=== PATIENT | female | born 1955 | race Two or more races ===

== ENCOUNTER 2016-07-26 15:17 | Inpatient (IN) | payer MEDICARE, OTHER ==
[~2016-07-26] VITALS: Ht 160 cm; Wt 70.3 kg
[~2016-07-26 15:17] MED LIST: ACET160S3 GT; ACID1TAB12 GT; ALLO100T GT; AMIO200T2 GT; ASCO500S2 GT; BLOO-697 IN; BUDE0.5A6 IH; CHOL4PAC9 GT; ESCI10TA GT; INSU100V27 SQ; INSU100V7 SQ; IPRA3AMP IH; METO5SOL2 GT; MIDO10TA GT; MULT-659 GT; NEOM1PAC2 TP; NUTR100037 GT; OXYC-128 GT; PANT40SU2 GT; PIPE2.2512 IV; POLY17PO4 GT; PYRI50TA93 GT; SUCR1ORA6 GT
[2016-07-26 16:13] VITALS: BP 121/74
[2016-07-26 16:31] LABS: BASOPHILS # (AUTO) 0.3 /CMM (0.0-0.2); BASOPHILS % (AUTO) 1.1 % (0.0-2.0); DIFF TOTAL % 100 %; EOSINOPHILS % (AUTO) 0.1 % (0.0-6.0); HEMATOCRIT 37 % (33-45); HEMOGLOBIN 11.5 g/dL (11.5-14.8); LYMPHOCYTES # (AUTO) 1.3 /CMM (0.8-4.8); LYMPHOCYTES % (AUTO) 4.6 % (20.0-44.0); MEAN CORPUSCULAR HEMOGLOBIN 26 PG (26.0-33.0); MEAN CORPUSCULAR HGB CONC 31 g/dl (31.0-36.0); MEAN CORPUSCULAR VOLUME 84 fL (82-100); MONOCYTES # (AUTO) 1.7 /CMM (0.1-1.30); MONOCYTES % (AUTO) 6.1 % (2.0-12.0); NEUTROPHILS # (AUTO) 24.5 /CMM (1.8-8.9); NEUTROPHILS % (AUTO) 88.1 % (43.0-81.0); PLATELET COUNT (AUTO) 182 /CMM (150-450); RED BLOOD CELL COUNT(AUTO) 4.44 MIL/uL (4.0-5.2); WHITE BLOOD COUNT (AUTO) 27.8 K/uL (4.3-11.0)
[2016-07-26] MEDS ORDERED: INSU100I19 SQ (16:44)
[2016-07-26] MEDS ORDERED: INSU100V11 SQ (16:44)
[2016-07-26] MEDS ORDERED: AMIN30LI4 GT (16:44)
[2016-07-26] MEDS ORDERED: HYDR-3326 GT (16:44)
[2016-07-26] MEDS ORDERED: FAMO20TA8 GT (16:44)
[2016-07-26] MEDS ORDERED: FOLI0.8T2 GT (16:44)
[2016-07-26] MEDS ORDERED: WARF1TAB47 PO (16:44)
[2016-07-26] MEDS ORDERED: SENN8.6T6 GT (16:44)
[2016-07-26 16:45] LABS: INR 1.91 (0.87-1.13); PROTHROMBIN TIME 20.1 SECS (9.5-12.7)
[2016-07-26] MEDS ORDERED: IV NS 0.9% 1,000 ML ONE (16:47)
[2016-07-26] MEDS ORDERED: IV SET PRIMARY 1 EA INFUS.SET MC ONE (16:47)
[2016-07-26 16:48] LABS: ALBUMIN 2.5 g/dL (3.4-5.0); BILIRUBIN,DIRECT 0.3 mg/dL (0.0-0.2); BILIRUBIN,TOTAL 0.7 mg/dL (0.2-1.0); CALCIUM, SERUM 10.5 mg/dL (8.5-10.1); INDIRECT BILIRUBIN 0.4 mg/dL (0.0-1.1); POTASSIUM 4.2 mmol/L (3.5-5.1); TOTAL PROTEIN, SERUM 8.9 g/dL (6.4-8.2)
[2016-07-26 16:50] LABS: TROPONIN I 0.399 ng/mL (0.00-0.056)
[2016-07-26 16:54] LABS: LACTIC ACID 1.2 mmol/L (0.4-2.0)
[2016-07-26] MEDS ORDERED: VANCOMYCIN 1 GM in IV D5W 250 ML IV ONE (17:30)
[2016-07-26] MEDS ORDERED: PIPERACILLIN /TAZOBACTAM 3.375 G in IV D5W 50 ML IV ONE (17:30)
[2016-07-26 17:41] LABS: ANISOCYTOSIS 1+; BAND % (MANUAL) 3 % (0.0-5.0); LYMPHOCYTES % (MANUAL) 5 % (16-48); PLATELET ESTIMATE ADEQUATE
[2016-07-26] MEDS ORDERED: IV SET PRIMARY PUMP SET 1 EA INFUS.SET MC ONE (18:02)
[2016-07-26 19:27] VITALS: BP 115/53
[2016-07-26 20:00] VITALS: BP 126/59
[2016-07-26] MEDS ORDERED: FEE PK DOSING 1 MIN EA MC ONE (20:48)
[2016-07-26] MEDS ORDERED: PIPERACILLIN /TAZOBACTAM 3.375 G in IV D5W 50 ML IV SCH (21:00)
[2016-07-26] MEDS ORDERED: METOCLOPRAMIDE HCL 10 MG/10 ML UDC GT PRN (21:30)
[2016-07-26] MEDS ORDERED: HOME MED MISCELLANEOUS XX SCH (21:30)
[2016-07-26] MEDS: FAMOTIDINE (20 MG) 20 MG TABLET GT SCH (22:53)
[2016-07-26] MEDS: ESCITALOPRAM OXALATE (10 MG) 10 MG TABLET GT SCH (22:53)
[2016-07-26] MEDS: BLOOD SUGAR DIAGNOSTIC 1 EACH STRIP IN SCH ×2 (23:29→23:52)
[2016-07-26] MEDS ORDERED: INSULIN DETEMIR 100 UNIT/ML CARTRIDGE SQ ONE (23:33)
[2016-07-26] MEDS ORDERED: INSULIN ASPART NOVOLOG 100 UNIT/ML CARTRIDGE SQ ONE (23:34)
[2016-07-26] MEDS ORDERED: RENAL NOVASOURCE 1,000 ML BOTTLE ONE (23:37)
[2016-07-26] MEDS: INSULIN DETEMIR 100 UNIT/ML CARTRIDGE SQ SCH (23:57)
[2016-07-26] MEDS: INSULIN ASPART NOVOLOG 100 UNIT/ML CARTRIDGE SQ PRN (23:59)
[2016-07-27] VITALS (8 sets, daily range): BP systolic 102–131; BP diastolic 52–75
[2016-07-27] MEDS ORDERED: DEXTROSE 50%-WATER 50 ML DISP.SYRIN IV PRN
[2016-07-27] MEDS ORDERED: RENAL NOVASOURCE 1,000 ML BOTTLE GT PRN
[2016-07-27] MEDS ORDERED: IV SET PRIMARY PUMP SET 1 EA INFUS.SET MC ONE ×3 (05:33→20:33)
[2016-07-27] MEDS: PIPERACILLIN /TAZOBACTAM 2.25 G in IV D5W 50 ML IV SCH ×2 (06:07→13:09)
[2016-07-27] MEDS: BLOOD SUGAR DIAGNOSTIC 1 EACH STRIP IN SCH ×4 (06:07→17:56)
[2016-07-27] MEDS: INSULIN ASPART NOVOLOG 100 UNIT/ML CARTRIDGE SQ PRN ×4 (06:10→22:53)
[2016-07-27 06:57] LABS: DIFF TOTAL % 100 %; EOSINOPHILS # (AUTO) 0.1 /CMM (0.0-0.7); EOSINOPHILS % (AUTO) 0.7 % (0.0-6.0); HEMATOCRIT 32 % (33-45); LYMPHOCYTES # (AUTO) 0.8 /CMM (0.8-4.8); LYMPHOCYTES % (AUTO) 3.9 % (20.0-44.0); MEAN CORPUSCULAR HEMOGLOBIN 26 PG (26.0-33.0); MEAN CORPUSCULAR HGB CONC 31 g/dl (31.0-36.0); MEAN CORPUSCULAR VOLUME 84 fL (82-100); MONOCYTES # (AUTO) 0.9 /CMM (0.1-1.30); MONOCYTES % (AUTO) 4.7 % (2.0-12.0); NEUTROPHILS # (AUTO) 17.9 /CMM (1.8-8.9); NEUTROPHILS % (AUTO) 90.7 % (43.0-81.0); PLATELET COUNT (AUTO) 186 /CMM (150-450); RED BLOOD CELL COUNT(AUTO) 3.84 MIL/uL (4.0-5.2); WHITE BLOOD COUNT (AUTO) 19.7 K/uL (4.3-11.0)
[2016-07-27 07:11] LABS: INR 1.81 (0.87-1.13); PROTHROMBIN TIME 19.7 SECS (9.5-12.7)
[2016-07-27 07:30] LABS: PHOSPHORUS 2.4 mg/dL (2.5-4.9)
[2016-07-27] MEDS ORDERED: VANCOMYCIN 500 MG in IV D5W 100 ML IV PRN (09:00)
[2016-07-27] MEDS: PROSOURCE / PROSTAT (PYXIS) 30 ML UDC GT SCH ×3 (13:00→17:59)
[2016-07-27] MEDS: ACIDOPHILUS/BULGARICUS 1 EACH TAB.CHEW GT SCH (13:04)
[2016-07-27] MEDS: POLYETHYLENE GLYCOL 3350 17 GM POWD.PACK GT SCH (13:05)
[2016-07-27] MEDS: ALLOPURINOL 100 MG TABLET GT SCH (13:05)
[2016-07-27] MEDS: PYRIDOXINE HCL 50 MG TABLET GT SCH (13:07)
[2016-07-27] MEDS: VIT B CMPLX 3/FA/VIT C/BIOTIN 1 TAB TABLET PO SCH (13:07)
[2016-07-27] MEDS: SENNOSIDES 8.6 MG TABLET GT SCH ×2 (13:07→17:00)
[2016-07-27] MEDS: AMIODARONE HCL 200 MG TABLET GT SCH (13:09)
[2016-07-27] MEDS: CHOLESTYRAMINE/ASPARTAME 4 G/PKT PACKET PO SCH ×2 (13:10→20:00)
[2016-07-27] MEDS ORDERED: ALBUTEROL FS 2.5 MG/0.5 ML VIAL.NEB NEB PRN (13:30)
[2016-07-27] MEDS ORDERED: IPRATROPIUM NEB FS 0.5 MG/2.5 ML AMPUL.NEB NEB PRN (13:30)
[2016-07-27] MEDS ORDERED: WARFARIN SODIUM 1 MG TABLET PO SCH (17:00)
[2016-07-27] MEDS: IPRATROPIUM NEB FS 0.5 MG/2.5 ML AMPUL.NEB NEB SCH (19:48)
[2016-07-27] MEDS: ALBUTEROL FS 2.5 MG/0.5 ML VIAL.NEB NEB SCH (19:48)
[2016-07-27] MEDS: METRONIDAZOLE 500 MG TABLET PO SCH (20:00)
[2016-07-27] MEDS: MEROPENEM 500 MG in IV NS 0.9% 50 ML IV SCH (20:42)
[2016-07-27] MEDS: FAMOTIDINE (20 MG) 20 MG TABLET GT SCH (21:00)
[2016-07-27] MEDS: ESCITALOPRAM OXALATE (10 MG) 10 MG TABLET GT SCH (21:00)
[2016-07-27] MEDS: INSULIN DETEMIR 100 UNIT/ML CARTRIDGE SQ SCH (22:52)
[2016-07-28] VITALS (8 sets, daily range): BP systolic 100–133; BP diastolic 48–56
[2016-07-28] MEDS: BLOOD SUGAR DIAGNOSTIC 1 EACH STRIP IN SCH ×4 (00:40→17:34)
[2016-07-28] MEDS: RENAL NOVASOURCE 1,000 ML BOTTLE GT PRN (03:43)
[2016-07-28] MEDS: METRONIDAZOLE 500 MG TABLET PO SCH ×2 (05:50→12:30)
[2016-07-28] MEDS: INSULIN ASPART NOVOLOG 100 UNIT/ML CARTRIDGE SQ PRN ×3 (05:59→17:44)
[2016-07-28 07:16] LABS: DIFF TOTAL % 100 %; EOSINOPHILS # (AUTO) 0.5 /CMM (0.0-0.7); EOSINOPHILS % (AUTO) 3.3 % (0.0-6.0); HEMATOCRIT 32 % (33-45); LYMPHOCYTES # (AUTO) 0.7 /CMM (0.8-4.8); LYMPHOCYTES % (AUTO) 5.3 % (20.0-44.0); MEAN CORPUSCULAR HEMOGLOBIN 26 PG (26.0-33.0); MEAN CORPUSCULAR HGB CONC 31 g/dl (31.0-36.0); MEAN CORPUSCULAR VOLUME 84 fL (82-100); MONOCYTES # (AUTO) 0.8 /CMM (0.1-1.30); MONOCYTES % (AUTO) 5.9 % (2.0-12.0); NEUTROPHILS # (AUTO) 11.7 /CMM (1.8-8.9); NEUTROPHILS % (AUTO) 85.5 % (43.0-81.0); PLATELET COUNT (AUTO) 189 /CMM (150-450); RED BLOOD CELL COUNT(AUTO) 3.84 MIL/uL (4.0-5.2); WHITE BLOOD COUNT (AUTO) 13.7 K/uL (4.3-11.0)
[2016-07-28] MEDS: IPRATROPIUM NEB FS 0.5 MG/2.5 ML AMPUL.NEB NEB SCH ×2 (07:30→19:17)
[2016-07-28] MEDS: ALBUTEROL FS 2.5 MG/0.5 ML VIAL.NEB NEB SCH ×2 (07:36→19:17)
[2016-07-28 07:52] LABS: CALCIUM, SERUM 9.3 mg/dL (8.5-10.1); CREATININE 3.1 mg/dL (0.6-1.3); PHOSPHORUS 1.3 mg/dL (2.5-4.9); POTASSIUM 3.2 mmol/L (3.5-5.1)
[2016-07-28] MEDS: POLYETHYLENE GLYCOL 3350 17 GM POWD.PACK GT SCH (09:31)
[2016-07-28] MEDS: ACIDOPHILUS/BULGARICUS 1 EACH TAB.CHEW GT SCH (09:31)
[2016-07-28] MEDS: CHOLESTYRAMINE/ASPARTAME 4 G/PKT PACKET PO SCH (09:31)
[2016-07-28] MEDS: PROSOURCE / PROSTAT (PYXIS) 30 ML UDC GT SCH ×3 (09:31→17:42)
[2016-07-28] MEDS: PYRIDOXINE HCL 50 MG TABLET GT SCH (09:31)
[2016-07-28] MEDS: ALLOPURINOL 100 MG TABLET GT SCH (09:31)
[2016-07-28] MEDS: AMIODARONE HCL 200 MG TABLET GT SCH (09:32)
[2016-07-28] MEDS: SENNOSIDES 8.6 MG TABLET GT SCH ×2 (09:32→17:42)
[2016-07-28] MEDS: MEROPENEM 500 MG in IV NS 0.9% 50 ML IV SCH ×2 (09:32→21:33)
[2016-07-28] MEDS: VIT B CMPLX 3/FA/VIT C/BIOTIN 1 TAB TABLET PO SCH (09:41)
[2016-07-28] MEDS ORDERED: IV NS 0.9% 250 ML IV ONE (09:43)
[2016-07-28] MEDS ORDERED: PLATELET IV SET 1 EA INFUS.SET MC ONE (09:43)
[2016-07-28] MEDS: NEOMY SULF/BACITRAC ZN/POLY 15 GM TUBE TP SCH (10:30)
[2016-07-28] MEDS ORDERED: Z GUARD REMEDY 2 OZ OINT TP PRN (11:00)
[2016-07-28] MEDS: Potassium Phosphate meq 11 MEQ in IV D5W 100 ML IV SCH ×2 (11:02→13:37)
[2016-07-28] MEDS: HYDROGEL DRESSING 90 GM TUBE TP SCH (12:29)
[2016-07-28] MEDS: Z GUARD REMEDY 2 OZ OINT TP SCH ×2 (12:29→17:00)
[2016-07-28] MEDS: HYDROCODONE/APAP 5/325MG 1 EACH TABLET GT PRN (17:42)
[2016-07-28] MEDS ORDERED: CHOLESTYRAMINE/ASPARTAME 4 G/PKT PACKET ONE (21:17)
[2016-07-28] MEDS ORDERED: METRONIDAZOLE 500 MG TABLET ONE (21:17)
[2016-07-28] MEDS: FAMOTIDINE (20 MG) 20 MG TABLET GT SCH (21:33)
[2016-07-28] MEDS: ESCITALOPRAM OXALATE (10 MG) 10 MG TABLET GT SCH (21:33)
[2016-07-28] MEDS: METRONIDAZOLE 500 MG TABLET GT SCH (21:33)
[2016-07-28] MEDS ORDERED: SECONDARY IV SET 1 EA INFUS.SET MC ONE (21:52)
[2016-07-28] MEDS: INSULIN DETEMIR 100 UNIT/ML CARTRIDGE SQ SCH (22:22)
[2016-07-28] MEDS: CHOLESTYRAMINE/ASPARTAME 4 G/PKT PACKET GT SCH (23:03)
[2016-07-29] VITALS (7 sets, daily range): BP systolic 96–112; BP diastolic 49–60
[2016-07-29] MEDS: BLOOD SUGAR DIAGNOSTIC 1 EACH STRIP IN SCH ×4 (00:48→17:43)
[2016-07-29] MEDS: INSULIN ASPART NOVOLOG 100 UNIT/ML CARTRIDGE SQ PRN ×4 (00:49→22:31)
[2016-07-29] MEDS: RENAL NOVASOURCE 1,000 ML BOTTLE GT PRN (04:13)
[2016-07-29] MEDS ORDERED: METRONIDAZOLE 500 MG TABLET ONE (05:30)
[2016-07-29] MEDS: METRONIDAZOLE 500 MG TABLET GT SCH ×3 (05:33→22:12)
[2016-07-29 07:12] LABS: CALCIUM, SERUM 9.6 mg/dL (8.5-10.1); POTASSIUM 3.7 mmol/L (3.5-5.1)
[2016-07-29] MEDS: IPRATROPIUM NEB FS 0.5 MG/2.5 ML AMPUL.NEB NEB SCH ×2 (07:54→19:49)
[2016-07-29] MEDS: ALBUTEROL FS 2.5 MG/0.5 ML VIAL.NEB NEB SCH ×2 (07:54→19:49)
[2016-07-29] MEDS: NEOMY SULF/BACITRAC ZN/POLY 15 GM TUBE TP SCH (09:00)
[2016-07-29] MEDS: HYDROGEL DRESSING 90 GM TUBE TP SCH (09:00)
[2016-07-29] MEDS: Z GUARD REMEDY 2 OZ OINT TP SCH ×2 (09:00→17:43)
[2016-07-29] MEDS: PROSOURCE / PROSTAT (PYXIS) 30 ML UDC GT SCH ×3 (13:15→17:41)
[2016-07-29] MEDS: VIT B CMPLX 3/FA/VIT C/BIOTIN 1 TAB TABLET PO SCH (13:15)
[2016-07-29] MEDS: CHOLESTYRAMINE/ASPARTAME 4 G/PKT PACKET GT SCH ×2 (13:15→22:13)
[2016-07-29] MEDS: POLYETHYLENE GLYCOL 3350 17 GM POWD.PACK GT SCH (13:15)
[2016-07-29] MEDS: PYRIDOXINE HCL 50 MG TABLET GT SCH (13:16)
[2016-07-29] MEDS: ALLOPURINOL 100 MG TABLET GT SCH (13:16)
[2016-07-29] MEDS: SENNOSIDES 8.6 MG TABLET GT SCH ×2 (13:17→17:41)
[2016-07-29] MEDS: AMIODARONE HCL 200 MG TABLET GT SCH (13:18)
[2016-07-29] MEDS: ACIDOPHILUS/BULGARICUS 1 EACH TAB.CHEW GT SCH (13:19)
[2016-07-29] MEDS: MEROPENEM 500 MG in IV NS 0.9% 50 ML IV SCH (13:20)
[2016-07-29] MEDS ORDERED: FEE PK DOSING 1 MIN EA MC ONE (15:51)
[2016-07-29] MEDS ORDERED: GENTAMICIN 100 MG in IV D5W 100 ML IV ONE (17:00)
[2016-07-29] MEDS: ESCITALOPRAM OXALATE (10 MG) 10 MG TABLET GT SCH (22:12)
[2016-07-29] MEDS: FAMOTIDINE (20 MG) 20 MG TABLET GT SCH (22:13)
[2016-07-29] MEDS: INSULIN DETEMIR 100 UNIT/ML CARTRIDGE SQ SCH (22:21)
[2016-07-30] VITALS (8 sets, daily range): BP systolic 96–118; BP diastolic 49–69
[2016-07-30] MEDS: BLOOD SUGAR DIAGNOSTIC 1 EACH STRIP IN SCH ×4 (01:39→17:11)
[2016-07-30] MEDS: METRONIDAZOLE 500 MG TABLET GT SCH ×3 (06:12→22:30)
[2016-07-30] MEDS: INSULIN ASPART NOVOLOG 100 UNIT/ML CARTRIDGE SQ PRN ×3 (06:15→22:33)
[2016-07-30] MEDS: RENAL NOVASOURCE 1,000 ML BOTTLE GT PRN (06:22)
[2016-07-30] MEDS: ALBUTEROL FS 2.5 MG/0.5 ML VIAL.NEB NEB SCH ×2 (07:15→19:46)
[2016-07-30] MEDS: IPRATROPIUM NEB FS 0.5 MG/2.5 ML AMPUL.NEB NEB SCH ×2 (07:16→19:47)
[2016-07-30 07:20] LABS: BASOPHILS % (AUTO) 0.2 % (0.0-2.0); DIFF TOTAL % 100 %; EOSINOPHILS # (AUTO) 0.8 /CMM (0.0-0.7); EOSINOPHILS % (AUTO) 5.6 % (0.0-6.0); HEMATOCRIT 32 % (33-45); LYMPHOCYTES # (AUTO) 0.7 /CMM (0.8-4.8); LYMPHOCYTES % (AUTO) 5.2 % (20.0-44.0); MEAN CORPUSCULAR HEMOGLOBIN 27 PG (26.0-33.0); MEAN CORPUSCULAR HGB CONC 32 g/dl (31.0-36.0); MEAN CORPUSCULAR VOLUME 84 fL (82-100); MONOCYTES # (AUTO) 0.8 /CMM (0.1-1.30); MONOCYTES % (AUTO) 5.6 % (2.0-12.0); NEUTROPHILS % (AUTO) 83.4 % (43.0-81.0); PLATELET COUNT (AUTO) 179 /CMM (150-450); RED BLOOD CELL COUNT(AUTO) 3.77 MIL/uL (4.0-5.2); WHITE BLOOD COUNT (AUTO) 14.4 K/uL (4.3-11.0)
[2016-07-30 07:41] LABS: CALCIUM, SERUM 9.3 mg/dL (8.5-10.1); CREATININE 3.4 mg/dL (0.6-1.3); PHOSPHORUS 2.5 mg/dL (2.5-4.9); POTASSIUM 3.8 mmol/L (3.5-5.1)
[2016-07-30 07:50] LABS: INR 1.43 (0.87-1.13); PROTHROMBIN TIME 15.5 SECS (9.5-12.7)
[2016-07-30] MEDS: Z GUARD REMEDY 2 OZ OINT TP SCH ×2 (09:00→17:10)
[2016-07-30] MEDS: ACIDOPHILUS/BULGARICUS 1 EACH TAB.CHEW GT SCH (09:00)
[2016-07-30] MEDS: HYDROGEL DRESSING 90 GM TUBE TP SCH (09:00)
[2016-07-30] MEDS: NEOMY SULF/BACITRAC ZN/POLY 15 GM TUBE TP SCH (09:00)
[2016-07-30] MEDS: CHOLESTYRAMINE/ASPARTAME 4 G/PKT PACKET GT SCH ×2 (09:00→22:30)
[2016-07-30] MEDS: PYRIDOXINE HCL 50 MG TABLET GT SCH (09:00)
[2016-07-30] MEDS: PROSOURCE / PROSTAT (PYXIS) 30 ML UDC GT SCH ×3 (09:00→17:00)
[2016-07-30] MEDS: VIT B CMPLX 3/FA/VIT C/BIOTIN 1 TAB TABLET PO SCH (09:00)
[2016-07-30] MEDS: POLYETHYLENE GLYCOL 3350 17 GM POWD.PACK GT SCH (09:00)
[2016-07-30] MEDS: AMIODARONE HCL 200 MG TABLET GT SCH (09:00)
[2016-07-30] MEDS: ALLOPURINOL 100 MG TABLET GT SCH (09:00)
[2016-07-30] MEDS: SENNOSIDES 8.6 MG TABLET GT SCH ×2 (09:00→17:00)
[2016-07-30] MEDS ORDERED: IV D5/ 0.9% NACL 1,000 ML IV PRN (11:30)
[2016-07-30] MEDS ORDERED: DIATR MEGLU/DIATRIZOATE SODIUM 30 ML BOTTLE (GASTROGRAPHIN) ONE (12:42)
[2016-07-30] MEDS: INSULIN DETEMIR 100 UNIT/ML CARTRIDGE SQ SCH (22:00)
[2016-07-30] MEDS: ESCITALOPRAM OXALATE (10 MG) 10 MG TABLET GT SCH (22:30)
[2016-07-30] MEDS: FAMOTIDINE (20 MG) 20 MG TABLET GT SCH (22:30)
[2016-07-31] VITALS (52 sets, daily range): BP systolic 49–119; BP diastolic 25–69
[2016-07-31] MEDS: BLOOD SUGAR DIAGNOSTIC 1 EACH STRIP IN SCH ×3 (01:59→17:44)
[2016-07-31] MEDS: INSULIN ASPART NOVOLOG 100 UNIT/ML CARTRIDGE SQ PRN ×3 (02:01→17:46)
[2016-07-31] MEDS: METRONIDAZOLE 500 MG TABLET GT SCH ×2 (05:00→13:00)
[2016-07-31 06:22] LABS: BASOPHILS % (AUTO) 0.1 % (0.0-2.0); EOSINOPHILS # (AUTO) 0.6 /CMM (0.0-0.7); EOSINOPHILS % (AUTO) 3.8 % (0.0-6.0); HEMATOCRIT 28 % (33-45); HEMOGLOBIN 8.8 g/dL (11.5-14.8); LYMPHOCYTES # (AUTO) 1.1 /CMM (0.8-4.8); LYMPHOCYTES % (AUTO) 6.9 % (20.0-44.0); MEAN CORPUSCULAR HEMOGLOBIN 26 PG (26.0-33.0); MEAN CORPUSCULAR HGB CONC 32 g/dl (31.0-36.0); MEAN CORPUSCULAR VOLUME 83 fL (82-100); MONOCYTES # (AUTO) 1.1 /CMM (0.1-1.30); MONOCYTES % (AUTO) 6.8 % (2.0-12.0); NEUTROPHILS # (AUTO) 12.9 /CMM (1.8-8.9); NEUTROPHILS % (AUTO) 82.4 % (43.0-81.0); PLATELET COUNT (AUTO) 199 /CMM (150-450); RED BLOOD CELL COUNT(AUTO) 3.36 MIL/uL (4.0-5.2); WHITE BLOOD COUNT (AUTO) 15.6 K/uL (4.3-11.0)
[2016-07-31 06:45] LABS: CALCIUM, SERUM 9.3 mg/dL (8.5-10.1); CREATININE 4.2 mg/dL (0.6-1.3); PHOSPHORUS 4.2 mg/dL (2.5-4.9)
[2016-07-31 06:50] LABS: POTASSIUM 6.2 mmol/L (3.5-5.1)
[2016-07-31 07:07] LABS: INR 1.41 (0.87-1.13); PROTHROMBIN TIME 15.3 SECS (9.5-12.7)
[2016-07-31] MEDS: ALBUTEROL FS 2.5 MG/0.5 ML VIAL.NEB NEB SCH ×2 (07:13→20:24)
[2016-07-31] MEDS: IPRATROPIUM NEB FS 0.5 MG/2.5 ML AMPUL.NEB NEB SCH ×2 (07:14→20:24)
[2016-07-31 07:50] LABS: DIFF TOTAL % 100 %
[2016-07-31] MEDS ORDERED: PEG 3350/NA SULF,BICARB,CL/KCL 4,000 ML BOTTLE PO ONE ×3 (08:30→18:00)
[2016-07-31] MEDS: PYRIDOXINE HCL 50 MG TABLET GT SCH (09:00)
[2016-07-31] MEDS: ALLOPURINOL 100 MG TABLET GT SCH (09:00)
[2016-07-31] MEDS: AMIODARONE HCL 200 MG TABLET GT SCH (09:00)
[2016-07-31] MEDS: Z GUARD REMEDY 2 OZ OINT TP SCH ×2 (09:00→19:56)
[2016-07-31] MEDS: SENNOSIDES 8.6 MG TABLET GT SCH (09:00)
[2016-07-31] MEDS: VIT B CMPLX 3/FA/VIT C/BIOTIN 1 TAB TABLET PO SCH (09:00)
[2016-07-31] MEDS: CHOLESTYRAMINE/ASPARTAME 4 G/PKT PACKET GT SCH ×2 (09:00→20:28)
[2016-07-31] MEDS: NEOMY SULF/BACITRAC ZN/POLY 15 GM TUBE TP SCH (09:00)
[2016-07-31] MEDS: HYDROGEL DRESSING 90 GM TUBE TP SCH (09:00)
[2016-07-31] MEDS: POLYETHYLENE GLYCOL 3350 17 GM POWD.PACK GT SCH (09:00)
[2016-07-31] MEDS: PROSOURCE / PROSTAT (PYXIS) 30 ML UDC GT SCH ×2 (09:00→17:00)
[2016-07-31] MEDS: ACIDOPHILUS/BULGARICUS 1 EACH TAB.CHEW GT SCH (09:00)
[2016-07-31] MEDS ORDERED: ROCURONIUM BROMIDE 50 MG/5 ML ONE (14:26)
[2016-07-31] MEDS ORDERED: DESMOPRESSIN 20 MCG in IV NS 0.9% 50 ML IV STA (15:30)
[2016-07-31 16:58] LABS: HEMOGLOBIN 7.7 g/dL (11.5-14.8)
[2016-07-31] MEDS ORDERED: IV SET PRIMARY PUMP SET 1 EA INFUS.SET MC ONE ×4 (17:07→21:54)
[2016-07-31] MEDS ORDERED: IV NS 0.9% 250 ML IV ONE ×2 (18:48→20:28)
[2016-07-31] MEDS ORDERED: BLOOD IV SET 1 EA INFUS.SET MC ONE (18:48)
[2016-07-31] MEDS ORDERED: SECONDARY IV SET 1 EA INFUS.SET MC ONE ×2 (20:28→20:49)
[2016-07-31] MEDS: METRONIDAZOLE 500MG/ NS 100ML 500 MG in PREMIX 1 EA IV SCH (20:28)
[2016-07-31] MEDS ORDERED: NOREPINEPHRINE 16 MG in IV D5W 500 ML IV PRN (20:30)
[2016-07-31] MEDS: ALBUMIN 25% 25 GM in PREMIX 1 EA IV SCH ×2 (20:47→22:24)
[2016-07-31] MEDS ORDERED: LINEZOLID 600 MG TABLET PO SCH (21:00)
[2016-07-31] MEDS: INSULIN DETEMIR 100 UNIT/ML CARTRIDGE SQ SCH (22:00)
[2016-07-31] MEDS: ESCITALOPRAM OXALATE (10 MG) 10 MG TABLET GT SCH (22:02)
[2016-07-31] MEDS: FAMOTIDINE (20 MG) 20 MG TABLET GT SCH (22:02)
[2016-07-31 22:22] LABS: BASOPHILS % (AUTO) 0.1 % (0.0-2.0); DIFF TOTAL % 100 %; EOSINOPHILS # (AUTO) 0.1 /CMM (0.0-0.7); EOSINOPHILS % (AUTO) 0.7 % (0.0-6.0); HEMATOCRIT 29 % (33-45); HEMOGLOBIN 9.3 g/dL (11.5-14.8); LYMPHOCYTES # (AUTO) 1.2 /CMM (0.8-4.8); LYMPHOCYTES % (AUTO) 5.8 % (20.0-44.0); MEAN CORPUSCULAR HEMOGLOBIN 27 PG (26.0-33.0); MEAN CORPUSCULAR HGB CONC 32 g/dl (31.0-36.0); MEAN CORPUSCULAR VOLUME 84 fL (82-100); MONOCYTES # (AUTO) 1.6 /CMM (0.1-1.30); MONOCYTES % (AUTO) 7.6 % (2.0-12.0); NEUTROPHILS % (AUTO) 85.8 % (43.0-81.0); PLATELET COUNT (AUTO) 211 /CMM (150-450); RED BLOOD CELL COUNT(AUTO) 3.43 MIL/uL (4.0-5.2)
[2016-08-01] VITALS (83 sets, daily range): BP systolic 77–132; BP diastolic 41–105
[2016-08-01] MEDS: BLOOD SUGAR DIAGNOSTIC 1 EACH STRIP IN SCH ×5 (00:38→23:22)
[2016-08-01] MEDS: METRONIDAZOLE 500MG/ NS 100ML 500 MG in PREMIX 1 EA IV SCH ×3 (04:48→21:15)
[2016-08-01 04:50] LABS: CALCIUM, SERUM 7.8 mg/dL (8.5-10.1); CREATININE 3.1 mg/dL (0.6-1.3); POTASSIUM 3.6 mmol/L (3.5-5.1)
[2016-08-01 05:04] LABS: BASOPHILS % (AUTO) 0.2 % (0.0-2.0); DIFF TOTAL % 100 %; EOSINOPHILS # (AUTO) 0.1 /CMM (0.0-0.7); EOSINOPHILS % (AUTO) 1.1 % (0.0-6.0); HEMATOCRIT 22 % (33-45); HEMOGLOBIN 7.1 g/dL (11.5-14.8); LYMPHOCYTES % (AUTO) 7.7 % (20.0-44.0); MEAN CORPUSCULAR HEMOGLOBIN 27 PG (26.0-33.0); MEAN CORPUSCULAR HGB CONC 32 g/dl (31.0-36.0); MEAN CORPUSCULAR VOLUME 85 fL (82-100); MONOCYTES # (AUTO) 0.8 /CMM (0.1-1.30); MONOCYTES % (AUTO) 6.3 % (2.0-12.0); NEUTROPHILS # (AUTO) 10.6 /CMM (1.8-8.9); NEUTROPHILS % (AUTO) 84.7 % (43.0-81.0); PLATELET COUNT (AUTO) 150 /CMM (150-450); RED BLOOD CELL COUNT(AUTO) 2.64 MIL/uL (4.0-5.2); WHITE BLOOD COUNT (AUTO) 12.6 K/uL (4.3-11.0)
[2016-08-01 05:14] LABS: INR 1.79 (0.87-1.13); PROTHROMBIN TIME 19.4 SECS (9.5-12.7)
[2016-08-01] MEDS ORDERED: IV NS 0.9% 250 ML IV ONE ×2 (05:55→11:49)
[2016-08-01] MEDS ORDERED: BLOOD IV SET 1 EA INFUS.SET MC ONE (05:55)
[2016-08-01] MEDS ORDERED: PEG 3350/NA SULF,BICARB,CL/KCL 4,000 ML BOTTLE PO ONE (07:30)
[2016-08-01] MEDS: IPRATROPIUM NEB FS 0.5 MG/2.5 ML AMPUL.NEB NEB SCH ×2 (08:27→19:36)
[2016-08-01] MEDS: ALBUTEROL FS 2.5 MG/0.5 ML VIAL.NEB NEB SCH ×2 (08:27→19:37)
[2016-08-01] MEDS: POLYETHYLENE GLYCOL 3350 17 GM POWD.PACK GT SCH ×2 (09:00→17:49)
[2016-08-01] MEDS: PYRIDOXINE HCL 50 MG TABLET GT SCH (09:00)
[2016-08-01] MEDS: ACIDOPHILUS/BULGARICUS 1 EACH TAB.CHEW GT SCH (09:00)
[2016-08-01] MEDS: VIT B CMPLX 3/FA/VIT C/BIOTIN 1 TAB TABLET PO SCH (09:00)
[2016-08-01] MEDS: PROSOURCE / PROSTAT (PYXIS) 30 ML UDC GT SCH ×3 (09:00→17:49)
[2016-08-01] MEDS: CHOLESTYRAMINE/ASPARTAME 4 G/PKT PACKET GT SCH ×2 (09:00→21:15)
[2016-08-01] MEDS: ALLOPURINOL 100 MG TABLET GT SCH (09:23)
[2016-08-01] MEDS: NEOMY SULF/BACITRAC ZN/POLY 15 GM TUBE TP SCH (09:24)
[2016-08-01] MEDS: HYDROGEL DRESSING 90 GM TUBE TP SCH (09:24)
[2016-08-01] MEDS: AMIODARONE HCL 200 MG TABLET GT SCH (09:24)
[2016-08-01] MEDS: Z GUARD REMEDY 2 OZ OINT TP SCH ×2 (09:24→17:50)
[2016-08-01] MEDS ORDERED: IV SET PRIMARY PUMP SET 1 EA INFUS.SET MC ONE (11:48)
[2016-08-01] MEDS ORDERED: SECONDARY IV SET 1 EA INFUS.SET MC ONE (11:48)
[2016-08-01] MEDS: GENTAMICIN 80 MG in IV D5W 50 ML IV PRN (13:20)
[2016-08-01] MEDS ORDERED: RENAL NOVASOURCE 1,000 ML BOTTLE GT PRN ×2 (13:30→13:50)
[2016-08-01] MEDS: RENAL NOVASOURCE 1,000 ML BOTTLE GT PRN (15:00)
[2016-08-01 17:06] LABS: HEMOGLOBIN 7.5 g/dL (11.5-14.8)
[2016-08-01] MEDS: INSULIN DETEMIR 100 UNIT/ML CARTRIDGE SQ SCH (21:14)
[2016-08-01] MEDS: FAMOTIDINE (20 MG) 20 MG TABLET GT SCH (21:15)
[2016-08-01] MEDS: ESCITALOPRAM OXALATE (10 MG) 10 MG TABLET GT SCH (21:15)
[2016-08-01] MEDS: INSULIN ASPART NOVOLOG 100 UNIT/ML CARTRIDGE SQ PRN (23:23)
[2016-08-02] VITALS (70 sets, daily range): BP systolic 86–132; BP diastolic 38–63
[2016-08-02 04:43] LABS: BASOPHILS % (AUTO) 0.2 % (0.0-2.0); DIFF TOTAL % 100 %; EOSINOPHILS # (AUTO) 0.3 /CMM (0.0-0.7); EOSINOPHILS % (AUTO) 3.8 % (0.0-6.0); HEMATOCRIT 25 % (33-45); HEMOGLOBIN 8.2 g/dL (11.5-14.8); LYMPHOCYTES # (AUTO) 1.1 /CMM (0.8-4.8); LYMPHOCYTES % (AUTO) 11.5 % (20.0-44.0); MEAN CORPUSCULAR HEMOGLOBIN 28 PG (26.0-33.0); MEAN CORPUSCULAR HGB CONC 33 g/dl (31.0-36.0); MEAN CORPUSCULAR VOLUME 85 fL (82-100); MONOCYTES # (AUTO) 0.7 /CMM (0.1-1.30); MONOCYTES % (AUTO) 7.1 % (2.0-12.0); NEUTROPHILS # (AUTO) 7.1 /CMM (1.8-8.9); NEUTROPHILS % (AUTO) 77.4 % (43.0-81.0); PLATELET COUNT (AUTO) 167 /CMM (150-450); RED BLOOD CELL COUNT(AUTO) 2.94 MIL/uL (4.0-5.2); WHITE BLOOD COUNT (AUTO) 9.2 K/uL (4.3-11.0)
[2016-08-02] MEDS: METRONIDAZOLE 500MG/ NS 100ML 500 MG in PREMIX 1 EA IV SCH ×3 (05:04→21:02)
[2016-08-02] MEDS: BLOOD SUGAR DIAGNOSTIC 1 EACH STRIP IN SCH ×5 (05:07→23:05)
[2016-08-02] MEDS: INSULIN ASPART NOVOLOG 100 UNIT/ML CARTRIDGE SQ PRN ×3 (05:09→23:09)
[2016-08-02 05:31] LABS: ALBUMIN 2.6 g/dL (3.4-5.0); BILIRUBIN,TOTAL 0.5 mg/dL (0.2-1.0); CALCIUM, SERUM 8.1 mg/dL (8.5-10.1); CREATININE 3.9 mg/dL (0.6-1.3); PHOSPHORUS 4.7 mg/dL (2.5-4.9); POTASSIUM 3.3 mmol/L (3.5-5.1); TOTAL PROTEIN, SERUM 6.2 g/dL (6.4-8.2)
[2016-08-02] MEDS: IPRATROPIUM NEB FS 0.5 MG/2.5 ML AMPUL.NEB NEB SCH ×2 (07:37→19:49)
[2016-08-02] MEDS: ALBUTEROL FS 2.5 MG/0.5 ML VIAL.NEB NEB SCH ×2 (07:37→19:48)
[2016-08-02] MEDS: POLYETHYLENE GLYCOL 3350 17 GM POWD.PACK GT SCH ×2 (09:00→17:00)
[2016-08-02] MEDS: ACIDOPHILUS/BULGARICUS 1 EACH TAB.CHEW GT SCH (09:21)
[2016-08-02] MEDS: PROSOURCE / PROSTAT (PYXIS) 30 ML UDC GT SCH ×3 (09:21→17:27)
[2016-08-02] MEDS: AMIODARONE HCL 200 MG TABLET GT SCH (09:21)
[2016-08-02] MEDS: PYRIDOXINE HCL 50 MG TABLET GT SCH (09:21)
[2016-08-02] MEDS: VIT B CMPLX 3/FA/VIT C/BIOTIN 1 TAB TABLET PO SCH (09:21)
[2016-08-02] MEDS: ALLOPURINOL 100 MG TABLET GT SCH (09:22)
[2016-08-02] MEDS: HYDROGEL DRESSING 90 GM TUBE TP SCH (09:22)
[2016-08-02] MEDS: Z GUARD REMEDY 2 OZ OINT TP SCH ×2 (09:22→17:28)
[2016-08-02] MEDS: CHOLESTYRAMINE/ASPARTAME 4 G/PKT PACKET GT SCH ×2 (09:22→20:20)
[2016-08-02] MEDS: NEOMY SULF/BACITRAC ZN/POLY 15 GM TUBE TP SCH (09:24)
[2016-08-02] MEDS: GENTAMICIN 80 MG in IV D5W 50 ML IV PRN (13:46)
[2016-08-02] MEDS: RENAL NOVASOURCE 1,000 ML BOTTLE GT PRN (13:59)
[2016-08-02 17:51] LABS: BASOPHILS % (AUTO) 0.3 % (0.0-2.0); EOSINOPHILS # (AUTO) 0.2 /CMM (0.0-0.7); EOSINOPHILS % (AUTO) 3.4 % (0.0-6.0); HEMATOCRIT 23 % (33-45); HEMOGLOBIN 7.5 g/dL (11.5-14.8); LYMPHOCYTES # (AUTO) 0.9 /CMM (0.8-4.8); MEAN CORPUSCULAR HEMOGLOBIN 28 PG (26.0-33.0); MEAN CORPUSCULAR HGB CONC 32 g/dl (31.0-36.0); MEAN CORPUSCULAR VOLUME 85 fL (82-100); MONOCYTES # (AUTO) 0.5 /CMM (0.1-1.30); MONOCYTES % (AUTO) 7.3 % (2.0-12.0); NEUTROPHILS # (AUTO) 5.6 /CMM (1.8-8.9); PLATELET COUNT (AUTO) 149 /CMM (150-450); RED BLOOD CELL COUNT(AUTO) 2.73 MIL/uL (4.0-5.2); WHITE BLOOD COUNT (AUTO) 7.3 K/uL (4.3-11.0)
[2016-08-02 19:25] LABS: DIFF TOTAL % 100 %
[2016-08-02] MEDS: ESCITALOPRAM OXALATE (10 MG) 10 MG TABLET GT SCH (21:02)
[2016-08-02] MEDS: FAMOTIDINE (20 MG) 20 MG TABLET GT SCH (21:03)
[2016-08-02] MEDS: HYDROCODONE/APAP 5/325MG 1 EACH TABLET GT PRN (21:03)
[2016-08-02] MEDS: INSULIN DETEMIR 100 UNIT/ML CARTRIDGE SQ SCH (23:08)
[2016-08-03] VITALS (39 sets, daily range): BP systolic 100–147; BP diastolic 43–76
[2016-08-03 04:54] LABS: BASOPHILS % (AUTO) 0.2 % (0.0-2.0); DIFF TOTAL % 100 %; EOSINOPHILS # (AUTO) 0.3 /CMM (0.0-0.7); EOSINOPHILS % (AUTO) 3.6 % (0.0-6.0); HEMATOCRIT 24 % (33-45); HEMOGLOBIN 7.9 g/dL (11.5-14.8); MEAN CORPUSCULAR HEMOGLOBIN 28 PG (26.0-33.0); MEAN CORPUSCULAR HGB CONC 33 g/dl (31.0-36.0); MEAN CORPUSCULAR VOLUME 85 fL (82-100); MONOCYTES # (AUTO) 0.7 /CMM (0.1-1.30); MONOCYTES % (AUTO) 8.8 % (2.0-12.0); NEUTROPHILS % (AUTO) 75.4 % (43.0-81.0); PLATELET COUNT (AUTO) 163 /CMM (150-450); RED BLOOD CELL COUNT(AUTO) 2.83 MIL/uL (4.0-5.2)
[2016-08-03 05:01] LABS: CALCIUM, SERUM 8.2 mg/dL (8.5-10.1); CREATININE 3.3 mg/dL (0.6-1.3); POTASSIUM 3.1 mmol/L (3.5-5.1)
[2016-08-03] MEDS: METRONIDAZOLE 500MG/ NS 100ML 500 MG in PREMIX 1 EA IV SCH ×2 (05:13→12:36)
[2016-08-03] MEDS: BLOOD SUGAR DIAGNOSTIC 1 EACH STRIP IN SCH ×4 (05:13→23:44)
[2016-08-03] MEDS: INSULIN ASPART NOVOLOG 100 UNIT/ML CARTRIDGE SQ PRN ×4 (05:17→23:44)
[2016-08-03] MEDS: ALBUTEROL FS 2.5 MG/0.5 ML VIAL.NEB NEB SCH ×2 (08:02→19:43)
[2016-08-03] MEDS: IPRATROPIUM NEB FS 0.5 MG/2.5 ML AMPUL.NEB NEB SCH ×2 (08:02→19:43)
[2016-08-03] MEDS: AMIODARONE HCL 200 MG TABLET GT SCH (08:12)
[2016-08-03] MEDS: ACIDOPHILUS/BULGARICUS 1 EACH TAB.CHEW GT SCH (08:12)
[2016-08-03] MEDS: ALLOPURINOL 100 MG TABLET GT SCH (08:12)
[2016-08-03] MEDS: CHOLESTYRAMINE/ASPARTAME 4 G/PKT PACKET GT SCH ×2 (08:12→21:23)
[2016-08-03] MEDS: POLYETHYLENE GLYCOL 3350 17 GM POWD.PACK GT SCH ×2 (08:12→17:00)
[2016-08-03] MEDS: PYRIDOXINE HCL 50 MG TABLET GT SCH (08:12)
[2016-08-03] MEDS: VIT B CMPLX 3/FA/VIT C/BIOTIN 1 TAB TABLET PO SCH (08:12)
[2016-08-03] MEDS: PROSOURCE / PROSTAT (PYXIS) 30 ML UDC GT SCH ×3 (08:12→17:09)
[2016-08-03] MEDS: NEOMY SULF/BACITRAC ZN/POLY 15 GM TUBE TP SCH (08:13)
[2016-08-03] MEDS: HYDROGEL DRESSING 90 GM TUBE TP SCH (08:13)
[2016-08-03] MEDS: Z GUARD REMEDY 2 OZ OINT TP SCH ×2 (08:13→17:09)
[2016-08-03] MEDS ORDERED: POTASSIUM CHLORIDE 20 MEQ TAB.PRT.SR PO ONE (09:30)
[2016-08-03] MEDS ORDERED: POTASSIUM CHLORIDE 20 MEQ POWDER PACKET GT ONE (09:30)
[2016-08-03 09:34] LABS: IRON, SERUM 61 ug/dl (50-175); PERCENT SATURATION 51 % (14-33); TOTAL IRON BINDING CAPACITY 120 ug/dl (250-450)
[2016-08-03 13:55] LABS: ABG BASE EXCESS 0.8 mmol/L; ABG HCO3 26.9 mmol/L; ABG PCO2 50.7 mmHg (35.0-45.0); ABG PH 7.342 (7.350-7.450); ABG PO2 97.3 mmHg (75.0-100.0); ABG TOTAL HEMOGLOBIN 8.8 G/dL (12.0-16.0); ALLEN TEST Pass; O2Hb 95.3 % (94.0-97.0)
[2016-08-03] MEDS: RENAL NOVASOURCE 1,000 ML BOTTLE GT PRN (18:49)
[2016-08-03] MEDS: HYDROCODONE/APAP 5/325MG 1 EACH TABLET GT PRN (21:23)
[2016-08-03] MEDS: ESCITALOPRAM OXALATE (10 MG) 10 MG TABLET GT SCH (21:23)
[2016-08-03] MEDS: FAMOTIDINE (20 MG) 20 MG TABLET GT SCH (21:23)
[2016-08-03] MEDS: INSULIN DETEMIR 100 UNIT/ML CARTRIDGE SQ SCH (21:23)
[2016-08-03] MEDS: METRONIDAZOLE 500 MG TABLET PO SCH (21:23)
[2016-08-04] VITALS: BP 116/50
[2016-08-04 04:00] VITALS: BP 112/48
[2016-08-04] MEDS: METRONIDAZOLE 500 MG TABLET PO SCH ×3 (05:20→20:30)
[2016-08-04] MEDS: INSULIN ASPART NOVOLOG 100 UNIT/ML CARTRIDGE SQ PRN ×4 (05:24→23:53)
[2016-08-04] MEDS: BLOOD SUGAR DIAGNOSTIC 1 EACH STRIP IN SCH ×4 (05:25→23:54)
[2016-08-04 06:47] LABS: BASOPHILS % (AUTO) 0.2 % (0.0-2.0); DIFF TOTAL % 100 %; EOSINOPHILS # (AUTO) 0.3 /CMM (0.0-0.7); EOSINOPHILS % (AUTO) 2.5 % (0.0-6.0); HEMATOCRIT 25 % (33-45); HEMOGLOBIN 8.2 g/dL (11.5-14.8); LYMPHOCYTES # (AUTO) 1.1 /CMM (0.8-4.8); LYMPHOCYTES % (AUTO) 10.6 % (20.0-44.0); MEAN CORPUSCULAR HEMOGLOBIN 28 PG (26.0-33.0); MEAN CORPUSCULAR HGB CONC 32 g/dl (31.0-36.0); MEAN CORPUSCULAR VOLUME 87 fL (82-100); MONOCYTES # (AUTO) 0.6 /CMM (0.1-1.30); MONOCYTES % (AUTO) 5.5 % (2.0-12.0); NEUTROPHILS # (AUTO) 8.3 /CMM (1.8-8.9); NEUTROPHILS % (AUTO) 81.2 % (43.0-81.0); PLATELET COUNT (AUTO) 175 /CMM (150-450); RED BLOOD CELL COUNT(AUTO) 2.92 MIL/uL (4.0-5.2); WHITE BLOOD COUNT (AUTO) 10.3 K/uL (4.3-11.0)
[2016-08-04 07:03] LABS: CALCIUM, SERUM 8.3 mg/dL (8.5-10.1); CREATININE 4.2 mg/dL (0.6-1.3); PHOSPHORUS 4.7 mg/dL (2.5-4.9); POTASSIUM 3.7 mmol/L (3.5-5.1)
[2016-08-04] MEDS: IPRATROPIUM NEB FS 0.5 MG/2.5 ML AMPUL.NEB NEB SCH ×2 (07:37→19:58)
[2016-08-04] MEDS: ALBUTEROL FS 2.5 MG/0.5 ML VIAL.NEB NEB SCH ×2 (07:37→19:58)
[2016-08-04 08:00] VITALS: BP 100/52
[2016-08-04] MEDS: CHOLESTYRAMINE/ASPARTAME 4 G/PKT PACKET GT SCH ×2 (08:37→20:31)
[2016-08-04] MEDS: PYRIDOXINE HCL 50 MG TABLET GT SCH (08:37)
[2016-08-04] MEDS: PROSOURCE / PROSTAT (PYXIS) 30 ML UDC GT SCH ×3 (08:37→17:13)
[2016-08-04] MEDS: VIT B CMPLX 3/FA/VIT C/BIOTIN 1 TAB TABLET PO SCH (08:37)
[2016-08-04] MEDS: ALLOPURINOL 100 MG TABLET GT SCH (08:37)
[2016-08-04] MEDS: ACIDOPHILUS/BULGARICUS 1 EACH TAB.CHEW GT SCH (08:37)
[2016-08-04] MEDS: NEOMY SULF/BACITRAC ZN/POLY 15 GM TUBE TP SCH (08:38)
[2016-08-04] MEDS: POLYETHYLENE GLYCOL 3350 17 GM POWD.PACK GT SCH ×2 (08:38→16:51)
[2016-08-04] MEDS: Z GUARD REMEDY 2 OZ OINT TP SCH ×2 (08:39→17:13)
[2016-08-04] MEDS: HYDROGEL DRESSING 90 GM TUBE TP SCH (08:39)
[2016-08-04] MEDS: AMIODARONE HCL 200 MG TABLET GT SCH (08:40)
[2016-08-04] MEDS ORDERED: SECONDARY IV SET 1 EA INFUS.SET MC ONE (10:38)
[2016-08-04] MEDS: GENTAMICIN 80 MG in IV D5W 50 ML IV PRN (10:55)
[2016-08-04 12:00] VITALS: BP 108/47
[2016-08-04 16:00] VITALS: BP 103/51
[2016-08-04 20:00] VITALS: BP 117/54
[2016-08-04] MEDS: HYDROCODONE/APAP 5/325MG 1 EACH TABLET GT PRN (20:30)
[2016-08-04] MEDS: RENAL NOVASOURCE 1,000 ML BOTTLE GT PRN (20:30)
[2016-08-04] MEDS: ESCITALOPRAM OXALATE (10 MG) 10 MG TABLET GT SCH (21:03)
[2016-08-04] MEDS: FAMOTIDINE (20 MG) 20 MG TABLET GT SCH (21:03)
[2016-08-04] MEDS: INSULIN DETEMIR 100 UNIT/ML CARTRIDGE SQ SCH (21:04)
[2016-08-05] VITALS: BP 109/54
[2016-08-05 04:00] VITALS: BP 102/49
[2016-08-05] MEDS: METRONIDAZOLE 500 MG TABLET PO SCH ×3 (05:14→21:56)
[2016-08-05] MEDS: BLOOD SUGAR DIAGNOSTIC 1 EACH STRIP IN SCH ×3 (05:15→17:52)
[2016-08-05] MEDS: ALBUTEROL FS 2.5 MG/0.5 ML VIAL.NEB NEB SCH ×2 (07:26→19:32)
[2016-08-05] MEDS: IPRATROPIUM NEB FS 0.5 MG/2.5 ML AMPUL.NEB NEB SCH ×2 (07:27→19:32)
[2016-08-05 08:00] VITALS: BP 109/61
[2016-08-05] MEDS: CHOLESTYRAMINE/ASPARTAME 4 G/PKT PACKET GT SCH ×2 (08:19→21:56)
[2016-08-05] MEDS: ALLOPURINOL 100 MG TABLET GT SCH (08:19)
[2016-08-05] MEDS: POLYETHYLENE GLYCOL 3350 17 GM POWD.PACK GT SCH ×2 (08:19→17:00)
[2016-08-05] MEDS: VIT B CMPLX 3/FA/VIT C/BIOTIN 1 TAB TABLET PO SCH (08:19)
[2016-08-05] MEDS: ACIDOPHILUS/BULGARICUS 1 EACH TAB.CHEW GT SCH (08:19)
[2016-08-05] MEDS: PYRIDOXINE HCL 50 MG TABLET GT SCH (08:19)
[2016-08-05] MEDS: PROSOURCE / PROSTAT (PYXIS) 30 ML UDC GT SCH ×3 (08:19→17:51)
[2016-08-05] MEDS: AMIODARONE HCL 200 MG TABLET GT SCH (08:19)
[2016-08-05] MEDS: HYDROGEL DRESSING 90 GM TUBE TP SCH (08:20)
[2016-08-05] MEDS: NEOMY SULF/BACITRAC ZN/POLY 15 GM TUBE TP SCH (08:20)
[2016-08-05] MEDS: Z GUARD REMEDY 2 OZ OINT TP SCH ×2 (08:21→17:52)
[2016-08-05] MEDS: INSULIN ASPART NOVOLOG 100 UNIT/ML CARTRIDGE SQ PRN ×2 (11:40→17:54)
[2016-08-05 12:00] VITALS: BP 101/47
[2016-08-05 16:00] VITALS: BP 117/60
[2016-08-05 20:00] VITALS: BP 126/56
[2016-08-05] MEDS: FAMOTIDINE (20 MG) 20 MG TABLET GT SCH (21:56)
[2016-08-05] MEDS: RENAL NOVASOURCE 1,000 ML BOTTLE GT PRN (21:56)
[2016-08-05] MEDS: ESCITALOPRAM OXALATE (10 MG) 10 MG TABLET GT SCH (21:56)
[2016-08-05] MEDS: INSULIN DETEMIR 100 UNIT/ML CARTRIDGE SQ SCH (21:58)
[2016-08-06] VITALS: BP 116/59
[2016-08-06] MEDS ORDERED: IV NS 0.9% 250 ML IV ONE (00:05)
[2016-08-06] MEDS ORDERED: IV SET PRIMARY PUMP SET 1 EA INFUS.SET MC ONE (00:05)
[2016-08-06] MEDS: BLOOD SUGAR DIAGNOSTIC 1 EACH STRIP IN SCH ×4 (00:37→17:28)
[2016-08-06] MEDS: INSULIN ASPART NOVOLOG 100 UNIT/ML CARTRIDGE SQ PRN ×4 (00:37→17:31)
[2016-08-06 04:00] VITALS: BP 116/52
[2016-08-06] MEDS: METRONIDAZOLE 500 MG TABLET PO SCH ×3 (05:39→22:27)
[2016-08-06 07:27] LABS: DIFF TOTAL % 100 %; EOSINOPHILS # (AUTO) 0.6 /CMM (0.0-0.7); EOSINOPHILS % (AUTO) 5.3 % (0.0-6.0); HEMATOCRIT 28 % (33-45); HEMOGLOBIN 8.8 g/dL (11.5-14.8); LYMPHOCYTES # (AUTO) 0.8 /CMM (0.8-4.8); LYMPHOCYTES % (AUTO) 7.3 % (20.0-44.0); MEAN CORPUSCULAR HEMOGLOBIN 28 PG (26.0-33.0); MEAN CORPUSCULAR HGB CONC 32 g/dl (31.0-36.0); MEAN CORPUSCULAR VOLUME 87 fL (82-100); MONOCYTES # (AUTO) 0.5 /CMM (0.1-1.30); NEUTROPHILS # (AUTO) 9.7 /CMM (1.8-8.9); NEUTROPHILS % (AUTO) 83.4 % (43.0-81.0); PLATELET COUNT (AUTO) 174 /CMM (150-450); RED BLOOD CELL COUNT(AUTO) 3.15 MIL/uL (4.0-5.2); WHITE BLOOD COUNT (AUTO) 11.7 K/uL (4.3-11.0)
[2016-08-06 07:48] LABS: CALCIUM, SERUM 8.7 mg/dL (8.5-10.1); CREATININE 4.1 mg/dL (0.6-1.3); PHOSPHORUS 3.3 mg/dL (2.5-4.9); POTASSIUM 3.6 mmol/L (3.5-5.1)
[2016-08-06] MEDS: IPRATROPIUM NEB FS 0.5 MG/2.5 ML AMPUL.NEB NEB SCH ×2 (07:51→19:19)
[2016-08-06] MEDS: ALBUTEROL FS 2.5 MG/0.5 ML VIAL.NEB NEB SCH ×2 (07:52→19:19)
[2016-08-06 08:00] VITALS: BP 99/46
[2016-08-06] MEDS: AMIODARONE HCL 200 MG TABLET GT SCH (09:00)
[2016-08-06] MEDS: POLYETHYLENE GLYCOL 3350 17 GM POWD.PACK GT SCH ×2 (09:00→17:00)
[2016-08-06] MEDS: ACIDOPHILUS/BULGARICUS 1 EACH TAB.CHEW GT SCH (09:21)
[2016-08-06] MEDS: VIT B CMPLX 3/FA/VIT C/BIOTIN 1 TAB TABLET PO SCH (09:21)
[2016-08-06] MEDS: PROSOURCE / PROSTAT (PYXIS) 30 ML UDC GT SCH ×3 (09:21→17:28)
[2016-08-06] MEDS: PYRIDOXINE HCL 50 MG TABLET GT SCH (09:21)
[2016-08-06] MEDS: CHOLESTYRAMINE/ASPARTAME 4 G/PKT PACKET GT SCH ×2 (09:21→22:27)
[2016-08-06] MEDS: ALLOPURINOL 100 MG TABLET GT SCH (09:21)
[2016-08-06] MEDS: HYDROGEL DRESSING 90 GM TUBE TP SCH (09:23)
[2016-08-06] MEDS: Z GUARD REMEDY 2 OZ OINT TP SCH ×2 (09:23→17:32)
[2016-08-06 10:36] LABS: ABG BASE EXCESS 8.1 mmol/L; ABG HCO3 34.1 mmol/L; ABG PH 7.402 (7.350-7.450); ABG PO2 83.8 mmHg (75.0-100.0); AaDO2 64.3 mmHg; O2Hb 93.7 % (94.0-97.0)
[2016-08-06 12:00] VITALS: BP 116/52
[2016-08-06] MEDS: NEOMY SULF/BACITRAC ZN/POLY 15 GM TUBE TP SCH (12:24)
[2016-08-06 16:00] VITALS: BP_SYST 114; BP_SYST 138; BP_DIAS 56; BP_DIAS 60
[2016-08-06 20:00] VITALS: BP 118/59
[2016-08-06 21:03] LABS: ABG BASE EXCESS 6.4 mmol/L; ABG HCO3 31.1 mmol/L; ABG PCO2 45.4 mmHg (35.0-45.0); ABG PH 7.453 (7.350-7.450); ABG PO2 128.7 mmHg (75.0-100.0); ABG TOTAL HEMOGLOBIN 8.9 G/dL (12.0-16.0); ALLEN TEST Pass; AaDO2 31.9 mmHg; O2Hb 95.8 % (94.0-97.0)
[2016-08-06] MEDS: FAMOTIDINE (20 MG) 20 MG TABLET GT SCH (22:27)
[2016-08-06] MEDS: ESCITALOPRAM OXALATE (10 MG) 10 MG TABLET GT SCH (22:27)
[2016-08-06] MEDS: INSULIN DETEMIR 100 UNIT/ML CARTRIDGE SQ SCH (22:33)
[2016-08-07] VITALS (7 sets, daily range): BP systolic 88–148; BP diastolic 44–75
[2016-08-07] MEDS: INSULIN ASPART NOVOLOG 100 UNIT/ML CARTRIDGE SQ PRN ×5 (00:33→23:24)
[2016-08-07] MEDS: BLOOD SUGAR DIAGNOSTIC 1 EACH STRIP IN SCH ×5 (01:59→23:22)
[2016-08-07] MEDS: METRONIDAZOLE 500 MG TABLET PO SCH ×3 (05:39→22:30)
[2016-08-07 07:11] LABS: BASOPHILS % (AUTO) 0.2 % (0.0-2.0); DIFF TOTAL % 100 %; EOSINOPHILS # (AUTO) 0.5 /CMM (0.0-0.7); EOSINOPHILS % (AUTO) 5.1 % (0.0-6.0); HEMATOCRIT 27 % (33-45); HEMOGLOBIN 8.6 g/dL (11.5-14.8); LYMPHOCYTES # (AUTO) 1.2 /CMM (0.8-4.8); LYMPHOCYTES % (AUTO) 11.9 % (20.0-44.0); MEAN CORPUSCULAR HEMOGLOBIN 28 PG (26.0-33.0); MEAN CORPUSCULAR HGB CONC 32 g/dl (31.0-36.0); MEAN CORPUSCULAR VOLUME 88 fL (82-100); MONOCYTES # (AUTO) 0.6 /CMM (0.1-1.30); MONOCYTES % (AUTO) 6.4 % (2.0-12.0); NEUTROPHILS # (AUTO) 7.7 /CMM (1.8-8.9); NEUTROPHILS % (AUTO) 76.4 % (43.0-81.0); PLATELET COUNT (AUTO) 187 /CMM (150-450); RED BLOOD CELL COUNT(AUTO) 3.04 MIL/uL (4.0-5.2); WHITE BLOOD COUNT (AUTO) 10.1 K/uL (4.3-11.0)
[2016-08-07] MEDS: ALBUTEROL FS 2.5 MG/0.5 ML VIAL.NEB NEB SCH ×2 (07:53→19:55)
[2016-08-07] MEDS: IPRATROPIUM NEB FS 0.5 MG/2.5 ML AMPUL.NEB NEB SCH ×2 (07:53→19:55)
[2016-08-07] MEDS: POLYETHYLENE GLYCOL 3350 17 GM POWD.PACK GT SCH ×2 (09:00→17:00)
[2016-08-07] MEDS: CHOLESTYRAMINE/ASPARTAME 4 G/PKT PACKET GT SCH ×2 (09:41→22:30)
[2016-08-07] MEDS: PYRIDOXINE HCL 50 MG TABLET GT SCH (09:42)
[2016-08-07] MEDS: AMIODARONE HCL 200 MG TABLET GT SCH (09:42)
[2016-08-07] MEDS: ALLOPURINOL 100 MG TABLET GT SCH (09:42)
[2016-08-07] MEDS: VIT B CMPLX 3/FA/VIT C/BIOTIN 1 TAB TABLET PO SCH (09:43)
[2016-08-07] MEDS: PROSOURCE / PROSTAT (PYXIS) 30 ML UDC GT SCH ×3 (09:43→17:59)
[2016-08-07] MEDS: ACIDOPHILUS/BULGARICUS 1 EACH TAB.CHEW GT SCH (09:43)
[2016-08-07] MEDS: HYDROGEL DRESSING 90 GM TUBE TP SCH (09:44)
[2016-08-07] MEDS: Z GUARD REMEDY 2 OZ OINT TP SCH ×2 (09:45→17:59)
[2016-08-07] MEDS: NEOMY SULF/BACITRAC ZN/POLY 15 GM TUBE TP SCH (09:45)
[2016-08-07] MEDS: ACETAMINOPHEN 650 MG/20.3 ML UDC GT PRN (10:19)
[2016-08-07] MEDS ORDERED: IV NS 0.9% 1,000 ML BAG IV ONE (16:00)
[2016-08-07] MEDS ORDERED: PERMETHRIN 5% CRM 60 GM TUBE TP ONE ×2 (21:30→22:20)
[2016-08-07] MEDS: ESCITALOPRAM OXALATE (10 MG) 10 MG TABLET GT SCH (22:29)
[2016-08-07] MEDS: FAMOTIDINE (20 MG) 20 MG TABLET GT SCH (22:30)
[2016-08-07] MEDS: INSULIN DETEMIR 100 UNIT/ML CARTRIDGE SQ SCH (22:32)
[2016-08-07] MEDS: HYDROCODONE/APAP 5/325MG 1 EACH TABLET GT PRN (23:22)
[2016-08-08] VITALS (7 sets, daily range): BP systolic 99–110; BP diastolic 43–55
[2016-08-08] MEDS: METRONIDAZOLE 500 MG TABLET PO SCH ×3 (05:42→21:46)
[2016-08-08] MEDS: BLOOD SUGAR DIAGNOSTIC 1 EACH STRIP IN SCH ×3 (05:44→17:39)
[2016-08-08] MEDS: INSULIN ASPART NOVOLOG 100 UNIT/ML CARTRIDGE SQ PRN ×3 (05:49→18:48)
[2016-08-08] MEDS: RENAL NOVASOURCE 1,000 ML BOTTLE GT PRN (05:51)
[2016-08-08] MEDS: IPRATROPIUM NEB FS 0.5 MG/2.5 ML AMPUL.NEB NEB SCH ×2 (07:56→20:27)
[2016-08-08] MEDS: ALBUTEROL FS 2.5 MG/0.5 ML VIAL.NEB NEB SCH ×2 (07:56→20:27)
[2016-08-08] MEDS: PYRIDOXINE HCL 50 MG TABLET GT SCH (08:38)
[2016-08-08] MEDS: VIT B CMPLX 3/FA/VIT C/BIOTIN 1 TAB TABLET PO SCH (08:38)
[2016-08-08] MEDS: PROSOURCE / PROSTAT (PYXIS) 30 ML UDC GT SCH ×3 (08:38→17:38)
[2016-08-08] MEDS: ACIDOPHILUS/BULGARICUS 1 EACH TAB.CHEW GT SCH (08:38)
[2016-08-08] MEDS: POLYETHYLENE GLYCOL 3350 17 GM POWD.PACK GT SCH ×2 (08:38→17:38)
[2016-08-08] MEDS: AMIODARONE HCL 200 MG TABLET GT SCH (08:39)
[2016-08-08] MEDS: CHOLESTYRAMINE/ASPARTAME 4 G/PKT PACKET GT SCH ×2 (08:43→21:46)
[2016-08-08] MEDS: ALLOPURINOL 100 MG TABLET GT SCH (08:44)
[2016-08-08] MEDS: Z GUARD REMEDY 2 OZ OINT TP SCH ×2 (08:48→17:38)
[2016-08-08] MEDS: NEOMY SULF/BACITRAC ZN/POLY 15 GM TUBE TP SCH (08:48)
[2016-08-08 09:44] LABS: ABG BASE EXCESS 2.2 mmol/L; ABG HCO3 28.4 mmol/L; ABG PCO2 52.6 mmHg (35.0-45.0); ABG PO2 79.6 mmHg (75.0-100.0); ABG TOTAL HEMOGLOBIN 8.9 G/dL (12.0-16.0); ALLEN TEST Pass; AaDO2 108.8 mmHg; O2Hb 93.4 % (94.0-97.0)
[2016-08-08] MEDS: HYDROCODONE/APAP 5/325MG 1 EACH TABLET GT PRN (13:08)
[2016-08-08] MEDS: ESCITALOPRAM OXALATE (10 MG) 10 MG TABLET GT SCH (21:46)
[2016-08-08] MEDS: FAMOTIDINE (20 MG) 20 MG TABLET GT SCH (21:46)
[2016-08-08] MEDS: INSULIN DETEMIR 100 UNIT/ML CARTRIDGE SQ SCH (21:50)
[2016-08-09] VITALS (9 sets, daily range): BP systolic 102–149; BP diastolic 36–53
[2016-08-09] MEDS: BLOOD SUGAR DIAGNOSTIC 1 EACH STRIP IN SCH ×4 (00:07→18:49)
[2016-08-09] MEDS: HYDROCODONE/APAP 5/325MG 1 EACH TABLET GT PRN ×2 (04:56→12:35)
[2016-08-09] MEDS: METRONIDAZOLE 500 MG TABLET PO SCH ×3 (04:56→21:45)
[2016-08-09] MEDS: INSULIN ASPART NOVOLOG 100 UNIT/ML CARTRIDGE SQ PRN ×3 (06:18→17:08)
[2016-08-09 07:09] LABS: BASOPHILS # (AUTO) 0.1 /CMM (0.0-0.2); BASOPHILS % (AUTO) 0.5 % (0.0-2.0); EOSINOPHILS # (AUTO) 0.4 /CMM (0.0-0.7); EOSINOPHILS % (AUTO) 3.5 % (0.0-6.0); HEMATOCRIT 26 % (33-45); HEMOGLOBIN 8.4 g/dL (11.5-14.8); LYMPHOCYTES % (AUTO) 8.6 % (20.0-44.0); MEAN CORPUSCULAR HEMOGLOBIN 29 PG (26.0-33.0); MEAN CORPUSCULAR HGB CONC 33 g/dl (31.0-36.0); MEAN CORPUSCULAR VOLUME 89 fL (82-100); MONOCYTES # (AUTO) 0.7 /CMM (0.1-1.30); MONOCYTES % (AUTO) 5.9 % (2.0-12.0); NEUTROPHILS # (AUTO) 9.1 /CMM (1.8-8.9); NEUTROPHILS % (AUTO) 81.5 % (43.0-81.0); PLATELET COUNT (AUTO) 201 /CMM (150-450); RED BLOOD CELL COUNT(AUTO) 2.93 MIL/uL (4.0-5.2); WHITE BLOOD COUNT (AUTO) 11.2 K/uL (4.3-11.0)
[2016-08-09] MEDS: ALBUTEROL FS 2.5 MG/0.5 ML VIAL.NEB NEB SCH ×2 (07:16→20:06)
[2016-08-09] MEDS: IPRATROPIUM NEB FS 0.5 MG/2.5 ML AMPUL.NEB NEB SCH ×2 (07:16→20:07)
[2016-08-09 07:29] LABS: CALCIUM, SERUM 8.8 mg/dL (8.5-10.1); CREATININE 3.2 mg/dL (0.6-1.3); PHOSPHORUS 3.6 mg/dL (2.5-4.9); POTASSIUM 3.9 mmol/L (3.5-5.1)
[2016-08-09 07:58] LABS: DIFF TOTAL % 100 %
[2016-08-09 08:16] LABS: *RAPID PLASMA REAGIN QUAL Non Reactive (Non Reactive)
[2016-08-09] MEDS: NEOMY SULF/BACITRAC ZN/POLY 15 GM TUBE TP SCH (09:00)
[2016-08-09] MEDS: Z GUARD REMEDY 2 OZ OINT TP SCH ×2 (09:00→16:59)
[2016-08-09] MEDS: CHOLESTYRAMINE/ASPARTAME 4 G/PKT PACKET GT SCH ×2 (09:03→21:45)
[2016-08-09] MEDS: ACIDOPHILUS/BULGARICUS 1 EACH TAB.CHEW GT SCH (09:04)
[2016-08-09] MEDS: AMIODARONE HCL 200 MG TABLET GT SCH (09:04)
[2016-08-09] MEDS: PYRIDOXINE HCL 50 MG TABLET GT SCH (09:08)
[2016-08-09] MEDS: PROSOURCE / PROSTAT (PYXIS) 30 ML UDC GT SCH ×3 (09:08→16:59)
[2016-08-09] MEDS: VIT B CMPLX 3/FA/VIT C/BIOTIN 1 TAB TABLET PO SCH (09:08)
[2016-08-09] MEDS: POLYETHYLENE GLYCOL 3350 17 GM POWD.PACK GT SCH ×2 (09:08→16:59)
[2016-08-09] MEDS: ALLOPURINOL 100 MG TABLET GT SCH (09:09)
[2016-08-09] MEDS: RENAL NOVASOURCE 1,000 ML BOTTLE GT PRN (17:00)
[2016-08-09 19:07] LABS: INR 1.14 (0.87-1.13); PROTHROMBIN TIME 12.3 SECS (9.5-12.7)
[2016-08-09] MEDS: WARFARIN SODIUM 2 MG TABLET PO SCH (19:25)
[2016-08-09] MEDS: ACETAMINOPHEN 650 MG/20.3 ML UDC GT PRN (20:30)
[2016-08-09] MEDS: ESCITALOPRAM OXALATE (10 MG) 10 MG TABLET GT SCH (21:45)
[2016-08-09] MEDS: FAMOTIDINE (20 MG) 20 MG TABLET GT SCH (21:46)
[2016-08-09] MEDS: INSULIN DETEMIR 100 UNIT/ML CARTRIDGE SQ SCH (21:48)
[2016-08-10] VITALS (10 sets, daily range): BP systolic 110–127; BP diastolic 45–54
[2016-08-10] MEDS: BLOOD SUGAR DIAGNOSTIC 1 EACH STRIP IN SCH ×4 (00:33→18:43)
[2016-08-10] MEDS: INSULIN ASPART NOVOLOG 100 UNIT/ML CARTRIDGE SQ PRN ×4 (00:40→18:55)
[2016-08-10] MEDS: METRONIDAZOLE 500 MG TABLET PO SCH ×3 (04:54→21:54)
[2016-08-10] MEDS: ALBUTEROL FS 2.5 MG/0.5 ML VIAL.NEB NEB SCH ×2 (08:02→19:42)
[2016-08-10] MEDS: IPRATROPIUM NEB FS 0.5 MG/2.5 ML AMPUL.NEB NEB SCH ×2 (08:02→19:42)
[2016-08-10] MEDS: POLYETHYLENE GLYCOL 3350 17 GM POWD.PACK GT SCH ×2 (09:27→17:00)
[2016-08-10] MEDS: PROSOURCE / PROSTAT (PYXIS) 30 ML UDC GT SCH ×3 (09:28→18:42)
[2016-08-10] MEDS: CHOLESTYRAMINE/ASPARTAME 4 G/PKT PACKET GT SCH ×2 (09:28→21:54)
[2016-08-10] MEDS: ACIDOPHILUS/BULGARICUS 1 EACH TAB.CHEW GT SCH (09:28)
[2016-08-10] MEDS: AMIODARONE HCL 200 MG TABLET GT SCH (09:29)
[2016-08-10] MEDS: ALLOPURINOL 100 MG TABLET GT SCH (09:29)
[2016-08-10] MEDS: Z GUARD REMEDY 2 OZ OINT TP SCH ×2 (09:30→18:43)
[2016-08-10] MEDS: NEOMY SULF/BACITRAC ZN/POLY 15 GM TUBE TP SCH (09:33)
[2016-08-10] MEDS: PYRIDOXINE HCL 50 MG TABLET GT SCH (09:46)
[2016-08-10] MEDS: VIT B CMPLX 3/FA/VIT C/BIOTIN 1 TAB TABLET PO SCH (09:46)
[2016-08-10] MEDS: WARFARIN SODIUM 2 MG TABLET PO SCH (18:47)
[2016-08-10] MEDS: HYDROCODONE/APAP 5/325MG 1 EACH TABLET GT PRN (19:02)
[2016-08-10] MEDS: FAMOTIDINE (20 MG) 20 MG TABLET GT SCH (21:54)
[2016-08-10] MEDS: ESCITALOPRAM OXALATE (10 MG) 10 MG TABLET GT SCH (21:54)
[2016-08-10] MEDS: INSULIN DETEMIR 100 UNIT/ML CARTRIDGE SQ SCH (22:03)
[2016-08-11] VITALS (9 sets, daily range): BP systolic 96–133; BP diastolic 46–63
[2016-08-11] MEDS: BLOOD SUGAR DIAGNOSTIC 1 EACH STRIP IN SCH ×5 (00:24→23:34)
[2016-08-11] MEDS: INSULIN ASPART NOVOLOG 100 UNIT/ML CARTRIDGE SQ PRN ×5 (00:28→23:34)
[2016-08-11] MEDS: METRONIDAZOLE 500 MG TABLET PO SCH ×3 (05:50→21:30)
[2016-08-11] MEDS: ALBUTEROL FS 2.5 MG/0.5 ML VIAL.NEB NEB SCH ×2 (07:52→19:42)
[2016-08-11] MEDS: IPRATROPIUM NEB FS 0.5 MG/2.5 ML AMPUL.NEB NEB SCH ×2 (07:52→19:42)
[2016-08-11 08:23] LABS: INR 1.19 (0.87-1.13); PROTHROMBIN TIME 12.9 SECS (9.5-12.7)
[2016-08-11] MEDS: POLYETHYLENE GLYCOL 3350 17 GM POWD.PACK GT SCH ×2 (09:00→17:00)
[2016-08-11] MEDS: CHOLESTYRAMINE/ASPARTAME 4 G/PKT PACKET GT SCH ×2 (09:50→21:30)
[2016-08-11] MEDS: ACIDOPHILUS/BULGARICUS 1 EACH TAB.CHEW GT SCH (09:50)
[2016-08-11] MEDS: PROSOURCE / PROSTAT (PYXIS) 30 ML UDC GT SCH ×3 (09:50→18:13)
[2016-08-11] MEDS: PYRIDOXINE HCL 50 MG TABLET GT SCH (09:50)
[2016-08-11] MEDS: VIT B CMPLX 3/FA/VIT C/BIOTIN 1 TAB TABLET PO SCH (09:50)
[2016-08-11] MEDS: AMIODARONE HCL 200 MG TABLET GT SCH (09:56)
[2016-08-11] MEDS: ALLOPURINOL 100 MG TABLET GT SCH (09:59)
[2016-08-11] MEDS: NEOMY SULF/BACITRAC ZN/POLY 15 GM TUBE TP SCH (10:00)
[2016-08-11] MEDS: Z GUARD REMEDY 2 OZ OINT TP SCH ×2 (10:00→18:15)
[2016-08-11] MEDS: WARFARIN SODIUM 2 MG TABLET PO SCH (18:25)
[2016-08-11] MEDS: FAMOTIDINE (20 MG) 20 MG TABLET GT SCH (21:30)
[2016-08-11] MEDS: ESCITALOPRAM OXALATE (10 MG) 10 MG TABLET GT SCH (21:30)
[2016-08-11] MEDS: INSULIN DETEMIR 100 UNIT/ML CARTRIDGE SQ SCH (21:33)
[2016-08-12] VITALS: BP 131/62
[2016-08-12 04:00] VITALS: BP 132/75
[2016-08-12] MEDS: RENAL NOVASOURCE 1,000 ML BOTTLE GT PRN (05:21)
[2016-08-12] MEDS: METRONIDAZOLE 500 MG TABLET PO SCH ×3 (05:22→21:39)
[2016-08-12] MEDS: INSULIN ASPART NOVOLOG 100 UNIT/ML CARTRIDGE SQ PRN ×3 (05:23→17:03)
[2016-08-12] MEDS: BLOOD SUGAR DIAGNOSTIC 1 EACH STRIP IN SCH ×3 (05:23→16:56)
[2016-08-12] MEDS: ALBUTEROL FS 2.5 MG/0.5 ML VIAL.NEB NEB SCH ×2 (07:57→19:47)
[2016-08-12] MEDS: IPRATROPIUM NEB FS 0.5 MG/2.5 ML AMPUL.NEB NEB SCH ×2 (07:57→19:47)
[2016-08-12 08:00] VITALS: BP 120/64
[2016-08-12] MEDS: CHOLESTYRAMINE/ASPARTAME 4 G/PKT PACKET GT SCH ×2 (08:36→21:39)
[2016-08-12] MEDS: PYRIDOXINE HCL 50 MG TABLET GT SCH (08:36)
[2016-08-12] MEDS: ALLOPURINOL 100 MG TABLET GT SCH (08:36)
[2016-08-12] MEDS: ACIDOPHILUS/BULGARICUS 1 EACH TAB.CHEW GT SCH (08:36)
[2016-08-12] MEDS: POLYETHYLENE GLYCOL 3350 17 GM POWD.PACK GT SCH ×2 (08:36→16:30)
[2016-08-12] MEDS: PROSOURCE / PROSTAT (PYXIS) 30 ML UDC GT SCH ×3 (08:36→16:29)
[2016-08-12] MEDS: VIT B CMPLX 3/FA/VIT C/BIOTIN 1 TAB TABLET PO SCH (08:36)
[2016-08-12] MEDS: Z GUARD REMEDY 2 OZ OINT TP SCH ×2 (08:40→16:33)
[2016-08-12] MEDS: NEOMY SULF/BACITRAC ZN/POLY 15 GM TUBE TP SCH (08:40)
[2016-08-12] MEDS: AMIODARONE HCL 200 MG TABLET GT SCH (09:14)
[2016-08-12 12:00] VITALS: BP 114/55
[2016-08-12 16:00] VITALS: BP 110/52
[2016-08-12] MEDS: WARFARIN SODIUM 2 MG TABLET PO SCH (16:31)
[2016-08-12] MEDS: ACETAMINOPHEN 650 MG/20.3 ML UDC GT PRN (18:17)
[2016-08-12 20:00] VITALS: BP 130/69
[2016-08-12] MEDS: ESCITALOPRAM OXALATE (10 MG) 10 MG TABLET GT SCH (21:38)
[2016-08-12] MEDS: FAMOTIDINE (20 MG) 20 MG TABLET GT SCH (21:39)
[2016-08-12] MEDS: INSULIN DETEMIR 100 UNIT/ML CARTRIDGE SQ SCH (21:53)
[2016-08-13] VITALS: BP_SYST 102; BP_SYST 128; BP_DIAS 73; BP_DIAS 76
[2016-08-13] MEDS: BLOOD SUGAR DIAGNOSTIC 1 EACH STRIP IN SCH ×4 (00:36→17:26)
[2016-08-13] MEDS: INSULIN ASPART NOVOLOG 100 UNIT/ML CARTRIDGE SQ PRN ×4 (00:42→17:28)
[2016-08-13] MEDS: RENAL NOVASOURCE 1,000 ML BOTTLE GT PRN (00:49)
[2016-08-13 04:00] VITALS: BP 134/89
[2016-08-13] MEDS: METRONIDAZOLE 500 MG TABLET PO SCH ×2 (05:49→12:30)
[2016-08-13 07:03] LABS: BASOPHILS # (AUTO) 0.1 /CMM (0.0-0.2); BASOPHILS % (AUTO) 0.6 % (0.0-2.0); DIFF TOTAL % 100 %; EOSINOPHILS # (AUTO) 0.3 /CMM (0.0-0.7); EOSINOPHILS % (AUTO) 3.3 % (0.0-6.0); HEMATOCRIT 25 % (33-45); HEMOGLOBIN 7.9 g/dL (11.5-14.8); LYMPHOCYTES % (AUTO) 10.5 % (20.0-44.0); MEAN CORPUSCULAR HEMOGLOBIN 29 PG (26.0-33.0); MEAN CORPUSCULAR HGB CONC 32 g/dl (31.0-36.0); MEAN CORPUSCULAR VOLUME 90 fL (82-100); MONOCYTES # (AUTO) 0.7 /CMM (0.1-1.30); MONOCYTES % (AUTO) 7.5 % (2.0-12.0); NEUTROPHILS # (AUTO) 7.5 /CMM (1.8-8.9); NEUTROPHILS % (AUTO) 78.1 % (43.0-81.0); PLATELET COUNT (AUTO) 230 /CMM (150-450); RED BLOOD CELL COUNT(AUTO) 2.74 MIL/uL (4.0-5.2); WHITE BLOOD COUNT (AUTO) 9.6 K/uL (4.3-11.0)
[2016-08-13 07:12] LABS: INR 1.15 (0.87-1.13); PROTHROMBIN TIME 12.4 SECS (9.5-12.7)
[2016-08-13 07:36] LABS: CALCIUM, SERUM 8.9 mg/dL (8.5-10.1); CREATININE 3.8 mg/dL (0.6-1.3); PHOSPHORUS 4.5 mg/dL (2.5-4.9); POTASSIUM 3.7 mmol/L (3.5-5.1)
[2016-08-13 08:00] VITALS: BP 108/51
[2016-08-13] MEDS: IPRATROPIUM NEB FS 0.5 MG/2.5 ML AMPUL.NEB NEB SCH (08:00)
[2016-08-13] MEDS: ALBUTEROL FS 2.5 MG/0.5 ML VIAL.NEB NEB SCH (08:00)
[2016-08-13] MEDS: VIT B CMPLX 3/FA/VIT C/BIOTIN 1 TAB TABLET PO SCH (09:45)
[2016-08-13] MEDS: AMIODARONE HCL 200 MG TABLET GT SCH (09:45)
[2016-08-13] MEDS: PROSOURCE / PROSTAT (PYXIS) 30 ML UDC GT SCH ×3 (09:46→17:29)
[2016-08-13] MEDS: ALLOPURINOL 100 MG TABLET GT SCH (09:46)
[2016-08-13] MEDS: ACIDOPHILUS/BULGARICUS 1 EACH TAB.CHEW GT SCH (09:46)
[2016-08-13] MEDS: CHOLESTYRAMINE/ASPARTAME 4 G/PKT PACKET GT SCH (09:46)
[2016-08-13] MEDS: POLYETHYLENE GLYCOL 3350 17 GM POWD.PACK GT SCH ×2 (09:46→17:29)
[2016-08-13] MEDS: PYRIDOXINE HCL 50 MG TABLET GT SCH (09:46)
[2016-08-13] MEDS: Z GUARD REMEDY 2 OZ OINT TP SCH ×2 (09:48→17:30)
[2016-08-13] MEDS: NEOMY SULF/BACITRAC ZN/POLY 15 GM TUBE TP SCH (09:48)
[2016-08-13 12:00] VITALS: BP 129/61
[2016-08-13 16:00] VITALS: BP 136/81
[2016-08-13] MEDS: WARFARIN SODIUM 2 MG TABLET PO SCH (17:29)
[2016-08-13] MEDS: ACETAMINOPHEN 650 MG/20.3 ML UDC GT PRN (17:29)
== END 2016-08-13 18:52 | disposition short-term general hospital (02) | DRG 870 ==
LOC: ER 15:19 → TELE 18:35 → ICU 07-31 15:57 → TELE-TD 08-03 18:40 → TELE1 08-05 12:02
PROVIDERS: ADMIT Internal Medicine; ATTEND Internal Medicine Nephrology
PROC: 5A1955Z Respiratory Ventilation, Greater than 96 Consecutive Hours (ICD-10-PCS; principal; 2016-07-26)
PROC: 5A1D60Z (ICD-10-PCS; 2016-07-27)
PROC: 0DH63UZ Insertion of Feeding Device into Stomach, Percutaneous Approach (ICD-10-PCS; 2016-07-31)
PROC: 0DJD8ZZ Inspection of Lower Intestinal Tract, Via Natural or Artificial Opening Endoscopic (ICD-10-PCS; 2016-07-31)
PROC: 02HV33Z Insertion of Infusion Device into Superior Vena Cava, Percutaneous Approach (ICD-10-PCS; 2016-07-31)
PROC: B548ZZA Ultrasonography of Superior Vena Cava, Guidance (ICD-10-PCS; 2016-07-31)
PROC: 0DJD8ZZ Inspection of Lower Intestinal Tract, Via Natural or Artificial Opening Endoscopic (ICD-10-PCS; 2016-08-01)
PROC: 30233N1 Transfusion of Nonautologous Red Blood Cells into Peripheral Vein, Percutaneous Approach (ICD-10-PCS; 2016-08-01)
DX: A41.9 Sepsis, unspecified organism (principal); N18.6 End stage renal disease; J18.9 Pneumonia, unspecified organism; G93.40 Encephalopathy, unspecified; R65.21 Severe sepsis with septic shock; I12.0 Hypertensive chronic kidney disease with stage 5 chronic kidney disease or end stage renal disease; J96.11 Chronic respiratory failure with hypoxia; Z99.11 Dependence on respirator [ventilator] status; A04.7 Enterocolitis due to Clostridium difficile; K92.2 Gastrointestinal hemorrhage, unspecified; J98.11 Atelectasis; Z43.1 Encounter for attention to gastrostomy; Z99.2 Dependence on renal dialysis; I48.91 Unspecified atrial fibrillation; R13.10 Dysphagia, unspecified; K21.9 Gastro-esophageal reflux disease without esophagitis; E11.22 Type 2 diabetes mellitus with diabetic chronic kidney disease; Z86.73 Personal history of transient ischemic attack (TIA), and cerebral infarction without residual deficits; E11.40 Type 2 diabetes mellitus with diabetic neuropathy, unspecified; E66.9 Obesity, unspecified; Y83.9 Surgical procedure, unspecified as the cause of abnormal reaction of the patient, or of later complication, without mention of misadventure at the time of the procedure; Y92.129 Unspecified place in nursing home as the place of occurrence of the external cause; E11.65 Type 2 diabetes mellitus with hyperglycemia; Z95.0 Presence of cardiac pacemaker; Z93.0 Tracheostomy status; D64.9 Anemia, unspecified; K59.09 Other constipation; Z79.01 Long term (current) use of anticoagulants
CPT/HCPCS: 31720; 36415; 36600; 43246; 71010-TC; 74000-TC; 80048-TC; 80053-TC; 80076-TC; 80170-TC; 80202-TC; 82728-TC; 82803-TC; 82962-TC; 83540-TC; 83605-TC; 83735-TC; 83880; 84100-TC; 84484-TC; 85025-TC; 85027-TC; 85610-TC; 85730-TC; 86592; 86850-TC; 86901; 86921-TC; 87040-TC; 87070-TC; 87081-TC; 87186-TC; 87400; 90935-TC; 94003-TC; 94640-TC; 94760-TC; 94799-TC; A4216; A4606; A6248; A6253; A6402; A6403; C1751; J1580; J1815; J2185; J2543; J2597; J2704; J3370; J3490; J7030; J7050; J7060; P9016-BL; P9047; Q9963; Z7610

== ENCOUNTER 2016-09-05 18:40 | Inpatient (IN) | payer MEDICARE, OTHER ==
[~2016-09-05] VITALS: Ht 172.7 cm; Wt 94.3 kg
[~2016-09-05 18:40] MED LIST changes: -ACET160S3 GT; +ACET650S26 GT; +AMIN30LI4 GT; -ASCO500S2 GT; +FAMO20TA8 GT; +FOLI0.8T2 GT; +HYDR-3326 GT; +INSU100I19 SQ; +INSU100V11 SQ; -INSU100V27 SQ; -INSU100V7 SQ; -MIDO10TA GT; -MULT-659 GT; -NEOM1PAC2 TP; -OXYC-128 GT; -PANT40SU2 GT; -PIPE2.2512 IV; +SENN8.6T6 GT; -SUCR1ORA6 GT; +WARF1TAB47 PO
--- NOTE | 2016-09-05 19:18 | NUR ---
to bed 4 bib private ambulance from [facility] c/o L sided chest pain post dialysis. pt aaox3, chronic trache, vent dependent. rhonchi heard bilaterally on auscultation. rt at bedside to place pt on vent. vent settings: ac-12, tv-500, fio2-30%, peep-5. place pt on cardiac monitoring, continuous pox.pending er md mcneill.
--- NOTE | 2016-09-05 19:20 | NUR ---
started sl 18g to L hand, blood drawn and sent to lab.
--- NOTE | 2016-09-05 19:23 | NUR ---
er md at bedside to eval pt with ordes received. will carry out orders.
[2016-09-05 19:25] VITALS: BP 127/58
--- NOTE | 2016-09-05 19:25 | NUR ---
PT RECIEVED FROM EMT ON TRACH PORTEX SZ 7. PT PLACED ON VENT WITH NOTED SETTINGS BY TRANSPORT RT. PT IS AWAKE AND ALERT. ALARMS ARE SET AND AUDIBLE WITH BVM BEDSIDE. LOGGING SUPERVISOR CUFF PRESSURE NOTED. VENT IS PLUGGED IN RED OUTLET. SX THICK WHITE/YELLOW SECRETIONS. NO RESP DISTRESS NOTED. WILL CONTINUE TO MONITOR. Addendum: 09/05/16 at 2008 by INOCENCIO NERI RT Amended: Links added.
[2016-09-05 19:41] LABS: BASOPHILS % (AUTO) 0.4 % (0.0-2.0); EOSINOPHILS # (AUTO) 0.2 /CMM (0.0-0.7); EOSINOPHILS % (AUTO) 2.4 % (0.0-6.0); HEMATOCRIT 24 % (33-45); HEMOGLOBIN 7.9 g/dL (11.5-14.8); LYMPHOCYTES # (AUTO) 0.8 /CMM (0.8-4.8); LYMPHOCYTES % (AUTO) 11.2 % (20.0-44.0); MEAN CORPUSCULAR HEMOGLOBIN 30 PG (26.0-33.0); MEAN CORPUSCULAR HGB CONC 32 g/dl (31.0-36.0); MEAN CORPUSCULAR VOLUME 92 fL (82-100); MONOCYTES # (AUTO) 0.5 /CMM (0.1-1.30); MONOCYTES % (AUTO) 6.5 % (2.0-12.0); NEUTROPHILS # (AUTO) 5.4 /CMM (1.8-8.9); NEUTROPHILS % (AUTO) 79.5 % (43.0-81.0); PLATELET COUNT (AUTO) 184 /CMM (150-450); RDW COEFFICIENT OF VARIATION 19.5 (11.5-15.0); RED BLOOD CELL COUNT(AUTO) 2.66 MIL/uL (4.0-5.2); WHITE BLOOD COUNT (AUTO) 6.9 K/uL (4.3-11.0)
[2016-09-05 19:53] LABS: CALCIUM, SERUM 8.5 mg/dL (8.5-10.1); CREATININE 3.5 mg/dL (0.6-1.3); POTASSIUM 3.7 mmol/L (3.5-5.1)
[2016-09-05 20:00] LABS: ALBUMIN 2.4 g/dL (3.4-5.0); BILIRUBIN,DIRECT 0.4 mg/dL (0.0-0.2); BILIRUBIN,TOTAL 0.8 mg/dL (0.2-1.0); TOTAL PROTEIN, SERUM 7.2 g/dL (6.4-8.2); TROPONIN I 0.316 ng/mL (0.00-0.056)
[2016-09-05] MEDS ORDERED: ASPIRIN 325 MG TABLET PO ONE (20:00)
--- NOTE | 2016-09-05 20:15 | NUR ---
CALLED NURSING SUP. FOR ABISAI BED
[2016-09-05] MEDS ORDERED: IV SET PRIMARY 1 EA INFUS.SET MC ONE (20:35)
[2016-09-05] MEDS ORDERED: IV NS 0.9% 500 ML IV ONE ×2 (20:35→22:19)
[2016-09-05] MEDS ORDERED: ASPIRIN 81 MG TAB.CHEW ONE (20:35)
[2016-09-05] MEDS ORDERED: ASPIRIN 325 MG TABLET ONE (20:38)
[2016-09-05 20:50] LABS: INR 1.85 (0.87-1.13); PROTHROMBIN TIME 20.1 SECS (9.5-12.7)
[2016-09-05 20:54] LABS: PARTIAL THROMBOPLASTIN TIME > 170 SEC (23-34)
--- NOTE | 2016-09-05 20:54 | NUR ---
GROUP CALLED, SUPERVISOR LEAD BURNING
[2016-09-05 21:00] VITALS: BP 127/58
[2016-09-05] MEDS ORDERED: GLUC1KIT IJ (21:00)
[2016-09-05] MEDS ORDERED: IV NS 0.9% 500 ML BAG IV ONE ×2 (21:00→22:30)
[2016-09-05] MEDS ORDERED: METR500P3 IV (21:00)
[2016-09-05] MEDS ORDERED: ALBU20VI2 IV (21:00)
[2016-09-05] MEDS ORDERED: LACT1CAP69 GT (21:00)
[2016-09-05] MEDS ORDERED: AMIK250V14 IV (21:00)
--- NOTE | 2016-09-05 21:10 | NUR ---
CALLED [facility] FOR TRANSPORT BACK TO SNF, ETA 2 hours
[2016-09-05] MEDS ORDERED: DILTIAZEM HCL 25 MG IV ONE (23:14)
[2016-09-05 23:20] VITALS: BP 117/59
[2016-09-05] MEDS ORDERED: DILTIAZEM HCL 50 MG IV IV ONE (23:30)
--- NOTE | 2016-09-05 23:39 | NUR ---
[facility] TRANSPORT AT BEDSIDE REPORT GIVEN TO AGATA RUDD.
--- NOTE | 2016-09-05 23:41 | NUR ---
SPOKE TO [facility] STAFF JOSE JUAN TO GIVE REPORT, STAFF STATES "WE ARE UNABLE TO ACCEPT HER BACK DUE TO WE ARE NOT EQUIPT TO TAKE CARE OF HER HERE, SHE IS SUPPOSE TO GO BACK TO [facility]." I ALSO SPOKE TO NICOL JOYCE SPEED BELT SANDER AND CONFIRM THAT THEY ARE NOT ABLE TO TAKE THE PT.
--- NOTE | 2016-09-05 23:56 | NUR ---
SPOKE TO GONZALES SANTOYO ELECTRICIAN JOURNEYMAN WIREMAN CRISTAL REGARDING PT AND STATES THE CANNOT ACCEPT PT DUE TO NO BED AVAILABILITY AND A BED HOLD WAS NOT PLACED DUE TO PT HAS BEEN GONE FOR AT LEAST A COUPLE WEEKS.
[2016-09-06] VITALS (7 sets, daily range): BP systolic 104–122; BP diastolic 50–65
--- NOTE | 2016-09-06 00:03 | NUR ---
NORI NURSING HOUSE MOVING SUPERVISOR MADE AWARE OF THE SITUATION.
--- NOTE | 2016-09-06 00:16 | NUR ---
PER NORI RN MECHANICAL SYSTEM TECHNICIAN SHE SPOKE TO NICOL AND TO SEND PT BACK TO [facility] .
--- NOTE | 2016-09-06 00:34 | NUR ---
PER NORI, KEEP PT UNTIL MORNING FOR PLACEMENT.
--- NOTE | 2016-09-06 00:36 | NUR ---
REPOTSITIONED PT IN BED.
--- NOTE | 2016-09-06 01:00 | NUR ---
PT RESTING QUIETLY, NO ACUE DISTRESS NOTED, RESP EVEN AND UNLABORED. NO PAIN OR DISCOMFORT NOTED AT THIS TIME. CALL LIGHT WITHIN REACH.
--- NOTE | 2016-09-06 04:23 | NUR ---
PT RESTING QUIETLY, NO ACUE DISTRESS NOTED, RESP EVEN AND UNLABORED. NO PAIN OR DISCOMFORT NOTED AT THIS TIME. CALL LIGHT WITHIN REACH.
--- NOTE | 2016-09-06 05:16 | NUR ---
REPOSITIONED PT IN BED, RT AT BEDSIDE FOR SUCTIONING.
--- NOTE | 2016-09-06 06:24 | NUR ---
PT REMAINS ASLEEP, PT EASILY AROUSABLE, NO ACUTE DISTRESS NOTED, RESP EVEN AND UNLABORED. CALL LIGHT WIHTIN REACH.
--- NOTE | 2016-09-06 07:27 | NUR ---
REPORT GIVEN TO AM SHIFT AGATA CHAPPELL.
--- NOTE | 2016-09-06 08:29 | NUR ---
111.1 [facility]
--- NOTE | 2016-09-06 08:42 | NUR ---
REPORT GIVEN TO NCIK PARMAR FOR CONT OF CARE
--- NOTE | 2016-09-06 09:00 | NUR ---
SEEN BY DR DELACRUZ
--- NOTE | 2016-09-06 09:30 | NUR ---
RN NOTES RECEIVED PATIENT FROM ER ON [facility] VENT WITH BREATHING NORMAL, EVEN AND UNLABORED. NO SOB NOTED. NO ACUTE DISTRESS NOTED. VENT SETTING REVIEWED AND VERIFIED. TOLERATED WELL. TELE MONITOR REVEALS V PACING , UNCONTROLLED A-FIB XY=697. IV IV L HAND 18G IS PATENT AND INTACT. GT ON CLAMPED. POSITIVE PLACEMENT. HOB ELEVATED. SKIN ASSESSMENT DONE. KEPT CLEAN, DRY AND COMFORTABLE. ALL NEEDS ATTENDED. SAFETY MEASURE OBSERVED. CALL LIGHT WITH IN REACH. WILL CONT TO MONITOR.
--- NOTE | 2016-09-06 10:20 | NUR ---
RN NOTES PATIENT NOTED WITH BS=63. CALLED DR JANNETH ANGELES WITH ORDER TO RESUME GT FEED AND ACCU CHECK Q6HR. ORDER NOTED AND CARRIED OUT. WILL CONT TO MONITOR.
[2016-09-06] MEDS ORDERED: DEXTROSE 50%-WATER 50 ML DISP.SYRIN IV PRN (10:30)
[2016-09-06] MEDS: RENAL NOVASOURCE 1,000 ML BOTTLE GT SCH (10:58)
[2016-09-06] MEDS ORDERED: IV SET PRIMARY PUMP SET 1 EA INFUS.SET MC ONE ×2 (11:52→19:56)
[2016-09-06] MEDS ORDERED: HYDROCODONE/APAP 5/325MG 1 EACH TABLET PO PRN (12:00)
[2016-09-06] MEDS ORDERED: RENAL NOVASOURCE 1,000 ML BOTTLE GT PRN (12:00)
[2016-09-06] MEDS ORDERED: BLOOD SUGAR DIAGNOSTIC 1 EACH STRIP IN SCH (12:00)
[2016-09-06] MEDS ORDERED: ZOLPIDEM TARTRATE 5 MG TABLET PO PRN (12:00)
[2016-09-06] MEDS ORDERED: MAGNESIUM HYDROXIDE 30 ML UDC PO PRN (12:00)
[2016-09-06] MEDS ORDERED: ACETAMINOPHEN 325 MG TABLET PO PRN (12:00)
[2016-09-06] MEDS ORDERED: MAG HYDROX/AL HYDROX/SIMETH 30 ML UDC PO PRN (12:00)
[2016-09-06] MEDS ORDERED: DILTIAZEM HCL IV 125 MG in IV D5W 100 ML IV PRN ×4 (12:00)
[2016-09-06] MEDS ORDERED: MAG HYDROX/AL HYDROX/SIMETH 30 ML UDC GT PRN (12:00)
[2016-09-06] MEDS: ONDANSETRON HCL/PF 4 MG/2 ML VIAL IVP PRN (12:35)
[2016-09-06] MEDS: BLOOD SUGAR DIAGNOSTIC 1 EACH STRIP IN SCH ×3 (12:57→23:53)
[2016-09-06] MEDS: AMIODARONE HCL 200 MG TABLET PO SCH ×2 (13:17→17:34)
[2016-09-06] MEDS ORDERED: DOSING PER PHARMACY-AMIKACI IV XX PRN (17:00)
[2016-09-06] MEDS ORDERED: FEE PK DOSING 1 MIN EA MC ONE ×2 (17:05)
[2016-09-06] MEDS: ACETAMINOPHEN 650 MG/20.3 ML UDC GT PRN (17:18)
[2016-09-06] MEDS: SENNOSIDES 8.6 MG TABLET GT SCH (17:18)
[2016-09-06] MEDS: WARFARIN SODIUM 1 MG TABLET PO SCH (17:21)
--- NOTE | 2016-09-06 17:28 | NUR ---
RN NOTES CALLED DR HARRIS AND NOTIFIED THAT PATIENT BP IS 94/48, PJ=[id number] AND IS RECEIVING DIALYSIS NOW. RECEIVED ORDER TO STOP CARDIZEM DRIP AND TO CONTINUE ROUTINE MED AMIODARONE PER ORDER. CHARGE NURSE MADE AWARE. ORDER NOTED AND CARRIED OUT. WILL CONT TO MONITOR.
[2016-09-06] MEDS: INSULIN REGULAR, HUMAN 100 UNIT/ML 3 ML VIAL SQ PRN ×2 (17:42→23:55)
[2016-09-06] MEDS ORDERED: VANCOMYCIN 1 GM in IV D5W 250 ML IV ONE ×2 (18:00→21:00)
--- NOTE | 2016-09-06 19:08 | NUR ---
RN NOTES PATIENT ENDORSED TO NEXT SHIFT IN STABLE CONDITION FOR CONTINUITY OF CARE. NO SIGNIFICANT CHANGES NOTED. KEPT CLEAN, DRY AND COMFORTABLE. ALL NEEDS ATTENDED. CALL LIGHT WITH IN REACH. SAFETY MEASURE OBSERVED. WILL CONT TO MONITOR.
--- NOTE | 2016-09-06 19:15 | NUR ---
TD RN: RECEIVED PT WT EYES CLOSED, ABLE TO OPEN EYES WHEN TOUCHED AND CALLED BY NAME. ABLE TO FOLLOW SIMPLE COMMANDS. PER DAY SHIFT ENDORSEMENT, JUST HAD DIALYSIS WT NO FLUID REMOVAL. ON MECH VENT VIA TRACH AND TOLERATING VENT SETTINGS. NO ACUTE DISTRESS, NO EVIDENCE OR C/O DISCOMFORT. OCCASIONAL V-PACING ON MONITOR, A. FIB WT HR IN LOW 100s WT BBB. TOLERATING GTF WT NO RESIDUAL. SAFETY PRECAUTION NOTED. WILL CONTINUE TO MONITOR.
--- NOTE | 2016-09-06 19:30 | NUR ---
FRONT END LOADER OPERATOR: UNABLE TO PUT IV ACCESS BY 2 ICU RNs PER DAY SHIFT AND MD OKAYED FOR MID LINE INSERTION. ЕЛЕНА CHARGE NURSE AND SALES ROUTE DRIVER HELPER MADE AWARE.
[2016-09-06] MEDS ORDERED: SECONDARY IV SET 1 EA INFUS.SET MC ONE (19:56)
[2016-09-06] MEDS ORDERED: AMIKACIN 350 MG in IV D5W 100 ML IV ONE (20:00)
[2016-09-06] MEDS ORDERED: IV NS 0.9% 250 ML IV ONE (20:43)
[2016-09-06] MEDS: IV NS 0.9% 250 ML IV PRN (20:48)
[2016-09-06] MEDS: ESCITALOPRAM OXALATE (10 MG) 10 MG TABLET GT SCH (21:02)
[2016-09-06] MEDS: INSULIN DETEMIR 100 UNIT/ML CARTRIDGE SQ SCH (21:56)
[2016-09-07] VITALS (7 sets, daily range): BP systolic 103–129; BP diastolic 39–81
[2016-09-07] MEDS: BLOOD SUGAR DIAGNOSTIC 1 EACH STRIP IN SCH ×3 (05:26→17:54)
[2016-09-07] MEDS: INSULIN REGULAR, HUMAN 100 UNIT/ML 3 ML VIAL SQ PRN ×3 (05:28→17:49)
--- NOTE | 2016-09-07 06:50 | NUR ---
TD RN: NO SIGNIFICANT KARINA DURING THE SHIFT. NO ACUTE DISTRESS, NO EVIDENCE OF DISCOMFORT. REMAINED A. FIB AND V-PACED AT TIMES WT HR IN THE 90s-LOW 100 WT BBB. TOLERATING GTF WT NO RESIDUAL. KEPT CLEAN AND DRY. HOB ON SEMI-ARMSTRONG'S AT ALL TIMES.
[2016-09-07 07:27] LABS: BASOPHILS % (AUTO) 0.4 % (0.0-2.0); EOSINOPHILS # (AUTO) 0.3 /CMM (0.0-0.7); EOSINOPHILS % (AUTO) 4.6 % (0.0-6.0); HEMATOCRIT 26 % (33-45); HEMOGLOBIN 8.3 g/dL (11.5-14.8); LYMPHOCYTES # (AUTO) 1.1 /CMM (0.8-4.8); LYMPHOCYTES % (AUTO) 14.4 % (20.0-44.0); MEAN CORPUSCULAR HEMOGLOBIN 31 PG (26.0-33.0); MEAN CORPUSCULAR HGB CONC 33 g/dl (31.0-36.0); MEAN CORPUSCULAR VOLUME 94 fL (82-100); MONOCYTES # (AUTO) 0.7 /CMM (0.1-1.30); MONOCYTES % (AUTO) 9.4 % (2.0-12.0); NEUTROPHILS # (AUTO) 5.5 /CMM (1.8-8.9); NEUTROPHILS % (AUTO) 71.2 % (43.0-81.0); PLATELET COUNT (AUTO) 183 /CMM (150-450); RDW COEFFICIENT OF VARIATION 20.3 (11.5-15.0); RED BLOOD CELL COUNT(AUTO) 2.72 MIL/uL (4.0-5.2); WHITE BLOOD COUNT (AUTO) 7.7 K/uL (4.3-11.0)
[2016-09-07 07:32] LABS: CALCIUM, SERUM 8.2 mg/dL (8.5-10.1); CREATININE 3.7 mg/dL (0.6-1.3); MAGNESIUM 2.5 mg/dL (1.8-2.4); PHOSPHORUS 7.1 mg/dL (2.5-4.9); POTASSIUM 3.6 mmol/L (3.5-5.1)
[2016-09-07 07:40] LABS: THYROID STIMULATING HORMONE 1.309 uIU/mL (0.358-3.74)
--- NOTE | 2016-09-07 08:00 | NUR ---
ABISAI RN NOTE PATINT IN BED, ALL NEEDS ATTENDED, WITH TRACH TO VENT SETTING ORDERED , AMU BAG AT HOB , ON TELE MONITOR AFIB 97 , BED IN LOWEST AND LOCKED POSITION , CALL LIGHT WITHIN REACH , SEEN BY WOUND NURSE , ON G TUBE FEEDING ORDERED KEEP HOB ELEVATED AT ALL TIME LT UPPER ARM MID LINE IN PLACE NO S\S INFECTION NOTE , PLAN OF CARE DISCUSSED WITH PATIENT ,WILL CONT TO MONITOR CLOSELY, NOT IN ACUTE DISTRESS
[2016-09-07] MEDS: ASPIRIN 81 MG TAB.CHEW PO SCH (09:29)
[2016-09-07] MEDS: POLYETHYLENE GLYCOL 3350 17 GM POWD.PACK GT SCH (09:29)
[2016-09-07] MEDS: PYRIDOXINE HCL 50 MG TABLET GT SCH (09:29)
[2016-09-07] MEDS: PANTOPRAZOLE 40 MG TABLET.DR PO SCH (09:29)
[2016-09-07] MEDS: SENNOSIDES 8.6 MG TABLET GT SCH ×2 (09:29→17:53)
[2016-09-07] MEDS: RENAL NOVASOURCE 1,000 ML BOTTLE GT SCH (09:29)
[2016-09-07] MEDS: AMIODARONE HCL 200 MG TABLET PO SCH ×3 (09:30→17:46)
[2016-09-07 12:08] LABS: INR 2.12 (0.87-1.13); PROTHROMBIN TIME 23.1 SECS (9.5-12.7)
--- NOTE | 2016-09-07 12:51 | NUR ---
ABISAI RN NOTE SPOKE WITH DR STEVEN GANDARA TO GIVE COUMADIN 1.5 MG, NO DVT PUMPS
[2016-09-07] MEDS ORDERED: FLU VACC QS 2016-17(36MOS+)/PF 0.5 ML DISP.SYRIN IM ONE ×2 (14:00)
--- NOTE | 2016-09-07 14:09 | NUR ---
WOUND CARE CONSULT: PT PRESENTS WITH INTACT DTI TO SACRAL AREA, PRESENT ON ADMISSION. PT HAS MULTIPLE AREAS OF DISCOLORATION, BRUISING AND SCARRING WITH SOME TINY SCABS ON BODY. FIRST STEP MATTRESS ORDERED. ARACELIS SCORE IS 11. ALL SKIN PROTECTION RECOMMENDATIONS DISCUSSED WITH NURSING STAFF. MD IN AGREEMENT WITH PLAN OF CARE. Addendum: 09/07/16 at 1411 by IVÁN ORTIZ WNDNU Amended: Links added.
--- NOTE | 2016-09-07 14:43 | NUR ---
ABISAI RN NOTE KCI MATRES APPLIED ORDERED
[2016-09-07] MEDS: WARFARIN SODIUM 1 MG TABLET PO SCH (17:47)
[2016-09-07] MEDS ORDERED: VANCOMYCIN 500 MG in IV D5W 100 ML IV PRN (18:00)
--- NOTE | 2016-09-07 18:26 | NUR ---
ABISAI RN NOTE ALL NEEDS ATTENDED, NOT IN ACUTE DISTRESS, CONT ON VENT SETTING ORDERED WILL CONT TO MONITOR CLOSELY, NOT IN ACUTE DISTRESS
--- NOTE | 2016-09-07 19:13 | NUR ---
Patient currently resides at the [facility] admin Erin [phone]. Pt is totally dependent with adl's, trach/vent dependent. She gets her outpt hemodialysis at [facility] every MWF @ 1600.Per Erin admin @ the [facility] home- she cannot take patient back due to dialysis transportation not covered by insurance if patient is in congregate home. Sub-acute facilities referral faxed to [facility] [phone], [facility] [phone], [facility] in [place] [phone], [facility] [phone]. Per Anju @ [facility] - no bed available. Dejan @ [facility] pending financial clearance. Addendum: 09/07/16 at 1914 by SWATI ZELAYA RN Amended: Links added.
--- NOTE | 2016-09-07 20:00 | NUR ---
received pt from day shift, alert, follows simple commands, V pacing, on the vent, lungs congested, some non pitting edema noted on L arm, GT to feeding tolerates well, anuric HD pt, v/s stable, no pain, pt turned and repositioned.
[2016-09-07] MEDS ORDERED: VANCOMYCIN 1 GM in IV D5W 250 ML IV ONE (21:00)
[2016-09-07] MEDS: ESCITALOPRAM OXALATE (10 MG) 10 MG TABLET GT SCH (22:57)
[2016-09-07] MEDS: INSULIN DETEMIR 100 UNIT/ML CARTRIDGE SQ SCH (23:01)
[2016-09-08] VITALS: BP 121/50
[2016-09-08] MEDS: BLOOD SUGAR DIAGNOSTIC 1 EACH STRIP IN SCH ×4 (00:13→17:42)
[2016-09-08] MEDS ORDERED: IV NS 0.9% 250 ML IV ONE (03:44)
[2016-09-08 04:00] VITALS: BP 97/35
--- NOTE | 2016-09-08 04:09 | NUR ---
pt is resting in the bed, no acute distress overnight, v/s stable, no pain, pt cleaned, changed and repositioned q2hrs.
[2016-09-08] MEDS ORDERED: VANCOMYCIN 500 MG in IV D5W 100 ML IV PRN (06:00)
[2016-09-08 07:10] LABS: INR 1.73 (0.87-1.13); PROTHROMBIN TIME 18.8 SECS (9.5-12.7)
[2016-09-08 07:16] LABS: CALCIUM, SERUM 8.2 mg/dL (8.5-10.1); CREATININE 4.1 mg/dL (0.6-1.3); POTASSIUM 3.7 mmol/L (3.5-5.1)
[2016-09-08 08:00] VITALS: BP 107/59
--- NOTE | 2016-09-08 08:00 | NUR ---
TD/RN AM SHIFT INITIAL NOTES RECEIVED PT AWAKE BED, PT ALERT, FOLLOWS COMMANDS, ABLE TO RESPONSE TO SIMPLE QUESTIONS. NO GRIMACE NOTED, NO ACUTE CHANGE OF CONDITION NOTED. PT ON VENTILATOR SET AT PRESCRIBED SETTINGS, SATURATING @ 99%, LUNG SOUNDS DIMINISHED, SUCTIONED FOR AIRWAY CLEARANCE. ON TELE WITH V-PACING, HR 95, IV SITE FLUSHED PATENT WITH NO S/S OF INFECTION, SL. ON GOING GTF @ 50CC/HR, POSITIVE OF BOWEL SOUNDS, NO GASTRIC RESIDUAL NOTED. SCHEDULED AM MEDS TO BE GIVEN. PT IS COMFORTABLE AT THIS TIME. CL WITHIN REACHED AND SAFETY MAINTAINED. ON GOING MONITORING.
[2016-09-08] MEDS: POLYETHYLENE GLYCOL 3350 17 GM POWD.PACK GT SCH (08:49)
[2016-09-08] MEDS: AMIODARONE HCL 200 MG TABLET PO SCH ×3 (08:51→16:18)
[2016-09-08] MEDS: PYRIDOXINE HCL 50 MG TABLET GT SCH (08:51)
[2016-09-08] MEDS: PANTOPRAZOLE 40 MG TABLET.DR PO SCH (08:52)
[2016-09-08] MEDS: ASPIRIN 81 MG TAB.CHEW PO SCH (08:52)
[2016-09-08] MEDS: SENNOSIDES 8.6 MG TABLET GT SCH ×2 (08:52→16:18)
[2016-09-08] MEDS: RENAL NOVASOURCE 1,000 ML BOTTLE GT SCH (08:54)
[2016-09-08 12:00] VITALS: BP 103/55
[2016-09-08] MEDS: INSULIN REGULAR, HUMAN 100 UNIT/ML 3 ML VIAL SQ PRN ×2 (12:24→17:44)
--- NOTE | 2016-09-08 15:30 | NUR ---
TELE1/RN HD TX - COMPLETED HD TX COMPLETED, REMOVED 2 LITERS. PT TOLERATED PROCEDURE. MONITORING CONTINUED.
[2016-09-08 16:00] VITALS: BP 114/51
--- NOTE | 2016-09-08 16:00 | NUR ---
TELE1/RN CONSENT - OBTAINED CONSENT FOR PLACEMENT OF DIALYSIS CATHETER OBTAINED FROM PT'S SON. PLACEMENT SCHEDULED FOR THIS SUNDAY.
[2016-09-08] MEDS: WARFARIN SODIUM 1 MG TABLET PO SCH (16:17)
[2016-09-08] MEDS: AMIKACIN 350 MG in IV D5W 100 ML IV PRN (17:00)
--- NOTE | 2016-09-08 18:00 | NUR ---
TELE1/RN AFTERNOON ROUNDS PM CARE PROVIDED. NO ACUTE CHANGE OF CONDITION NOTED. MONITORING CONTINUED.
--- NOTE | 2016-09-08 19:23 | NUR ---
TELE1/RN AM SHIFT END NOTES NO ACUTE CHANGE OF CONDITION NOTED DURING THE SHIFT. NEEDS MET. WITHIN ON GOING GTF @ 50CC/HR, PATENT, IV SITE ON TKO, PATENT WITH NO S/S OF INFECTION. PT ENDORSED TO PM NURSE TO CONTINUE CARE. CL WITHIN REACHED AND SAFETY MAINTAINED.
--- NOTE | 2016-09-08 19:30 | NUR ---
WAITER/WAITRESS COCKTAIL LOUNGE INITIAL NOTE RECEIVED REPORT PATO PARMAR. PT IN BED. AWAKE, MOUTHS WORDS. VENT TRACH, TOLERATING CURRENT VENT SETTINGS SIMV MODE. LUNG SOUNDS RHONCHI, SUCTIONED. BOWEL SOUNDS PRESENT. DIAPER INTACT. PULSES PRESENT IN ALL EXTREMITIES. IV PATENT AND INTACT. BED IN LOW LOCKED POSITION. WILL CONTINUE TO MONITOR.
[2016-09-08 20:00] VITALS: BP 114/50
[2016-09-08] MEDS: ESCITALOPRAM OXALATE (10 MG) 10 MG TABLET GT SCH (22:36)
[2016-09-08] MEDS: INSULIN DETEMIR 100 UNIT/ML CARTRIDGE SQ SCH (22:40)
[2016-09-09] VITALS: BP 122/71
[2016-09-09] MEDS: BLOOD SUGAR DIAGNOSTIC 1 EACH STRIP IN SCH ×5 (00:05→23:54)
[2016-09-09] MEDS: INSULIN REGULAR, HUMAN 100 UNIT/ML 3 ML VIAL SQ PRN ×3 (00:08→17:53)
[2016-09-09 04:00] VITALS: BP 110/59
[2016-09-09] MEDS: RENAL NOVASOURCE 1,000 ML BOTTLE GT SCH (06:10)
[2016-09-09] MEDS: HYDROCODONE/APAP 5/325MG 1 EACH TABLET GT PRN (06:14)
--- NOTE | 2016-09-09 07:00 | NUR ---
RN INITIAL NOTES RECEIVED PT IN BED, PT IS CONFUSED, ABLE TO MAKE NEEDS KNOWN, PT IS ABLE TO FOLLOW COMMANDS, PT IS ON [facility] VENT PORTEX # 7 SIMV AC 4 TV 500 FIO2 % 40 PEEP 5, SATING WELL, NO S/S OF RESP. DISTRESS OR SOB NOTED AT THIS TIME, PT IS ON TELE MONITOR SHOWING SR @ 90BPM, NO C/O OF DISCOMFORT OR DISTRESS AT THIS TIME, PT HAS G TUBE RUNNING FEEDING ORDERED, PT HAS SKIN ISSUES NOTED, PT HAS OLIVIA MIDLINE, SL, L HAND #18G, C/D/I/PATENT, FLUSHING WELL, NO S/S OF INFECTION/ INFILTRATION NOTED AT THIS TIME, R FEMORAL HD CATH, DRESSING CLEAN AND DRY, INTACT, ALL SAFETY MEASURES IN PLACE AT ALL TIMES, CALL LIGHT WITHIN EASY REACH, WILL MONITOR PT CLOSELY
[2016-09-09] MEDS: PANTOPRAZOLE 40 MG TABLET.DR PO SCH (07:12)
[2016-09-09 07:32] LABS: INR 1.47 (0.87-1.13); PROTHROMBIN TIME 15.9 SECS (9.5-12.7)
[2016-09-09 08:00] VITALS: BP 122/67
[2016-09-09 08:01] LABS: CALCIUM, SERUM 8.4 mg/dL (8.5-10.1); CREATININE 3.5 mg/dL (0.6-1.3); POTASSIUM 3.8 mmol/L (3.5-5.1)
[2016-09-09] MEDS: PYRIDOXINE HCL 50 MG TABLET GT SCH (09:01)
[2016-09-09] MEDS: SENNOSIDES 8.6 MG TABLET GT SCH ×2 (09:01→17:39)
[2016-09-09] MEDS: ASPIRIN 81 MG TAB.CHEW PO SCH (09:01)
[2016-09-09] MEDS: POLYETHYLENE GLYCOL 3350 17 GM POWD.PACK GT SCH (09:01)
[2016-09-09] MEDS: AMIODARONE HCL 200 MG TABLET PO SCH ×3 (09:02→17:41)
[2016-09-09] MEDS: Z GUARD REMEDY 2 OZ OINT TP PRN (09:04)
[2016-09-09 11:52] LABS: ABG OXYGEN SATURATION 97.1 % (92.0-98.5); ABG PCO2 50.1 mmHg (35.0-45.0); ABG PH 7.307 (7.350-7.450); ABG PO2 106.1 mmHg (75.0-100.0); ABG TOTAL HEMOGLOBIN 9.3 G/dL (12.0-16.0); AaDO2 121.5 mmHg; MetHb 0.4 % (0.0-1.5); O2Hb 95.7 % (94.0-97.0); SITE, ABG Right Brachial; VENT MODE, BG CPAP 5/ PS 12 @ 40%
[2016-09-09 12:00] VITALS: BP 111/69
--- NOTE | 2016-09-09 12:11 | NUR ---
placed back to previous vent settings per md order. simv 4/ ps 12/ vt 500/ fio2 30%/ peep +5 due to ph 7.30, pco2 50, po2 106, hco3 24, be -2.0. Addendum: 09/09/16 at 1215 by CASIE IBARRA RT Amended: Links added.
[2016-09-09 16:00] VITALS: BP 110/71
[2016-09-09] MEDS: WARFARIN SODIUM 1 MG TABLET PO SCH (17:40)
--- NOTE | 2016-09-09 18:40 | NUR ---
RN CLOSING NOTES PT REMAINED STABLE DURING SHIFT, ALL MEDICATIONS GIVEN, ALL MD ORDERS CARRIED OUT, PT KEPT CLEAN AND DRY, ALL TREATMENTS CARRIED, IV INTACT/PATENT, ALL SAFETY MEASURES IN PLACE AT ALL TIMES, REPORT WILL BE GIVEN TO PM RN FOR KARINA
--- NOTE | 2016-09-09 19:30 | NUR ---
TRIM MASTER OPERATOR INITIAL NOTE RECEIVED PT FROM BAMBI PARMAR. PT IN BED. OPENS EYES, MOUTHS WORDS. VENT TRACH, TOLERATING CURRENT VENT SETTINGS. LUNG SOUNDS RHONCHI SUCTIONED FOR COMFORT. BOWEL SOUNDS PRESENT WITH DIAPER INTACT. GT PATENT AND AND INTACT WITH NOVASOURCE AT 50CC RUNNING, NO RESIDUAL. IV PATENT AND INTACT. PULSES PRESENT IN ALL EXTREMITIES. BED IN LOW LOCKED POSITION WITH CALL LIGHT IN REACH. WILL CONTINUE TO MONITOR.
[2016-09-09 20:00] VITALS: BP 96/53
[2016-09-09] MEDS: ESCITALOPRAM OXALATE (10 MG) 10 MG TABLET GT SCH (21:37)
[2016-09-09] MEDS: INSULIN DETEMIR 100 UNIT/ML CARTRIDGE SQ SCH (21:37)
[2016-09-10] VITALS (7 sets, daily range): BP systolic 93–123; BP diastolic 43–71
[2016-09-10] MEDS: RENAL NOVASOURCE 1,000 ML BOTTLE GT SCH (06:00)
[2016-09-10] MEDS: BLOOD SUGAR DIAGNOSTIC 1 EACH STRIP IN SCH ×3 (06:00→18:06)
[2016-09-10] MEDS ORDERED: IV SET PRIMARY PUMP SET 1 EA INFUS.SET MC ONE (06:34)
[2016-09-10] MEDS: IV NS 0.9% 250 ML IV PRN (06:40)
[2016-09-10] MEDS: PANTOPRAZOLE 40 MG TABLET.DR PO SCH ×2 (06:40→10:23)
[2016-09-10 06:43] LABS: BASOPHILS % (AUTO) 0.2 % (0.0-2.0); EOSINOPHILS # (AUTO) 0.1 /CMM (0.0-0.7); EOSINOPHILS % (AUTO) 1.5 % (0.0-6.0); HEMATOCRIT 27 % (33-45); HEMOGLOBIN 8.5 g/dL (11.5-14.8); LYMPHOCYTES # (AUTO) 1.1 /CMM (0.8-4.8); LYMPHOCYTES % (AUTO) 14.2 % (20.0-44.0); MEAN CORPUSCULAR HEMOGLOBIN 30 PG (26.0-33.0); MEAN CORPUSCULAR HGB CONC 32 g/dl (31.0-36.0); MEAN CORPUSCULAR VOLUME 94 fL (82-100); MONOCYTES # (AUTO) 0.7 /CMM (0.1-1.30); MONOCYTES % (AUTO) 9.5 % (2.0-12.0); NEUTROPHILS # (AUTO) 5.7 /CMM (1.8-8.9); NEUTROPHILS % (AUTO) 74.6 % (43.0-81.0); PLATELET COUNT (AUTO) 147 /CMM (150-450); RDW COEFFICIENT OF VARIATION 20.6 (11.5-15.0); RED BLOOD CELL COUNT(AUTO) 2.81 MIL/uL (4.0-5.2); WHITE BLOOD COUNT (AUTO) 7.7 K/uL (4.3-11.0)
[2016-09-10] MEDS: INSULIN REGULAR, HUMAN 100 UNIT/ML 3 ML VIAL SQ PRN ×3 (06:46→18:17)
[2016-09-10 06:55] LABS: INR 1.47 (0.87-1.13); PROTHROMBIN TIME 15.9 SECS (9.5-12.7)
[2016-09-10 07:11] LABS: CALCIUM, SERUM 8.6 mg/dL (8.5-10.1); CREATININE 3.9 mg/dL (0.6-1.3); POTASSIUM 4.1 mmol/L (3.5-5.1)
--- NOTE | 2016-09-10 07:30 | NUR ---
RN INIITAL NOTES RECEIVED PT FROM CHEMICAL ETCHING PROCESSOR NURSE ON BED, NO SOB, NO DISTRESS, ON MECH VENT WITH SETTINGS ORDERED, AOX1-2, ABLE TO NOD AND MOUTH WORDS, DENIES PAIN, NO FEVER, ON TELE MONITOR, V PACING OCCASIONALLY RATE 93, OLIVIA MIDLINE, LHAND H/L, R FOREARM IV H/L, PATENT, DRESSING C/D/R/I, G TUBE FEEDING NOVASOURCE AT 50 ML, NO RESIDUAL. ON KCI MATTRESS, CALL LIGHT WITHIN REACH, BED IN LOW AND LOCKED POSITION, WILL CONTINUE TO MONITOR.
[2016-09-10] MEDS: PYRIDOXINE HCL 50 MG TABLET GT SCH (10:23)
[2016-09-10] MEDS: SENNOSIDES 8.6 MG TABLET GT SCH ×2 (10:23→18:06)
[2016-09-10] MEDS: ASPIRIN 81 MG TAB.CHEW PO SCH (10:23)
[2016-09-10] MEDS: POLYETHYLENE GLYCOL 3350 17 GM POWD.PACK GT SCH (10:23)
[2016-09-10] MEDS: AMIODARONE HCL 200 MG TABLET PO SCH ×3 (10:25→18:07)
[2016-09-10] MEDS: ACETAMINOPHEN 650 MG/20.3 ML UDC GT PRN (10:28)
[2016-09-10] MEDS ORDERED: SECONDARY IV SET 1 EA INFUS.SET MC ONE (11:59)
[2016-09-10] MEDS: AMIKACIN 350 MG in IV D5W 100 ML IV PRN (13:26)
[2016-09-10] MEDS: WARFARIN SODIUM 1 MG TABLET PO SCH (18:12)
--- NOTE | 2016-09-10 18:27 | NUR ---
RN NOTES ASKED DR HARRIS IF I SHOULD HOLD TODAY'S COUMADIN, BECAUSE PT GOES FOR PERMACATH PLACEMENT TOMORROW. HE SAID NOT TO HOLD. I CARRIED OUT ORDERS. I WILL MONITOR PT.
--- NOTE | 2016-09-10 19:00 | NUR ---
RN CLOSING NOTES PT REMAINED STABLE THROUGHOU SHIFT, NO SOB, NO DISTRESS, HD DONE TODAY, NOTHING OUT, MEDS GIVEN ORDERED, NEEDS MET, KEPT CLEAN AND DRY, WILL ENDORSE TO WASH HOUSE SUPERVISOR NURSE.
[2016-09-10] MEDS: ESCITALOPRAM OXALATE (10 MG) 10 MG TABLET GT SCH (22:11)
[2016-09-10] MEDS: INSULIN DETEMIR 100 UNIT/ML CARTRIDGE SQ SCH (22:16)
[2016-09-11] VITALS (8 sets, daily range): BP systolic 95–121; BP diastolic 58–71
--- NOTE | 2016-09-11 | NUR ---
RN INSULIN COVERAGE HELD BECAUSE PT IS NPO WITHOUT IVF. GTF HELD FOR PROCEDURE IN AM
[2016-09-11] MEDS: BLOOD SUGAR DIAGNOSTIC 1 EACH STRIP IN SCH ×4 (00:33→17:45)
--- NOTE | 2016-09-11 06:00 | NUR ---
RN INSULIN COVERAGE HELD BECAUSE PT IS NPO WITHOUT IVF.
--- NOTE | 2016-09-11 07:00 | NUR ---
RN NOTES RECEIVED ON BED PT ON A/Ox2 , ABLE TO NOD AND MOUTH WORDS, MECH VENT TOLERATING CURRENT VET SETTINGS WELL, TRACH CARE DONE , ON TELE MONITOR, V PACING OCCASIONALLY RATE 90'S , L UA MIDLINE, L HAND H/L, R FOREARM IV H/L, PATENT, DRESSING C/D/R/I, G TUBE CLAMPED AT THIS TIME , PT IS NPO FOR PERMCATH PLACEMENT TODAY , NO RESIDUAL NOTED , SR UP x3 , CALL LIGHT WITHIN EASY REACH, BED IN LOW AND LOCKED POSITION, WILL CONTINUE TO MONITOR PT CLOSELY AND NOTIFY MD FOR ANY SIGNIFICANT CHANGES.
[2016-09-11 07:15] LABS: BASOPHILS % (AUTO) 0.6 % (0.0-2.0); EOSINOPHILS % (AUTO) 0.4 % (0.0-6.0); HEMATOCRIT 27 % (33-45); HEMOGLOBIN 8.7 g/dL (11.5-14.8); LYMPHOCYTES # (AUTO) 0.9 /CMM (0.8-4.8); LYMPHOCYTES % (AUTO) 11.2 % (20.0-44.0); MEAN CORPUSCULAR HEMOGLOBIN 31 PG (26.0-33.0); MEAN CORPUSCULAR HGB CONC 33 g/dl (31.0-36.0); MEAN CORPUSCULAR VOLUME 94 fL (82-100); MONOCYTES # (AUTO) 0.7 /CMM (0.1-1.30); MONOCYTES % (AUTO) 9.1 % (2.0-12.0); NEUTROPHILS # (AUTO) 6.1 /CMM (1.8-8.9); NEUTROPHILS % (AUTO) 78.7 % (43.0-81.0); PLATELET COUNT (AUTO) 140 /CMM (150-450); RDW COEFFICIENT OF VARIATION 20.8 (11.5-15.0); RED BLOOD CELL COUNT(AUTO) 2.87 MIL/uL (4.0-5.2); WHITE BLOOD COUNT (AUTO) 7.7 K/uL (4.3-11.0)
[2016-09-11 07:20] LABS: CALCIUM, SERUM 8.7 mg/dL (8.5-10.1); CREATININE 3.7 mg/dL (0.6-1.3); MAGNESIUM 2.3 mg/dL (1.8-2.4); POTASSIUM 4.1 mmol/L (3.5-5.1)
[2016-09-11 07:30] LABS: INR 1.8 (0.87-1.13); PROTHROMBIN TIME 19.6 SECS (9.5-12.7)
[2016-09-11] MEDS: SENNOSIDES 8.6 MG TABLET GT SCH ×2 (08:17→17:43)
[2016-09-11] MEDS: PYRIDOXINE HCL 50 MG TABLET GT SCH (08:17)
[2016-09-11] MEDS: AMIODARONE HCL 200 MG TABLET PO SCH ×3 (08:17→17:45)
[2016-09-11] MEDS: POLYETHYLENE GLYCOL 3350 17 GM POWD.PACK GT SCH (08:17)
[2016-09-11] MEDS: ASPIRIN 81 MG TAB.CHEW PO SCH (08:17)
[2016-09-11] MEDS ORDERED: HEPARIN SODIUM, PORCINE 1,000 UNIT/ML VIAL ONE (14:19)
[2016-09-11] MEDS ORDERED: LIDOCAINE 1% INJ 50 ML MDV IJ ONE (14:20)
--- NOTE | 2016-09-11 15:30 | NUR ---
RN NOTES PT RECEIVED FROM RECOVERY , L UPPER CHEST PERMCATH IN PLACED WITH SMALL AMOUNT OF BLOODY DRAINING , DRESSING REINFORCE , VSS STABLE, CONTINUE TO MONITOR PT CLOSELY.
[2016-09-11] MEDS ORDERED: RENAL NOVASOURCE 1,000 ML BOTTLE GT PRN (16:00)
--- NOTE | 2016-09-11 17:00 | NUR ---
RN NOTE SMALL AMOUNT OF BLOODY DRAINGE NOTE ON R UPPER CHEST PERMCATH SITE . NEW DRESSING APPLIED TO THE SITE ,
[2016-09-11] MEDS: WARFARIN SODIUM 1 MG TABLET PO SCH (17:44)
[2016-09-11] MEDS: RENAL NOVASOURCE 1,000 ML BOTTLE GT SCH (17:51)
--- NOTE | 2016-09-11 19:00 | NUR ---
RN NOTES VSS STABLE , TF AT 50CC/HR RUNNING VIA PEG , NO RESIDUAL NOTED , PT MEDICATED PER MD ORDER , NO SIGNIFICANT CHANGES NOTED ON THIS SHIFT .
--- NOTE | 2016-09-11 20:00 | NUR ---
TELLER VAULT NOTES RECEIVED PT IN BED, A/O X1. ON VENT VIA TRACH AT ORDERED SETTINGS, SIMV 4, TV 500, FIO2 30%, PEEP 5. TELE READS AFIB WITH V- PACING AT 82 BPM. ON TUBE FEEDING VIA GT, NOVASOURCE AT 50 ML/HR, 10 ML RESIDUAL. OLIVIA 20G MIDLINE. LEFT HAND 18G AND NEWLY PLACED RCW PERMACATH WHICH IS NOTED WITH BLEEDING AND HAS PRESSURE DRESSING ON IT. PREVIOUS HD CATH AT RIGHT FEMORAL STILL IN PLACE. HOB ELEVATED, SIDE RAILS X3. CALL LIGHT WITHIN REACH. TURNED AND REPOSITIONED.
[2016-09-11] MEDS: ESCITALOPRAM OXALATE (10 MG) 10 MG TABLET GT SCH (21:58)
[2016-09-11] MEDS: INSULIN DETEMIR 100 UNIT/ML CARTRIDGE SQ SCH (22:04)
[2016-09-12] VITALS: BP 91/63
[2016-09-12] MEDS: BLOOD SUGAR DIAGNOSTIC 1 EACH STRIP IN SCH ×4 (00:29→17:55)
[2016-09-12] MEDS: INSULIN REGULAR, HUMAN 100 UNIT/ML 3 ML VIAL SQ PRN ×3 (00:33→12:27)
[2016-09-12 04:00] VITALS: BP 117/42
--- NOTE | 2016-09-12 07:37 | NUR ---
INITIAL SHANK SANDER NOTE RCVD PT AWAKE AND ALERT SHOWING NO S/O DISTRESS OR C/O PAIN. AFIB ON TELE HR 91 WITH OCCASIONAL V-PACING. TOLERATING ORDERED VENT SETTINGS AND TUBE FEEDING RATE. OLIVIA MIDLINE C/D/I/PATENT. NO S/O INFILTRATION OR PHLEBITIS OBSERVED UPON FLUSHING. WILL CONTINUE TO MONITOR FOR SAFETY AND COMFORT. CALL LIGHT WITHIN REACH, BED IN LOW AND LOCKED POSITION.
[2016-09-12 08:00] VITALS: BP 111/66
[2016-09-12 08:07] LABS: INR 2.55 (0.87-1.13); PROTHROMBIN TIME 27.8 SECS (9.5-12.7)
[2016-09-12 08:10] LABS: CALCIUM, SERUM 8.7 mg/dL (8.5-10.1); CREATININE 4.1 mg/dL (0.6-1.3); POTASSIUM 4.4 mmol/L (3.5-5.1)
--- NOTE | 2016-09-12 08:40 | NUR ---
FINISH MOLDER NOTE RCVD CALL FROM LAB W/CRITICAL LAB FOR BUN 82. PT SCHEDULED TO HAVE DIALYSIS TODAY.
[2016-09-12] MEDS: ASPIRIN 81 MG TAB.CHEW PO SCH (09:00)
[2016-09-12] MEDS: SENNOSIDES 8.6 MG TABLET GT SCH ×2 (09:42→17:54)
[2016-09-12] MEDS: PYRIDOXINE HCL 50 MG TABLET GT SCH (09:42)
[2016-09-12] MEDS: PANTOPRAZOLE 40 MG/PACK PACK GT SCH (09:42)
[2016-09-12] MEDS: POLYETHYLENE GLYCOL 3350 17 GM POWD.PACK GT SCH (09:42)
[2016-09-12] MEDS: AMIODARONE HCL 200 MG TABLET PO SCH ×3 (09:43→17:55)
--- NOTE | 2016-09-12 10:47 | NUR ---
PROTECTIVE SIGNAL REPAIRER HELPERPILE DRIVER NOTE ASA HELD THIS AM PER PROGRAM MEDICAL DIRECTOR RN PT BLEEDING FROM RCW HD ACCESS. WILL CONTINUE TO MONITOR PT.
[2016-09-12 12:00] VITALS: BP 113/54
[2016-09-12 16:00] VITALS: BP 109/55
--- NOTE | 2016-09-12 16:40 | NUR ---
SPOKE W/ MARINA HD NURSE AND NOTIFIED TO D/C FEMORAL HD ACCESS IN AM.
[2016-09-12] MEDS ORDERED: SECONDARY IV SET 1 EA INFUS.SET MC ONE (17:46)
[2016-09-12] MEDS: WARFARIN SODIUM 1 MG TABLET PO SCH (17:54)
[2016-09-12] MEDS: RENAL NOVASOURCE 1,000 ML BOTTLE GT SCH (18:07)
--- NOTE | 2016-09-12 19:30 | NUR ---
SAGGER PREPARER INITIAL NOTE PT RECEIVED IN BED. ON TELE A-FIB CONTROLLED 86. MECH VENT 40%, PORTEX 7, PEEP 5, VENT TIDAL VOLUME 500, VENT POSITIVE PRESSURE 12. SATING WELL. GTUBE FEEDING WELL TOLERATED, NO RESIDUAL, FLUSHING WELL. GTUBE SITE C/D/I/. HD RCW INTACT. IV L ARM FLUSHING WELL, C/D/I, PATENT. R FEMORAL CATH IN PLACE. ALL SAFETY MEASURES IN PLACE. WILL ENDORSE TO NURSE FOR KARINA.
--- NOTE | 2016-09-12 19:44 | NUR ---
ENDING SALON COORDINATOR NOTE PT RESTING IN BED SHOWING NO S/O DISTRESS OR C/O PAIN. CALL LIGHT WITHIN REACH. BED IN LOW AND LOCKED POSITION. PT'S CARE ENDORSED TO HAND LENS POLISHER RN FO CONTINUITY OF CARE.
[2016-09-12 20:00] VITALS: BP 100/55
[2016-09-12] MEDS: ESCITALOPRAM OXALATE (10 MG) 10 MG TABLET GT SCH (21:44)
[2016-09-12] MEDS: INSULIN DETEMIR 100 UNIT/ML CARTRIDGE SQ SCH (21:48)
[2016-09-13] VITALS: BP 117/67
[2016-09-13] MEDS: BLOOD SUGAR DIAGNOSTIC 1 EACH STRIP IN SCH ×5 (00:02→23:02)
[2016-09-13] MEDS: INSULIN REGULAR, HUMAN 100 UNIT/ML 3 ML VIAL SQ PRN ×4 (00:18→22:57)
[2016-09-13 04:00] VITALS: BP 111/59
--- NOTE | 2016-09-13 07:15 | NUR ---
UPPERS EDGE BURNISHER INITIAL NOTES RECEIVED REPORT AND PT FROM PM NURSE. PT RESTING IN BED, NO ACUTE DISTRESS OR ACUTE CHANGES NOTED, ON [facility] VENT SETTINGS ORDERED BY SAT ABOVE 97%, A&O X1 OBTUNDED, MOUTHS WORDS AT TIMES, ON TELE MON A-FIB VPACING HR 80, GTUBE FEEDING NOVASOURCE @ 50 CC/HR NO RESIDUAL NOTED, RT FEMORAL ACCESS INTACT, RT CW PERMACTH INTACT, LUPPER ARM 20 G IV SITE INTACT AND PATENT, ALL NEEDS MET, ALL SAFETY MEASURES INITIATED, SIDE RAILS X2, BED LOW AND LOCKED, CALL LIGHT WITHIN REACH, WILL CONTINUE TO MONITOR.
[2016-09-13 07:49] LABS: CALCIUM, SERUM 8.5 mg/dL (8.5-10.1); CREATININE 3.4 mg/dL (0.6-1.3); INR 2.5 (0.87-1.13); POTASSIUM 4.2 mmol/L (3.5-5.1); PROTHROMBIN TIME 27.3 SECS (9.5-12.7)
[2016-09-13 08:00] VITALS: BP 113/58
[2016-09-13] MEDS: SENNOSIDES 8.6 MG TABLET GT SCH ×2 (08:30→17:14)
[2016-09-13] MEDS: AMIODARONE HCL 200 MG TABLET PO SCH ×3 (08:30→16:48)
[2016-09-13] MEDS: PANTOPRAZOLE 40 MG/PACK PACK GT SCH (08:30)
[2016-09-13] MEDS: PYRIDOXINE HCL 50 MG TABLET GT SCH (08:30)
[2016-09-13] MEDS: POLYETHYLENE GLYCOL 3350 17 GM POWD.PACK GT SCH (08:30)
[2016-09-13] MEDS: ASPIRIN 81 MG TAB.CHEW PO SCH (08:30)
[2016-09-13 12:00] VITALS: BP 101/63
--- NOTE | 2016-09-13 13:07 | NUR ---
MANAGER ENTERPRISE NOTES RN HONG REMOVE HD CATH, PT STABLE.
[2016-09-13 16:00] VITALS: BP 99/53
[2016-09-13] MEDS: WARFARIN SODIUM 1 MG TABLET PO SCH (17:17)
--- NOTE | 2016-09-13 18:45 | NUR ---
REPAIR SPECIALIST NOTES PT STABLE WITH NO ACUTE CHANGES NOTED, ALL DUE MEDS GIVEN, ALL NEEDS MET, HD CATH FEMORAL REMOVED AND SECURED WITH TAPE BY HD NURSE HONG, RT CW PERMACTH INTACT, GTUBE FEEDING RUNNING. WILL ENDORSE TO PM NURSE.
[2016-09-13 20:00] VITALS: BP 103/56
--- NOTE | 2016-09-13 20:11 | NUR ---
received pt from day shift, alert, follows commands, confused at times, V pacing, on the vent, lungs congested, R and L arm pitting edema, abdomen mildly distended, anuric HD pt , GT to feeding tolerates well, L chest HD cath intact, v/s stable, no pain, pt turned at repositioned.
[2016-09-13] MEDS: ESCITALOPRAM OXALATE (10 MG) 10 MG TABLET GT SCH (22:53)
[2016-09-13] MEDS: INSULIN DETEMIR 100 UNIT/ML CARTRIDGE SQ SCH (22:56)
[2016-09-14] VITALS: BP_SYST 101; BP_SYST 103; BP_DIAS 53
[2016-09-14 04:00] VITALS: BP 112/60
--- NOTE | 2016-09-14 04:26 | NUR ---
pt is resting in the bed, alert, follows simple commands, no acute distress overnight, v/s stable, no pain, tolerates feeding, pt cleaned, changed and repositioned q2hrs.
[2016-09-14] MEDS: BLOOD SUGAR DIAGNOSTIC 1 EACH STRIP IN SCH ×3 (05:23→18:12)
--- NOTE | 2016-09-14 07:30 | NUR ---
RN INITIAL REPORT RECEIVED REPORT FROM PM NURSE. PT COMFORTABLE AND RESTING. RESPONDS AND FOLLOW COMMANDS. ABLE TO COMMUNICATE WITH PATIENT IN INDONESIAN. PT NOT IN ACUTE DISTRESS, STABLE, SUCTIONED PATIENT. AFIB 103 W/ OCCASIONAL V PACING. CHECKED PLACEMENT, TOLERATING FEEDING RESIDUAL 10ML. TOLERATING WELL VENT SETTINGS. BED RAILS UP,BED LOW AND LOCKED, CALL LIGHT WITHIN REACH. LEFT UPPER MIDLINE AND LEFT HAND FLUSHED AND PATENT.
[2016-09-14 08:00] VITALS: BP 108/58
[2016-09-14] MEDS: POLYETHYLENE GLYCOL 3350 17 GM POWD.PACK GT SCH (08:33)
[2016-09-14] MEDS: PANTOPRAZOLE 40 MG/PACK PACK GT SCH (08:33)
[2016-09-14] MEDS: ASPIRIN 81 MG TAB.CHEW PO SCH (08:33)
[2016-09-14] MEDS: SENNOSIDES 8.6 MG TABLET GT SCH ×2 (08:33→16:44)
[2016-09-14] MEDS: PYRIDOXINE HCL 50 MG TABLET GT SCH (08:33)
[2016-09-14 08:35] LABS: INR 2.46 (0.87-1.13); PROTHROMBIN TIME 26.8 SECS (9.5-12.7)
[2016-09-14] MEDS: AMIODARONE HCL 200 MG TABLET PO SCH ×3 (08:35→16:45)
[2016-09-14 08:38] LABS: CALCIUM, SERUM 8.7 mg/dL (8.5-10.1); CREATININE 3.8 mg/dL (0.6-1.3); POTASSIUM 4.5 mmol/L (3.5-5.1)
[2016-09-14 12:00] VITALS: BP 116/62
[2016-09-14] MEDS: INSULIN REGULAR, HUMAN 100 UNIT/ML 3 ML VIAL SQ PRN (12:17)
[2016-09-14 16:00] VITALS: BP 114/45
[2016-09-14] MEDS: WARFARIN SODIUM 1 MG TABLET PO SCH (16:56)
--- NOTE | 2016-09-14 18:46 | NUR ---
RN ENDING NOTE PT ORIENTATED X2. PT STABLE RECEIVING DIALYSIS. MONITOR A-FIB 85 W/ OCCASIONAL V-PACING. PT STABLE NO ACUTE DISTRESS. IV PATENT. TOLERATED FEEDING. PATIENT CARE WILL BE ENDORSED TO HUMAN RESOURCE ADVISOR FOR CONTINUITY OF CARE.
[2016-09-14 20:00] VITALS: BP 104/55
--- NOTE | 2016-09-14 20:00 | NUR ---
RECEIVED PATIENT AWAKE ALERT ORIENTED X 1 FOLLOWS SIMPLE COMMANDS. HD JUST FINISHED 1.5 LITER OUT.NO DISTRESS NOTED.AFIB 87 WITH OCCASIONAL V-PACED BEATS.WITH TRACH TO VENT ON SIMV 4,TV 500, FIO2 40%,PEEP 5.SPO2 92%-93%.VS STABLE.GT FEEDING IN PROGRESS NO RESIDUAL NOTED.HOB ELEVATED. ABDOMEN SOFT BS ACTIVE.TURNED AND REPOSITIONED TO COMFORT OFFLOADING PRESSURE POINTS.OLIVIA MIDLINE INTACT.RIGHT UPPER CHEST HD CATH WITH DRESSING C/D/I.MAINTAINED ON KCI MATTRESS.CONTINUE TO MONITOR.
[2016-09-14] MEDS: INSULIN DETEMIR 100 UNIT/ML CARTRIDGE SQ SCH (21:31)
[2016-09-14] MEDS: ESCITALOPRAM OXALATE (10 MG) 10 MG TABLET GT SCH (21:33)
[2016-09-15] VITALS (9 sets, daily range): BP systolic 100–120; BP diastolic 48–68
[2016-09-15] MEDS: INSULIN REGULAR, HUMAN 100 UNIT/ML 3 ML VIAL SQ PRN ×3 (00:08→12:30)
[2016-09-15] MEDS: BLOOD SUGAR DIAGNOSTIC 1 EACH STRIP IN SCH ×4 (00:08→17:03)
[2016-09-15] MEDS: HYDROCODONE/APAP 5/325MG 1 EACH TABLET GT PRN (05:26)
--- NOTE | 2016-09-15 07:22 | NUR ---
PATIENT RESTING VS STABLE.TOLERATING FEEDING AND VENT SETTINGS. WAS MEDICATED FOR CHEST PAIN WITH RELIEF.DOZING ION AND OFF. REMAINS AFIB CONTROLLED.ALL NEEDS ANTICIPATED AND MET.
[2016-09-15 07:38] LABS: BASOPHILS % (AUTO) 0.3 % (0.0-2.0); HEMATOCRIT 26 % (33-45); HEMOGLOBIN 8.4 g/dL (11.5-14.8); LYMPHOCYTES # (AUTO) 0.5 /CMM (0.8-4.8); LYMPHOCYTES % (AUTO) 5.3 % (20.0-44.0); MEAN CORPUSCULAR HEMOGLOBIN 31 PG (26.0-33.0); MEAN CORPUSCULAR HGB CONC 32 g/dl (31.0-36.0); MEAN CORPUSCULAR VOLUME 99 fL (82-100); MONOCYTES # (AUTO) 1.1 /CMM (0.1-1.30); MONOCYTES % (AUTO) 10.6 % (2.0-12.0); NEUTROPHILS # (AUTO) 8.4 /CMM (1.8-8.9); NEUTROPHILS % (AUTO) 83.8 % (43.0-81.0); PLATELET COUNT (AUTO) 145 /CMM (150-450); RDW COEFFICIENT OF VARIATION 22.8 (11.5-15.0); RED BLOOD CELL COUNT(AUTO) 2.69 MIL/uL (4.0-5.2); WHITE BLOOD COUNT (AUTO) 10.1 K/uL (4.3-11.0)
[2016-09-15 07:52] LABS: INR 1.26 (0.87-1.13); PROTHROMBIN TIME 13.6 SECS (9.5-12.7)
[2016-09-15 07:58] LABS: CALCIUM, SERUM 8.9 mg/dL (8.5-10.1); CREATININE 3.2 mg/dL (0.6-1.3); MAGNESIUM 2.6 mg/dL (1.8-2.4); PHOSPHORUS 5.4 mg/dL (2.5-4.9); POTASSIUM 4.3 mmol/L (3.5-5.1)
--- NOTE | 2016-09-15 08:00 | NUR ---
RN INITIAL NOTE PT AAOX2. KYRGYZ SPEAKING ABLE TO FOLLOW COMMANDS AND NODE YES AND NO. NO PAIN AND NO ACUTE DISTRESS.R PERMA CATH AND L HAND HL FLUSHED AND PATENT. PT TOLERATING FEEDING NO RESIDUAL WITHDRAWN. V/S STABLE FOR PATIENT BASELINE. RECEIVED PT FORM PM NURSE FOR CONTINUITY OF CARE.
[2016-09-15] MEDS: ASPIRIN 81 MG TAB.CHEW PO SCH (08:25)
[2016-09-15] MEDS: SENNOSIDES 8.6 MG TABLET GT SCH ×2 (08:25→16:33)
[2016-09-15] MEDS: PANTOPRAZOLE 40 MG/PACK PACK GT SCH (08:25)
[2016-09-15] MEDS: POLYETHYLENE GLYCOL 3350 17 GM POWD.PACK GT SCH (08:25)
[2016-09-15] MEDS: PYRIDOXINE HCL 50 MG TABLET GT SCH (08:25)
[2016-09-15] MEDS: AMIODARONE HCL 200 MG TABLET PO SCH ×3 (08:26→16:38)
--- NOTE | 2016-09-15 09:40 | NUR ---
INOCULATOR NOTE FOUND PT DIAPHORETIC, AND UNABLE TO RESPOND TO HER NAME. VITAL SIGNS STABLE, BLOOD GLUCOSE 177. ECG DONE. SOON, AIR QUALITY TECHNICIAN INFORMED OF PT'S CONDITION. DR. GLASGOW INFORMED. PT RETURNED TO BASE LINE RHYTHM. MENTATION, AND DIAPHORESIS CEASED. WILL CONTINUE TO MONITOR PT.
--- NOTE | 2016-09-15 11:00 | NUR ---
RN NOTE PT COMPLAINING OF CHEST PAIN UPON FURTHER INVESTIGATION PT STATED PAIN WAS RELIEVED.
--- NOTE | 2016-09-15 12:30 | NUR ---
FABRICATION AND ASSEMBLY SUPERVISOR NOTE PER DR. GLASGOW, DR. DELACRUZ INFORMED OF PT'S CONDITION THIS AM. NO NEW ORDERS RCVD. HE'LL COME TO ASSESS PT.
[2016-09-15] MEDS ORDERED: HEPARIN INFUSION/D5W 500 ML IV PRN (14:30)
[2016-09-15] MEDS ORDERED: IV SET PRIMARY PUMP SET 1 EA INFUS.SET MC ONE (16:17)
[2016-09-15] MEDS ORDERED: HEPARIN SODIUM, PORCINE 5000 UNITS/1 ML VIAL IV ONE (16:30)
[2016-09-15] MEDS: WARFARIN SODIUM 1 MG TABLET PO SCH (16:35)
[2016-09-15] MEDS: HEPARIN INFUSION/D5W 500 ML IV PRN (16:55)
[2016-09-15] MEDS: DIGOXIN INJ 0.5 MG/2 ML AMPUL IV SCH (18:28)
--- NOTE | 2016-09-15 19:30 | NUR ---
LAST REPAIRER RECEIVED PATIENT IN BED, RESPONSIVE TO VERBAL STIMULI, DENIES CHEST PAIN, NO S/S OF ACUTE DISTRESS, WITH TRACH TO [facility] VENT, JOHNATHAN WELL, SATURATION GREATER THAN 95%. WITH HEPARIN DRIP TO MIDLINE AT 1550UNITS/HR, NO S/S OF ACUTE BLEEDING NOTED. SAFETY AND BLEEDING PRECAUTIONS OBSERVED. GTF JOHNATHAN WELL, NO RESIDUALS. HOB ELEVATED. WILL CLOSELY MONITOR.
[2016-09-15] MEDS: ESCITALOPRAM OXALATE (10 MG) 10 MG TABLET GT SCH (21:43)
[2016-09-15] MEDS: INSULIN DETEMIR 100 UNIT/ML CARTRIDGE SQ SCH (21:43)
[2016-09-16] VITALS: BP 100/51
[2016-09-16] MEDS: BLOOD SUGAR DIAGNOSTIC 1 EACH STRIP IN SCH ×5 (00:09→23:03)
[2016-09-16] MEDS: DIGOXIN INJ 0.5 MG/2 ML AMPUL IV SCH ×2 (00:12→06:11)
[2016-09-16] MEDS: INSULIN REGULAR, HUMAN 100 UNIT/ML 3 ML VIAL SQ PRN ×4 (00:12→23:02)
--- NOTE | 2016-09-16 00:29 | NUR ---
RECEIVED CALL FROM LAB FOR PTT LEVEL OF 119. HOLD HEPARIN DRIP FOR AN HOUR AND WILL RESTART ACCORDING TO PROTOCOL. HEPARIN TO BE HELD FROM [phone]. CHARGE CHUY AWARE. Addendum: 09/16/16 at 0034 by ARLEY JOY RN HELD AT 0028 TO 0128.
--- NOTE | 2016-09-16 01:28 | NUR ---
RESTARTED HEPARIN DRIP AT 1295UNITS/HR. PATIENT IS RESPONSIVE, DENIES ANY DISCOMFORT. NO BLEEDING NOTED. WILL MONITOR.
[2016-09-16 04:00] VITALS: BP 133/66
[2016-09-16 06:44] LABS: CALCIUM, SERUM 8.7 mg/dL (8.5-10.1); CREATININE 3.3 mg/dL (0.6-1.3); POTASSIUM 4.2 mmol/L (3.5-5.1)
[2016-09-16 06:46] LABS: INR 1.59 (0.87-1.13); PROTHROMBIN TIME 17.3 SECS (9.5-12.7)
--- NOTE | 2016-09-16 06:54 | NUR ---
PTT IS 63 AT 0500. NO CHANGE PER PROTOCOL. HEPARIN ONGOING AT 1295UNITS/HR. HD ONGOING. NO ACUTE BLEEDING NOTED.
--- NOTE | 2016-09-16 07:30 | NUR ---
RN NOTES RECEIVED PT RESTING IN BED, ONGOING HD. HD NURSE AT BEDSIDE. PT HAS TRACHE, ON MECH VENT SETTINGS PRESCRIBED, SUCTIONED AIRWAY FOR CLEARANCE. A FIB ON TELE MONITOR HR AT 87BPM. NO ACUTE DISTRESS NOTED, ONGOING HEPARIN DRIP @1295UNITS/HR. ONGOING GTF NOVASOURCE, NO GASTRIC RESIDUAL NOTED. WILL CONT TO MONITOR
[2016-09-16 08:00] VITALS: BP 107/55
[2016-09-16] MEDS: POLYETHYLENE GLYCOL 3350 17 GM POWD.PACK GT SCH (10:08)
[2016-09-16] MEDS: SENNOSIDES 8.6 MG TABLET GT SCH ×2 (10:09→16:40)
[2016-09-16] MEDS: PYRIDOXINE HCL 50 MG TABLET GT SCH (10:09)
[2016-09-16] MEDS: PANTOPRAZOLE 40 MG/PACK PACK GT SCH (10:09)
[2016-09-16] MEDS: AMIODARONE HCL 200 MG TABLET PO SCH ×3 (10:10→16:40)
[2016-09-16] MEDS: ASPIRIN 81 MG TAB.CHEW PO SCH (10:10)
[2016-09-16 12:00] VITALS: BP 116/57
[2016-09-16] MEDS: HEPARIN INFUSION/D5W 500 ML IV PRN (12:48)
--- NOTE | 2016-09-16 14:00 | NUR ---
RN NOTES SPOKE WITH DR GLASGOW, PT UPDATES REPORTED, PER MD CONTINUE HEPARIN DRIP. PT NEEDS DEVICE INTERROGATION. (POSSIBLE V.FIB) AND CLEARANCE FROM CARDIO PRIOR TO DC.
[2016-09-16 16:00] VITALS: BP_SYST 115; BP_SYST 119; BP_DIAS 46; BP_DIAS 63
[2016-09-16] MEDS: WARFARIN SODIUM 1 MG TABLET PO SCH (16:41)
--- NOTE | 2016-09-16 19:35 | NUR ---
RN OPENING NOTES: RECEIVED PT ON BED AWAKE ALOX1-2 NON VERBAL, ABLE TO FOLLOW COMMANDS AND NOD HEAD. TRACH TO THE [facility] VENT WITH SETTINGS FF: SIMV 4 TV 500 FIO2 40% AND PEEP 5 ON PORTEX 7, TOLERATED WELL, NOT IN APPARENT DISTRESS. 100% VPACING HR AT 60 BPM. IV ACCESS ON OLIVIA MIDLINE PATENT AND INTACT, HEPARIN DRIP RUNNING AT 1295 U/HR SINCE AM. PTT AT 63 AND NO CHANGES WERE APPLIED PER PROTOCOL THIS AM. ALSO WITH LEFT HAND G18 SL AT THIS TIME. RIJ PERMACATH INTACT. GT INTACT NOVASOURCE ONGOING AT ORDERED RATE, NO RESIDUALS NOTED. SAFETY MEASURES ENSURED AT ALL TIMES. MONITORED FOR NON VERBAL PAIN CUES. HOB ELEVATED. DIAPER ON, MONITORED FOR UO. CONTINUOUSLY MONITORED BERNADETTE FOR ACTIVE BLEEDING.
[2016-09-16 20:00] VITALS: BP 112/62
[2016-09-16] MEDS: RENAL NOVASOURCE 1,000 ML BOTTLE GT SCH (22:36)
[2016-09-16] MEDS: ESCITALOPRAM OXALATE (10 MG) 10 MG TABLET GT SCH (22:36)
[2016-09-16] MEDS: INSULIN DETEMIR 100 UNIT/ML CARTRIDGE SQ SCH (23:02)
[2016-09-17] VITALS: BP 111/50
--- NOTE | 2016-09-17 03:33 | NUR ---
RN NOTES: RENDERED AM CARE AND BED BATH WITH NOTED BM. SKIN CARE RENDERED. PT REMAINED IN BED NOT IN APPARENT DISTRESS. NO ACTIVE BLEEDING NOTED. MONITORED CONTINUOUSLY.
[2016-09-17 04:00] VITALS: BP 109/53
[2016-09-17] MEDS: BLOOD SUGAR DIAGNOSTIC 1 EACH STRIP IN SCH ×3 (05:58→17:06)
[2016-09-17] MEDS: INSULIN REGULAR, HUMAN 100 UNIT/ML 3 ML VIAL SQ PRN (06:01)
--- NOTE | 2016-09-17 06:58 | NUR ---
RN NOTES: PT REMAINED IN BED NO ACUTE CHANGES; TRACH TO [facility] VENT, TOLERATED SETTINGS WELL. NO DECLINE IN MENTAL STATUS NOTED. KEPT IV INTACT, HEPARIN DRIP ONGOING, REMAINED ON SAME RATE, FOLLOWED UP WITH LAB RE BLOOD DRAW TO OBTAIN COAGS RESULTS. GT INTACT, FEEDING AT SAME RATE. SAFETY MEASURES ENSURED. GOOD SKIN CARE RENDERED. CONTINUOUSLY MONITORED PT. TO ENDORSE TO AM SHIFT RN
[2016-09-17] MEDS: HEPARIN INFUSION/D5W 500 ML IV PRN (07:13)
--- NOTE | 2016-09-17 07:30 | NUR ---
RN INITIAL NOTES RECEIVED PT AWAKE, A/O X2 , TRACH TO MECHANICAL VENTILATION, SATING WELL, NO S/S OF RESP. DISTRESS OR SOB NOTED AT THIS TIME. IV SITE C/D/I, ALL SAFETY MEASURES IN PLACE, CALL LIGHT WITHIN EASY REACH. WILL MONITOR PT CLOSELY
[2016-09-17 08:00] VITALS: BP 119/45
[2016-09-17 08:15] LABS: BASOPHILS % (AUTO) 0.3 % (0.0-2.0); EOSINOPHILS # (AUTO) 0.1 /CMM (0.0-0.7); EOSINOPHILS % (AUTO) 0.7 % (0.0-6.0); HEMATOCRIT 25 % (33-45); HEMOGLOBIN 7.8 g/dL (11.5-14.8); LYMPHOCYTES # (AUTO) 0.6 /CMM (0.8-4.8); LYMPHOCYTES % (AUTO) 8.5 % (20.0-44.0); MEAN CORPUSCULAR HEMOGLOBIN 31 PG (26.0-33.0); MEAN CORPUSCULAR HGB CONC 31 g/dl (31.0-36.0); MEAN CORPUSCULAR VOLUME 99 fL (82-100); MONOCYTES # (AUTO) 0.6 /CMM (0.1-1.30); NEUTROPHILS # (AUTO) 6.2 /CMM (1.8-8.9); NEUTROPHILS % (AUTO) 82.5 % (43.0-81.0); PLATELET COUNT (AUTO) 138 /CMM (150-450); RDW COEFFICIENT OF VARIATION 24.8 (11.5-15.0); RED BLOOD CELL COUNT(AUTO) 2.51 MIL/uL (4.0-5.2); WHITE BLOOD COUNT (AUTO) 7.5 K/uL (4.3-11.0)
[2016-09-17] MEDS: POLYETHYLENE GLYCOL 3350 17 GM POWD.PACK GT SCH (08:36)
[2016-09-17] MEDS: PANTOPRAZOLE 40 MG/PACK PACK GT SCH (08:36)
[2016-09-17] MEDS: AMIODARONE HCL 200 MG TABLET PO SCH ×3 (08:38→16:48)
[2016-09-17] MEDS: PYRIDOXINE HCL 50 MG TABLET GT SCH (08:39)
[2016-09-17] MEDS: SENNOSIDES 8.6 MG TABLET GT SCH ×2 (08:39→16:49)
[2016-09-17] MEDS: ASPIRIN 81 MG TAB.CHEW PO SCH (08:39)
[2016-09-17 08:43] LABS: INR 2.52 (0.87-1.13); PROTHROMBIN TIME 27.5 SECS (9.5-12.7)
--- NOTE | 2016-09-17 08:55 | NUR ---
RN NOTES RECEIVED A CALL FROM LAB, PTT IS 88. HEPARIN DOSE ADJUSTED TO DOSERATE OF 1145U/KG/HR. NO BLEEDING NOTED AT THIS TIME.
[2016-09-17 09:03] LABS: CALCIUM, SERUM 7.9 mg/dL (8.5-10.1); CREATININE 1.5 mg/dL (0.6-1.3); MAGNESIUM 2.1 mg/dL (1.8-2.4); PHOSPHORUS 2.7 mg/dL (2.5-4.9); POTASSIUM 3.3 mmol/L (3.5-5.1)
--- NOTE | 2016-09-17 10:15 | NUR ---
RN NOTES SPOKE WITH DR GLASGOW, PT UPDATES REPORTED, PTT 88, HEPARIN DOSERATE CHANGED TO 1145U/KH/MIN, REPORTED TO MD H/H THIS AM IS 7.8/25. PER DR GLASGOW TO HOLD HEPARIN THEN CHECK PT/INR IN AM.
[2016-09-17 12:00] VITALS: BP 108/46
[2016-09-17] MEDS ORDERED: POTASSIUM CHLORIDE 20 MEQ POWDER PACKET PO SCH (12:00)
[2016-09-17 16:00] VITALS: BP 109/40
[2016-09-17] MEDS: WARFARIN SODIUM 1 MG TABLET PO SCH (16:49)
--- NOTE | 2016-09-17 19:30 | NUR ---
TELE INITIAL RN NOTES RECEIVED PT IN BED. A/O X1-2, ABLE TO FOLLOW COMMAND AND NOD. ON MECHANICAL VENT PORTEX #7 FI02 40%, PEEP 5, SIMV 4, TV 500. SATING WELL, NO S/S OF RESPIRATORY DISTRESS NOTED. ON TELE MONITOR A-FIB CONTROLLED 60. IV L HAND #18 SL, FLUSHING WELL, PATENT, C/D/I. RCW PERMACATH C/D/I. GTUBE FLUSHING WELL, NO RESIDUAL, FEEING WELL TOLERATED, SITE C/D/I. ALL SAFETY MEASURES IN PLACE. CALL LIGHT WITHIN EASY REACH AT ALL TIMES. WILL CONTINUE TO MONITOR.
--- NOTE | 2016-09-17 19:49 | NUR ---
PT RCVD ON MECHANICAL VENT WITH NOTED SETTINGS . BILATERAL BREATH SOUNDS, SUCTIONED MODERATE AMOUNT OF YELLOWISH WHITE SECRETIONS. AMBU BAG AT BED SIDE, ALARMS AUDIBLE AND WORKING. WILL CONTINUE TO MONITOR PT.
[2016-09-17 20:00] VITALS: BP 126/39
[2016-09-17] MEDS: ESCITALOPRAM OXALATE (10 MG) 10 MG TABLET GT SCH (21:27)
[2016-09-17] MEDS: INSULIN DETEMIR 100 UNIT/ML CARTRIDGE SQ SCH (21:32)
[2016-09-18] VITALS: BP 124/48
[2016-09-18] MEDS: BLOOD SUGAR DIAGNOSTIC 1 EACH STRIP IN SCH ×5 (00:27→23:01)
[2016-09-18] MEDS: RENAL NOVASOURCE 1,000 ML BOTTLE GT SCH (02:09)
[2016-09-18 04:00] VITALS: BP 117/40
--- NOTE | 2016-09-18 06:30 | NUR ---
CLIPPER COUNTERS CLOSING NOTES PT REMAINED IN STABLE CONDITION DURING SHIFT. ON MECHANICAL VENT WITH NO S/S OF RESPIRATORY DISTRESS NOTED AND SATING WELL. NO C/O PAIN. IV INTACT. ALL SAFETY MEASURES IN PLACE AT ALL TIMES. WILL ENDORSE TO NEXT SHIFT FOR KARINA.
[2016-09-18 07:49] LABS: BASOPHILS % (AUTO) 0.1 % (0.0-2.0); EOSINOPHILS # (AUTO) 0.1 /CMM (0.0-0.7); EOSINOPHILS % (AUTO) 1.3 % (0.0-6.0); HEMATOCRIT 26 % (33-45); HEMOGLOBIN 8.3 g/dL (11.5-14.8); LYMPHOCYTES # (AUTO) 0.8 /CMM (0.8-4.8); LYMPHOCYTES % (AUTO) 9.8 % (20.0-44.0); MEAN CORPUSCULAR HEMOGLOBIN 32 PG (26.0-33.0); MEAN CORPUSCULAR HGB CONC 32 g/dl (31.0-36.0); MEAN CORPUSCULAR VOLUME 100 fL (82-100); MONOCYTES # (AUTO) 0.8 /CMM (0.1-1.30); MONOCYTES % (AUTO) 10.6 % (2.0-12.0); NEUTROPHILS % (AUTO) 78.2 % (43.0-81.0); PLATELET COUNT (AUTO) 127 /CMM (150-450); RDW COEFFICIENT OF VARIATION 24.7 (11.5-15.0); WHITE BLOOD COUNT (AUTO) 7.7 K/uL (4.3-11.0)
[2016-09-18 08:00] VITALS: BP 121/54
[2016-09-18 08:02] LABS: INR 2.61 (0.87-1.13); PROTHROMBIN TIME 28.5 SECS (9.5-12.7)
[2016-09-18 08:07] LABS: CALCIUM, SERUM 8.5 mg/dL (8.5-10.1); CREATININE 2.7 mg/dL (0.6-1.3); MAGNESIUM 2.5 mg/dL (1.8-2.4); PHOSPHORUS 5.3 mg/dL (2.5-4.9); POTASSIUM 4.5 mmol/L (3.5-5.1)
[2016-09-18] MEDS: SENNOSIDES 8.6 MG TABLET GT SCH ×2 (08:37→17:09)
[2016-09-18] MEDS: PYRIDOXINE HCL 50 MG TABLET GT SCH (08:37)
[2016-09-18] MEDS: PANTOPRAZOLE 40 MG/PACK PACK GT SCH (08:37)
[2016-09-18] MEDS: ASPIRIN 81 MG TAB.CHEW PO SCH (08:37)
[2016-09-18] MEDS: POLYETHYLENE GLYCOL 3350 17 GM POWD.PACK GT SCH (08:37)
[2016-09-18] MEDS: AMIODARONE HCL 200 MG TABLET PO SCH ×3 (08:37→17:10)
--- NOTE | 2016-09-18 10:05 | NUR ---
HEAT PLANT SPECIALIST NOTE Pt resting in bed. Pt nonverbal, nodded yes to having a little bit of chest pain. On vent, VSS. AF w/ V pacing on monitor. Tube feed running at 40ml/hr, no residuals. L hand PIV SL. R vi crook CDI. Will cont to monitor.
[2016-09-18 12:00] VITALS: BP 114/50
[2016-09-18 16:00] VITALS: BP 112/56
[2016-09-18] MEDS: WARFARIN SODIUM 1 MG TABLET PO SCH (17:12)
--- NOTE | 2016-09-18 17:36 | NUR ---
MANAGER HARBOR NOTE No changes. Inc, loose BM x1. No residuals. Suctioned PRN. Will endorse to next RN.
--- NOTE | 2016-09-18 19:59 | NUR ---
SENIOR CATEGORY MANAGER NOTE PT IN BED WITH EYES OPEN. NON VERBAL, ABLE TO USE FACIAL EXPRESSION TO COMMUNICATE. ON VENT/TRACH PORTEX #7, SIMV 4, TV 500 FIO2 40% PEEP 5, TOLERATING WELL. NO DISTRESS OR DISCOMFORT NOTED. DENIES PAIN. GT INTACT AND PATENT INFUSING NOVASOURCE @ 40 ML/HR, 0 ML RESIDUAL NOTED. KEPT HOB ELEVATED 30 DEGREES. PT TOLERATING WELL GT FEEDING. H/L IN LT HAND #18 G INTACT AND PATENT. RCW WITH PERMA CATH INTACT. NO S/S OF HYPO OR HYPERGLYCEMIA NOTED. ON TELE A FIB WITH V PACING HR 60. REPOSITION HER SKIN MANAGEMENT. KEPT HER DRY AND CLEAN. ALL NEEDS ATTENDED. SIDE RAILS UP X 3 AND CALL LIGHT WITHIN REACH. VSS. CONTINUE TO MONITOR HER.
[2016-09-18 20:00] VITALS: BP 122/48
[2016-09-18] MEDS: ESCITALOPRAM OXALATE (10 MG) 10 MG TABLET GT SCH (23:02)
[2016-09-18] MEDS: INSULIN DETEMIR 100 UNIT/ML CARTRIDGE SQ SCH (23:03)
--- NOTE | 2016-09-18 23:16 | NUR ---
AGRICULTURAL RESEARCH TECHNICIAN NOTE PT REQUESTED FOR SLEEPING MED, AMBIEN 5 MG VIA GT GIVEN. ALSO DUE MED GIVEN. BLOODSUGAR 114, LEVEMIR FLEXTOUCH 20 UNITS SQ GIVEN. PT IN NO DISTRESS OR DISCOMFORT NOTED. ALL NEEDS ATTENDED.
[2016-09-19] VITALS (8 sets, daily range): BP systolic 116–150; BP diastolic 46–59
--- NOTE | 2016-09-19 00:07 | NUR ---
TECHNICAL BUYER NOTE PT FALL ASLEEP, NO DISTRESS OR DISCOMFORT NOTED. REPOSITION HER Q2H. ALL NEEDS ATTENDED.
--- NOTE | 2016-09-19 04:00 | NUR ---
CUFF FOLDER NOTE GT FEEDING BAG CHANGED AND STARTED TO INFUSE AT 40 ML/HR. 0 ML RESIDUAL NOTED.
[2016-09-19] MEDS: RENAL NOVASOURCE 1,000 ML BOTTLE GT SCH (04:11)
[2016-09-19] MEDS: BLOOD SUGAR DIAGNOSTIC 1 EACH STRIP IN SCH ×4 (06:00→22:56)
--- NOTE | 2016-09-19 06:01 | NUR ---
IMAGING ASSISTANT NOTE BLOODSUGAR 120, NO INSULIN COVERAGE GIVEN. PT IN NO DISTRESS.
--- NOTE | 2016-09-19 06:24 | NUR ---
DAY CARE TEACHER NOTE PT IN BED AWAKE. NO DISTRESS OR DISCOMFORT NOTED. DENIES PAIN. GT FEEDING NOVASOURCE INFUSING WELL AT 40 ML/HR, NO RESIDUAL NOTED. REPOSITION HER Q2H. KEPT HER DRY AND CLEAN. ALL NEEDS ATTENDED. WILL ENDORSE TO DAY SHIFT NURSE FOR CONTINUE TO CARE.
--- NOTE | 2016-09-19 08:00 | NUR ---
telehealth nurse note patient in bed awake alert , ble to follow simple command on tele monitor v pacing with afib hr 60 , bed in lowest and locked position , on g rube feeding as ordered, with trach to vent setting as ordered , on hd at this time , with g tube feeding as ordered , keep hob elevated at all time , no residual noted ,, lt hand intact not in acute distress ,plan of care discussed with patient ,will cont to monitor closely
--- NOTE | 2016-09-19 08:37 | NUR ---
television journalist note hd competed. removed 1.5 l bp 144/60
[2016-09-19] MEDS: SENNOSIDES 8.6 MG TABLET GT SCH ×2 (09:15→16:13)
[2016-09-19] MEDS: POLYETHYLENE GLYCOL 3350 17 GM POWD.PACK GT SCH (09:15)
[2016-09-19] MEDS: PYRIDOXINE HCL 50 MG TABLET GT SCH (09:15)
[2016-09-19] MEDS: ASPIRIN 81 MG TAB.CHEW PO SCH (09:15)
[2016-09-19] MEDS: AMIODARONE HCL 200 MG TABLET PO SCH ×3 (09:16→16:14)
[2016-09-19] MEDS: PANTOPRAZOLE 40 MG/PACK PACK GT SCH (09:17)
--- NOTE | 2016-09-19 12:00 | NUR ---
PORTER SAMPLE CASE NOTE SPOKE WITH GALINA PARMAR ELEVATOR CONSTRUCTOR NOTIFIED THAT INR 2.61 ON COUMADIN 2. MG OK TO CONT TO GIVE TODAY , ALSO AWARE THAT HR 60 ON AMIODARONE 400 MG ,STATED ITS OK TO GIVE ALSO NOTIFIED ABOUT PACEMAKER NEED TO BE CHECK ,STATED THAT WILL CHECK IT OUT
--- NOTE | 2016-09-19 13:48 | NUR ---
LIGHT ARMORED VEHICLE OFFICER NOTE SPOKE WITH GALINA, STATED THAT PATIENT IS HARD STICK TO INSERT HL , STATED NO NEW MID LINE AT THIS TIME, DO NOT INSERT NEW ONE ,WILL F]U
[2016-09-19] MEDS: WARFARIN SODIUM 1 MG TABLET PO SCH (16:23)
--- NOTE | 2016-09-19 20:00 | NUR ---
CANDLE MOLDER HAND NOTE PT IN BED AWAKE. ALERT, NON VERBAL. NO SOB, NO DISTRESS OR DISCOMFORT NOTED. DENIES PAIN. ON VENT/TRACH PORTEX 7, SIMV 4 TV 500 FIO2 40% PEEP 5. PT TOLERATING VENT SETTINGS WELL. H/L LT HAND INTACT. GT FEEDING NOVASOURCE INFUSING AT 40 ML/HR, 0 ML RESIDUAL NOTED. REPOSITION HER FOR SKIN MANAGEMENT. SIDE RAILS UP X 3 AND CALL LIGHT WITHIN REACH. VSS. CONTINUE TO MONITOR HER. Addendum: 09/19/16 at 2005 by ERIKA LIU RN ON TELE A FIB V PACING HR 60.
[2016-09-19] MEDS: ESCITALOPRAM OXALATE (10 MG) 10 MG TABLET GT SCH (22:51)
[2016-09-19] MEDS: INSULIN DETEMIR 100 UNIT/ML CARTRIDGE SQ SCH (22:56)
[2016-09-19] MEDS: INSULIN REGULAR, HUMAN 100 UNIT/ML 3 ML VIAL SQ PRN (22:56)
--- NOTE | 2016-09-19 23:01 | NUR ---
CORPORATE DEVELOPMENT ANALYST NOTE BLOODSUGAR 143, 2 UNITS HUMULIN R INSULIN SQ GIVEN. ALSO GIVEN. LEVEMIR FLEXTOUCH 20 UNITS SQ . PT IN NO DISTRESS OR DISCOMFORT NOTED. REPOSITION HER Q2H. KEPT HER DRY AND CLEAN. ALL NEEDS ATTENDED.
[2016-09-20] VITALS: BP 124/55
[2016-09-20 04:00] VITALS: BP 135/53
[2016-09-20] MEDS: RENAL NOVASOURCE 1,000 ML BOTTLE GT SCH (04:01)
--- NOTE | 2016-09-20 04:09 | NUR ---
MIMEOGRAPHER NOTE NOVASOURCE BOTTLE HANGED AND INFUSE AT 40 ML/HR, 0 ML RESIDUAL NOTED. PT AWAKE AND IN NO DISTRESS OR DISCOMFORT NOTED.
[2016-09-20] MEDS: BLOOD SUGAR DIAGNOSTIC 1 EACH STRIP IN SCH ×4 (05:25→23:11)
[2016-09-20] MEDS: INSULIN REGULAR, HUMAN 100 UNIT/ML 3 ML VIAL SQ PRN (05:32)
--- NOTE | 2016-09-20 05:37 | NUR ---
CYCLE SPECIALIST NOTE BLOODSUGAR 151, 2 UNITS OF HUMULIN R INSULIN SQ GIVEN. PT IN NO DISTRESS.
--- NOTE | 2016-09-20 06:17 | NUR ---
MS RN NOTE PT IN BED AWAKE. NO DISTRESS OR DISCOMFORT NOTED. DENIES PAIN. TOLERATING VENT WELL. GT FEEDING INFUSING WELL, NO RESIDUAL NOTED. REPOSITION HER Q2H FOR SKIN MANAGEMENT. SIDE RAILS UP X 3 AND CALL LIGHT WITHIN REACH. WILL ENDORSE TO DAY SHIFT NURSE FOR CONTINUE TO CARE.
--- NOTE | 2016-09-20 06:44 | NUR ---
HORSE RACE TIMER NOTE ON TELE A FIB V PACING HR 60.
--- NOTE | 2016-09-20 07:30 | NUR ---
RN INIITAL NOTES PT IN BED AWAKE. NO DISTRESS OR DISCOMFORT NOTED. DENIES PAIN. TOLERATING VENT WELL. GT FEEDING INFUSING WELL, NO RESIDUAL NOTED. REPOSITION HER Q2H FOR SKIN MANAGEMENT. SIDE RAILS UP X 3 AND CALL LIGHT WITHIN REACH. IV LEFT HAND IN PLACE PATENT, WILL CONTINUE TO MONITOR.
[2016-09-20 08:00] VITALS: BP 118/46
[2016-09-20] MEDS: AMIODARONE HCL 200 MG TABLET PO SCH ×3 (09:00→17:41)
[2016-09-20] MEDS: PYRIDOXINE HCL 50 MG TABLET GT SCH (10:04)
[2016-09-20] MEDS: PANTOPRAZOLE 40 MG/PACK PACK GT SCH (10:04)
[2016-09-20] MEDS: SENNOSIDES 8.6 MG TABLET GT SCH ×2 (10:04→17:00)
[2016-09-20] MEDS: ASPIRIN 81 MG TAB.CHEW PO SCH (10:04)
[2016-09-20] MEDS: POLYETHYLENE GLYCOL 3350 17 GM POWD.PACK GT SCH (10:06)
[2016-09-20 12:00] VITALS: BP 122/51
[2016-09-20 13:03] LABS: INR 2.55 (0.87-1.13); PROTHROMBIN TIME 27.8 SECS (9.5-12.7)
[2016-09-20 16:00] VITALS: BP 120/48
[2016-09-20] MEDS: WARFARIN SODIUM 1 MG TABLET PO SCH (17:42)
--- NOTE | 2016-09-20 18:31 | NUR ---
RN CLOSING PT REMAINED STABLE THROUGHOUT THE SHIFT, ALL MEDS GIVEN ORDERED, NEEDS ANTICIPATED AND MET, KEPT CLEAN AND DRY, SAFETY OBSERVED WILL ENDORSE TO DIVER PUMPER NURSE.
[2016-09-20 20:00] VITALS: BP 119/47
[2016-09-20] MEDS: INSULIN DETEMIR 100 UNIT/ML CARTRIDGE SQ SCH (22:00)
[2016-09-20] MEDS: ESCITALOPRAM OXALATE (10 MG) 10 MG TABLET GT SCH (23:03)
--- NOTE | 2016-09-20 23:11 | NUR ---
RN NOTES: PATIENT HAS BLOOD SUGAR OF 108 MG/DL. LEVEMIR DOSE IS HELD ACCORDING TO NA. FLORIAN. WILL CONTINUE TO MONITOR. Addendum: 09/20/16 at 2318 by GIULIA IBANEZ RN RN NOTES: PATIENT HAS BLOOD SUGAR OF 108 MG/DL. LEVEMIR DOSE IS HELD ACCORDING TO NP. FLORIAN. CHARGE NURSE IS AWARE. WILL CONTINUE TO MONITOR.
[2016-09-21] VITALS: BP_SYST 133; BP_SYST 141; BP_DIAS 51; BP_DIAS 59
[2016-09-21 04:00] VITALS: BP_SYST 135; BP_SYST 143; BP_DIAS 42; BP_DIAS 58
[2016-09-21] MEDS: BLOOD SUGAR DIAGNOSTIC 1 EACH STRIP IN SCH ×3 (05:54→17:15)
[2016-09-21] MEDS: INSULIN REGULAR, HUMAN 100 UNIT/ML 3 ML VIAL SQ PRN ×3 (05:54→17:20)
--- NOTE | 2016-09-21 07:51 | NUR ---
INITIAL SUPERCHARGE REPAIR SUPERVISOR NOTE RCVD PT AWAKE AND ALERT UNDERSTANDS SAMI, ABLE TO FOLLOW COMMANDS. AFIB, V-PACING ON TELE HR 60. TOLERATING ORDERED VENT SETTINGS AND TUBE FEEDING RATE. NO RESIDUAL OBSERVED. LEFT HAND #18 C/D/I/PATENT. NO S/O INFILTRATION OR PHLEBITIS OBSERVED UPON FLUSHING. WILL CONTINUE TO MONITOR PT FOR SAFETY AND COMFORT. CALL LIGHT WITHIN REACH. BED IN LOW AND LOCKED POSITION.
[2016-09-21 08:00] VITALS: BP 128/47
[2016-09-21] MEDS: ASPIRIN 81 MG TAB.CHEW PO SCH (08:40)
[2016-09-21] MEDS: PANTOPRAZOLE 40 MG/PACK PACK GT SCH (08:40)
[2016-09-21] MEDS: HYDROCODONE/APAP 5/325MG 1 EACH TABLET GT PRN (08:40)
[2016-09-21] MEDS: PYRIDOXINE HCL 50 MG TABLET GT SCH (08:40)
[2016-09-21] MEDS: AMIODARONE HCL 200 MG TABLET PO SCH ×3 (08:41→16:56)
[2016-09-21] MEDS: RENAL NOVASOURCE 1,000 ML BOTTLE GT SCH (08:44)
[2016-09-21 12:00] VITALS: BP 109/47
[2016-09-21 15:59] LABS: INR 2.51 (0.87-1.13); PROTHROMBIN TIME 27.4 SECS (9.5-12.7)
[2016-09-21 16:00] VITALS: BP 116/41
[2016-09-21] MEDS: WARFARIN SODIUM 1 MG TABLET PO SCH (17:19)
--- NOTE | 2016-09-21 18:23 | NUR ---
ENDING FOIL WRAPPER NOTE PT AWAKE AND ALERT SHOWING NO S/O DISTRESS OR C/O PAIN. TOLERATING ORDERED VENT SETTINGS AND TUBE FEED RATE WELL. NO RESIDUAL OBSERVED DURING SHIFT. LEFT HAND # 18 IV SITE C/D/I/PATENT. NO S/O INFILTRATION OR PHLEBITIS OBSERVED UPON FLUSHING. BED IN LOW AND LOCKED POSITION. CALL LIGHT WITHIN REACH. PT'S CARE WILL BE ENDORSED TO HANDBAG PARTS CUTTER RN FOR CONTINUITY OF CARE.
--- NOTE | 2016-09-21 19:20 | NUR ---
RN INITIAL NOTE RECEIVED PT IN NO ACUTE DISTRESS IN BED. PT IS NON VERBAL BUT OPENS EYES. PT IS ON MECHANICAL VENT VIA TRACH. TRACH SITE IS CLEAN DRY AND INTACT. PT TOLERATING VENT SETTING WELL. PT DID NOT C/O ANY SOB, DIFFICULTY BREATHING OR PAIN. PT HAS G TUBE THAT IS CLEAN DRY INTACT AND PATENT WITH NOVASOURCE @ 60ML/HR AND TOLERATING WELL WITH 0 RESIDUAL. PT HAS LFA 18G THAT IS CLEAN DRY INTACT AND PATENT WITH SALINE FLUSH. BED IN LOW LOCK POSITION WITH RIALS UP X 2. CALL LIGHT WITHIN REACH AND ALL SAFETY MEASURES ENURED AND CARRIED OUT. WILL CONTINUE TO MONITOR PT.
[2016-09-21 20:00] VITALS: BP 135/42
[2016-09-21] MEDS: ESCITALOPRAM OXALATE (10 MG) 10 MG TABLET GT SCH (21:46)
[2016-09-21] MEDS: INSULIN DETEMIR 100 UNIT/ML CARTRIDGE SQ SCH (21:49)
[2016-09-22] VITALS: BP 135/39
[2016-09-22 04:00] VITALS: BP 123/42
[2016-09-22] MEDS ORDERED: DEXTROSE 50%-WATER 50 ML DISP.SYRIN ONE (06:28)
[2016-09-22] MEDS: BLOOD SUGAR DIAGNOSTIC 1 EACH STRIP IN SCH ×5 (06:43→23:34)
--- NOTE | 2016-09-22 07:24 | NUR ---
RN CLOSING NOTE PT REMAINS IN NO ACUTE DISTRESS IN BED. PT DID NOT HAVE ANY SIGNIFICANT CHANGE IN CONDITION DURING SHIFT. PT TOLERATING VENT SETTING WELL. WILL ENDORSE TO AM RN FOR CONTINUITY OF CARE.
--- NOTE | 2016-09-22 07:39 | NUR ---
INITIAL METAL COATER OPERATOR NOTE RCVD PT SLEEPING IN BED SHOWING NO S/O DISTRESS OR PAIN AT THIS TIME. TOLERATING ORDERED VENT SETTINGS AND TUBE FEEDING RATE. NO RESIDUAL OBSERVED UPON CHECKING FOR PLACEMENT. AFIB ON TELE WITH OCCASIONAL V-PACING HR 60. RIGHT HAND #18 C/D/I/PATENT. NO S/O INFILTRATION OR PHLEBITIS OBSERVED UPON FLUSHING. WILL CONTINUE TO MONITOR PT FOR SAFETY AND COMFORT. CALL LIGHT WITHIN REACH. BED IN LOW AND LOCKED POSITION.
[2016-09-22 08:00] VITALS: BP 114/41
[2016-09-22] MEDS: ASPIRIN 81 MG TAB.CHEW PO SCH (08:43)
[2016-09-22] MEDS: PYRIDOXINE HCL 50 MG TABLET GT SCH (08:43)
[2016-09-22] MEDS: PANTOPRAZOLE 40 MG/PACK PACK GT SCH (08:43)
[2016-09-22] MEDS: AMIODARONE HCL 200 MG TABLET PO SCH ×3 (08:45→17:14)
[2016-09-22 12:00] VITALS: BP 111/40
[2016-09-22 16:00] VITALS: BP 120/50
[2016-09-22 18:05] LABS: INR 1.38 (0.87-1.13); PROTHROMBIN TIME 14.9 SECS (9.5-12.7)
[2016-09-22] MEDS: WARFARIN SODIUM 1 MG TABLET PO SCH (18:46)
--- NOTE | 2016-09-22 19:03 | NUR ---
ENDING EXECUTIVE MANAGER NOTE PT RESTING IN BED EASILY AROUSED TO NAME SHOWING NO S/O DISTRESS OR PAIN. TOLERATING ORDERED VENT SETTINGS AND TUBE FEEDING RATE. LEFT HAND # 18 C/D/I/PATENT. NO S/O INFILTRATION OR PHLEBITIS OBSERVED UPON FLUSHING. CALL LIGHT WITHIN REACH. BED IN LOW AND LOCKED POSITION. PT'S CARE WILL BE ENDORSED TO WELDING LEAD BURNER RN FOR CONTINUITY OF CARE.
[2016-09-22 20:00] VITALS: BP 119/46
[2016-09-22] MEDS: ESCITALOPRAM OXALATE (10 MG) 10 MG TABLET GT SCH (23:27)
[2016-09-22] MEDS: INSULIN DETEMIR 100 UNIT/ML CARTRIDGE SQ SCH (23:34)
[2016-09-23] VITALS: BP 115/38
[2016-09-23 04:00] VITALS: BP 135/72
[2016-09-23] MEDS: BLOOD SUGAR DIAGNOSTIC 1 EACH STRIP IN SCH ×4 (05:57→23:59)
--- NOTE | 2016-09-23 07:15 | NUR ---
RN INITIAL NOTES RECEIVED PT IN BED, A/O X 2, ENGLISH SPEAKING, ABLE TO NODS, PT IS ON [facility] VENT PORTEX #9, SIMV 4 TV 500 FIO2 40% PEEP 5, SATING WELL, NO S/S OF RESP. DISTRESS OR SOB NOTED AT THIS TIME, PT IS ON TELE MONITOR SHOWING V PACING @ 60 BPM, NO C/O OF DISCOMFORT OR PAIN AT THIS TIME, PT HAS L HAND #18G, SL, C/D/I/PATENT, FLUSHING WELL, NO S/S OF INFECTION OR INFILTRATION NOTED AT THIS TIME, RCW PERMA CATH, DRESSING CLEAN AND INTACT, PT HAS GTUBE INTACT/ PATENT, FLUSHING WELL, NO RESIDUALS NOTED AT THIS TIME, PT IS TOLERATING WELL, RUNNING NOVASOURCE @ 40ML/HR, ALL SAFETY MEASURES IN PLACE AT ALL TIMES, CALL LIGHT WITHIN EASY REACH, ALL NEEDS MET AT THIS TIME, WILL CONT. TO MONITOR PT CLOSELY
[2016-09-23 08:00] VITALS: BP 97/41
[2016-09-23] MEDS: PYRIDOXINE HCL 50 MG TABLET GT SCH (09:09)
[2016-09-23] MEDS: ASPIRIN 81 MG TAB.CHEW PO SCH (09:09)
[2016-09-23] MEDS: PANTOPRAZOLE 40 MG/PACK PACK GT SCH (09:09)
[2016-09-23] MEDS: Z GUARD REMEDY 2 OZ OINT TP PRN (09:09)
[2016-09-23] MEDS: AMIODARONE HCL 200 MG TABLET PO SCH ×3 (09:09→17:40)
[2016-09-23] MEDS ORDERED: WARFARIN SODIUM 5 MG TABLET PO ONE (10:30)
[2016-09-23 11:10] LABS: INR 2.89 (0.87-1.13); PROTHROMBIN TIME 31.6 SECS (9.5-12.7)
[2016-09-23 12:00] VITALS: BP_SYST 111; BP_DIAS 44; BP_DIAS 50
[2016-09-23 16:00] VITALS: BP 114/64
[2016-09-23] MEDS: WARFARIN SODIUM 1 MG TABLET PO SCH (17:00)
--- NOTE | 2016-09-23 17:24 | NUR ---
RN NOTES PER GALINA CHARLES ORDER, HELD COUMADIN 2MG DOSE AND PER INSULATION SPRAYER ORDER HOLD 09/24/16 PM DOSE, WILL ENDORSE PM RN
[2016-09-23] MEDS: RENAL NOVASOURCE 1,000 ML BOTTLE GT SCH (18:11)
--- NOTE | 2016-09-23 18:51 | NUR ---
RN CLOSING NOTES PT REMAINED IN STABLE CONDITION, ALL MD ORDERS CARRIED OUT, ALL MEDICATIONS GIVEN, G TUBE FEEDING RUNNING, PT KEPT CLEAN AND DRY, ALL TREATMENTS CARRIED OUT, REPORT GIVEN TO PM RN FOR KARINA
[2016-09-23 20:00] VITALS: BP 109/38
[2016-09-23] MEDS: HYDROCODONE/APAP 5/325MG 1 EACH TABLET GT PRN (21:07)
[2016-09-23] MEDS: ESCITALOPRAM OXALATE (10 MG) 10 MG TABLET GT SCH (21:07)
[2016-09-23] MEDS: INSULIN DETEMIR 100 UNIT/ML CARTRIDGE SQ SCH (21:10)
[2016-09-24] MEDS: HYDROCODONE/APAP 5/325MG 1 EACH TABLET GT PRN (03:21)
[2016-09-24 04:00] VITALS: BP 138/60
[2016-09-24] MEDS: BLOOD SUGAR DIAGNOSTIC 1 EACH STRIP IN SCH ×3 (05:19→17:08)
--- NOTE | 2016-09-24 07:33 | NUR ---
SHAKE MAKER NOTE PATIENT IN BED , ALL NEEDS ATTENDED ,WITH TRACH TO VENT SETTING ORDERED , AMBU BAG AT HOB , AT ALL TIME , WITH G TUBE FEEDING ORDERED KEEP HOB ELEVATED AT ALL TIME, ON TELE MONITOR AFIB WITH VPACING HR 60, RT HAND HL INTACT, BOTH ARMS WITH EDEMA, KEEP ELEVATED ON PILLOW TOLERATED , ON KCI MATRES , BED IN LOWEST AND LOCKED POSITION , CALL LIGHT WITHIN REACH , PLAN OF CARE DISCUSSED WITH PATIENT ,WILL CONT TO MONITOR CLOSELY
[2016-09-24 08:00] VITALS: BP 110/42
[2016-09-24] MEDS: PANTOPRAZOLE 40 MG/PACK PACK GT SCH (08:05)
[2016-09-24] MEDS: ASPIRIN 81 MG TAB.CHEW PO SCH (08:05)
[2016-09-24] MEDS: PYRIDOXINE HCL 50 MG TABLET GT SCH (08:05)
[2016-09-24] MEDS: AMIODARONE HCL 200 MG TABLET PO SCH ×3 (08:06→16:17)
[2016-09-24 08:14] LABS: INR 3.44 (0.87-1.13); PROTHROMBIN TIME 37.6 SECS (9.5-12.7)
--- NOTE | 2016-09-24 11:30 | NUR ---
PHYSICIAN SUPPORT COORDINATOR NOTE SPOKE WITH GALINA RN FEED HOUSE SUPERVISOR NOTIFIED THAT INR 3.44 WILL HOLD COUMADIN TODAY
[2016-09-24 12:00] VITALS: BP 104/41
--- NOTE | 2016-09-24 13:14 | NUR ---
LIBERAL ARTS AND HUMANITIES CHAIR NOTE PER DR CORBIN HD TOMORROW ,KEEP CLEAN DRY REPOSITION Q2 HOUR
[2016-09-24 16:00] VITALS: BP 118/48
[2016-09-24] MEDS: WARFARIN SODIUM 1 MG TABLET PO SCH (16:17)
[2016-09-24] MEDS: INSULIN REGULAR, HUMAN 100 UNIT/ML 3 ML VIAL SQ PRN (17:12)
--- NOTE | 2016-09-24 19:30 | NUR ---
LICENSED NUCLEAR OPERATOR INITIAL NOTES PT RECEIVED IN BED. A/O X2 SLOVAK SPEAKING. MECH VENT PORTEX 7 SIMV 4 TV500 FIO2 40% PEEP5 AND SATING WELL. NO S.S OF RESPIRATORY DISTRESS NOTED AT THIS TIME. TELE V-PACING 60'S. IV L HAND #18 FLUSHING WELL, INTACT AND DRY. RCW HD CATH CLEAN AND INTACT. GTUBE FEEDING WELL TOLERATED, NO RESIDUAL. ALL SAFETY MEASURES IN PLACE. WILL CONTINUE TO MONITOR.
[2016-09-24 20:00] VITALS: BP 106/32
[2016-09-24] MEDS: ESCITALOPRAM OXALATE (10 MG) 10 MG TABLET GT SCH (21:02)
[2016-09-24] MEDS: INSULIN DETEMIR 100 UNIT/ML CARTRIDGE SQ SCH (21:07)
[2016-09-25] VITALS: BP 134/50
[2016-09-25] MEDS: BLOOD SUGAR DIAGNOSTIC 1 EACH STRIP IN SCH ×5 (00:30→23:48)
[2016-09-25] MEDS: INSULIN REGULAR, HUMAN 100 UNIT/ML 3 ML VIAL SQ PRN ×3 (00:33→23:47)
[2016-09-25 04:00] VITALS: BP 118/53
[2016-09-25] MEDS: RENAL NOVASOURCE 1,000 ML BOTTLE GT SCH ×2 (04:02→17:05)
--- NOTE | 2016-09-25 06:28 | NUR ---
ORACLE FUSION DEVELOPER CLOSING NOTE REMAINED STABLE CONDITION DURING SHIFT. MECH VENT SATING WELL, NO S/S OF RESPIRATORY DISTRESS NOTED. GTUBE FLUSHING WELL, FEEDING WELL TOLERATED. IV INTACT. HD CATH INTACT. ALL SAFETY MEASURES IN PLACE. WILL ENDORSE TO NEXT SHIFT FOR KARINA.
--- NOTE | 2016-09-25 07:15 | NUR ---
RN INITIAL NOTES RECEIVED PT IN BED, A/O X 2, MACEDONIAN SPEAKING, ABLE TO NODS, PT IS ON [facility] VENT PORTEX #7, SIMV 4 TV 500 FIO2 40% PEEP 5, SATING WELL, NO S/S OF RESP. DISTRESS OR SOB NOTED AT THIS TIME, PT IS ON TELE MONITOR SHOWING V PACING @ 60 BPM, NO C/O OF DISCOMFORT OR PAIN AT THIS TIME, PT HAS L HAND #18G, SL, C/D/I/PATENT, FLUSHING WELL, NO S/S OF INFECTION OR INFILTRATION NOTED AT THIS TIME, RCW PERMA CATH, DRESSING CLEAN AND INTACT, PT HAS GTUBE INTACT/ PATENT, FLUSHING WELL, NO RESIDUALS NOTED AT THIS TIME, PT IS TOLERATING WELL, RUNNING NOVASOURCE @ 40ML/HR, PT IS NOTED WITH MULTIPLE SKIN ISSUES, ALL SAFETY MEASURES IN PLACE AT ALL TIMES, CALL LIGHT WITHIN EASY REACH, ALL NEEDS MET AT THIS TIME, WILL CONT. TO MONITOR PT CLOSELY
[2016-09-25 08:00] VITALS: BP 117/40
[2016-09-25] MEDS: PANTOPRAZOLE 40 MG/PACK PACK GT SCH (08:02)
[2016-09-25] MEDS: Z GUARD REMEDY 2 OZ OINT TP PRN (08:02)
[2016-09-25] MEDS: AMIODARONE HCL 200 MG TABLET PO SCH ×4 (08:02→17:05)
[2016-09-25] MEDS: ASPIRIN 81 MG TAB.CHEW PO SCH (08:02)
[2016-09-25] MEDS: PYRIDOXINE HCL 50 MG TABLET GT SCH (08:02)
[2016-09-25 08:19] LABS: INR 3.52 (0.87-1.13); PROTHROMBIN TIME 38.5 SECS (9.5-12.7)
[2016-09-25 08:25] LABS: CALCIUM, SERUM 8.3 mg/dL (8.5-10.1); CREATININE 3.2 mg/dL (0.6-1.3); MAGNESIUM 2.9 mg/dL (1.8-2.4); PHOSPHORUS 5.4 mg/dL (2.5-4.9); POTASSIUM 4.4 mmol/L (3.5-5.1)
[2016-09-25 08:33] LABS: BASOPHILS % (AUTO) 0.4 % (0.0-2.0); EOSINOPHILS # (AUTO) 0.1 /CMM (0.0-0.7); EOSINOPHILS % (AUTO) 1.1 % (0.0-6.0); HEMATOCRIT 23 % (33-45); HEMOGLOBIN 7.2 g/dL (11.5-14.8); LYMPHOCYTES # (AUTO) 0.7 /CMM (0.8-4.8); LYMPHOCYTES % (AUTO) 9.5 % (20.0-44.0); MEAN CORPUSCULAR HEMOGLOBIN 30 PG (26.0-33.0); MEAN CORPUSCULAR HGB CONC 31 g/dl (31.0-36.0); MEAN CORPUSCULAR VOLUME 98 fL (82-100); MONOCYTES # (AUTO) 0.7 /CMM (0.1-1.30); MONOCYTES % (AUTO) 8.9 % (2.0-12.0); NEUTROPHILS # (AUTO) 6.1 /CMM (1.8-8.9); NEUTROPHILS % (AUTO) 80.1 % (43.0-81.0); PLATELET COUNT (AUTO) 163 /CMM (150-450); RED BLOOD CELL COUNT(AUTO) 2.37 MIL/uL (4.0-5.2); WHITE BLOOD COUNT (AUTO) 7.6 K/uL (4.3-11.0)
--- NOTE | 2016-09-25 09:35 | NUR ---
RN NOTES PT IS RECEIVING HD AT THIS TIME
[2016-09-25] MEDS: HYDROCODONE/APAP 5/325MG 1 EACH TABLET GT PRN ×2 (11:11→21:02)
[2016-09-25 12:00] VITALS: BP 109/44
[2016-09-25] MEDS ORDERED: EPOETIN ALFA (10,000 UNIT) 10,000 UNIT/ML VIAL SQ ONE (12:30)
[2016-09-25] MEDS: WARFARIN SODIUM 1 MG TABLET PO SCH (14:42)
[2016-09-25 16:00] VITALS: BP 104/32
--- NOTE | 2016-09-25 18:40 | NUR ---
RN CLOSING NOTES PT REMAINED STABLE DURING SHIFT, ALL MEDICATION AND MD ORDERS CARRIED OUT, PT KEPT CLEAN AND DRY, ALL TREATMENTS DONE, G TUBE RUNNING FEEDING ORDERED, ALL SAFETY MEASURES IN PLACE AT ALL TIMES, CALL LIGHT WITHIN EASY REACH, WILL GIVE REPORT TO PM RN FOR KARINA
[2016-09-25 20:00] VITALS: BP 116/42
[2016-09-25] MEDS: ESCITALOPRAM OXALATE (10 MG) 10 MG TABLET GT SCH (21:00)
[2016-09-25] MEDS: INSULIN DETEMIR 100 UNIT/ML CARTRIDGE SQ SCH (22:00)
[2016-09-26] VITALS: BP 125/47
[2016-09-26 04:00] VITALS: BP 141/34
[2016-09-26] MEDS: INSULIN REGULAR, HUMAN 100 UNIT/ML 3 ML VIAL SQ PRN ×2 (05:27→21:50)
[2016-09-26] MEDS: BLOOD SUGAR DIAGNOSTIC 1 EACH STRIP IN SCH ×4 (05:29→21:46)
--- NOTE | 2016-09-26 06:45 | NUR ---
GROVE WORKER - NO CHANGES FROM PREVIOUS ASSESSMENTS. PT.IS TRACH/VENT, PEGGED. COMP. & PARTIAL BEDBATHS ADM. TOTAL CARE,PEG,TRACH,ORAL,TALYA & SKIN/WOUND CARE ADMINISTERED. LEVEMIR WAS HELD LAST NIGHT DUE TO ACCUCHECK AT #134. THIS MORNINGS BS = #145/PT.COVERED W/REG.INSULIN. PT.IS ANURIC. HEART MONITOR SHOWS V-PACING/60 BPM. AFEBRILE. SBP'S ARE WNL. CONT. POC.
--- NOTE | 2016-09-26 07:38 | NUR ---
Received female trach pt on a vent. Pt trach is secure. Suctioned thick secretions. Alarms are set and audible. BMV set at head of bed. Addendum: 09/26/16 at 0741 by DENI GILLIS RT Amended: Links added.
[2016-09-26 08:00] VITALS: BP 114/33
--- NOTE | 2016-09-26 08:00 | NUR ---
HEAD OF QUALITY RECEIVED PT IN BED AWAKE ALERT ON VENT TRACH SITE CLEAN DRESSING PRESENT, PT IS SAT 100%, LEFT ARM SWOLLEN WILL NOTIFY MD, PT ON MONITOR, VS STABLE, IV ACCESS NOT PATENT REMOVED WILL START NEW IV, HD CAT PRESENT DRESSING INTACT, TURN AND REPOSITION PT IN BED FALL PRECUTIONS TAKEN OFFLOAD EXTREMITIES ELEVATED LEFT ARM ON 2 PILLOWS.
[2016-09-26] MEDS: PYRIDOXINE HCL 50 MG TABLET GT SCH (08:03)
[2016-09-26] MEDS: ASPIRIN 81 MG TAB.CHEW PO SCH (08:03)
[2016-09-26] MEDS: AMIODARONE HCL 200 MG TABLET PO SCH ×3 (08:03→17:10)
[2016-09-26] MEDS: PANTOPRAZOLE 40 MG/PACK PACK GT SCH (08:03)
[2016-09-26 08:21] LABS: CALCIUM, SERUM 8.5 mg/dL (8.5-10.1); CREATININE 2.8 mg/dL (0.6-1.3); POTASSIUM 4.4 mmol/L (3.5-5.1)
[2016-09-26 08:27] LABS: INR 2.95 (0.87-1.13); PROTHROMBIN TIME 32.2 SECS (9.5-12.7)
[2016-09-26 09:15] LABS: BASOPHILS % (AUTO) 0.4 % (0.0-2.0); EOSINOPHILS # (AUTO) 0.1 /CMM (0.0-0.7); EOSINOPHILS % (AUTO) 1.4 % (0.0-6.0); HEMATOCRIT 23 % (33-45); HEMOGLOBIN 7.3 g/dL (11.5-14.8); LYMPHOCYTES # (AUTO) 0.7 /CMM (0.8-4.8); MEAN CORPUSCULAR HEMOGLOBIN 31 PG (26.0-33.0); MEAN CORPUSCULAR HGB CONC 32 g/dl (31.0-36.0); MEAN CORPUSCULAR VOLUME 99 fL (82-100); MONOCYTES # (AUTO) 0.7 /CMM (0.1-1.30); NEUTROPHILS # (AUTO) 5.8 /CMM (1.8-8.9); NEUTROPHILS % (AUTO) 78.2 % (43.0-81.0); PLATELET COUNT (AUTO) 162 /CMM (150-450); RED BLOOD CELL COUNT(AUTO) 2.35 MIL/uL (4.0-5.2); WHITE BLOOD COUNT (AUTO) 7.4 K/uL (4.3-11.0)
[2016-09-26 12:00] VITALS: BP 118/45
[2016-09-26 16:00] VITALS: BP 123/36
[2016-09-26] MEDS ORDERED: WARFARIN SODIUM 2 MG TABLET PO SCH (17:00)
[2016-09-26] MEDS: WARFARIN SODIUM 1 MG TABLET PO SCH (17:13)
[2016-09-26] MEDS: RENAL NOVASOURCE 1,000 ML BOTTLE GT SCH (17:17)
--- NOTE | 2016-09-26 19:15 | NUR ---
SHIFT COORDINATOR NOTES RECEIVED ON VENT A/O X1-2,ON TRACH TO VENT SIMV-4,TV-500,FIO2-40%,PEEP-12,PORTEX#7.WITH GT FEEDING OF NOVASOURCE 40ML;/HR RATE,ABDOMEN DISTENDED,NON TENDER.WITH JAZMIN HD CATH FOR HD TREATMENT,RIGHT THUMB SALINE LOCK IN PLACE FOR MEDS,NS AT TKO RATE IN PROGRESS.LEFT ARM SWOLLEN,NON TENDER TO THE TOUCH,ELEVATED ON PILLOWS,AIR MATRESS IN USED FOR SKIN MANAGEMENT,REPOSITION PER PROTOCOL,CALL LIGHT IN.WILL MONITOR CLOSELY FOR ANY DISTRESS.
[2016-09-26 20:00] VITALS: BP 134/45
--- NOTE | 2016-09-26 21:00 | NUR ---
PT RECEIVED TRACH ON VENT. NO RESP DISTRESS NOTED. PT TOLERATING VENT SETTINGS. SX'D FOR MOD AMT OF THICK YELLOW SECRETIONS. VENT ALARMS SET AND AUDIBLE. AMBU BAG AT [facility]. VENT PLUGGED INTO RED OUTLET. Addendum: 09/27/16 at 0550 by KIERAN GRAY RT Amended: Links added.
--- NOTE | 2016-09-26 21:30 | NUR ---
ASSET PROTECTION SPECIALIST NOTES ACCU-CHECK BLOOD SUGAR CHECK 145,COVERED WITH HUMULIN R 2 UNITS SQ.LEVEMIR 20 UNITS HELD,PER REPORT PATIENT BLOOD SUGAR EASILY GOES DOWN.
[2016-09-26] MEDS: ESCITALOPRAM OXALATE (10 MG) 10 MG TABLET GT SCH (21:40)
[2016-09-26] MEDS: INSULIN DETEMIR 100 UNIT/ML CARTRIDGE SQ SCH (21:51)
--- NOTE | 2016-09-26 23:02 | NUR ---
STUDIO OPERATION ENGINEER NOTES REMAINS STABLE,REPORT GIVEN TO NANO BERGER FOR KARINA
--- NOTE | 2016-09-26 23:10 | NUR ---
TELE SPECIALIST EMPLOYEE LABOR RELATIONS INITIAL NOTES RECEIVED REPORT FROM NURSE JANEL. AND CHECKED PT, SHE'S LYING IN BED RESTING , WITH TRACH PORTEX 7 VENT SETTING FF. SIMV4 , TV 500, FIO2 40%.PRESSURE SUPPORT 12. NOT IN ANY ACUTE DISTRESS NOTED. ON G-TUBE FEEDING AT 4OML/HR. NO ASPIRATION NOTED. SKIN WARM AND DRY TO TOUCH. SHE ALSO ON TELE V-PACING HEART RATE 60 PER MONITOR. KEPT HER COMFORTABLE AT ALL TIMES. WILL CONTINUE TO MONITOR.
[2016-09-27] VITALS (8 sets, daily range): BP systolic 109–134; BP diastolic 40–50
[2016-09-27] MEDS: BLOOD SUGAR DIAGNOSTIC 1 EACH STRIP IN SCH ×4 (05:51→23:39)
[2016-09-27] MEDS: INSULIN REGULAR, HUMAN 100 UNIT/ML 3 ML VIAL SQ PRN ×3 (05:52→17:36)
--- NOTE | 2016-09-27 06:57 | NUR ---
TELE FAN BLADE TRUER CLOSING NOTES PT AWAKE AND ALERT STILL ON VENTILATOR SET UP BY RT ORDERED. STABLE ANGELA THE NIGHT, NOT IN ANY ACUTE DISTRESS NOTED. ALL DUE MEDS GIVEN AND ALL NEEDS MET. G-TUBE TOLERATED WELL NO ASPIRATION NOTED. KEPT HER WARM AND COMFORTABLE AT ALL TIMES. TELE V-PACING HEART RATE 60 PER MONITOR. ENDORSE TO AM NURSE STVEEN/RN FOR CONTINUITY OF CARE.
[2016-09-27] MEDS: ASPIRIN 81 MG TAB.CHEW PO SCH (08:09)
[2016-09-27] MEDS: PANTOPRAZOLE 40 MG/PACK PACK GT SCH (08:09)
[2016-09-27] MEDS: PYRIDOXINE HCL 50 MG TABLET GT SCH (08:10)
[2016-09-27] MEDS: AMIODARONE HCL 200 MG TABLET PO SCH ×3 (08:10→16:20)
[2016-09-27] MEDS: ONDANSETRON HCL/PF 4 MG/2 ML VIAL IVP PRN (13:24)
[2016-09-27] MEDS: WARFARIN SODIUM 1 MG TABLET PO SCH (16:24)
--- NOTE | 2016-09-27 19:30 | NUR ---
FINANCIAL OFFICER INITIAL NOTE RECEIVED REPORT FROM STEVEN PARMAR. PT IN BED, VENT TRACH, TOLERATING CURRENT VENT SETTINGS. LUNG SOUNDS MINIMAL RHONCHI. BOWEL SOUNDS PRESENT. GT INTACT AND FEEDING RUNNING. ANURIC, DIALYSIS. IV PATENT AND INTACT. BED IN LOW LOCKED POSITION. WILL CONTINUE TO MONITOR.
[2016-09-27] MEDS: ESCITALOPRAM OXALATE (10 MG) 10 MG TABLET GT SCH (21:58)
[2016-09-27] MEDS: INSULIN DETEMIR 100 UNIT/ML CARTRIDGE SQ SCH (22:01)
[2016-09-27] MEDS: RENAL NOVASOURCE 1,000 ML BOTTLE GT SCH (23:30)
[2016-09-28] VITALS (8 sets, daily range): BP systolic 107–131; BP diastolic 45–54
[2016-09-28] MEDS: BLOOD SUGAR DIAGNOSTIC 1 EACH STRIP IN SCH ×3 (05:59→17:35)
[2016-09-28 07:19] LABS: INR 2.64 (0.87-1.13); PROTHROMBIN TIME 28.8 SECS (9.5-12.7)
--- NOTE | 2016-09-28 07:22 | NUR ---
Received female trach pt on [facility] vent. Pt trach is secure. Suctioned moderate amount of thick secretions. Vent is plugged into a red outlet and alarms are set and audible.. Ambu bag at head of bed. Addendum: 09/28/16 at 0725 by DENI GILLIS RT Amended: Links added.
--- NOTE | 2016-09-28 07:25 | NUR ---
RN INITIAL NOTES: Received patient on bed during rounds, asleep but easily arousable, alert x1-2, congolese speaking able to make needs known at times, needs anticipated and attended. With right wrist IV Plug flushed with NS and patent. With Right Austin Catheter in placed dressing clean and dry. With Vent and trach setting are the following SIMV mode AC 4 TV 500 FIO2 40% saturating well at 99-100%. NPO maintained. With Gtube in placed, patend with no residual noted, with feeding of Novasource at 40cc/hr tolerating well. HOB elevated, aspiration precaution observed. On telemonitoring V-Pacing at 60bpm. NO SOB, No LOC, respirations are even and unlabored, no acute distress noted. Kept clean and dry. Provided safety and comfort measures. Bed low and locked position, fall precaution observed. Will turn and reposition, offload heels as per protocol. Suction secretions PRN. To continue to monitor accordingly.
[2016-09-28] MEDS: PYRIDOXINE HCL 50 MG TABLET GT SCH (08:21)
[2016-09-28] MEDS: ASPIRIN 81 MG TAB.CHEW PO SCH (08:21)
[2016-09-28] MEDS: PANTOPRAZOLE 40 MG/PACK PACK GT SCH (08:21)
[2016-09-28] MEDS: AMIODARONE HCL 200 MG TABLET PO SCH ×3 (08:27→17:33)
[2016-09-28] MEDS: INSULIN REGULAR, HUMAN 100 UNIT/ML 3 ML VIAL SQ PRN ×2 (12:20→17:36)
[2016-09-28] MEDS ORDERED: EPOETIN ALFA (10,000 UNIT) 10,000 UNIT/ML VIAL IV ONE (15:00)
[2016-09-28] MEDS: WARFARIN SODIUM 1 MG TABLET PO SCH (17:34)
--- NOTE | 2016-09-28 18:55 | NUR ---
RN NOTES: Patient remain stable within shift, no signs and symptoms of distress noted. HOB elevated, Gtube feeding Novasource 40cc/hr, aspiration precaution observed. Kept clean and dry, turned and repositioned, offload heels as per protocol. Will endorsed to next shift for continuity of care.
--- NOTE | 2016-09-28 19:30 | NUR ---
ARTIFICIAL TEETH INSPECTOR INITIAL NOTE RECEIVED REPORT FROM BRIAN PARMAR. PT IN BED, CHRONIC VENT TRACH. TOLERATING CURRENT VENT SETTINGS. A/A/O X2 UNDERSTANDS SWED[place]. LUNG SOUNDS MINIMAL RHONCHI. BOWEL SOUNDS PRESENT WITH GT PATENT AND INTACT WITH FEEDING RUNNING. ANURIC. RIGHT CHEST WALL HD ACCESS PATENT. IV PATENT AND INTACT. REPOSITIONED FOR COMFORT. BED IN LOW LOCKED POSITION. WILL CONTINUE TO MONITOR.
[2016-09-28] MEDS: ESCITALOPRAM OXALATE (10 MG) 10 MG TABLET GT SCH (21:16)
[2016-09-28] MEDS: INSULIN DETEMIR 100 UNIT/ML CARTRIDGE SQ SCH (21:17)
[2016-09-29] VITALS (7 sets, daily range): BP systolic 105–118; BP diastolic 49–56
[2016-09-29] MEDS: BLOOD SUGAR DIAGNOSTIC 1 EACH STRIP IN SCH ×5 (00:57→23:24)
[2016-09-29] MEDS: RENAL NOVASOURCE 1,000 ML BOTTLE GT SCH (01:36)
--- NOTE | 2016-09-29 07:46 | NUR ---
RN INITIAL NOTE PT RECEIVED IN BED, RESTING COMFORTABLY, A/O X2. TELE MONITOR SHOWS V PACING IN THE 60'S. RESPIRATIONS ARE EVEN AND UNLABORED, TRACH DRESSING C/D/I. HOB OF ELEVATED. G-TUBE PATENT, INTACT PLACEMENT CONFIRMED. TOLERATING FEEDING WELL. SKIN WARM AND DRY TO TOUCH. GENERALIZED EDEMA. IV SITE C/D/I .RECEIVING HD AT THE MOMENT. RT THERE ALSO CHECKING TRACH SETTINGS. PT DENIES PAIN AT THIS TIME. NO SIGNS OF DISCOMFORT. SAFETY MEASURES IN PLACE. CALL LIGHT WITHIN EASY REACH. WILL CONTINUE TO MONITOR.
[2016-09-29] MEDS: PANTOPRAZOLE 40 MG/PACK PACK GT SCH (08:26)
[2016-09-29] MEDS: AMIODARONE HCL 200 MG TABLET PO SCH ×3 (08:26→17:00)
[2016-09-29] MEDS: PYRIDOXINE HCL 50 MG TABLET GT SCH (08:26)
[2016-09-29] MEDS: ASPIRIN 81 MG TAB.CHEW PO SCH (08:26)
--- NOTE | 2016-09-29 09:30 | NUR ---
RN NOTE B/P MEDS HELD PT ON DIALYSIS BP 111/49
--- NOTE | 2016-09-29 09:40 | NUR ---
HD THIS AM ONE LITER REMOVED
[2016-09-29 12:16] LABS: HEPATITIS A AB, IgM Negative (Negative); HEPATITIS B CORE AB, IgM Negative (Negative); HEPATITIS C VIRUS AB 0.1 s/co ratio (0.0-0.9)
[2016-09-29 12:25] LABS: BASOPHILS % (AUTO) 0.1 % (0.0-2.0); EOSINOPHILS # (AUTO) 0.2 /CMM (0.0-0.7); HEMATOCRIT 23 % (33-45); HEMOGLOBIN 7.1 g/dL (11.5-14.8); LYMPHOCYTES # (AUTO) 0.6 /CMM (0.8-4.8); LYMPHOCYTES % (AUTO) 6.8 % (20.0-44.0); MEAN CORPUSCULAR HEMOGLOBIN 31 PG (26.0-33.0); MEAN CORPUSCULAR HGB CONC 31 g/dl (31.0-36.0); MEAN CORPUSCULAR VOLUME 98 fL (82-100); MONOCYTES # (AUTO) 0.6 /CMM (0.1-1.30); MONOCYTES % (AUTO) 7.3 % (2.0-12.0); NEUTROPHILS % (AUTO) 83.8 % (43.0-81.0); PLATELET COUNT (AUTO) 156 /CMM (150-450); RDW COEFFICIENT OF VARIATION 19.5 (11.5-15.0); RED BLOOD CELL COUNT(AUTO) 2.29 MIL/uL (4.0-5.2); WHITE BLOOD COUNT (AUTO) 8.3 K/uL (4.3-11.0)
[2016-09-29 13:25] LABS: INR 2.84 (0.87-1.13)
[2016-09-29] MEDS ORDERED: EPOETIN ALFA (10,000 UNIT) 10,000 UNIT/ML VIAL SQ ONE (15:00)
--- NOTE | 2016-09-29 16:00 | NUR ---
RN NOTE KUB DONE AT BEDSIDE
[2016-09-29] MEDS: WARFARIN SODIUM 1 MG TABLET PO SCH (17:40)
--- NOTE | 2016-09-29 18:44 | NUR ---
RN CLOSING NOTE PT RESTING IN BED COMFORTABLY, ALL MD'S ORDERS CARRIED OUT, PT KEPT CLEAN AND DRY, IV SITE C/D/I. ALL SAFETY MEASURES IN PLACE AT ALL TIMES. REPORT WILL BE GIVEN TO PM RN FOR KARINA.
--- NOTE | 2016-09-29 19:30 | NUR ---
FILLING STATION ATTENDANT INITIAL NOTE RECEIVED REPORT FROM CRICKET PARMAR. PT IN BED. CHRONIC VENT TRACH. TOLERATING CURRENT VENT SETTINGS. A/A/O X2. LUNG SOUNDS RHONCHI. BOWEL SOUNDS PRESENT WITH SOME ABDOMINAL DISTENTION. KUB DONE THIS MORNING. GT PATENT AND INTACT WITH FEEDING, 5 CC RESIDUAL. ANURIC. PULSES PRESENT IN ALL EXTREMITIES. REPOSITIONED FOR COMFORT. BED IN LOW LOCKED POSITION. CALL LIGHT WITHIN REACH. WILL CONTINUE TO MONITOR.
[2016-09-29] MEDS: ESCITALOPRAM OXALATE (10 MG) 10 MG TABLET GT SCH (23:25)
[2016-09-29] MEDS: INSULIN DETEMIR 100 UNIT/ML CARTRIDGE SQ SCH (23:28)
[2016-09-29] MEDS: INSULIN REGULAR, HUMAN 100 UNIT/ML 3 ML VIAL SQ PRN (23:28)
[2016-09-30] VITALS: BP 99/42
[2016-09-30 04:00] VITALS: BP 122/45
[2016-09-30] MEDS: RENAL NOVASOURCE 1,000 ML BOTTLE GT SCH (05:05)
[2016-09-30] MEDS: BLOOD SUGAR DIAGNOSTIC 1 EACH STRIP IN SCH ×3 (05:23→17:01)
--- NOTE | 2016-09-30 06:30 | NUR ---
GUIDE DELEGATE CLOSING NOTES PT REMAINED STABLE DURING SHIFT. ON TELE MONITORING. MECH VENT PT AND SATING WELL AND WELL TOLERATED. GTUBE FLUSHING WELL AND FEEDING WELL TOLERATED WITH NO RESIDUAL NOTED. IV SITE INTACT AND FLUSHING WELL. ALL SAFETY MEASURES IN PLACE. WILL ENDORSE TO NEXT SHIFT FOR KARINA.
--- NOTE | 2016-09-30 07:41 | NUR ---
INITIAL STORE LOSS PREVENTION MANAGER NOTE RCVD PT AWAKE AND ALERT SHOWING NO S/O DISTRESS OR C/O PAIN. V-PACING UNDERLYING AFIB ON TELE HR 60. TOLERATING ORDERED VENT SETTINGS AND TUBE FEEDING RATE. RIGHT WRIST #22 C/D/I/PATENT. NO S/O INFILTRATION OR PHLEBITIS OBSERVED UPON FLUSHING. CALL LIGHT WITHIN REACH. BED IN LOW AND LOCKED POSITION. WILL CONTINUE TO MONITOR FOR SAFETY AND COMFORT.
[2016-09-30 08:00] VITALS: BP 113/48
[2016-09-30] MEDS: PYRIDOXINE HCL 50 MG TABLET GT SCH (08:16)
[2016-09-30] MEDS: ASPIRIN 81 MG TAB.CHEW PO SCH (08:16)
[2016-09-30] MEDS: AMIODARONE HCL 200 MG TABLET PO SCH ×3 (08:16→16:34)
[2016-09-30] MEDS: PANTOPRAZOLE 40 MG/PACK PACK GT SCH (08:16)
[2016-09-30 08:28] LABS: INR 3.11 (0.87-1.13)
[2016-09-30] MEDS: INSULIN REGULAR, HUMAN 100 UNIT/ML 3 ML VIAL SQ PRN (11:58)
[2016-09-30 12:00] VITALS: BP 110/47
[2016-09-30 16:00] VITALS: BP 122/56
[2016-09-30] MEDS: WARFARIN SODIUM 1 MG TABLET PO SCH (16:33)
--- NOTE | 2016-09-30 18:17 | NUR ---
ENDING QUALITY WORKER NOTE PT AWAKE SHOWING NO S/O DISTRESS OR PAIN AT THIS TIME. CONTINUES TO TOLERATE VENT AND TUBE FEEDING RATE. IV SITE C/D/I/PATENT. NO S/O INFILTRATION OR PHLEBITIS OBSERVED IVF INFUSING. CALL LIGHT WITHIN REACH. BED IN LOW AND LOCKED POSITION. PT'S CARE WILL BE ENDORSED TO HI LO DRIVER RN FOR CONTINUITY OF CARE.
[2016-09-30 20:00] VITALS: BP 120/53
--- NOTE | 2016-09-30 20:37 | NUR ---
PT TRACH ON VENT SIMV MODE. TRACH SIZE IS PTX 7. NO RESP DISTRESS NOTED. PT TOLERATING VENT SETTINGS. O2 SAT 100%. SX'D FOR SML AMT OF THICK WHITE SECRETIONS. VENT ALARMS SET AND AUDIBLE. AMBU BAG AT BEDSIDE. VENT PLUGGED INTO RED OUTLET. WILL CONTINUE TO MONITOR. Addendum: 09/30/16 at 2038 by KIERAN GRAY RT Amended: Links added.
--- NOTE | 2016-09-30 20:45 | NUR ---
TELE-1/CHEMISTRY PROFESSOR PER RADIOLOGY, THEY ARE UNABLE TO TAKE PT TO CT AT THIS TIME. ER IS BUSY AND TECHS ARE UNAVAILABLE. WILL FOLLOW UP.
[2016-09-30] MEDS: HYDROCODONE/APAP 5/325MG 1 EACH TABLET GT PRN (21:03)
[2016-09-30] MEDS: ESCITALOPRAM OXALATE (10 MG) 10 MG TABLET GT SCH (21:03)
[2016-09-30] MEDS: INSULIN DETEMIR 100 UNIT/ML CARTRIDGE SQ SCH (21:08)
[2016-10-01] VITALS: BP 127/59
[2016-10-01] MEDS: BLOOD SUGAR DIAGNOSTIC 1 EACH STRIP IN SCH ×4 (00:27→17:26)
[2016-10-01] MEDS: INSULIN REGULAR, HUMAN 100 UNIT/ML 3 ML VIAL SQ PRN ×3 (00:30→12:16)
[2016-10-01 04:00] VITALS: BP 111/49
[2016-10-01] MEDS: RENAL NOVASOURCE 1,000 ML BOTTLE GT SCH (05:15)
[2016-10-01] MEDS: HYDROCODONE/APAP 5/325MG 1 EACH TABLET GT PRN (05:16)
--- NOTE | 2016-10-01 07:49 | NUR ---
RT PATIENT REC'D TRACHED ON [facility] VENT WITH ORDERED SETTINGS SET BY . VENT ALARMS CHECKED + AUDIBLE. TRACH SECURE AND IN PROPER POSITION. INNER CANNULA CHECKED AND PATENT. PATIENT SX'D WITH MOD AMT PALE SEMITHICK SECRETIONS. B/S DIM. PATIENT IN NO DISTRESS OR SOB. AMBU BAG AT HOB. CONT CURRENT PLAN OF RESP CARE. Addendum: 10/01/16 at 1149 by HUGH SANDERS RT Amended: Links added.
[2016-10-01 07:52] LABS: INR 3.13 (0.87-1.13); PROTHROMBIN TIME 34.2 SECS (9.5-12.7)
[2016-10-01] MEDS: ACETAMINOPHEN 650 MG/20.3 ML UDC GT PRN (08:57)
[2016-10-01] MEDS: PYRIDOXINE HCL 50 MG TABLET GT SCH (08:58)
[2016-10-01] MEDS: AMIODARONE HCL 200 MG TABLET PO SCH ×3 (08:58→17:00)
[2016-10-01] MEDS: PANTOPRAZOLE 40 MG/PACK PACK GT SCH (08:58)
[2016-10-01] MEDS: ASPIRIN 81 MG TAB.CHEW PO SCH (08:58)
--- NOTE | 2016-10-01 08:59 | NUR ---
RECEIVED AWAKE, NO ACUTE DISTRESS,C/O GRIMACING 3/10 PRN TYLENOL GIVEN VIA GTUBE.
[2016-10-01 09:09] VITALS: BP 112/63
--- NOTE | 2016-10-01 10:05 | NUR ---
INITIAL TRUMPET TEACHER NOTE RCVD PT AWAKE AND ALERT, ABLE TO FOLLOW COMMANDS IN [facility]. V-PACING ON TELE WITH UNDERLYING AFIB HR 60. TOLERATING ORDERED VENT AND TUBE FEEDING RATE. NO RESIDUAL OBSERVED. RIGHT WRIST #22 C/D/I/PATENT. IVF INFUSING NO S/O INFILTRATION OR PHLEBITIS OBSERVED. RECEIVING DIALYSIS AT THIS TIME. WILL CONTINUE TO MONITOR PT FOR SAFETY AND COMFORT. CALL LIGHT WITHIN REACH, BED IN LOW AND LOCKED POSITION.
[2016-10-01 12:00] VITALS: BP 111/49
[2016-10-01 16:00] VITALS: BP 103/49
[2016-10-01] MEDS: DOCUSATE SODIUM LIQ 100 MG/10 ML UDC GT SCH (17:27)
[2016-10-01] MEDS: WARFARIN SODIUM 1 MG TABLET PO SCH (17:33)
--- NOTE | 2016-10-01 19:15 | NUR ---
ENDING LICENSED PSYCHOLOGIST DIRECTOR NOTE PT AWAKE AND ALERT SHOWING NO S/O DISTRESS OR C/O PAIN. V-PACING WITH UNDERLYING AFIB HR 60. TOLERATING ORDERED VENT SETTING AND TUBE FEEDING RATE. IV SITE C/D/I/PATENT. NO S/O INFILTRATION OR PHLEBITIS OBSERVED UPON FLUSHING. PT'S CARE ENDORSED TO GAMEMASTER RN FOR CONTINUITY OF CARE
--- NOTE | 2016-10-01 19:15 | NUR ---
RN INITIAL NOTES RECEIVED PATIENT IN BED, AWAKE AND ALERT. PATIENT NOT IN ANY FORM OF DISTRESS AT THIS TIME. TOLERATING CURRENT [facility] VENT SETTINGS WITH NO DISTRESS, AIRWAY SUCTIONED, TRACH C/D/I, MIDLINE. ON TELE, AFIB WITH V-PACING AT 60s. GT FLUSHED AND KEPT PATENT, GT FEEDING TOLERATING WELL, NO GASTRIC RESIDUAL NOTED. R WRIST G22, FLUSHED AND PATENT, NO SIGNS OF INFILTRATION. R CHESTWALL PERMACATH WITH DRESSING INTACT, NO DRAINAGE. PATIENT'S NEEDS ANTICIPATED AND MET. SAFETY AND COMFORT ENSURED. BED IN LOW AND LOCKED POSITION. HOB ELEVATED. CALL LIGHT IN REACH. WILL MONITOR.
[2016-10-01 20:00] VITALS: BP 112/42
[2016-10-01] MEDS: ESCITALOPRAM OXALATE (10 MG) 10 MG TABLET GT SCH (21:29)
[2016-10-01] MEDS: INSULIN DETEMIR 100 UNIT/ML CARTRIDGE SQ SCH (21:32)
[2016-10-02] VITALS: BP 117/50
[2016-10-02] MEDS: BLOOD SUGAR DIAGNOSTIC 1 EACH STRIP IN SCH ×5 (00:58→22:01)
[2016-10-02 04:00] VITALS: BP 114/47
[2016-10-02] MEDS: RENAL NOVASOURCE 1,000 ML BOTTLE GT SCH (05:16)
--- NOTE | 2016-10-02 06:46 | NUR ---
RN CLOSING NOTES PATIENT WITH NO ACUTE DISTRESS OBSERVED OVERNIGHT. STABLE AND REMAINS ON AFIB WITH V-PACING AT 63. TOLERATED [facility] VENT SETTINGS, AIRWAY SUCTIONED NEEDED. GTF INFUSING WELL, NO GASTRIC RESIDUAL, NO ASPIRATION NOTED. PATIENT KEPT CLEAN AND DRY. GOOD PERICARE AT ALL TIMES. TURNED AND REPOSITIONED. ALL DUE MEDS GIVEN ORDERED. NEEDS ANTICIPATED AND MET. SAFETY AND COMFORT ENSURED. BED IN LOW AND LOCKED POSITION. CALL LIGHT IN REACH. WILL ENDORSE ACCORDINGLY FOR CONTINUITY OF CARE.
--- NOTE | 2016-10-02 07:00 | NUR ---
RN NOTES RECEIVED PT ON BED , ALERT /NONVERBAL , TRACH DEPENDENT ,TOLERATING CURRENT VENT SETTING WELL, TRACH CARE DONE , NO DISTRESS NOTED, ON TELE , A.FIB WITH V-PACING AT 6O . TOLERATED MECH VENT SETTINGS, TOLERATING GTF WELL, NO GASTRIC RESIDUAL, R CHEST WALL PERMCATH AND R WRIST IV SITE CLEAN AMA INTACT , SAFETY AND COMFORT ENSURED. SR UPx3, BED IN LOW AND LOCKED POSITION. CALL LIGHT IN REACH. WILL CONTINUE TO MONITOR PT CLOSELY AND NOTIFY MD FOR ANY SIGNIFICANT CHANGES
[2016-10-02 08:00] VITALS: BP_SYST 113; BP_SYST 115; BP_DIAS 31; BP_DIAS 51
[2016-10-02] MEDS: DOCUSATE SODIUM LIQ 100 MG/10 ML UDC GT SCH ×2 (08:03→16:31)
[2016-10-02] MEDS: AMIODARONE HCL 200 MG TABLET PO SCH ×3 (08:03→16:32)
[2016-10-02] MEDS: PYRIDOXINE HCL 50 MG TABLET GT SCH (08:03)
[2016-10-02] MEDS: ASPIRIN 81 MG TAB.CHEW PO SCH (08:03)
[2016-10-02] MEDS: PANTOPRAZOLE 40 MG/PACK PACK GT SCH (08:03)
[2016-10-02 08:09] LABS: PROTHROMBIN TIME 44.8 SECS (9.5-12.7)
[2016-10-02 08:19] LABS: INR 4.09 (0.87-1.13)
--- NOTE | 2016-10-02 09:18 | NUR ---
RN NOTES DR GLASGOW NOTIFIED REGARDING PT =44.8 AND INR= 4.09. NO NEW ORDER GIVEN
[2016-10-02 12:00] VITALS: BP 105/46
[2016-10-02 16:00] VITALS: BP_SYST 111; BP_SYST 112; BP_DIAS 35; BP_DIAS 45
[2016-10-02] MEDS: WARFARIN SODIUM 1 MG TABLET PO SCH (16:37)
--- NOTE | 2016-10-02 18:11 | NUR ---
RN NOTES PT REMAINS STABLE, TRACH CARE DONE .TOLERATING TF WELL , NO RESIDUAL NOTED, R UPPER CHEST WALL PERMCATH AND R WRIST IV SITE CLEAN AND DRY AND INTACT . PT MEDICATED PER MD ORDER , NO SIGNIFICANT CHANGES NOTED ON THIS SHIFT .
[2016-10-02 20:00] VITALS: BP 118/32
--- NOTE | 2016-10-02 20:45 | NUR ---
pt received on vent via trach portex 7, settings as charted ambu bag at bedside alarms set and audible suctioned a small amount of thick yellow secretions breath sounds equal bilateral coarse pt receiving no breathing tx at this time Addendum: 10/02/16 at 2046 by SWETA FALL RT Amended: Links added.
[2016-10-02] MEDS: ESCITALOPRAM OXALATE (10 MG) 10 MG TABLET GT SCH (21:36)
[2016-10-02] MEDS: INSULIN REGULAR, HUMAN 100 UNIT/ML 3 ML VIAL SQ PRN (21:58)
[2016-10-02] MEDS: INSULIN DETEMIR 100 UNIT/ML CARTRIDGE SQ SCH (22:00)
--- NOTE | 2016-10-02 23:00 | NUR ---
Resting quietly,tolerating vent well-no problems
[2016-10-03] VITALS: BP 119/40
--- NOTE | 2016-10-03 03:00 | NUR ---
No problems,no unusual signs or symptoms observed or reported
[2016-10-03 04:00] VITALS: BP 121/51
--- NOTE | 2016-10-03 06:00 | NUR ---
No problems,no unusual signs or symptoms observed or reported
[2016-10-03] MEDS: BLOOD SUGAR DIAGNOSTIC 1 EACH STRIP IN SCH ×4 (06:15→23:49)
[2016-10-03] MEDS: INSULIN REGULAR, HUMAN 100 UNIT/ML 3 ML VIAL SQ PRN ×4 (06:21→23:51)
--- NOTE | 2016-10-03 07:10 | NUR ---
RN INITIAL NOTES: Received patient on bed during rounds, asleep but easily arousable, alert x1-2, [place] speaking able to make needs known at times, needs anticipated and attended. With right arm IV Plug flushed with NS and patent. With Right Austin Catheter in placed dressing clean and dry. With Vent and trach settings are the following SIMV mode AC 4 TV 500 FIO2 40% saturating well at 99-100%. NPO maintained. With Gtube in placed, patent with no residual noted, with feeding of Novasource at 40cc/hr tolerating well. HOB elevated, aspiration precaution observed. On telemonitoring Atrial Fibrillation, V-Pacing at 61bpm. NO SOB, No LOC, respirations are even and unlabored, no acute distress noted. Kept clean and dry. Provided safety and comfort measures. Bed low and locked position, fall precaution observed. Will turn and reposition, offload heels as per protocol. Suction secretions PRN. For HD today. To continue to monitor accordingly.
[2016-10-03 07:15] LABS: PROTHROMBIN TIME 46.9 SECS (9.5-12.7)
[2016-10-03 07:22] LABS: INR 4.28 (0.87-1.13)
[2016-10-03 08:00] VITALS: BP 151/39
[2016-10-03] MEDS: AMIODARONE HCL 200 MG TABLET PO SCH ×3 (09:00→17:17)
[2016-10-03] MEDS: DOCUSATE SODIUM LIQ 100 MG/10 ML UDC GT SCH ×2 (09:14→17:17)
[2016-10-03] MEDS: PYRIDOXINE HCL 50 MG TABLET GT SCH (09:14)
[2016-10-03] MEDS: ASPIRIN 81 MG TAB.CHEW PO SCH (09:14)
[2016-10-03] MEDS: PANTOPRAZOLE 40 MG/PACK PACK GT SCH (09:14)
--- NOTE | 2016-10-03 09:16 | NUR ---
RN NOTES: aMIODARONE NOT GIVEN, ON GOING HD.
[2016-10-03 12:00] VITALS: BP 126/38
--- NOTE | 2016-10-03 12:49 | NUR ---
RN NOTES: Dr. Dai informed of INR level today and noted to review.
[2016-10-03 15:00] LABS: ALBUMIN 2.4 g/dL (3.4-5.0); BILIRUBIN,DIRECT 0.3 mg/dL (0.0-0.2); BILIRUBIN,TOTAL 0.5 mg/dL (0.2-1.0); TOTAL PROTEIN, SERUM 7.5 g/dL (6.4-8.2)
[2016-10-03 16:00] VITALS: BP 139/45
--- NOTE | 2016-10-03 18:42 | NUR ---
RN NOTES: Patient remain stable within shift, no signs and symptoms of distress noted. Gtube feeding tolerated well at Novasource 40cc/hr, no residual noted. No active bleeding noted. Suctioned secretions PRN. Provided safety and comfort measures.To endorsed to next shift for continuity of care.
[2016-10-03 20:00] VITALS: BP 126/42
--- NOTE | 2016-10-03 20:00 | NUR ---
RECEIVED PATIENT RESTING.VS STABLE.V-PACED 100% PER MONITOR.RESPIRATION EVEN AND UNLABORED. PATIENT IS CHRONIC VENT/TRACH ON SIMV MODE.SETTINGS WELL TOLERATED.SPO2 100%.SUCTION SMALL AMOUNT WHITE SECRETIONS.TOLERATING GT FEEDING.NO RESIDUAL NOTED.HOB ELEVATED.DENIES PAIN. SAFETY CHECKED WITH CALL LIGHT AT BEDSIDE.TURNED AND REPOSITIONED TO COMFORT.UE AND LE OFFLOADED.
--- NOTE | 2016-10-03 21:29 | NUR ---
PT TRACH ON VENT SIMV MODE. TRACH SIZE IS PTX 7. NO RESP DISTRESS NOTED. PT TOLERATING VENT SETTINGS. O2 SAT 100%. SX'D FOR SML AMT OF THICK WHITE SECRETIONS. VENT ALARMS SET AND AUDIBLE. AMBU BAG AT BEDSIDE. VENT PLUGGED INTO RED OUTLET. WILL CONTINUE TO MONITOR. Addendum: 10/03/16 at 2129 by KIERAN GRAY RT Amended: Links added.
[2016-10-03] MEDS: INSULIN DETEMIR 100 UNIT/ML CARTRIDGE SQ SCH (22:01)
[2016-10-03] MEDS: ESCITALOPRAM OXALATE (10 MG) 10 MG TABLET GT SCH (22:01)
[2016-10-04] VITALS (16 sets, daily range): BP systolic 111–133; BP diastolic 37–59
[2016-10-04] MEDS: ONDANSETRON HCL/PF 4 MG/2 ML VIAL IVP PRN (00:12)
--- NOTE | 2016-10-04 00:15 | NUR ---
PATIENT VOMITED ONCE TO CLEAR LIQUID EMESIS MODERATE AMOUNT.ZOFRAN ADMINISTERED PRN.GT FEEDING RESIDUAL 0 ML.CONTINUE TO MONITOR.KEPT CLEAN AND DRY.
--- NOTE | 2016-10-04 02:00 | NUR ---
PATIENT INCONTINENT OF BLACK LOOSE STOOLS MODERATE AMOUNT.PERINEAL AND BED BATH RENDERED.COMPLETE LINENS CHANGED AND REPOSITIONED TO COMFORT PER PROTOCOL.
[2016-10-04] MEDS: RENAL NOVASOURCE 1,000 ML BOTTLE GT SCH (02:37)
[2016-10-04] MEDS: BLOOD SUGAR DIAGNOSTIC 1 EACH STRIP IN SCH ×3 (06:18→17:47)
--- NOTE | 2016-10-04 06:30 | NUR ---
PATIENT RESTING IN NO DISTRESS.ALL NEEDS ANTICIPATED AND MET.NO FURTHER VOMITING NOTED.DENIES PAIN.GT FEEDING WELL TOLERATED.REPOSITIONED TO COMFORT.
--- NOTE | 2016-10-04 07:15 | NUR ---
RN NOTE: RECEIVED PATIENT WHILE RESTING IN BED. PATIENT TRACH/VENT DEPENDANT. NO SOB, NO COMPLICATIONS AT THIS TIME. PATIENTS GT INTACT, INFUSING NOVASOURCE AT 40ML/HR. NO PAIN/DISCOMFORT. PATIENTS NEEDS ATTENDED TO, SAFETY MEASURES IN PLACE, WILL CONTINUE TO MONITOR.
[2016-10-04 07:37] LABS: BASOPHILS % (AUTO) 0.4 % (0.0-2.0); EOSINOPHILS # (AUTO) 0.1 /CMM (0.0-0.7); EOSINOPHILS % (AUTO) 1.3 % (0.0-6.0); HEMATOCRIT 22 % (33-45); LYMPHOCYTES # (AUTO) 0.6 /CMM (0.8-4.8); LYMPHOCYTES % (AUTO) 8.6 % (20.0-44.0); MEAN CORPUSCULAR HEMOGLOBIN 30 PG (26.0-33.0); MEAN CORPUSCULAR HGB CONC 31 g/dl (31.0-36.0); MEAN CORPUSCULAR VOLUME 98 fL (82-100); MONOCYTES # (AUTO) 0.6 /CMM (0.1-1.30); MONOCYTES % (AUTO) 9.1 % (2.0-12.0); NEUTROPHILS # (AUTO) 5.6 /CMM (1.8-8.9); NEUTROPHILS % (AUTO) 80.6 % (43.0-81.0); PLATELET COUNT (AUTO) 147 /CMM (150-450); RDW COEFFICIENT OF VARIATION 19.3 (11.5-15.0); RED BLOOD CELL COUNT(AUTO) 2.21 MIL/uL (4.0-5.2); WHITE BLOOD COUNT (AUTO) 6.9 K/uL (4.3-11.0)
[2016-10-04 07:40] LABS: HEMOGLOBIN 6.6 g/dL (11.5-14.8)
[2016-10-04 07:44] LABS: CALCIUM, SERUM 8.7 mg/dL (8.5-10.1); CREATININE 3.5 mg/dL (0.6-1.3); MAGNESIUM 3.1 mg/dL (1.8-2.4)
[2016-10-04 07:46] LABS: INR 2.7 (0.87-1.13); PROTHROMBIN TIME 29.4 SECS (9.5-12.7)
--- NOTE | 2016-10-04 08:00 | NUR ---
RN NOTE: PATIENT'S H/H 6.01/11. MD NOTIFIED. NO NEW ORDERS YET, WILL CONTINUE TO MONITOR.
[2016-10-04] MEDS: DOCUSATE SODIUM LIQ 100 MG/10 ML UDC GT SCH ×2 (08:03→16:25)
[2016-10-04] MEDS: ASPIRIN 81 MG TAB.CHEW PO SCH (08:03)
[2016-10-04] MEDS: PYRIDOXINE HCL 50 MG TABLET GT SCH (08:03)
[2016-10-04] MEDS: PANTOPRAZOLE 40 MG/PACK PACK GT SCH (08:03)
[2016-10-04] MEDS: AMIODARONE HCL 200 MG TABLET PO SCH ×3 (08:04→16:25)
--- NOTE | 2016-10-04 08:15 | NUR ---
RN NOTE: AMIODARONE NOT ADMINISTERED D/T PULSE OF 59. NO COMPLICATIONS NOTED, BP WNL, WILL CONTINUE TO MONITOR.
[2016-10-04 08:48] LABS: EOSINOPHILS % (MANUAL) 2 % (0-4); LYMPHOCYTES % (MANUAL) 9 % (16-48); MONOCYTES % (MANUAL) 5 % (0-11.0); NEUTROPHILS % (MANUAL) 84 (42-76); PLATELET ESTIMATE DECREASED
[2016-10-04 08:49] LABS: ANISOCYTOSIS 1+; HYPOCHROMASIA 1+
--- NOTE | 2016-10-04 09:00 | NUR ---
RN NOTE: PER DR. SONG, TRANSFUSE 2 UN PRBC'S. ORDER PLACED, WILL IMPLEMENT.
[2016-10-04] MEDS ORDERED: BLOOD IV SET 1 EA INFUS.SET MC ONE (13:32)
[2016-10-04] MEDS ORDERED: IV NS 0.9% 250 ML IV ONE (13:32)
--- NOTE | 2016-10-04 14:10 | NUR ---
RN NOTE: NOTIFIED BY LAB THAT PATIENTS BLOOD IS READY. BLOOD VERIFIED AT LAB. PATIENT'S BLOOD VERIFIED ONCE MORE WITH SECOND NURSE AT BEDSIDE. VITALS TAKEN, STABLE. BLOOD TRANSFUSION STARTED, WILL CONTINUE TO MONITOR.
--- NOTE | 2016-10-04 17:00 | NUR ---
RN NOTE: 1ST UNIT OF PRBC COMPLETED, NS RUNNING. WILL CONTINUE TRANSFUSION WITH SECOND UNIT OF PRBC.
--- NOTE | 2016-10-04 17:15 | NUR ---
RN NOTE: SECOND UNIT OF PRBC STARTED FOR PATIENT. BLOOD VERIFIED AT BLOOD BANK AND ONCE AGAIN AT BEDSIDE WITH SECOND RN. NO COMPLICATIONS NOTED, VITALS WNL. WILL CONTINUE TO MONITOR.
--- NOTE | 2016-10-04 18:52 | NUR ---
RN NOTE: PATIENT RESTING IN BED, VENT DEPENDENT, A/OX 2. NO SOB, NO DISTRESS. PATIENT CURRENTLY RECEIVING SECOND UNIT OF PRBC'S. TOLERATING GT FEEDING WELL. PATIENTS NEEDS ATTENDED TO, SAFETY MEASURES IN PLACE, WILL ENDORSE TO ELECTRONICS REPAIR TECHNICIAN FOR KARINA.
--- NOTE | 2016-10-04 19:50 | NUR ---
MECHANIC DRIVER: 2ND UNIT PRBC TRANSFUSED WT NO ADVERSE SIDE EFFECTS. PT REMAINED ALERT AND AWAKE. ABLE TO FOLLOW SIMPLE COMMANDS. ON ACUTE DISTRESS AND TOLERATING VENT SETTINGS. NO EVIDENCE OF DISCOMFORT. V-PACING ON TELE MONITOR. TOLERATING GT FEEDING WT NO RESIDUAL. WILL CONTINUE TO MONITOR.
[2016-10-04] MEDS: ESCITALOPRAM OXALATE (10 MG) 10 MG TABLET GT SCH (21:57)
[2016-10-04] MEDS: INSULIN DETEMIR 100 UNIT/ML CARTRIDGE SQ SCH (22:07)
[2016-10-05] VITALS: BP 124/56
[2016-10-05] MEDS: BLOOD SUGAR DIAGNOSTIC 1 EACH STRIP IN SCH ×5 (00:13→23:18)
[2016-10-05] MEDS: INSULIN REGULAR, HUMAN 100 UNIT/ML 3 ML VIAL SQ PRN ×3 (00:15→23:24)
[2016-10-05] MEDS: RENAL NOVASOURCE 1,000 ML BOTTLE GT SCH (02:55)
[2016-10-05 04:00] VITALS: BP 112/30
--- NOTE | 2016-10-05 06:20 | NUR ---
WORKERS COMPENSATION MANAGER: NO KARINA DURING THE SHIFT. VS WITHIN HER BASELINE. NO HYPOGLYCEMIA EPISODE. STILL 100% V-PACING ON TELE MONITOR. WILL ENDORSE TO DAY SHIFT FOR CONTINUITY OF CARE.
[2016-10-05 06:59] LABS: BASOPHILS % (AUTO) 0.1 % (0.0-2.0); EOSINOPHILS # (AUTO) 0.2 /CMM (0.0-0.7); EOSINOPHILS % (AUTO) 2.2 % (0.0-6.0); HEMATOCRIT 27 % (33-45); HEMOGLOBIN 8.7 g/dL (11.5-14.8); LYMPHOCYTES # (AUTO) 0.5 /CMM (0.8-4.8); LYMPHOCYTES % (AUTO) 5.4 % (20.0-44.0); MEAN CORPUSCULAR HEMOGLOBIN 31 PG (26.0-33.0); MEAN CORPUSCULAR HGB CONC 33 g/dl (31.0-36.0); MEAN CORPUSCULAR VOLUME 94 fL (82-100); MONOCYTES # (AUTO) 0.6 /CMM (0.1-1.30); MONOCYTES % (AUTO) 6.5 % (2.0-12.0); NEUTROPHILS # (AUTO) 7.3 /CMM (1.8-8.9); NEUTROPHILS % (AUTO) 85.8 % (43.0-81.0); PLATELET COUNT (AUTO) 148 /CMM (150-450); RDW COEFFICIENT OF VARIATION 21.4 (11.5-15.0); RED BLOOD CELL COUNT(AUTO) 2.81 MIL/uL (4.0-5.2); WHITE BLOOD COUNT (AUTO) 8.5 K/uL (4.3-11.0)
--- NOTE | 2016-10-05 07:00 | NUR ---
CAUSTIC LIQUOR MAKER: STARTED HEMODIALYSIS. ENDORSED TO DAY SHIFT FOR CONTINUITY OF CARE.
--- NOTE | 2016-10-05 07:30 | NUR ---
PT RECEIVED RESTING COMFORTABLY IN BED WITH EYES CLOSED. NO S/S OR C/O PAIN OR DISTRESS NOTED. SIDE RAILS UP X2, CALL LIGHT LEFT WITHIN REACH. WILL CONTINUE PLAN OF CARE.
[2016-10-05 07:54] LABS: CALCIUM, SERUM 8.6 mg/dL (8.5-10.1); CREATININE 3.9 mg/dL (0.6-1.3); POTASSIUM 5.4 mmol/L (3.5-5.1)
[2016-10-05 08:00] VITALS: BP 133/60
[2016-10-05] MEDS: PANTOPRAZOLE 40 MG/PACK PACK GT SCH (09:12)
[2016-10-05] MEDS: DOCUSATE SODIUM LIQ 100 MG/10 ML UDC GT SCH ×2 (09:12→17:13)
[2016-10-05] MEDS: AMIODARONE HCL 200 MG TABLET PO SCH ×3 (09:12→17:13)
[2016-10-05] MEDS: ASPIRIN 81 MG TAB.CHEW PO SCH (09:12)
[2016-10-05] MEDS: PYRIDOXINE HCL 50 MG TABLET GT SCH (09:12)
[2016-10-05 12:00] VITALS: BP 118/61
[2016-10-05 16:00] VITALS: BP 113/41
--- NOTE | 2016-10-05 18:21 | NUR ---
CHANGE OF SHIFT REPORT PT RESTING COMFORTABLY IN BED WITH EYES CLOSED. NO S/S OR C/O PAIN OR DISTRESS NOTED. SIDE RAILS UP X2, CALL LIGHT LEFT WITHIN REACH. PT KEPT CLEAN, DRY, AND COMFORTABLE. NO SIGNIFICANT CHANGES SINCE PREVIOUS SHIFT. WILL GIVE REPORT TO GERARDO PARMAR.
--- NOTE | 2016-10-05 19:56 | NUR ---
HIDE SALTER INITIAL NOTES PT RECEIVED IN BED. A/O X2 WELSH SPEAKING. MECH VENT PORTEX 7 SIMV 4 TV500 FIO2 40% PEEP5 AND SATING WELL. NO S.S OF RESPIRATORY DISTRESS NOTED AT THIS TIME. TELE V-PACING 60'S. IV R HAND #22 FLUSHING WELL, INTACT AND DRY. RCW HD CATH CLEAN AND INTACT. GTUBE FEEDING WELL TOLERATED, NO RESIDUAL. ALL SAFETY MEASURES IN PLACE. WILL CONTINUE TO MONITOR.
[2016-10-05 20:00] VITALS: BP 120/41
[2016-10-05] MEDS: ESCITALOPRAM OXALATE (10 MG) 10 MG TABLET GT SCH (21:16)
[2016-10-05] MEDS: INSULIN DETEMIR 100 UNIT/ML CARTRIDGE SQ SCH (21:23)
[2016-10-06] VITALS: BP 115/43
[2016-10-06 04:00] VITALS: BP 124/51
[2016-10-06] MEDS: RENAL NOVASOURCE 1,000 ML BOTTLE GT SCH (05:04)
[2016-10-06] MEDS: BLOOD SUGAR DIAGNOSTIC 1 EACH STRIP IN SCH ×2 (05:37→11:30)
[2016-10-06] MEDS: INSULIN REGULAR, HUMAN 100 UNIT/ML 3 ML VIAL SQ PRN ×2 (05:44→11:29)
--- NOTE | 2016-10-06 06:30 | NUR ---
DRUG ABUSE RESISTANCE EDUCATION OFFICER CLOSING NOTE PT REMAINED IN STABLE CONDITION. ON MECH VENT, WELL TOLERATED AND SATING WELL. IV SITE AND HD CATH INTACT AND CLEAN. GTUBE FEEDING WELL TOLERATED WITH NO RESIDUAL NOTED AND FLUSHING WELL, PATENT. ALL SAFETY MEASURES IN PLACE. WILL ENDORSE TO NEXT SHIFT FOR KARINA.
--- NOTE | 2016-10-06 07:00 | NUR ---
RN NOTES RECEIVED PT ON BED , A/Ox2, FOLLOWS SIMPLE COMMANDS , VENT DEPENDENT , TRACH CARE DONE , PORTEX 7 SIMV 4 TV500 FIO2 40% PEEP5 AND SATING WELL. TOLERATING THE CURRENT SETTING WELL, NO SOB NOTED , TELE V-PACING 60'S. R HAND IV SITE, G #22 CDI, RCW HD CATH CLEAN AND INTACT. TOLERATING TF WELL , NO RESIDUAL. ALL SAFETY MEASURES IN PLACE.SR UP x3, CALL LIGHT WITHIN EASY REACH , BED LOCKED AND IN LOWEST POSITION , WILL CONTINUE TO MONITOR PT CLOSELY AND NOTIFY MD FOR ANY SIGNIFICANT CHANGES .
--- NOTE | 2016-10-06 07:40 | NUR ---
RT PATIENT REC'D TRACHED ON [facility] VENT WITH SETTINGS SET PER MD TOLERATED WELL. VENT ALARMS CHECKED + AUDIBLE. TRACH SECURE + IN PROPER POSITION. PATIENT APPEARS COMFORTABLE AND IN NO DISTRESS. SX'D WITH SMALL AMT PALE SEMI-THICK SECRETIONS. B/S DIM COARSE. AMBU BAG AT [facility]. Addendum: 10/06/16 at 0843 by HUGH SANDERS RT Amended: Links added.
[2016-10-06 08:00] VITALS: BP 116/68
[2016-10-06] MEDS: PANTOPRAZOLE 40 MG/PACK PACK GT SCH (08:17)
[2016-10-06] MEDS: ASPIRIN 81 MG TAB.CHEW PO SCH (08:17)
[2016-10-06] MEDS: PYRIDOXINE HCL 50 MG TABLET GT SCH (08:17)
[2016-10-06] MEDS: DOCUSATE SODIUM LIQ 100 MG/10 ML UDC GT SCH (08:17)
[2016-10-06] MEDS: AMIODARONE HCL 200 MG TABLET PO SCH ×2 (08:17→12:54)
[2016-10-06 12:00] VITALS: BP 112/54
--- NOTE | 2016-10-06 13:00 | NUR ---
RN NOTES MRSA NASAL SWAB DONE PER PROTOCOL
--- NOTE | 2016-10-06 14:00 | NUR ---
RN NOTES REPORT GIVEN TO STACEY IN [place] [facility],
[2016-10-06 16:00] VITALS: BP 125/45
--- NOTE | 2016-10-06 16:46 | NUR ---
RN NOTES REPORT GIVEN TO EMT PERSONAL , PT IS STABLE, NO DISTRESS NOTED, DISCHARGE PHOTO TAKEN , PT LEFT THE FLOOR VIA STRETCHER TO MAIN ENTRANCE ACCOMPANIED BY EMT PERONEAL BY AMBULANCE TO SNF IN STABLE CONDITION
== END 2016-10-06 18:03 | DRG 207 ==
LOC: ER 18:42 → TELE1 09-06 08:57 → TELE-TD 09-06 11:39 → TELE1 09-08 09:07
PROC: 5A1955Z Respiratory Ventilation, Greater than 96 Consecutive Hours (ICD-10-PCS; principal; 2016-09-06)
PROC: 30233N1 Transfusion of Nonautologous Red Blood Cells into Peripheral Vein, Percutaneous Approach (ICD-10-PCS; 2016-09-06)
PROC: 5A1D60Z (ICD-10-PCS; 2016-09-08)
PROC: 02HV33Z Insertion of Infusion Device into Superior Vena Cava, Percutaneous Approach (ICD-10-PCS; 2016-09-11)
PROC: B518ZZA Fluoroscopy of Superior Vena Cava, Guidance (ICD-10-PCS; 2016-09-11)
DX: R09.1 Pleurisy (principal); N18.6 End stage renal disease; R53.2 Functional quadriplegia; J96.11 Chronic respiratory failure with hypoxia; Z99.11 Dependence on respirator [ventilator] status; I42.9 Cardiomyopathy, unspecified; A04.7 Enterocolitis due to Clostridium difficile; D68.59 Other primary thrombophilia; J98.11 Atelectasis; R18.8 Other ascites; I50.40 Unspecified combined systolic (congestive) and diastolic (congestive) heart failure; I13.2 Hypertensive heart and chronic kidney disease with heart failure and with stage 5 chronic kidney disease, or end stage renal disease; I48.91 Unspecified atrial fibrillation; Z93.0 Tracheostomy status; Z95.0 Presence of cardiac pacemaker; Z95.2 Presence of prosthetic heart valve; Z99.2 Dependence on renal dialysis; Z86.73 Personal history of transient ischemic attack (TIA), and cerebral infarction without residual deficits; E11.22 Type 2 diabetes mellitus with diabetic chronic kidney disease; D63.1 Anemia in chronic kidney disease; E66.01 Morbid (severe) obesity due to excess calories; E87.70 Fluid overload, unspecified; I25.10 Atherosclerotic heart disease of native coronary artery without angina pectoris; I34.0 Nonrheumatic mitral (valve) insufficiency; Z68.32 Body mass index [BMI] 32.0-32.9, adult; Z79.01 Long term (current) use of anticoagulants; Z79.4 Long term (current) use of insulin; Z86.19 Personal history of other infectious and parasitic diseases; Z90.49 Acquired absence of other specified parts of digestive tract
CPT/HCPCS: 31720; 36415; 36569; 36600; 71010-TC; 74000-TC; 80048-TC; 80061-TC; 80074; 80076-TC; 80150; 80202-TC; 82962-TC; 83735-TC; 84100-TC; 84443-TC; 84484-TC; 85025-TC; 85610-TC; 85730-TC; 86706; 86850-TC; 86921-TC; 87040-TC; 87081-TC; 90935-TC; 93307-TC; 94002-TC; 94003-TC; 94760-TC; 94799-TC; 99082-TC; A4217; A4606; A4623; A6402; A6403; A7526; C1750; J0278; J0885; J1160; J1644; J1815; J2405; J3370; J3490; J7040; J7050; J7060; P9016-BL; Q2036; Z7610

== ENCOUNTER 2016-11-06 15:43 | Inpatient (IN) | payer MEDICARE, OTHER ==
[~2016-11-06] VITALS: Ht 157.5 cm; Wt 93.0 kg
[~2016-11-06 15:43] MED LIST changes: +ALBU20VI2 IV; +AMIK250V14 IV; +GLUC1KIT IJ; +LACT1CAP69 GT; -SENN8.6T6 GT
[2016-11-06] MEDS ORDERED: IV NS 0.9% 1,000 ML BAG IV ONE (16:00)
[2016-11-06 16:06] VITALS: BP 132/70
--- NOTE | 2016-11-06 16:10 | NUR ---
RT PT BROUGHT INTO ER BY AMBULANCE, PT RECEIVED TRACHED WITH A PORTEX 7 ON THE VENT WITH NOTED SETTINGS BY TRANSPORT RT. PT IS AWAKE AND ALERT. VENT ALARMS ARE SET AND AUDIBLE WITH BVM BY BEDSIDE. WRAPPING MACHINE TENDER CUFF PRESSURE NOTED. VENT IS PLUGGED INTO RED OUTLET. NO RESPIRATORY DISTRESS NOTED AT THIS TIME, WILL CONTINUE TO MONITOR. Addendum: 11/06/16 at 1611 by DOROTHY VARGAS RT Amended: Links added.
--- NOTE | 2016-11-06 16:23 | NUR ---
AC 16 550 40% +5 PORTEX 7
[2016-11-06 16:26] LABS: INR 2.02 (0.87-1.13); PROTHROMBIN TIME 21.8 SECS (9.5-12.7)
[2016-11-06 16:28] LABS: BASOPHILS % (AUTO) 0.3 % (0.0-2.0); EOSINOPHILS # (AUTO) 0.3 /CMM (0.0-0.7); EOSINOPHILS % (AUTO) 3.1 % (0.0-6.0); HEMATOCRIT 22 % (33-45); LYMPHOCYTES # (AUTO) 1.2 /CMM (0.8-4.8); LYMPHOCYTES % (AUTO) 13.4 % (20.0-44.0); MEAN CORPUSCULAR HEMOGLOBIN 29 PG (26.0-33.0); MEAN CORPUSCULAR HGB CONC 31 g/dl (31.0-36.0); MEAN CORPUSCULAR VOLUME 94 fL (82-100); MONOCYTES # (AUTO) 0.6 /CMM (0.1-1.30); MONOCYTES % (AUTO) 7.1 % (2.0-12.0); NEUTROPHILS # (AUTO) 6.6 /CMM (1.8-8.9); NEUTROPHILS % (AUTO) 76.1 % (43.0-81.0); PLATELET COUNT (AUTO) 212 /CMM (150-450); RDW COEFFICIENT OF VARIATION 19.1 (11.5-15.0); RED BLOOD CELL COUNT(AUTO) 2.32 MIL/uL (4.0-5.2); WHITE BLOOD COUNT (AUTO) 8.7 K/uL (4.3-11.0)
[2016-11-06 16:30] LABS: TROPONIN I 0.07 ng/mL (0.00-0.056)
[2016-11-06 16:33] LABS: ALBUMIN 2.1 g/dL (3.4-5.0); BILIRUBIN,DIRECT 0.3 mg/dL (0.0-0.2); BILIRUBIN,TOTAL 0.3 mg/dL (0.2-1.0); CALCIUM, SERUM 9.5 mg/dL (8.5-10.1); CREATININE 2.6 mg/dL (0.6-1.3); POTASSIUM 5.6 mmol/L (3.5-5.1); TOTAL PROTEIN, SERUM 7.2 g/dL (6.4-8.2)
[2016-11-06] MEDS ORDERED: ZINC220C8 GT (16:35)
[2016-11-06] MEDS ORDERED: INSU100V3 SQ (16:35)
[2016-11-06] MEDS ORDERED: ASPI81TA2 GT (16:35)
[2016-11-06] MEDS ORDERED: OMEP40CA37 GT (16:35)
[2016-11-06] MEDS ORDERED: ONDA4TAB5 GT (16:35)
[2016-11-06 16:38] LABS: HEMOGLOBIN 6.8 g/dL (11.5-14.8)
[2016-11-06 17:08] LABS: BAND % (MANUAL) 1 % (0.0-5.0); EOSINOPHILS % (MANUAL) 2 % (0-4); LYMPHOCYTES % (MANUAL) 16 % (16-48); MONOCYTES % (MANUAL) 4 % (0-11.0); NEUTROPHILS % (MANUAL) 77 (42-76)
[2016-11-06 17:10] LABS: ANISOCYTOSIS 1+
[2016-11-06 17:12] LABS: PLATELET ESTIMATE ADEQUATE
[2016-11-06 18:25] VITALS: BP 125/48
--- NOTE | 2016-11-06 18:30 | NUR ---
ABISAI/RN: PT RECEIVED VIA MUNIRA REY PORTEX 7 AC 16 TV 550 FIO2 40% PEEP 5. GT CLAMPED. DRY BLOOD NOTED AROUND SITE. BREATHING EVEN AND UNLABORED. BRIGHT RED STOOL NOTED ON DIAPER. HEMODYNAMICALLY STABLE. WILL ENDORSE ADMISSION, BLOOD TX AND CARE TO PM RN FOR KARINA.
--- NOTE | 2016-11-06 18:32 | NUR ---
JE FLOWERS PENITENTIARY FOR BLOOD IN STOOL X 2 TIMES, ON MD CLAUDETTE AT BEDSIDE, NO OTHER MEDICAL COMPLAINTS, WILL CONTINUE TO MONITOR CLOSELY.
[2016-11-06] MEDS ORDERED: BLOOD IV SET 1 EA INFUS.SET MC ONE (18:37)
[2016-11-06] MEDS ORDERED: IV NS 0.9% 250 ML IV ONE (18:37)
--- NOTE | 2016-11-06 19:45 | NUR ---
RN INITIAL NOTE PT RECEIVED IN NO ACUTE DISTRES IN BED, TRACH PORTEX 7 AC 16 TV 550 FIO2 40% PEEP 5. GT CLAMPED. DRY BLOOD NOTED AROUND SITE. BREATHING EVEN AND UNLABORED. DARK RED STOOL NOTED WHEN CHANGING DIAPER. HGB 6.8 AND 2 UNITS PRBC ORDERED. PT HAS RHAND 20G THAT IS CLEAN DRY INTACT AND PATENT WITH SALINE FLUSH. BED IN LOW LOCK POSITION WITH RAILS UP X 2. CALL LIGHT WITHIN REACH AND ALL SAFETY MEASURES ENSURED AND CARRIED OUT.
[2016-11-06 20:00] VITALS: BP 123/46
[2016-11-06] MEDS: PROSOURCE / PROSTAT (PYXIS) 30 ML UDC GT SCH (20:00)
[2016-11-06] MEDS ORDERED: DEXTROSE 50%-WATER 50 ML DISP.SYRIN IV PRN (20:00)
[2016-11-06] MEDS ORDERED: ONDANSETRON 4 MG TAB.RAPDIS GT PRN (20:00)
[2016-11-06] MEDS: ASPIRIN 81 MG TAB.CHEW GT SCH (20:00)
[2016-11-06] MEDS ORDERED: ACETAMINOPHEN 650 MG/20.3 ML UDC GT PRN (20:00)
[2016-11-06] MEDS: AMIODARONE HCL 200 MG TABLET GT SCH (20:00)
[2016-11-06] MEDS: WARFARIN SODIUM 1 MG TABLET PO SCH (20:00)
[2016-11-06] MEDS: PANTOPRAZOLE 40 MG/PACK PACK NG SCH (21:51)
[2016-11-06] MEDS: ESCITALOPRAM OXALATE (10 MG) 10 MG TABLET GT SCH (21:51)
[2016-11-06] MEDS: ZINC SULFATE 220 MG CAPSULE GT SCH (21:51)
[2016-11-06] MEDS: PYRIDOXINE HCL 50 MG TABLET GT SCH (21:51)
[2016-11-06] MEDS: CHOLESTYRAMINE/ASPARTAME 4 G/PKT PACKET GT SCH (21:52)
[2016-11-06] MEDS: INSULIN DETEMIR 100 UNIT/ML CARTRIDGE SQ SCH (22:00)
[2016-11-06 23:13] VITALS: BP 117/60
[2016-11-06 23:28] VITALS: BP 120/54
[2016-11-06 23:46] VITALS: BP 118/52
[2016-11-07] VITALS (17 sets, daily range): BP systolic 100–129; BP diastolic 45–78
[2016-11-07] MEDS ORDERED: IV NS 0.9% 250 ML IV ONE (02:24)
[2016-11-07] MEDS ORDERED: BLOOD IV SET 1 EA INFUS.SET MC ONE (02:24)
[2016-11-07] MEDS: BLOOD SUGAR DIAGNOSTIC 1 EACH STRIP IN SCH ×4 (06:41→17:16)
--- NOTE | 2016-11-07 06:55 | NUR ---
RN CLOSING NOTE PT REMAINS IN NO ACUTE DISTRESS IN BED. PT DID NOT HAVE ANY SIGNIFICANT CHANGE IN CONDITION DURING SHIFT. 2 UNITS PRBC ENFUSED WITH NO S/S OF REACTION. ALL NEEDS MET ALL ORDERS CARRIED OUT. WILL ENDORSE CARE TO AM RN FOR CONTINUITY OF CARE.
--- NOTE | 2016-11-07 07:25 | NUR ---
RN INITIAL NOTES PT IN BED, A/O X2, AFGHAN SPEAKING ONLY, HOB ELEVATED 35 DEGREES, ON MECH VENT, PORTEX #7, AC 16, TV 550, FIO2 40%, PEEP 5, TOLERATING WELL, NO SIGNS OF DISTRESS NOTED. PT HAS LCW PACEMAKER, V-PACING, HR HIGH 50'S TO LOW 60'S, DENIES CHEST PAIN. PT IS BB, SKIN CDI, NO OPEN WOUNDS. GT CDI, NO RESIDUAL NOTED. IV ON RIGHT HAND 20G, SALINE FLUSHED, CDI, NO SIGNS OF INFECTION/INFILTRATION; RCW HD CATH, CDI. CALL LIGHT WITHIN EASY REACH, SAFETY MEASURES MAINTAINED, WILL CONTINUE TO MONITOR AND FOLLOW MD ORDERS.
[2016-11-07 08:03] LABS: BASOPHILS % (AUTO) 0.5 % (0.0-2.0); EOSINOPHILS # (AUTO) 0.3 /CMM (0.0-0.7); HEMATOCRIT 24 % (33-45); HEMOGLOBIN 7.8 g/dL (11.5-14.8); LYMPHOCYTES # (AUTO) 0.9 /CMM (0.8-4.8); LYMPHOCYTES % (AUTO) 12.6 % (20.0-44.0); MEAN CORPUSCULAR HEMOGLOBIN 30 PG (26.0-33.0); MEAN CORPUSCULAR HGB CONC 33 g/dl (31.0-36.0); MEAN CORPUSCULAR VOLUME 92 fL (82-100); MONOCYTES # (AUTO) 0.6 /CMM (0.1-1.30); MONOCYTES % (AUTO) 8.2 % (2.0-12.0); NEUTROPHILS # (AUTO) 5.2 /CMM (1.8-8.9); NEUTROPHILS % (AUTO) 74.7 % (43.0-81.0); PLATELET COUNT (AUTO) 170 /CMM (150-450); RDW COEFFICIENT OF VARIATION 17.4 (11.5-15.0); RED BLOOD CELL COUNT(AUTO) 2.58 MIL/uL (4.0-5.2); WHITE BLOOD COUNT (AUTO) 6.9 K/uL (4.3-11.0)
--- NOTE | 2016-11-07 08:20 | NUR ---
RN NOTES PER DR. SCHUMACHER, HE HAD SPOKEN TO DR. BACK REGARDING PTS BLOODY STOOLS (X2 LAST NIGHT), ACCORDING TO DR. BACK, PTS PREVIOUS COLONOSCOPY SHOWED ULCERS. PER DR. SCHUMACHER, PT CAN START ON GTF AND MEDS CAN BE GIVEN; WILL HOLD OFF ON ASA AND COUMADIN.
[2016-11-07 08:26] LABS: CALCIUM, SERUM 8.9 mg/dL (8.5-10.1); CREATININE 2.8 mg/dL (0.6-1.3); MAGNESIUM 3.1 mg/dL (1.8-2.4); PHOSPHORUS 4.2 mg/dL (2.5-4.9)
[2016-11-07] MEDS: RENAL NOVASOURCE 1,000 ML BOTTLE GT PRN (08:26)
[2016-11-07] MEDS: VIT B CMPLX 3/FA/VIT C/BIOTIN 1 TAB TABLET GT SCH (08:26)
[2016-11-07] MEDS: PANTOPRAZOLE 40 MG VIAL IV SCH (08:26)
[2016-11-07] MEDS: PYRIDOXINE HCL 50 MG TABLET GT SCH (08:26)
[2016-11-07] MEDS: PROSOURCE / PROSTAT (PYXIS) 30 ML UDC GT SCH ×3 (08:26→17:16)
[2016-11-07] MEDS: ZINC SULFATE 220 MG CAPSULE GT SCH (08:26)
[2016-11-07] MEDS: PANTOPRAZOLE 40 MG/PACK PACK NG SCH (08:27)
[2016-11-07] MEDS: ASPIRIN 81 MG TAB.CHEW GT SCH (08:27)
[2016-11-07] MEDS: AMIODARONE HCL 200 MG TABLET GT SCH (08:27)
[2016-11-07] MEDS: CHOLESTYRAMINE/ASPARTAME 4 G/PKT PACKET GT SCH ×2 (10:05→21:37)
--- NOTE | 2016-11-07 10:10 | NUR ---
RN NOTES CALLED PTS SON, AMRITA ALLEN, FOR CONSENT REGARDING POSSIBLE COLONOSCOPY TOMORROW; HE GAVE CONSENT FOR THE PROCEDURE BUT STATED HE WANTS TO TALK TO THE ANESTHESIOLOGIST BEFORE GIVING CONSENT REGARDING ANESTHESIA. NOTED IT IN PTS CHART. SON'S PHONE NUMBER ON FACESHEET.
--- NOTE | 2016-11-07 13:00 | NUR ---
RN NOTES PT IS NOW ON HD.
[2016-11-07] MEDS: INSULIN REGULAR, HUMAN 100 UNIT/ML 3 ML VIAL SQ PRN ×2 (14:33→17:27)
[2016-11-07] MEDS: WARFARIN SODIUM 1 MG TABLET PO SCH (17:00)
--- NOTE | 2016-11-07 19:06 | NUR ---
RN CLOSING NOTES PT IN BED, COMFORTABLE, IV CDI, NO SIGNS OF INFECTION/INFILTRATION, HD CATH INTACT, ALL MD ORDERS CARRIED OUT, TOLERATING MECH VENT WELL, DENIES CHEST PAIN. CALL LIGHT WITHIN EASY REACH, SAFETY MEASURES MAINTAINED, REPORT GIVEN TO NIGHT NURSE FOR KARINA.
--- NOTE | 2016-11-07 19:15 | NUR ---
RN INITIAL NOTES RECEIVED PATIENT IN BED, RESTING COMFORTABLY, EASILY AROUSABLE WITH VERBAL AND TACTILE STIMULI. PATIENT WITH NO ACUTE DISTRESS. DENIES ANY PAIN AND DISCOMFORT. ON MECH VENT VIA TRACH, C/D/I, MIDLINE, TOLERATED WELL. AIRWAY SUCTIONED NEEDED AND KEPT PATENT. 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 PATIENT NOTED WITH ANASARCA, EXTREMITIES ELEVATED WITH PILLOWS. GTF INFUSING WELL, NO GASTRIC RESIDUAL NOTED. R HAND G20, INTACT AND PATENT, NO SIGNS OF INFILTRATION. R CHESTWALL HD CATH WITH DRESSING INTACT, NO DRAINAGE. WILL MONITOR PATIENT CLOSELY FOR ANY BLEEDING. PATIENT DUE FOR COLONOSCOPY IN AM, WILL ADMINISTER GOLYTELY ORDERED.
[2016-11-07 20:17] LABS: URIC ACID 4.5 mg/dL (2.6-7.2)
[2016-11-07] MEDS: ESCITALOPRAM OXALATE (10 MG) 10 MG TABLET GT SCH (21:37)
[2016-11-07] MEDS ORDERED: PEG 3350/NA SULF,BICARB,CL/KCL 4,000 ML BOTTLE PO ONE (22:00)
[2016-11-07] MEDS: INSULIN DETEMIR 100 UNIT/ML CARTRIDGE SQ SCH (22:00)
--- NOTE | 2016-11-07 22:15 | NUR ---
RN NOTES HS MEDS GIVEN ORDERED AND STARTED ADMINISTRATION OF GOLYTELY ORDERED. PATIENT STARTED TO C/O NAUSEOUSNESS AND STARTED VOMITING. VOMITUS IS OF LIGHT BROWN COLOR - GT FEEDING CONSISTENCY AND CHARACTERISTICS, NO HEMATEMESIS NOTED. STOPPED ADMINISTRATION OF GOLYTELY, GT FEEDING STOPPED. PATIENT'S AIRWAY SUCTIONED, GTUBE WITH NO GASTRIC RESIDUAL NOTED. PATIENT WITH NOTED ABDOMINAL DISTENTION, TENDER TO TOUCH. CALLED AND SPOKE WITH DR. BACK, NOTIFIED OF THE PATIENT'S EPISODE OF VOMITUS AND ABDOMINAL DISTENSION. ALSO UPDATED MD OF THE PATIENT'S STOOL CHARACTERISTICS OF BLOODY STOOL, LIQUID CONSISTENCY. DR. BACK ORDERED TO STOP GOLYTELY. KEEP PATIENT ON STRICT NPO, CANCEL COLONOSCOPY AND DO STAT KUB. DR. BACK TO REASSESS PATIENT IN AM. ORDERS NOTED AND CARRIED OUT. CN MADE AWARE. WILL MONITOR PATIENT CLOSELY.
--- NOTE | 2016-11-07 22:50 | NUR ---
RN NOTES PATIENT WITH NO FURTHER NAUSEA AND VOMITING AT THIS TIME. KUB DONE, AWAITING FOR RESULTS. SAFETY AND COMFORT ENSURED.
[2016-11-08] VITALS: BP 109/42
--- NOTE | 2016-11-08 | NUR ---
RN NOTES PATIENT'S KUB RESULTED, PATIENT WITH NOTED ASCITES, NO UNTOWARD FINDINGS. WILL CONTINUE TO MONITOR.
[2016-11-08] MEDS: BLOOD SUGAR DIAGNOSTIC 1 EACH STRIP IN SCH ×4 (00:33→17:58)
[2016-11-08] MEDS: INSULIN REGULAR, HUMAN 100 UNIT/ML 3 ML VIAL SQ PRN (00:34)
[2016-11-08 04:00] VITALS: BP 118/39
--- NOTE | 2016-11-08 06:20 | NUR ---
RN CLOSING NOTES SPOKE WITH PATIENT'S SON, AMRITA ALLEN, AND UPDATED HIM THAT THE COLONOSCOPY HAS BEEN CANCELLED ORDERED BY MD AND MD TO REASSESS THE PATIENT THIS AM. PATIENT'S SON VERBALIZED UNDERSTANDING. PATIENT AT THIS TIME IS RESTING COMFORTABLY. TOLERATING MECH VENT SETTINGS WELL. TRACH CARE DONE. AIRWAY SUCTIONED NEEDED, PATIENT SATURATING WELL AT 100%. REMAINS SR WITH BBB AND 1ST DEGREE AVB, HR OF 70s. PATIENT ON STRICT NPO. GT CLAMPED. PATIENT'S VS REMAINS STABLE, NO CHANGE IN LOC NOTED. STILL WITH MELENA, X2 OVERNIGHT. PATIENT KEPT CLEAN AND DRY. SAFETY AND COMFORT ENSURED. BED IN LOW AND LOCKED POSITION. CALL LIGHT IN REACH. WILL ENDORSE ACCORDINGLY FOR CONTINUITY OF CARE.
--- NOTE | 2016-11-08 07:15 | NUR ---
PROGRAMMING DIRECTOR INITIAL NOTES RECEIVED REPORT AND PT FROM PM NURSE, PT RESTING IN BED, NO ACUTE DISTRESS, NO SOB, ON [facility] VENT SETTINGS ORDERED BY MD SAT ABOVE 97%, ON TELE MON SR 60 VPACING, A&O X1 BANGLADESHI SPEAKING MOUTHS WORDS, RT HAND 20G IV INTACT, RT CHEST WALL HD CATH INTACT, LT CHESTWALL PACEMAKER, ALL NEEDS MET, ALL SAFETY MEASURES INITIATED, SIDE RAILS X2, BED LOW AND LOCKED, CALL LIGHT WITHIN REACH, WILL CONTINUE TO MONITOR.
[2016-11-08 07:41] LABS: BASOPHILS % (AUTO) 0.2 % (0.0-2.0); EOSINOPHILS # (AUTO) 0.2 /CMM (0.0-0.7); HEMATOCRIT 23 % (33-45); HEMOGLOBIN 7.6 g/dL (11.5-14.8); LYMPHOCYTES # (AUTO) 0.8 /CMM (0.8-4.8); LYMPHOCYTES % (AUTO) 8.3 % (20.0-44.0); MEAN CORPUSCULAR HEMOGLOBIN 30 PG (26.0-33.0); MEAN CORPUSCULAR HGB CONC 32 g/dl (31.0-36.0); MEAN CORPUSCULAR VOLUME 92 fL (82-100); MONOCYTES # (AUTO) 0.9 /CMM (0.1-1.30); MONOCYTES % (AUTO) 9.5 % (2.0-12.0); NEUTROPHILS # (AUTO) 7.4 /CMM (1.8-8.9); PLATELET COUNT (AUTO) 174 /CMM (150-450); RDW COEFFICIENT OF VARIATION 17.6 (11.5-15.0); RED BLOOD CELL COUNT(AUTO) 2.53 MIL/uL (4.0-5.2); WHITE BLOOD COUNT (AUTO) 9.3 K/uL (4.3-11.0)
[2016-11-08 07:55] LABS: INR 2.02 (0.87-1.13); PROTHROMBIN TIME 22.6 SECS (9.5-12.7)
[2016-11-08 08:00] VITALS: BP 100/32
[2016-11-08] MEDS: ASPIRIN 81 MG TAB.CHEW GT SCH (08:09)
[2016-11-08] MEDS: PANTOPRAZOLE 40 MG VIAL IV SCH (08:10)
[2016-11-08] MEDS: PROSOURCE / PROSTAT (PYXIS) 30 ML UDC GT SCH ×3 (08:10→16:48)
[2016-11-08] MEDS: PYRIDOXINE HCL 50 MG TABLET GT SCH (08:10)
[2016-11-08] MEDS: VIT B CMPLX 3/FA/VIT C/BIOTIN 1 TAB TABLET GT SCH (08:10)
[2016-11-08] MEDS: AMIODARONE HCL 200 MG TABLET GT SCH (08:10)
[2016-11-08] MEDS: ZINC SULFATE 220 MG CAPSULE GT SCH (08:10)
[2016-11-08] MEDS ORDERED: PEG 3350/NA SULF,BICARB,CL/KCL 4,000 ML BOTTLE GT ONE ×2 (09:00→11:00)
[2016-11-08] MEDS: CHOLESTYRAMINE/ASPARTAME 4 G/PKT PACKET GT SCH ×2 (10:00→21:24)
--- NOTE | 2016-11-08 11:06 | NUR ---
LITIGATION EXAMINER NOTES PT HAD LARGE AMOUNT OF STOOLS WITH BLOOD, CALLED DR BACK AWARE OF THIS AND STATED TO CONTINUE WITH GOLETLY.
[2016-11-08 11:19] LABS: HEMATOCRIT 23 % (33-45); HEMOGLOBIN 7.4 g/dL (11.5-14.8); MEAN CORPUSCULAR HEMOGLOBIN 29 PG (26.0-33.0); MEAN CORPUSCULAR HGB CONC 32 g/dl (31.0-36.0); MEAN CORPUSCULAR VOLUME 92 fL (82-100); PLATELET COUNT (AUTO) 178 /CMM (150-450); RED BLOOD CELL COUNT(AUTO) 2.54 MIL/uL (4.0-5.2); WHITE BLOOD COUNT (AUTO) 8.8 K/uL (4.3-11.0)
[2016-11-08 12:00] VITALS: BP 105/36
--- NOTE | 2016-11-08 12:43 | NUR ---
TELECOMMUNICATIONS OFFICER NOTES PTS BG 134 MG/DL PT IS NPO AND NO INSULIN GIVEN.
[2016-11-08 16:00] VITALS: BP 106/33
[2016-11-08] MEDS: WARFARIN SODIUM 1 MG TABLET PO SCH (16:49)
--- NOTE | 2016-11-08 18:13 | NUR ---
DIRECTOR OF OUTREACH ENDING NOTES PT BED BATH PROVIDED, ALL DUE MEDS GIVEM, ALL NEEDS MET, GIVING GOLETELY SLOWLY UNTIL AM TOMORROW, WILL DETERMINE ONCE PT IS CLEAR WITH STOOLS POSSIBLE SUNDAY COLONOSCOPY, LARGE BLOODY STOOL TODAY.
[2016-11-08 20:00] VITALS: BP 113/25
--- NOTE | 2016-11-08 20:00 | NUR ---
RECEIVED PATIENT IN BED, VSS, AFEBRILE, NO S/S OF PAIN NOTED. PATIENT IS VENT DEPENDENT NO DISTRESS NOTED, SAT. 100%. PATIENT REMAINS NPO FOR POSSIBLE COLONOSCOPY IN THE MORNING
[2016-11-08] MEDS: INSULIN DETEMIR 100 UNIT/ML CARTRIDGE SQ SCH (21:22)
[2016-11-08] MEDS: ESCITALOPRAM OXALATE (10 MG) 10 MG TABLET GT SCH (21:24)
--- NOTE | 2016-11-08 22:50 | NUR ---
DR. BACK CALLED IN REGARDS OF PATIENT'S CONDITION. PATIENT RECEIVING GOLYTELY FOR POSSIBLE COLONOSCOPY IN AM DEPENDING ON PRE OP ( PATIENT NEEDS TO BE CLEAR FROM STOOL ) CONTINUE TO MONITOR PATIENT'S CONDITION, WILL BE IN TOUCH WITH DR. BACK IN AM TO UPDATE ON PATIENT'S READINESS FOR THE PROCEDURE
[2016-11-09] VITALS (10 sets, daily range): BP systolic 96–133; BP diastolic 24–60
[2016-11-09] MEDS: BLOOD SUGAR DIAGNOSTIC 1 EACH STRIP IN SCH ×5 (00:20→23:29)
[2016-11-09] MEDS: INSULIN REGULAR, HUMAN 100 UNIT/ML 3 ML VIAL SQ PRN ×3 (00:23→06:32)
--- NOTE | 2016-11-09 06:54 | NUR ---
SPOKE WITH DR. BACK THIS AM- PATIENT HAS LIQUID BROWN STOOL NO BLOOD NOTED, ANOTHER 1L OF GOLYTELY ORDERED
[2016-11-09] MEDS ORDERED: PEG 3350/NA SULF,BICARB,CL/KCL 4,000 ML BOTTLE PO ONE ×2 (07:00→09:00)
--- NOTE | 2016-11-09 07:15 | NUR ---
FREIGHT TALLIER INITIAL NOTES RECEIVED REPORT AND PT FROM PM NURSE, ON [facility] VENT SETTINGS ORDERED BY SAT ABOVE 97%, A&O X1 MOUTHS WORDS, ON TELE MON VPACING 60, RT CHEST WALL HD CATH, RT HAND 20 G IV SITE INTACT, LT CHEST WALL PACEMAKER INTACT, ALL NEEDS MET, ALL SAFETY MEASURES INITIATED, SIDE RAILS X2, BED LOW AND LOCKED,CALL LIGHT WITHIN REACH, WILL CONTINUE TO MONITOR.
[2016-11-09] MEDS: AMIODARONE HCL 200 MG TABLET GT SCH (08:24)
[2016-11-09] MEDS: ASPIRIN 81 MG TAB.CHEW GT SCH (08:24)
[2016-11-09] MEDS: PROSOURCE / PROSTAT (PYXIS) 30 ML UDC GT SCH ×3 (08:25→16:07)
[2016-11-09] MEDS: PYRIDOXINE HCL 50 MG TABLET GT SCH (08:25)
[2016-11-09] MEDS: VIT B CMPLX 3/FA/VIT C/BIOTIN 1 TAB TABLET GT SCH (08:25)
[2016-11-09] MEDS: ZINC SULFATE 220 MG CAPSULE GT SCH (08:25)
[2016-11-09] MEDS: PANTOPRAZOLE 40 MG VIAL IV SCH (08:25)
[2016-11-09] MEDS: CHOLESTYRAMINE/ASPARTAME 4 G/PKT PACKET GT SCH ×2 (09:27→21:03)
[2016-11-09] MEDS ORDERED: BLOOD IV SET 1 EA INFUS.SET MC ONE ×2 (09:51→21:44)
[2016-11-09 12:16] LABS: CARCINOEMBRYONIC AG (CEA) 27.1 ng/mL (0.0-4.7)
--- NOTE | 2016-11-09 12:38 | NUR ---
PERCUSSION INSTRUMENT TUNER NOTES HD FINISHED WITH AHMED 1L REMOVED AND 1 UNIT PRBCS GIVEN TO PT, VS 116/60 HR 65.
--- NOTE | 2016-11-09 12:40 | NUR ---
ANTHROPOLOGIST NOTES PT TOLERATED TRANSFUSION WELL, NO REACTION NOTED, PT STABLE WITH STABLE VS.
[2016-11-09 13:16] LABS: VIT D, 25-HYDROXY 12.3 ng/mL (30.0-100.0)
--- NOTE | 2016-11-09 13:22 | NUR ---
SUPERVISOR NEWSPAPER DELIVERIES NOTES GAVE HALF GALLON OF MANA, PT HAS NOT HAD BOWEL MOVEMENT JUST YET, WILL WAIT FOR CLEAR STOOLS TO NOTIFY DR BACK
--- NOTE | 2016-11-09 15:51 | NUR ---
RT RECEIVED PT TRACHED ON [facility] VENT. EMPLOYEE RELATIONS DIRECTOR DONE. BILAT BREATH SOUNDS ON AUSCULTATION. VENT PLUGGED INTO RED OUTLET. AMBU BAG AT HEAD OF BED. SUCTIONED LARGE AMOUNTS OF THICK, YELLOW SECRETIONS. NO SIGNS OF DISTRESS NOTED AT THIS TIME. WILL CONTINUE TO MONITOR THE PT FOR ANY CHANGES. Addendum: 11/09/16 at 1835 by AIDA JOSÉ RT Amended: Links added.
[2016-11-09] MEDS: WARFARIN SODIUM 1 MG TABLET PO SCH (16:08)
--- NOTE | 2016-11-09 18:59 | NUR ---
BLOG WRITER ENDING NOTES PT STABLE WITH NO ACUTE DISTRESS, ALL NEEDS MET, BED BATH PROVIDED, LARGE BOWEL MOVEMENT NOTED YELLOW BUT NOT CLEAR, WILL HAVE COLONOSCOPY TOMORROW WITH DR BACK, WILL ENDORSE TO PM NURSE.
--- NOTE | 2016-11-09 19:15 | NUR ---
RN INITIAL NOTES PT IS IN BED, HOB ELEVATED, A/O x1, MONEGAS[place], MOUTH WORDS. NO SIGNS AND SYMPTOMS OF RESPIRATORY DISTRESS NOTED. TRACH INTACT, ON MECHANICAL VENT PORTEX#7, AC16, 550 TV, FIO2 40%, PEEP 5, TOLERATING VENT SETTINGS. ON TELE MONITOR SR VPACED. GTUBE PLACEMENT CHECKED, NPO. R UPPER ARM IV SITES INTACT, FLUSHED. TURNED AND REPOSITIONED, CALL LIGHTS WITHIN REACHED, BED LOCKED AND IN LOWEST POSITION.
[2016-11-09] MEDS: ESCITALOPRAM OXALATE (10 MG) 10 MG TABLET GT SCH (21:03)
[2016-11-09] MEDS: INSULIN DETEMIR 100 UNIT/ML CARTRIDGE SQ SCH (21:03)
[2016-11-09] MEDS ORDERED: IV NS 0.9% 250 ML IV ONE (21:43)
[2016-11-10] VITALS (13 sets, daily range): BP systolic 101–137; BP diastolic 43–62
[2016-11-10] MEDS: BLOOD SUGAR DIAGNOSTIC 1 EACH STRIP IN SCH ×4 (06:00→23:29)
--- NOTE | 2016-11-10 07:20 | NUR ---
RN NOTE RECEIVED PT FROM AM NURSE. DIALYSIS AT BEDSIDE WITH JORGE. PT A/O2-3 YORUBA SPEAKING. PORTEX 7 AC 16 TV 550 FI02 40% PEEP 5. R HAND SL FLUSHED PATENT AND INTACT, R CW XAVI. ALL SAFETY MEASURES IN PLACE WILL CONTINUE TO MONITOR.
--- NOTE | 2016-11-10 07:29 | NUR ---
AIRPLANE FUELER CLOSING NOTES NO SIGNIFICANT CHANGES OVERNIGHT. GOLYTELY COMPLETED. PATIENT WITH 3 BOWEL MOVEMENTS THROUGH THE SHIFT, WATERY, YELLOW. S/P 2UNITS PRBC, NO ADVERSE EFFECTS NOTED. NO RESPIRATORY DISTRESS NOTED. PATIENT AWAKE, A/OX2, ABLE TO MOUTH WORDS. TOLERATING VENT SETTINGS. GT PATENT AND INTACT, IN PLACE. KEPT CLEAN AND DRY. TURNED AND REPOSITIONED Q2 AND PRN. HOB KEPT ELEVATED. SIDE RAILS UP AND LOCKED. BED KEPT AT LOWEST POSITION. CALL LIGHT KEPT WITHIN EASY REACH. CONTINUITY OF CARE ENDORSED TO AM NURSE.
[2016-11-10 08:02] LABS: BASOPHILS % (AUTO) 0.5 % (0.0-2.0); EOSINOPHILS # (AUTO) 0.3 /CMM (0.0-0.7); EOSINOPHILS % (AUTO) 4.6 % (0.0-6.0); HEMATOCRIT 30 % (33-45); HEMOGLOBIN 9.9 g/dL (11.5-14.8); LYMPHOCYTES # (AUTO) 0.6 /CMM (0.8-4.8); LYMPHOCYTES % (AUTO) 10.2 % (20.0-44.0); MEAN CORPUSCULAR HEMOGLOBIN 29 PG (26.0-33.0); MEAN CORPUSCULAR HGB CONC 33 g/dl (31.0-36.0); MEAN CORPUSCULAR VOLUME 89 fL (82-100); MONOCYTES # (AUTO) 0.5 /CMM (0.1-1.30); MONOCYTES % (AUTO) 8.2 % (2.0-12.0); NEUTROPHILS # (AUTO) 4.7 /CMM (1.8-8.9); NEUTROPHILS % (AUTO) 76.5 % (43.0-81.0); PLATELET COUNT (AUTO) 172 /CMM (150-450); RDW COEFFICIENT OF VARIATION 16.5 (11.5-15.0); WHITE BLOOD COUNT (AUTO) 6.1 K/uL (4.3-11.0)
[2016-11-10] MEDS: PROSOURCE / PROSTAT (PYXIS) 30 ML UDC GT SCH ×3 (09:00→17:21)
[2016-11-10] MEDS: VIT B CMPLX 3/FA/VIT C/BIOTIN 1 TAB TABLET GT SCH (09:00)
[2016-11-10] MEDS: PYRIDOXINE HCL 50 MG TABLET GT SCH (09:00)
[2016-11-10] MEDS: PANTOPRAZOLE 40 MG VIAL IV SCH (09:00)
[2016-11-10] MEDS: ZINC SULFATE 220 MG CAPSULE GT SCH (09:00)
[2016-11-10] MEDS: ASPIRIN 81 MG TAB.CHEW GT SCH (09:00)
[2016-11-10] MEDS: AMIODARONE HCL 200 MG TABLET GT SCH (09:00)
[2016-11-10] MEDS: CHOLESTYRAMINE/ASPARTAME 4 G/PKT PACKET GT SCH ×2 (09:16→23:29)
[2016-11-10 11:16] LABS: *SPE A/G RATIO 0.6 (0.7-1.7); *SPE ALBUMIN 2.6 g/dL (2.9-4.4); *SPE ALPHA-1-GLOBULIN 0.4 g/dL (0.0-0.4); *SPE ALPHA-2-GLOBULIN 0.8 g/dL (0.4-1.0); *SPE GLOBULIN, TOTAL 4.4 g/dL (2.2-3.9); *SPE M-SPIKE Not Observed g/dL (Not Observed); *SPEGAMMA GLOBULIN 2.2 g/dL (0.4-1.8)
--- NOTE | 2016-11-10 15:52 | NUR ---
RT RCV'D PT TRACHED WITH PORTEX #7 [facility]FF[facility]. SERVICE ORDER CLERK DONE. BILAT BREATH SOUNDS ON AUSCULTATION. VENT PLUGGED INTO RED OUTLET. ALARMS ON AND FUNCTIONING PROPERLY. AMBU BAG AT HEAD OF BED. SUCTIONED LARGE AMOUNTS OF THICK, YELLOW SECRETIONS. NO SOB NOTED AT THIS TIME. WILL CONTINUE TO MONITOR THE PT FOR ANY CHANGE OF CONDITION. Addendum: 11/10/16 at 1703 by AIDA JOSÉ RT Amended: Links added.
[2016-11-10] MEDS: WARFARIN SODIUM 1 MG TABLET PO SCH (17:24)
[2016-11-10] MEDS: INSULIN REGULAR, HUMAN 100 UNIT/ML 3 ML VIAL SQ PRN ×2 (17:40→23:33)
--- NOTE | 2016-11-10 19:12 | NUR ---
RN CLOSING NOTE PT A/O 2 NIGERIEN SPEAKING. PORTEX 7 AC 16 TV 550 FI02 40% PEEP 5. MIDLINE OLIVIA FLUSHED PATENT AND INTACT, R UYEN HURLEY. ALL SAFETY MEASURES IN PLACE. ALL PM MEDICATIONS GIVEN AND ORDERS CARRIED OUT. PT CLEAN WARM AND DRY. REPORT GIVEN TO PM NURSE FOR KARINA.
--- NOTE | 2016-11-10 19:20 | NUR ---
RN INITIAL NOTES PT IN BED, HOB ELEVATED, A/O x1, [place], MOUTH WORDS. ON MECHANICAL VENT PORTEX#7, AC 16, 550 TV, FIO2 40%, PEEP 5, NO S/SX OF RESPIRATORY DISTRESS. ON MECHANICAL VENT AND TOLERATING CURRENT SETTINGS, ON TELE MONITOR SR BBB, GTUBE PLACEMENT CHECKED, NO RESIDUAL NOTED. MIDLINE 20G PATENT AND FLUSHED, NO S/SX OF INFILTRATION. BED LOCKED AND IN LOWEST POSITION, CALL LIGHTS WITHIN REACH.
[2016-11-10] MEDS: ESCITALOPRAM OXALATE (10 MG) 10 MG TABLET GT SCH (23:29)
[2016-11-10] MEDS: INSULIN DETEMIR 100 UNIT/ML CARTRIDGE SQ SCH (23:32)
[2016-11-11] VITALS: BP 119/45
[2016-11-11 04:00] VITALS: BP 123/57
[2016-11-11] MEDS: BLOOD SUGAR DIAGNOSTIC 1 EACH STRIP IN SCH ×4 (06:33→23:14)
[2016-11-11] MEDS: INSULIN REGULAR, HUMAN 100 UNIT/ML 3 ML VIAL SQ PRN ×4 (06:35→23:14)
[2016-11-11] MEDS: RENAL NOVASOURCE 1,000 ML BOTTLE GT PRN (06:56)
--- NOTE | 2016-11-11 07:15 | NUR ---
RN INITIAL NOTE PT RECEIVED IN BED, SLEEPING. TRACH PT. NONVERBAL, MOUTHS WORDS, WOLOF SPEAKING. NO S/S OF PAIN OR DISCOMFORT. PORTEX #7. AC-16M TV 550, FI02N 40%, PEEP 5, RESPIRATIONS ARE EVEN AND UNLABORED. NO S/S OF RESPIRATORY DISTRESS OR SOB. NG TUBE FLUSHED, AND PATENT. NOVASOURCE RUNNING AT 55ML/ HR. SKIN IS WARM AND DRY TO TOUCH. IV SITE FLUSHED AND PATENT. DRESSING C/D/I. SAFETY PRECAUTIONS IMPLEMENTED. BED IN LOCKED, LOW POSITION. TWO SIDE RAILS UP. CALL LIGHT WITHIN EASY REACH. WILL CONTINUE TO MONITOR.
--- NOTE | 2016-11-11 07:44 | NUR ---
EXHIBITION CARVER CLOSING NOTES NO SIGNIFICANT CHANGES OVERNIGHT. PT ON MECHANICAL VENT AND TOLERATED CURRENT SETTINGS. TRACH CARE DONE, NO RESPIRATORY DISTRESS NOTED. ON CONTINOUS GT FEEDING AT 55ML/HR. OLIVIA MIDLINE PATENT AND FLUSHED, NO S/SX OF INFECTION/INFILTRATION NOTED. PT PT WAS TURNED AND REPOSITIONED Q2H AND PRN, NO BM AND NO ACTIVE BLEEDING NOTED, WILL CONTINUE TO MONITOR. HOB ELEVATED, BED LOCKED AND IN LOWEST POSITION, CALL LIGHTS WITHIN REACH, ENDORSED TO THE AM NURSE FOR CONTINUITY OF CARE
[2016-11-11 08:00] VITALS: BP 119/43
[2016-11-11] MEDS: PYRIDOXINE HCL 50 MG TABLET GT SCH (09:02)
[2016-11-11] MEDS: PROSOURCE / PROSTAT (PYXIS) 30 ML UDC GT SCH ×3 (09:02→17:00)
[2016-11-11] MEDS: VIT B CMPLX 3/FA/VIT C/BIOTIN 1 TAB TABLET GT SCH (09:02)
[2016-11-11] MEDS: PANTOPRAZOLE 40 MG VIAL IV SCH (09:02)
[2016-11-11] MEDS: AMIODARONE HCL 200 MG TABLET GT SCH (09:02)
[2016-11-11] MEDS: ZINC SULFATE 220 MG CAPSULE GT SCH (09:02)
[2016-11-11] MEDS: ASPIRIN 81 MG TAB.CHEW GT SCH (09:02)
[2016-11-11] MEDS: CHOLESTYRAMINE/ASPARTAME 4 G/PKT PACKET GT SCH ×2 (09:05→21:36)
[2016-11-11 12:00] VITALS: BP 107/36
[2016-11-11 16:00] VITALS: BP 115/45
[2016-11-11] MEDS: WARFARIN SODIUM 1 MG TABLET PO SCH (17:00)
[2016-11-11] MEDS: HYDROCODONE/APAP 5/325MG 1 EACH TABLET GT PRN (18:38)
--- NOTE | 2016-11-11 19:15 | NUR ---
RN CLOSING NOTE PT RESTING IN BED COMFORTABLY. ALL MD ORDERS CARRIED OUT. PATIENT KEPT CLEAN AND DRY. SAFETY PRECAUTIONS IN PLACE AT ALL TIMES. WILL GIVE REPORT TO PM RN FOR KARINA.
--- NOTE | 2016-11-11 19:46 | NUR ---
rn;tele: pt received in bed with out distress. tf on hold due to pending kub. per previous shift pt has increased abd distention. pt chronically has ascites. spoke with radiology regarding stat kub results, they will contact md to read report. asp/fall precautions in place. pt appears to have better pain control following norco admin by dayshift. will continue to monitor closely.
[2016-11-11 20:00] VITALS: BP 125/58
[2016-11-11] MEDS: ESCITALOPRAM OXALATE (10 MG) 10 MG TABLET GT SCH (21:36)
[2016-11-11] MEDS: INSULIN DETEMIR 100 UNIT/ML CARTRIDGE SQ SCH (21:39)
[2016-11-12] VITALS: BP 122/59
[2016-11-12] MEDS: HYDROCODONE/APAP 5/325MG 1 EACH TABLET GT PRN (01:32)
[2016-11-12] MEDS: RENAL NOVASOURCE 1,000 ML BOTTLE GT PRN (01:35)
[2016-11-12 04:00] VITALS: BP 119/63
[2016-11-12] MEDS: INSULIN REGULAR, HUMAN 100 UNIT/ML 3 ML VIAL SQ PRN ×4 (05:49→23:02)
[2016-11-12] MEDS: BLOOD SUGAR DIAGNOSTIC 1 EACH STRIP IN SCH ×4 (05:49→23:01)
--- NOTE | 2016-11-12 07:20 | NUR ---
RN INITIAL NOTES: Rec'd pt on bed, not in any distress. Pt on mech vent via trach (Portex 7) w/ ff settings: AC 16, TV 550, FiO2 40%, PEEP 5, saturating at 100%. Secretions suctioned. On telemonitor, pacing SR w/ HR 61 bpm. Has L CW pacemaker intact. Has PEG patent & intact on continuous tube feeding Novasource at 55 cc/hr infusing well, no residuals noted upon checking. Has OLIVIA midline, flushed, patent & intact w/ no signs of infection/ infiltration noted. Has R CW Austin HD cath intact. Pt started on HD c/o Bill. Call light placed w/in reach. Provided comfort & safety measures. Bed kept low & in locked position. Will turn, reposition, and offload heels as per protocol. Will continue to monitor.
[2016-11-12 07:45] LABS: BASOPHILS % (AUTO) 0.3 % (0.0-2.0); EOSINOPHILS # (AUTO) 0.3 /CMM (0.0-0.7); EOSINOPHILS % (AUTO) 4.9 % (0.0-6.0); HEMATOCRIT 31 % (33-45); LYMPHOCYTES # (AUTO) 0.6 /CMM (0.8-4.8); LYMPHOCYTES % (AUTO) 8.8 % (20.0-44.0); MEAN CORPUSCULAR HEMOGLOBIN 29 PG (26.0-33.0); MEAN CORPUSCULAR HGB CONC 32 g/dl (31.0-36.0); MEAN CORPUSCULAR VOLUME 90 fL (82-100); MONOCYTES # (AUTO) 0.5 /CMM (0.1-1.30); MONOCYTES % (AUTO) 7.8 % (2.0-12.0); NEUTROPHILS # (AUTO) 5.4 /CMM (1.8-8.9); NEUTROPHILS % (AUTO) 78.2 % (43.0-81.0); PLATELET COUNT (AUTO) 184 /CMM (150-450); RDW COEFFICIENT OF VARIATION 16.8 (11.5-15.0); RED BLOOD CELL COUNT(AUTO) 3.46 MIL/uL (4.0-5.2); WHITE BLOOD COUNT (AUTO) 6.9 K/uL (4.3-11.0)
[2016-11-12 08:00] VITALS: BP 135/59
[2016-11-12 08:01] LABS: BILIRUBIN,TOTAL 0.5 mg/dL (0.2-1.0); CALCIUM, SERUM 7.9 mg/dL (8.5-10.1); CREATININE 3.4 mg/dL (0.6-1.3); MAGNESIUM 2.6 mg/dL (1.8-2.4); PHOSPHORUS 4.3 mg/dL (2.5-4.9); POTASSIUM 3.8 mmol/L (3.5-5.1); TOTAL PROTEIN, SERUM 6.8 g/dL (6.4-8.2)
[2016-11-12] MEDS: ASPIRIN 81 MG TAB.CHEW GT SCH (08:29)
[2016-11-12] MEDS: VIT B CMPLX 3/FA/VIT C/BIOTIN 1 TAB TABLET GT SCH (08:30)
[2016-11-12] MEDS: PROSOURCE / PROSTAT (PYXIS) 30 ML UDC GT SCH ×3 (08:30→17:09)
[2016-11-12] MEDS: PYRIDOXINE HCL 50 MG TABLET GT SCH (08:30)
[2016-11-12] MEDS: PANTOPRAZOLE 40 MG VIAL IV SCH (08:31)
[2016-11-12] MEDS: ZINC SULFATE 220 MG CAPSULE GT SCH (08:31)
[2016-11-12] MEDS: CHOLESTYRAMINE/ASPARTAME 4 G/PKT PACKET GT SCH ×2 (10:16→22:46)
[2016-11-12] MEDS: AMIODARONE HCL 200 MG TABLET GT SCH (10:17)
[2016-11-12 12:00] VITALS: BP 124/35
[2016-11-12 16:00] VITALS: BP 130/55
--- NOTE | 2016-11-12 16:53 | NUR ---
RT NOTE PT WAS MOVE FROM ROOM 113-1 TO 111-1. PATIENT WAS ON VENT IN ROOM 111-1 . PT GOT SUCTIONED AND PULS OX IS ON AND HER HR 73 AND HER SATURATION WAS 100%. NO RESPIRATORY DISTRESS NOTED.
[2016-11-12 17:51] LABS: INR 1.73 (0.87-1.13); PROTHROMBIN TIME 19.2 SECS (9.5-12.7)
[2016-11-12] MEDS: WARFARIN SODIUM 1 MG TABLET PO SCH (18:07)
--- NOTE | 2016-11-12 18:49 | NUR ---
RN CLOSING NOTES: No acute changes noted w/in shift. Pt tolerated well prescribed mech vent settings, saturating at 100%. Secretions suctioned. On telemonitor, pacing SR w/ HR 65 bpm. L CW pacemaker kept intact. PEG kept patent & intact, continuous tube feeding Novasource at 55 cc/hr tolerated well, no residuals noted. OLIVIA midline, kept patent & intact w/ no signs of infection/ infiltration noted. R CW Austin HD cath kept intact. Call light placed w/in reach. Kept well rested & comfortable. Bed kept low & in locked position. Wound care done. Turned, repositioned & offloaded heels. Will endorse to PM RN for KARINA.
[2016-11-12 20:00] VITALS: BP 128/51
[2016-11-12] MEDS: ESCITALOPRAM OXALATE (10 MG) 10 MG TABLET GT SCH (22:46)
[2016-11-12] MEDS: INSULIN DETEMIR 100 UNIT/ML CARTRIDGE SQ SCH (22:47)
[2016-11-13] VITALS: BP 117/49
[2016-11-13] MEDS: RENAL NOVASOURCE 1,000 ML BOTTLE GT PRN (01:09)
[2016-11-13 04:00] VITALS: BP 115/45
[2016-11-13] MEDS: BLOOD SUGAR DIAGNOSTIC 1 EACH STRIP IN SCH ×2 (06:45→12:41)
[2016-11-13] MEDS: INSULIN REGULAR, HUMAN 100 UNIT/ML 3 ML VIAL SQ PRN ×2 (06:46→12:47)
--- NOTE | 2016-11-13 07:15 | NUR ---
RN INITIAL NOTES: Rec'd pt on bed, not in any distress. Pt on mech vent via trach (Portex 7) w/ ff settings: AC 16, TV 550, FiO2 40%, PEEP 5, saturating at 100%. Secretions suctioned. On telemonitor, SR w/ BBB, HR 84 bpm. Has L CW pacemaker intact. Has PEG patent & intact on continuous tube feeding Novasource at 55 cc/hr infusing well, no residuals noted upon checking. Has OLIVIA midline, flushed, patent & intact w/ no signs of infection/ infiltration noted. Has R CW Austin HD cath intact. Call light placed w/in reach. Provided comfort & safety measures. Bed kept low & in locked position. Will turn, reposition, and offload heels as per protocol. Will continue to monitor.
[2016-11-13 08:00] VITALS: BP 105/54
[2016-11-13] MEDS ORDERED: PANT40TA2 PO (08:01)
[2016-11-13] MEDS ORDERED: Nutritional Supplement GT (08:01)
[2016-11-13] MEDS: PROSOURCE / PROSTAT (PYXIS) 30 ML UDC GT SCH ×2 (08:28→12:41)
[2016-11-13] MEDS: ZINC SULFATE 220 MG CAPSULE GT SCH (08:28)
[2016-11-13] MEDS: VIT B CMPLX 3/FA/VIT C/BIOTIN 1 TAB TABLET GT SCH (08:28)
[2016-11-13] MEDS: ASPIRIN 81 MG TAB.CHEW GT SCH (08:29)
[2016-11-13] MEDS: AMIODARONE HCL 200 MG TABLET GT SCH (08:29)
[2016-11-13] MEDS: PYRIDOXINE HCL 50 MG TABLET GT SCH (08:29)
[2016-11-13] MEDS: PANTOPRAZOLE 40 MG VIAL IV SCH (08:29)
--- NOTE | 2016-11-13 09:00 | NUR ---
RN NOTES: DC orders made by Dr. Thomson and carried out.
[2016-11-13] MEDS: CHOLESTYRAMINE/ASPARTAME 4 G/PKT PACKET GT SCH (10:25)
[2016-11-13 12:00] VITALS: BP 105/38
[2016-11-13 16:00] VITALS: BP 105/44
--- NOTE | 2016-11-13 16:30 | NUR ---
WAREHOUSE AND RECEIVING SUPERVISOR NOTES: Pt DC'd to [facility], report given to AGATA Day. Pt was DC'd in stable condition via gurney accompanied by sanding machine operator and RT. DC instructions & documents provided. No belongings noted.
== END 2016-11-13 16:49 | DRG 393 ==
LOC: ER 15:46 → MEDSG1 17:10 → TELE-TD 18:12 → TELE1 11-07 10:01
PROVIDERS: ADMIT Internal Medicine; ATTEND Internal Medicine
PROC: 5A1955Z Respiratory Ventilation, Greater than 96 Consecutive Hours (ICD-10-PCS; principal; 2016-11-06)
PROC: 30233N1 Transfusion of Nonautologous Red Blood Cells into Peripheral Vein, Percutaneous Approach (ICD-10-PCS; 2016-11-06)
PROC: 5A1D60Z (ICD-10-PCS; 2016-11-09)
PROC: 05H633Z Insertion of Infusion Device into Left Subclavian Vein, Percutaneous Approach (ICD-10-PCS; 2016-11-10)
PROC: 0DJD8ZZ Inspection of Lower Intestinal Tract, Via Natural or Artificial Opening Endoscopic (ICD-10-PCS; 2016-11-10)
DX: K62.6 Ulcer of anus and rectum (principal); N18.6 End stage renal disease; K92.2 Gastrointestinal hemorrhage, unspecified; I12.0 Hypertensive chronic kidney disease with stage 5 chronic kidney disease or end stage renal disease; J96.11 Chronic respiratory failure with hypoxia; Z99.11 Dependence on respirator [ventilator] status; Z93.0 Tracheostomy status; Z99.2 Dependence on renal dialysis; I48.91 Unspecified atrial fibrillation; K59.00 Constipation, unspecified; Z86.73 Personal history of transient ischemic attack (TIA), and cerebral infarction without residual deficits; I34.0 Nonrheumatic mitral (valve) insufficiency; E11.22 Type 2 diabetes mellitus with diabetic chronic kidney disease; K59.09 Other constipation; Z79.01 Long term (current) use of anticoagulants; Z79.4 Long term (current) use of insulin; Z95.2 Presence of prosthetic heart valve
CPT/HCPCS: 31720; 36415; 36569; 71010-TC; 74000-TC; 80048-TC; 80053-TC; 80076-TC; 82306; 82378; 82728-TC; 82746; 82962-TC; 83540-TC; 83615-TC; 83690-TC; 83735-TC; 84100-TC; 84132-TC; 84155; 84165; 84443-TC; 84484-TC; 84550-TC; 85025-TC; 85027-TC; 85045-TC; 85610-TC; 85730-TC; 86850-TC; 86921-TC; 87081-TC; 90935-TC; 94002-TC; 94003-TC; 94760-TC; A4606; C9113; J1815; J7050; P9016-BL; Q0162; Z7610

== ENCOUNTER 2016-11-27 15:14 | Inpatient (IN) | payer MEDICARE, OTHER ==
[~2016-11-27] VITALS: Ht 154.9 cm; Wt 110.2 kg
[2016-11-27] VITALS (9 sets, daily range): BP systolic 101–134; BP diastolic 33–70
--- NOTE | 2016-11-27 08:02 | NUR ---
AGATA BARONE RECEIVED PATIENT FROM THE ER. PATIENT IS ALERT AND ORIENTED X 4. STABLE VITAL SINGS. AFEBRILE. SINUS RHYTHM ON MONITOR. 1ST DEGREE AV BLOCK WITH OCCASIONAL A PACING. PER DYNAMIC BALANCER PRIMARY TEAM/ DR. ANGELES'S GROUP WAS PAGED BY THE ER PHYSICIAN. PATIENT HAS NOT BEEN SEEN BY THE PRIMARY TEAM YET. AWAITING REPLY. TURNED AND REPOSITIONED. WILL CONTINUE TO MONITOR AND PROVIDE CARE. Addendum: 11/27/16 at 1835 by ANDRA DOWELL RN CHARTED AT WRONG TIME.
[~2016-11-27 15:14] MED LIST changes: -ACID1TAB12 GT; -ALBU20VI2 IV; -ALLO100T GT; -AMIK250V14 IV; +ASPI81TA2 GT; -BUDE0.5A6 IH; -FAMO20TA8 GT; -GLUC1KIT IJ; -INSU100V11 SQ; +INSU100V3 SQ; -IPRA3AMP IH; -LACT1CAP69 GT; -METO5SOL2 GT; +Nutritional Supplement GT; +OMEP40CA37 GT; +ONDA4TAB5 GT; +PANT40TA2 PO; -POLY17PO4 GT; -WARF1TAB47 PO; +ZINC220C8 GT
[2016-11-27] MEDS ORDERED: IV NS 0.9% 500 ML BAG IV ONE (15:30)
--- NOTE | 2016-11-27 15:30 | NUR ---
DR MARSHALL AT BEDSIDE FOR EVAL
[2016-11-27] MEDS ORDERED: IV SET PRIMARY PUMP SET 1 EA INFUS.SET MC ONE ×2 (15:35→19:53)
[2016-11-27] MEDS ORDERED: IV NS 0.9% 500 ML IV ONE (15:35)
--- NOTE | 2016-11-27 15:40 | NUR ---
MECH VENT AC 16 TV 550 FIO2 40% PEEP 5
[2016-11-27] MEDS ORDERED: PANT40SU GT (15:45)
--- NOTE | 2016-11-27 15:45 | NUR ---
SABA #20 IV ACCESS. BLOOD SAMPLE COLLECTED SENT TO LAB
--- NOTE | 2016-11-27 16:03 | NUR ---
GTUBE CONTINUOUS SUCTION IN PLACED ORDERED BY DR MARSHALL.
[2016-11-27 16:04] LABS: BASOPHILS % (AUTO) 0.2 % (0.0-2.0); EOSINOPHILS # (AUTO) 0.4 /CMM (0.0-0.7); EOSINOPHILS % (AUTO) 3.5 % (0.0-6.0); HEMATOCRIT 29 % (33-45); HEMOGLOBIN 9.3 g/dL (11.5-14.8); LYMPHOCYTES # (AUTO) 0.6 /CMM (0.8-4.8); LYMPHOCYTES % (AUTO) 5.3 % (20.0-44.0); MEAN CORPUSCULAR HEMOGLOBIN 29 PG (26.0-33.0); MEAN CORPUSCULAR HGB CONC 32 g/dl (31.0-36.0); MEAN CORPUSCULAR VOLUME 91 fL (82-100); MONOCYTES # (AUTO) 0.8 /CMM (0.1-1.30); MONOCYTES % (AUTO) 7.4 % (2.0-12.0); NEUTROPHILS # (AUTO) 9.4 /CMM (1.8-8.9); NEUTROPHILS % (AUTO) 83.6 % (43.0-81.0); PLATELET COUNT (AUTO) 204 /CMM (150-450); RDW COEFFICIENT OF VARIATION 17.1 (11.5-15.0); RED BLOOD CELL COUNT(AUTO) 3.19 MIL/uL (4.0-5.2); WHITE BLOOD COUNT (AUTO) 11.2 K/uL (4.3-11.0)
--- NOTE | 2016-11-27 16:13 | NUR ---
GTUBE SUCTION 150 CC . DID MANUAL SUCTION NO RESIDUAL. DR MARSHALL AWARE.
[2016-11-27 16:17] LABS: INR 3.3 (0.87-1.13); PROTHROMBIN TIME 36.5 SECS (9.5-12.7)
[2016-11-27 16:19] LABS: BILIRUBIN,DIRECT 1.1 mg/dL (0.0-0.2); BILIRUBIN,TOTAL 1.4 mg/dL (0.2-1.0); CALCIUM, SERUM 8.9 mg/dL (8.5-10.1); POTASSIUM 4.7 mmol/L (3.5-5.1); TOTAL PROTEIN, SERUM 7.4 g/dL (6.4-8.2)
[2016-11-27 16:21] LABS: TROPONIN I 0.092 ng/mL (0.00-0.056)
--- NOTE | 2016-11-27 16:30 | NUR ---
PAGED COLOR CONTROL SUPERVISOR NEPRHOLOGIST FOR DR. PARKER
[2016-11-27 16:41] LABS: EOSINOPHILS % (MANUAL) 4 % (0-4); LYMPHOCYTES % (MANUAL) 7 % (16-48); MONOCYTES % (MANUAL) 6 % (0-11.0); NEUTROPHILS % (MANUAL) 83 (42-76)
[2016-11-27] MEDS ORDERED: PHYTONADIONE INJ 10 MG/1 ML AMPUL ONE (16:50)
[2016-11-27] MEDS ORDERED: PHYTONADIONE INJ 10 MG/1 ML AMPUL SQ ONE (17:00)
--- NOTE | 2016-11-27 17:03 | NUR ---
PT ASSIGNED ABISAI BED 111-2 NURSE JULIAN MENDEZ
--- NOTE | 2016-11-27 17:26 | NUR ---
GAVE REPORT TO VANESSA RN ABISAI 111-2 DR ANGELES. GI BLEED. TRANSFER VIA ACLS PROTOCOL WITH RT
--- NOTE | 2016-11-27 18:02 | NUR ---
RN ABISAI RECEIVED PATIENT FROM THE ER. PATIENT IS ALERT AND ORIENTED X 4. STABLE VITAL SINGS. AFEBRILE. SINUS RHYTHM ON MONITOR. 1ST DEGREE AV BLOCK WITH OCCASIONAL A PACING. PER TRUCK BENCH MECHANIC PRIMARY TEAM/ DR. ANGELES'S GROUP WAS PAGED BY THE ER PHYSICIAN. PATIENT HAS NOT BEEN SEEN BY THE PRIMARY TEAM YET. AWAITING REPLY. TURNED AND REPOSITIONED. WILL CONTINUE TO MONITOR AND PROVIDE CARE.
--- NOTE | 2016-11-27 18:58 | NUR ---
harness repairer spoke with dr. damon regarding the admission orders. orders placed.
[2016-11-27] MEDS ORDERED: IPRATROPIUM NEB FS 0.5 MG/2.5 ML AMPUL.NEB NEB PRN (19:00)
[2016-11-27] MEDS ORDERED: ALBUTEROL HALF STRENGTH 1.25 MG/3 ML VIAL.NEB NEB PRN (19:00)
[2016-11-27] MEDS ORDERED: IV NS 0.9% 250 ML IV ONE (19:53)
[2016-11-27] MEDS ORDERED: BLOOD IV SET 1 EA INFUS.SET MC ONE ×2 (19:54→23:58)
--- NOTE | 2016-11-27 20:00 | NUR ---
RN NOTES RECEIVED PX AWAKE, ALERT, FOLLOWS COMMAND, COOPERATIVE; ON TRACH PORTEX 7 TO VENT, DRESSING CLEAN DRY INTACT; WITH G TUBE CLAMPED; WITH PACEMAKER ON LEFT CHEST WALL; RIGHT CHEST WALL HD CATH, WITH CLEAN DRY INTACT DRESSING; PIV RIGHT HAND INTACT AND PATENT; WITH DIAPER ON; HEELS OFFLOADED; GENERALIZED EDEMA NOTED; REPOSITIONED PX WITH HOB AT 30 ANGLE; SUCTIONED ORALLY AND TRACHEALLY; DISCUSSED PLAN OF CARE INCLUDING NEED FOR FFP; MULTIPLE BRUISES NOTED (SEE SKIN FLOWSHEET AND PICTURE); CALL LIGHT WITHIN REACH.
--- NOTE | 2016-11-27 20:05 | NUR ---
RN NOTES FFP HAS BEEN STARTED; NO S/SX OF TRANFUSION REACTION, DENIED SOB, ITCHING, CHEST PAIN, V/S WNL; PIV INTACT AND PATENT.
[2016-11-27] MEDS: PANTOPRAZOLE 40 MG VIAL IV SCH (20:06)
[2016-11-27] MEDS: IV D5/ 0.9% NACL 1,000 ML IV PRN (20:07)
[2016-11-27] MEDS: Z GUARD REMEDY 2 OZ OINT TP SCH (20:20)
[2016-11-27] MEDS ORDERED: INSULIN REGULAR, HUMAN 100 UNIT/ML 3 ML VIAL SQ PRN (23:55)
[2016-11-28] VITALS (18 sets, daily range): BP systolic 94–113; BP diastolic 33–78
--- NOTE | 2016-11-28 | NUR ---
RN NOTES CONDITION AND NEURO STATUS UNCHANGED; REPOSITIONED; FIRST FFP DONE, NO S/SX OF TRANSFUSION REACTION, PX DENIED SOB, CHEST PAIN, ITCHING, V/S WNL.
--- NOTE | 2016-11-28 00:15 | NUR ---
RN NOTES 2ND FFP RUNNING, PX DENIED SOB, CHEST PAIN, ITCHING, V/S WNL; IV LINE STILL PATENT AND INTACT.
[2016-11-28] MEDS: BLOOD SUGAR DIAGNOSTIC 1 EACH STRIP IN SCH ×6 (01:04→17:22)
--- NOTE | 2016-11-28 04:06 | NUR ---
RN NOTES CONDITION AND NEURO STATUS UNCHANGED; 2ND FFP DONE, TOLERATED WELL, DENIED CHEST PAIN, SOB, ITCHING, PAIN ON THE IV SITE, V/S WNL. REPOSITIONED.
--- NOTE | 2016-11-28 04:24 | NUR ---
RN NOTES CALLED LAB, INFORMED THAT BLOOD TRANSFUSION X 2 IS DONE, SAYS TO JUST CANCEL THE PREVIOUS H/H ORDER SINCE CBC WILL BE DRAWN AT 5 AM.
[2016-11-28] MEDS: PANTOPRAZOLE 40 MG VIAL IV SCH ×2 (06:10→21:22)
--- NOTE | 2016-11-28 06:21 | NUR ---
RN NOTES CONDITION UNCHANGED; REMAINED STALBE; DENIED PAIN, SOB, N/V; HAD 1 BM SEMIL LIQUID CHOCOLATE COLORED; BED BATH AND PERICARE RENDERED; SACRAL AREA REMAINED INTACT; CHANGED DRESSSING ON LEFT FOREARM USING MEPILEX; ORAL, TRACH, AND G TUBE SITE CARE RENDERED; GTUBE AND TRACH DRESSINGS CHANGED, NOW CLEAN,DRY,INTACT; REPOSITIONED AND SUCTIONED ORALLY AND TRACHEALLY; PIV'S REMAINED INTACT AND PATENT; NO NEW SKIN BREAKDOWN. WILL ENDORSE TO NEXT RN.
--- NOTE | 2016-11-28 07:26 | NUR ---
AUTO BODY SERVICE MECHANIC RECEIVED PT IN BED ON VENT TRACH SETTINGS NOTED PT AO X2 FOLLOWS COMMANDS, EDEMA PRESENT, HR AV AND V PACING AT TIMES, PT IS GENERALIZED SWOLLEN, NO LARKIN, ABD DISTENDED TENDER, PT IS NPO FOR GI BLEED, IV ACCESS PATENT INFUSING IV FLUIDS ORDERED, TURNED AND REPOSITION IN BED PT DENIES OF ANY PAIN WILL CONTINUE TO MONITOR AND FOLLOW MD ORDERS. LABS NOT WNL HD PT WILL FOLLOW UP WITH MD REGARDING HEMODIALYSIS, FALL PRECAUTIONS TAKEN CALL LIGHT W/ IN REACH.
[2016-11-28 08:00] LABS: BASOPHILS % (AUTO) 0.4 % (0.0-2.0); EOSINOPHILS # (AUTO) 0.4 /CMM (0.0-0.7); EOSINOPHILS % (AUTO) 4.3 % (0.0-6.0); HEMATOCRIT 24 % (33-45); HEMOGLOBIN 7.9 g/dL (11.5-14.8); LYMPHOCYTES # (AUTO) 0.5 /CMM (0.8-4.8); LYMPHOCYTES % (AUTO) 6.4 % (20.0-44.0); MEAN CORPUSCULAR HEMOGLOBIN 29 PG (26.0-33.0); MEAN CORPUSCULAR HGB CONC 33 g/dl (31.0-36.0); MEAN CORPUSCULAR VOLUME 89 fL (82-100); MONOCYTES # (AUTO) 0.8 /CMM (0.1-1.30); MONOCYTES % (AUTO) 9.6 % (2.0-12.0); NEUTROPHILS # (AUTO) 6.8 /CMM (1.8-8.9); NEUTROPHILS % (AUTO) 79.3 % (43.0-81.0); PLATELET COUNT (AUTO) 210 /CMM (150-450); RDW COEFFICIENT OF VARIATION 18.3 (11.5-15.0); WHITE BLOOD COUNT (AUTO) 8.5 K/uL (4.3-11.0)
[2016-11-28 08:11] LABS: CALCIUM, SERUM 8.5 mg/dL (8.5-10.1); CREATININE 3.1 mg/dL (0.6-1.3); PHOSPHORUS 6.5 mg/dL (2.5-4.9); POTASSIUM 4.7 mmol/L (3.5-5.1)
[2016-11-28] MEDS: Z GUARD REMEDY 2 OZ OINT TP SCH (09:46)
[2016-11-28] MEDS ORDERED: HEPARIN INFUSION/D5W 500 ML IV PRN (11:00)
[2016-11-28] MEDS ORDERED: Medication Not On Formulary EA (Ondansetron Hcl (Zofran) 4 MG) GT SCH (11:30)
[2016-11-28] MEDS: AMIODARONE HCL 200 MG TABLET GT SCH (11:36)
[2016-11-28 11:44] LABS: THYROID STIMULATING HORMONE 0.181 uIU/mL (0.358-3.74)
[2016-11-28] MEDS: CHOLESTYRAMINE/ASPARTAME 4 G/PKT PACKET GT SCH ×2 (12:00→16:04)
[2016-11-28] MEDS ORDERED: RENAL NOVASOURCE 1,000 ML BOTTLE GT PRN (12:00)
[2016-11-28] MEDS: ASPIRIN 81 MG TAB.CHEW GT SCH (12:01)
[2016-11-28 12:21] LABS: INR 1.97 (0.87-1.13)
[2016-11-28] MEDS: PROSOURCE / PROSTAT (PYXIS) 30 ML UDC GT SCH ×2 (12:42→16:04)
[2016-11-28] MEDS ORDERED: PANTOPRAZOLE 40 MG/PACK PACK GT SCH (14:30)
[2016-11-28] MEDS: SUCRALFATE 1 G/10 ML UDC GT SCH ×3 (15:28→21:22)
[2016-11-28] MEDS ORDERED: HEPARIN SODIUM, PORCINE 5000 UNITS/1 ML VIAL IV ONE (16:00)
[2016-11-28] MEDS ORDERED: IV SET PRIMARY PUMP SET 1 EA INFUS.SET MC ONE (16:22)
--- NOTE | 2016-11-28 16:30 | NUR ---
WHITE WORK CLEANER PT WAS PUT ON HEPARIN DRIP BY DR. LYNNETTE ZEPEDA, I NOTIFIED MD REGARDING PT STILL HAVING BLACK TARRY STOOLS, MD AWARE AND STILL INSISTED TO START HEPARIN DRIP, ORDERS FOLLOWED WILL CONTINUE TO MONITOR
[2016-11-28] MEDS ORDERED: WARFARIN SODIUM 2 MG TABLET PO SCH (17:00)
[2016-11-28] MEDS: WARFARIN SODIUM 2 MG TABLET PO SCH (17:13)
[2016-11-28 17:47] LABS: HEMOGLOBIN 5.8 g/dL (11.5-14.8)
--- NOTE | 2016-11-28 17:56 | NUR ---
RELAYED TO DR. NOHEMI CHINO H/H 5.8/18.5,DISCUSSED PT. ON ANTICOAGULATE MEDS R/T PROSTHETIC VALVE ISSUE,PER MD CONTINUE ANTICOAGULTION PER BOAT JOINER RECOMMENDATION AND TRANSFUSE DAMION,
[2016-11-28] MEDS ORDERED: IV NS 0.9% 250 ML IV ONE (18:03)
[2016-11-28] MEDS ORDERED: BLOOD IV SET 1 EA INFUS.SET MC ONE (18:03)
--- NOTE | 2016-11-28 20:00 | NUR ---
RN NOTES RECEIVED PX AWAKE, ALERT, FOLLOWS COMMAND, NODS TO INDICATE YES/NO; WITH TRACH TO VENT; WITH G TUBE CLAMPED; WITH RIGHT CHEST HD ACCESS; ALL DRESSINGS (HD CATH, GT, TRACH) CLEAN DRY INTACT; WITH 3 PIV'S ALL PATENT, INTACT, FLUSHED WITH SALINE; WITH DIAPER ON; BILAT DVT PUMPS WITH HEELS OFFLOADED; REPOSITIONED; CURRENTLY PRBC RUNNING PX DENIED PAIN, CHEST PAIN, ITCHING, SOB, V/S WNL; CURRENTLY RUNNING HEPARIN DRIP AT 1600 UNITS/HR. DISCUSSED PLAN OF CARE; SUCTIONED ORALLY AND TRACHEALLY WITH HOB AT 30 ANGLE; CALL LIGHT WITHIN REACH.
[2016-11-28] MEDS: ESCITALOPRAM OXALATE (10 MG) 10 MG TABLET GT SCH (21:21)
--- NOTE | 2016-11-28 21:25 | NUR ---
RN NOTES 1ST PRBC DONE; PX TOLELATED PROCEDURE, DENIED PAIN, CHEST PAIN, SOB, ITCHING, V/S WNL; HAD 1 LARGE BM, SEMILIQUID CHOCOLATE COLORED, BED BATH RENDERED, PERICARE GIVEN; CHANGED GOWN AND BEDLINENS; PROCEDURE TOLERATED.
[2016-11-28] MEDS: INSULIN DETEMIR 100 UNIT/ML CARTRIDGE SQ SCH (22:00)
[2016-11-28] MEDS: IV D5/ 0.9% NACL 1,000 ML IV PRN (22:33)
[2016-11-28] MEDS: HYDROCODONE/APAP 5/325MG 1 EACH TABLET GT PRN (22:33)
--- NOTE | 2016-11-28 22:42 | NUR ---
RN NOTES 2ND PRBC RUNNING, DENIED PAIN, CHEST PAIN, SOB, ITCHING, VITAL SIGNS WNL.
--- NOTE | 2016-11-28 22:48 | NUR ---
RN NOTES HELD INSULIN DETEMIR PX REFUSED IT; PX BLOOD SUGAR ALSO 112 NO D5 CONTAINING IVF RUNNING OF THIS TIME PRBC IS RUNNING.
[2016-11-29] VITALS (7 sets, daily range): BP systolic 101–116; BP diastolic 40–61
--- NOTE | 2016-11-29 00:09 | NUR ---
RN NOTES PX CONDITION AND NEURO STATUS UNCHANGED; DENIED PAIN, SOB, N/V, ITCHING; VITAL SIGNS WNL; REPOSITIONED; SUCTIONED ORALLY AND TRACHEALLY; CALLED DR. SONG RE: PTT OF 197, SAYS TO HOLD HEPARIN DRIP UNTIL SEEN BY MD IN AM AND DO CBC TOGETHER WITH THE AM LABS.
[2016-11-29] MEDS: BLOOD SUGAR DIAGNOSTIC 1 EACH STRIP IN SCH ×10 (00:16→23:57)
--- NOTE | 2016-11-29 01:30 | NUR ---
RN NOTES 2ND PRBC DONE WITHOUT ADVERSE EVENTS, DENIED CHEST PAIN, SOB, ITCHING, V/S WNL; HAD ANOTHER BM, CLEANED AND CHANGED BED LINENS, PERICARE RENDERED, PROCEDURE TOLERATED.
--- NOTE | 2016-11-29 06:20 | NUR ---
RN NOTES HAD ANOTHER BM, MAROON OR CHOCOLATE COLORED SEMI LIQUID, CLEANED AND PERICARE RENDERED; NO NEW SKIN BREAKDOWN; CHANGED DRESSING ON LEFT FOREARM SKIN TEAR; PX DENIED PAIN, SOB, N/V; SUCTIONED TRACHEALLY AND ORALLY; PIV'S PATENT AND INTACT; WILL ENDORSE TO NEXT RN.
[2016-11-29 07:25] LABS: BASOPHILS % (AUTO) 0.5 % (0.0-2.0); EOSINOPHILS # (AUTO) 0.3 /CMM (0.0-0.7); EOSINOPHILS % (AUTO) 3.9 % (0.0-6.0); HEMATOCRIT 29 % (33-45); HEMOGLOBIN 9.4 g/dL (11.5-14.8); LYMPHOCYTES # (AUTO) 0.7 /CMM (0.8-4.8); LYMPHOCYTES % (AUTO) 9.8 % (20.0-44.0); MEAN CORPUSCULAR HEMOGLOBIN 29 PG (26.0-33.0); MEAN CORPUSCULAR HGB CONC 33 g/dl (31.0-36.0); MEAN CORPUSCULAR VOLUME 88 fL (82-100); MONOCYTES % (AUTO) 14.3 % (2.0-12.0); NEUTROPHILS # (AUTO) 5.1 /CMM (1.8-8.9); NEUTROPHILS % (AUTO) 71.5 % (43.0-81.0); PLATELET COUNT (AUTO) 200 /CMM (150-450); RDW COEFFICIENT OF VARIATION 17.3 (11.5-15.0); RED BLOOD CELL COUNT(AUTO) 3.24 MIL/uL (4.0-5.2); WHITE BLOOD COUNT (AUTO) 7.2 K/uL (4.3-11.0)
[2016-11-29 07:32] LABS: INR 1.82 (0.87-1.13); PROTHROMBIN TIME 20.2 SECS (9.5-12.7)
[2016-11-29 07:34] LABS: ALBUMIN 1.9 g/dL (3.4-5.0); BILIRUBIN,TOTAL 2.4 mg/dL (0.2-1.0); CALCIUM, SERUM 7.8 mg/dL (8.5-10.1); CREATININE 2.9 mg/dL (0.6-1.3); MAGNESIUM 2.5 mg/dL (1.8-2.4); PHOSPHORUS 5.2 mg/dL (2.5-4.9); POTASSIUM 3.9 mmol/L (3.5-5.1); TOTAL PROTEIN, SERUM 6.6 g/dL (6.4-8.2)
--- NOTE | 2016-11-29 08:30 | NUR ---
WOUND CARE CONSULT: PT PRESENTS WITH WEEPING EDEMA AND BRUISING TO BILATERAL ARMS, HUGE ABDOMEN WITH SCARRING, SACRAL, BACK AND BUTTOCK SCARRING AND INCONTINENCE OF LOOSE BLACK STOOL. RECOMMENDATIONS MADE FOR SKIN PROTECTION AND DISCUSSED WITH NURSING STAFF. FIRST STEP MATTRESS ORDERED. PT TO BE TURNED AND REPOSITIONED EVERY 2 HRS PT CONDITION PERMITS, HEELS FLOATED. MD IN AGREEMENT WITH PLAN OF CARE. Addendum: 11/29/16 at 0832 by IVÁN ORTIZ WNDNU Amended: Links added.
[2016-11-29] MEDS: Z GUARD REMEDY 2 OZ OINT TP SCH (09:00)
[2016-11-29] MEDS: ASPIRIN 81 MG TAB.CHEW GT SCH (09:00)
[2016-11-29] MEDS: PYRIDOXINE HCL 50 MG TABLET GT SCH (09:00)
[2016-11-29] MEDS: PROSOURCE / PROSTAT (PYXIS) 30 ML UDC GT SCH ×3 (09:00→17:55)
[2016-11-29] MEDS: CHOLESTYRAMINE/ASPARTAME 4 G/PKT PACKET GT SCH ×2 (09:00→17:55)
[2016-11-29] MEDS: VIT B CMPLX 3/FA/VIT C/BIOTIN 1 TAB TABLET GT SCH (09:00)
[2016-11-29] MEDS: AMIODARONE HCL 200 MG TABLET GT SCH (10:33)
[2016-11-29] MEDS: SUCRALFATE 1 G/10 ML UDC GT SCH ×4 (10:34→21:49)
[2016-11-29] MEDS: PANTOPRAZOLE 40 MG VIAL IV SCH ×2 (10:34→21:49)
--- NOTE | 2016-11-29 12:00 | NUR ---
DR HIGUERA UPDATED ON PT PROGRESS
[2016-11-29] MEDS ORDERED: HEPARIN SODIUM, PORCINE 5000 UNITS/1 ML VIAL IV ONE (15:00)
[2016-11-29] MEDS: HEPARIN INFUSION/D5W 500 ML IV PRN (15:35)
--- NOTE | 2016-11-29 15:35 | NUR ---
PT RE-STARTED ON HEPARIN GTT AT 1600 UNITS/H. PRIOR TO DRIP, BOLUS 7,200 UNIT GIVEN VERIFIED BY EMILIO Christensen RN CHARGE. 1600
[2016-11-29] MEDS: WARFARIN SODIUM 2 MG TABLET PO SCH (17:58)
--- NOTE | 2016-11-29 18:28 | NUR ---
PER DR HIGUERA EGD SCHEDULED 11/30 AT 1200. STOP HEPARIN AT 8 AM.
[2016-11-29] MEDS: IV D5/ 0.9% NACL 1,000 ML IV PRN (21:48)
[2016-11-29] MEDS: ESCITALOPRAM OXALATE (10 MG) 10 MG TABLET GT SCH (21:49)
[2016-11-29 21:54] LABS: HEMOGLOBIN 9.6 g/dL (11.5-14.8)
[2016-11-29] MEDS: INSULIN DETEMIR 100 UNIT/ML CARTRIDGE SQ SCH (22:02)
[2016-11-29 22:10] LABS: INR 1.93 (0.87-1.13)
[2016-11-29 22:33] LABS: PROTHROMBIN TIME 21.5 SECS (9.5-12.7)
--- NOTE | 2016-11-29 22:34 | NUR ---
RN- LAB REPORTED CRITICAL PTT OF 130. STOPPED HEPARIN PER PROTOCOL. WILL WAIT ONE HOUR THEN RESTART HEPARIN GTT AND DECREASE BY 250 UNITS/HR.
[2016-11-30] VITALS: BP 100/38
[2016-11-30 03:52] LABS: BASOPHILS % (AUTO) 0.6 % (0.0-2.0); EOSINOPHILS # (AUTO) 0.3 /CMM (0.0-0.7); EOSINOPHILS % (AUTO) 3.9 % (0.0-6.0); HEMATOCRIT 32 % (33-45); HEMOGLOBIN 10.5 g/dL (11.5-14.8); LYMPHOCYTES # (AUTO) 0.8 /CMM (0.8-4.8); LYMPHOCYTES % (AUTO) 10.6 % (20.0-44.0); MEAN CORPUSCULAR HEMOGLOBIN 29 PG (26.0-33.0); MEAN CORPUSCULAR HGB CONC 33 g/dl (31.0-36.0); MEAN CORPUSCULAR VOLUME 87 fL (82-100); MONOCYTES % (AUTO) 13.5 % (2.0-12.0); NEUTROPHILS # (AUTO) 5.4 /CMM (1.8-8.9); NEUTROPHILS % (AUTO) 71.4 % (43.0-81.0); PLATELET COUNT (AUTO) 243 /CMM (150-450); RDW COEFFICIENT OF VARIATION 17.1 (11.5-15.0); RED BLOOD CELL COUNT(AUTO) 3.68 MIL/uL (4.0-5.2); WHITE BLOOD COUNT (AUTO) 7.6 K/uL (4.3-11.0)
[2016-11-30 04:00] VITALS: BP_SYST 106; BP_SYST 110; BP_DIAS 50; BP_DIAS 52
[2016-11-30 04:08] LABS: INR 1.78 (0.87-1.13); PROTHROMBIN TIME 19.8 SECS (9.5-12.7)
[2016-11-30 04:14] LABS: BILIRUBIN,TOTAL 2.1 mg/dL (0.2-1.0); CALCIUM, SERUM 7.8 mg/dL (8.5-10.1); CREATININE 3.4 mg/dL (0.6-1.3); MAGNESIUM 2.5 mg/dL (1.8-2.4); POTASSIUM 3.9 mmol/L (3.5-5.1); TOTAL PROTEIN, SERUM 7.1 g/dL (6.4-8.2)
[2016-11-30] MEDS ORDERED: HEPARIN SODIUM, PORCINE 5000 UNITS/1 ML VIAL ONE (04:35)
[2016-11-30] MEDS ORDERED: HEPARIN SODIUM, PORCINE 5000 UNITS/1 ML VIAL IV ONE (05:00)
[2016-11-30] MEDS: BLOOD SUGAR DIAGNOSTIC 1 EACH STRIP IN SCH ×5 (05:28→23:36)
[2016-11-30] MEDS: DEXTROSE 50%-WATER 50 ML DISP.SYRIN IV PRN ×2 (05:28→11:18)
--- NOTE | 2016-11-30 05:31 | NUR ---
RN- PT BS - 50, RECHECKED 54. D50 GIVEN IVPB PER SLIDING SCALE. WILL MONITOR BS CLOSELY
--- NOTE | 2016-11-30 06:09 | NUR ---
RN- PT BS IS NOW 116MG/DL. WILL CONT TO MONITOR
[2016-11-30] MEDS: SUCRALFATE 1 G/10 ML UDC GT SCH ×4 (07:30→21:15)
[2016-11-30 08:00] VITALS: BP 101/47
--- NOTE | 2016-11-30 08:00 | NUR ---
ICU/RN - Notes Heparin drip stopped as ordered.
[2016-11-30] MEDS: AMIODARONE HCL 200 MG TABLET GT SCH (08:01)
[2016-11-30] MEDS: ASPIRIN 81 MG TAB.CHEW GT SCH (08:01)
[2016-11-30] MEDS: VIT B CMPLX 3/FA/VIT C/BIOTIN 1 TAB TABLET GT SCH (08:02)
[2016-11-30] MEDS: PROSOURCE / PROSTAT (PYXIS) 30 ML UDC GT SCH ×3 (08:02→16:44)
[2016-11-30] MEDS: PYRIDOXINE HCL 50 MG TABLET GT SCH (08:02)
[2016-11-30] MEDS: CHOLESTYRAMINE/ASPARTAME 4 G/PKT PACKET GT SCH ×2 (08:02→16:44)
[2016-11-30] MEDS: PANTOPRAZOLE 40 MG VIAL IV SCH ×2 (08:32→21:15)
[2016-11-30] MEDS: Z GUARD REMEDY 2 OZ OINT TP SCH (08:32)
[2016-11-30 10:40] LABS: INR 1.77 (0.87-1.13); PROTHROMBIN TIME 19.6 SECS (9.5-12.7)
--- NOTE | 2016-11-30 11:21 | NUR ---
Tele/RN - Notes Pt's fingerstick blood glucose 46 mg/dL. Administered Dextrose 50% IVP as ordered. Will recheck blood sugar accordingly.
[2016-11-30 12:00] VITALS: BP 99/39
--- NOTE | 2016-11-30 12:01 | NUR ---
Tele/RN - Notes Fingerstick blood glucose rechecked 103 mg/dL
--- NOTE | 2016-11-30 13:56 | NUR ---
Tele/RN - Notes Surgical team at bedside for EGD procedure.
--- NOTE | 2016-11-30 14:35 | NUR ---
Tele/RN - Notes EGD done, received orders to resume tube feeding by Dr Darby. Blood sugar checked 68 mg/dL. Baldwin juice given via GT.
[2016-11-30] MEDS ORDERED: IV SET PRIMARY PUMP SET 1 EA INFUS.SET MC ONE (14:51)
--- NOTE | 2016-11-30 15:00 | NUR ---
Tele/RN - Notes Received orders from Dr Martinez to resume Heparin drip per protocol (resume at previous rate), carried out.
[2016-11-30] MEDS: HEPARIN INFUSION/D5W 500 ML IV PRN (15:01)
[2016-11-30 16:00] VITALS: BP 105/45
[2016-11-30] MEDS ORDERED: ANESTHESIA TRAY IN PYXIS 1 EA TRAY MC ONE (16:09)
[2016-11-30] MEDS: WARFARIN SODIUM 2 MG TABLET PO SCH (16:44)
[2016-11-30 20:00] VITALS: BP 111/46
--- NOTE | 2016-11-30 20:00 | NUR ---
teletypewriter operator notes received pts on bed awake alert able to mouth word needs . on vent dependent ac settings well tolerated.on tele sr with bbb on the monitor , no sob no distress noted denies pain at this time. v/s stable afebrile , with d5ns at 40cc/hr infusing well,all needs attended too call light within reach all due meds given as ordered , with gt feeding well tolerated no residual noted , hob elevated for aspiration precaution . suction secretion done and prn turn and reposition q 2 hrs per protocol.will continue to monitor pts .
--- NOTE | 2016-11-30 21:05 | NUR ---
telephone supervisor notes ptt at 905 pm is 63 - md made aware , continue same dose heparin 1550 units 31cc/hr(no change) will check ptt in am.
[2016-11-30] MEDS: ESCITALOPRAM OXALATE (10 MG) 10 MG TABLET GT SCH (21:15)
[2016-11-30 21:44] LABS: INR 1.84 (0.87-1.13); PROTHROMBIN TIME 20.5 SECS (9.5-12.7)
[2016-11-30] MEDS: INSULIN DETEMIR 100 UNIT/ML CARTRIDGE SQ SCH (22:16)
--- NOTE | 2016-11-30 22:27 | NUR ---
telemarketer notes bs for 10pm is 152 -levemir 20 units given as ordered
[2016-11-30] MEDS: HYDROCODONE/APAP 5/325MG 1 EACH TABLET GT PRN (23:34)
[2016-11-30] MEDS: INSULIN REGULAR, HUMAN 100 UNIT/ML 3 ML VIAL SQ PRN (23:38)
--- NOTE | 2016-11-30 23:40 | NUR ---
television camera operator notes norco i tab given c/o generalized pain with relief.bs at 12mn is 139 = no coverage given per sliding scale. will check bs again in am.pts on gt feeding.
[2016-12-01] VITALS: BP 113/45
[2016-12-01] MEDS: IV D5/ 0.9% NACL 1,000 ML IV PRN (03:04)
[2016-12-01 04:00] VITALS: BP 104/41
[2016-12-01] MEDS: BLOOD SUGAR DIAGNOSTIC 1 EACH STRIP IN SCH ×4 (05:14→23:38)
[2016-12-01] MEDS: INSULIN REGULAR, HUMAN 100 UNIT/ML 3 ML VIAL SQ PRN ×2 (05:32→23:38)
--- NOTE | 2016-12-01 05:35 | NUR ---
telephone collector notes blood sugar for 6am is 168= 2 units of regular insulin given per sliding scale , pts continue on gt feeding.
--- NOTE | 2016-12-01 05:54 | NUR ---
telecommunications field engineer notes pts remains on bed awake and responsive , continue on tele sr with bbb on the monitor . no sob no distress noted , denies pain at this time , v/s stable afebrile , will endorse to rn day shift for continuity of care.remains on heparin drip at 1550 units 31cc/hr infusing well.
[2016-12-01] MEDS: HEPARIN INFUSION/D5W 500 ML IV PRN (06:57)
[2016-12-01 08:00] VITALS: BP 122/52
--- NOTE | 2016-12-01 08:00 | NUR ---
TELE1/RN AM SHIFT INITIAL NOTES RECEIVED PT AWAKE IN BED, NO ACTIVE BLEEDING NOTED OR DISTRESS NOTED. PT A/O X 2-3, ABLE TO MOUTH WORDS IN [place]. ON VENTILATOR ST AT PRESCRIBED RATES, SATURATING @ 100%, NOTED WITH DIMINISHED LUNG SOUNDS, SUCTIONED FOR AIRWAY CLEARANCE. ON TELE WITH SINUS RHYTHM, WITH BBB, HR 79. ON GOING GTF @ 45CC/HR, FLUSHED PATENT WITH NO RESIDUAL. WITH ON GOING HEPARIN DRIP @ 1,550 UNITS/HR, IV SITE PATENT. AWAITING FOR RESULT OF PTT. PT IS COMFORTABLE. SCHEDULED AM MEDS TO BE GIVEN. CL WITHIN REACHED AND SAFETY MAINTAINED. ON GOING MONITORING. Addendum: 12/01/16 at 1026 by ISAURA WHITLEY RN ADDENDUM: PT NOTED WITH DISTENDED ABDOMEN AND PITTING EDEMA +3 ON HANDS.
[2016-12-01] MEDS: PROSOURCE / PROSTAT (PYXIS) 30 ML UDC GT SCH ×3 (08:49→16:36)
[2016-12-01] MEDS: CHOLESTYRAMINE/ASPARTAME 4 G/PKT PACKET GT SCH ×2 (08:49→16:54)
[2016-12-01] MEDS: PANTOPRAZOLE 40 MG VIAL IV SCH ×2 (08:49→20:41)
[2016-12-01] MEDS: SUCRALFATE 1 G/10 ML UDC GT SCH ×4 (08:49→21:14)
[2016-12-01] MEDS: VIT B CMPLX 3/FA/VIT C/BIOTIN 1 TAB TABLET GT SCH (08:50)
[2016-12-01] MEDS: Z GUARD REMEDY 2 OZ OINT TP SCH (08:50)
[2016-12-01] MEDS: PYRIDOXINE HCL 50 MG TABLET GT SCH (08:50)
[2016-12-01 08:59] LABS: INR 1.94 (0.87-1.13); PROTHROMBIN TIME 21.6 SECS (9.5-12.7)
--- NOTE | 2016-12-01 09:05 | NUR ---
TELE1/RN CHANGE OF HEPARIN DOSING RESULT OF PTT OBTAINED, 84. PER PROTOCOL DOSING RATE TO CHANGE FROM 1,550 UNITS/HR TO 1,350 UNITS/HR. ORDERED LAB DRAW FOR ANOTHER PTT FOR 1500.
[2016-12-01 12:00] VITALS: BP 91/52
--- NOTE | 2016-12-01 14:25 | NUR ---
TELE1/RN ROUNDS PT IS COMFORTABLE. SUCTIONED AND REPOSITIONED. NOTED NO CHANGE O CONDITION. ON GOING MONITORING.
--- NOTE | 2016-12-01 15:30 | NUR ---
TELE1/RN HEPARIN DOSE - NO CHANGE PTT RESULT 65, PER PROTOCOL NO CHANGE HEPARIN DOSE, ON GOING @ 1350 UNITS/HR. PTT DRAW ORDERED FOR TOMORROW AM LAB DRAW.
[2016-12-01 16:00] VITALS: BP 111/45
[2016-12-01 16:02] LABS: INR 2.05 (0.87-1.13)
[2016-12-01] MEDS: WARFARIN SODIUM 2 MG TABLET PO SCH (16:57)
--- NOTE | 2016-12-01 17:00 | NUR ---
TELE1/RN AFTERNOON ROUNDS PM CARE PROVIDED. NO ACUTE CHANGE OF CONDITION. MONITORING CONTINUED.
--- NOTE | 2016-12-01 19:01 | NUR ---
TELE1/RN AM SHIFT END NOTES ALL NEEDS MET. NO ACUTE CHANGE OF CONDITION NOTED DURING THE SHIFT. PT ENDORSED TO PM NURSE TO CONTINUE CARE. CL WITHIN REACHED AND SAFETY MAINTAINED.
[2016-12-01 20:00] VITALS: BP 116/44
--- NOTE | 2016-12-01 20:00 | NUR ---
SPINNING SUPERVISOR NOTES RECEIVED PTS ON BED AWAKE ALERT AND RESPONSIVE ABLE TO MOUTH WORD NEEDS , ON VENTILATOR DEPENDENT AC SETTINGS WELL TOLERATED , HOB ELEVATED AT ALL TIMES FOR ASPIRATION PRECAUTION , TURNED AND REPOSITION Q 2 HRS PER PROTOCOL , ON TEL SR WITH BBB ON THE MONITOR,NO SOB NO DISTRESS NOTED DENIES PAIN AT THIS TIME .ALL DUE MEDS GIVEN ORDERED , ON GT FEEDING NOVASOURCE AT 45CC/HR NO RESIDUAL NOTED , IVF OF D5NS AT 40CC/HR INFUSING WELL.ALL NEEDS ATTENDED TOO CALL LIGHT WITHIN REACH KEPT PTS CLEAN SAFE DRY AND COMFORTABLE, V/S STABLE AFEBRILE , PTS ON HEPARIN DRIP AT 1350 UNITS /27CC/HR INFUSING WELL . FOR PT INR AND APTT AT 6AM, WILL CONTINUE TO MONITOR PTS.
[2016-12-01] MEDS: ESCITALOPRAM OXALATE (10 MG) 10 MG TABLET GT SCH (21:15)
[2016-12-01] MEDS: INSULIN DETEMIR 100 UNIT/ML CARTRIDGE SQ SCH (21:32)
--- NOTE | 2016-12-01 21:47 | NUR ---
PRESS AND BLOW MACHINE TENDER NOTES BLOOD SUGAR FOR 10 PM IS133 LEVEMIR 20 UNITS GIVEN ORDERED.WILL CHECK BLOOD SUGAR AT 12MN.
[2016-12-01] MEDS: HYDROCODONE/APAP 5/325MG 1 EACH TABLET GT PRN (22:48)
[2016-12-01] MEDS: RENAL NOVASOURCE 1,000 ML BOTTLE GT PRN (22:48)
--- NOTE | 2016-12-01 23:40 | NUR ---
ASPHALT ROLLER OPERATOR NOTES BLOOD SUGAR FOR 12MN IS 149= NO COVERAGE GIVEN PER SLIDING SCALE PTS ON GT FEEDING WELL TOLERATED.
[2016-12-02] VITALS (7 sets, daily range): BP systolic 101–134; BP diastolic 39–93
[2016-12-02] MEDS ORDERED: IV SET PRIMARY PUMP SET 1 EA INFUS.SET MC ONE ×2 (00:13→22:51)
[2016-12-02] MEDS: HEPARIN INFUSION/D5W 500 ML IV PRN ×2 (01:27→23:03)
[2016-12-02] MEDS: ONDANSETRON HCL/PF 4 MG/2 ML VIAL IV PRN ×2 (03:45→22:35)
[2016-12-02] MEDS: INSULIN REGULAR, HUMAN 100 UNIT/ML 3 ML VIAL SQ PRN ×2 (05:29→17:08)
[2016-12-02] MEDS: IV D5/ 0.9% NACL 1,000 ML IV PRN (05:51)
[2016-12-02] MEDS: BLOOD SUGAR DIAGNOSTIC 1 EACH STRIP IN SCH ×3 (05:52→17:03)
--- NOTE | 2016-12-02 05:55 | NUR ---
CALCULATION CLERK NOTES BLOOD SUGAR FOR 6AM IS 159= 2 UNITS OF REGULAR INSULIN GIVEN PER SLIDING SCALE , PTS REMAINS ON VENT AC SETTINGS SATING 100% NO SOB NO DISTRESS NOTED , V/S STABLE AFEBRILE ,ON TELE SR WITH BBB ON THE MONITOR CONTINUE ON HEPARIN DRIP AT 1350 UNITS /27CC/HR , NO ASE NOTED , WILL ENDORSE TO RN DAY SHIFT FOR CONTINUITY OF CARE , PT INR AND APTT AT 6AM PLS FLU RESULT.
[2016-12-02 07:05] LABS: BASOPHILS % (AUTO) 0.3 % (0.0-2.0); EOSINOPHILS # (AUTO) 0.5 /CMM (0.0-0.7); EOSINOPHILS % (AUTO) 6.1 % (0.0-6.0); HEMATOCRIT 32 % (33-45); HEMOGLOBIN 10.3 g/dL (11.5-14.8); LYMPHOCYTES # (AUTO) 0.8 /CMM (0.8-4.8); LYMPHOCYTES % (AUTO) 9.6 % (20.0-44.0); MEAN CORPUSCULAR HEMOGLOBIN 28 PG (26.0-33.0); MEAN CORPUSCULAR HGB CONC 32 g/dl (31.0-36.0); MEAN CORPUSCULAR VOLUME 88 fL (82-100); MONOCYTES % (AUTO) 12.4 % (2.0-12.0); NEUTROPHILS # (AUTO) 5.8 /CMM (1.8-8.9); NEUTROPHILS % (AUTO) 71.6 % (43.0-81.0); PLATELET COUNT (AUTO) 240 /CMM (150-450); RDW COEFFICIENT OF VARIATION 17.7 (11.5-15.0); RED BLOOD CELL COUNT(AUTO) 3.64 MIL/uL (4.0-5.2); WHITE BLOOD COUNT (AUTO) 8.1 K/uL (4.3-11.0)
[2016-12-02 07:23] LABS: CALCIUM, SERUM 7.9 mg/dL (8.5-10.1); CREATININE 3.3 mg/dL (0.6-1.3); MAGNESIUM 2.5 mg/dL (1.8-2.4); PHOSPHORUS 5.8 mg/dL (2.5-4.9); POTASSIUM 3.6 mmol/L (3.5-5.1)
[2016-12-02 07:30] LABS: INR 2.07 (0.87-1.13); PROTHROMBIN TIME 23.2 SECS (9.5-12.7)
--- NOTE | 2016-12-02 07:32 | NUR ---
TELE1/RN AM SHIFT INITIAL NOTES RECEIVED PT AWAKE IN BED, NO ACTIVE BLEEDING NOTED OR CHANGE OF CONDITION NOTED. PT A/O X 2-3, ABLE TO MOUTH WORDS IN OCCITAN. ON VENTILATOR ST AT PRESCRIBED RATES, SATURATING @ 100%, NOTED WITH CLEAR LUNG SOUNDS, SUCTIONED FOR AIRWAY CLEARANCE. ON TELE WITH SINUS RHYTHM, WITH BBB, HR 72. ON GOING GTF @ 45CC/HR, FLUSHED PATENT WITH NO RESIDUAL. WITH ON GOING HEPARIN DRIP @ 1,350 UNITS/HR, IV SITE PATENT. AWAITING FOR RESULT OF PTT. NOTED WITH DISTENDED ABDOMEN AND PITTING EDEMA +3 ON HANDS. PT IS SCHEDULED DIALYSIS TX TODAY. SCHEDULED AM MEDS TO BE GIVEN. CL WITHIN REACHED AND SAFETY MAINTAINED. ON GOING MONITORING.
--- NOTE | 2016-12-02 07:47 | NUR ---
TELE1/RN HEPARIN - NO DOSAGE CHANGE PTT RESULT OBTAINED, 63. NO CHANGE OF DOSAGE PER PROTOCOL. MONITORING CONTINUED.
[2016-12-02] MEDS: PROSOURCE / PROSTAT (PYXIS) 30 ML UDC GT SCH ×3 (08:13→16:52)
[2016-12-02] MEDS: CHOLESTYRAMINE/ASPARTAME 4 G/PKT PACKET GT SCH ×2 (08:13→16:52)
[2016-12-02] MEDS: PANTOPRAZOLE 40 MG VIAL IV SCH ×2 (08:13→20:30)
[2016-12-02] MEDS: PYRIDOXINE HCL 50 MG TABLET GT SCH (08:13)
[2016-12-02] MEDS: VIT B CMPLX 3/FA/VIT C/BIOTIN 1 TAB TABLET GT SCH (08:13)
[2016-12-02] MEDS: SUCRALFATE 1 G/10 ML UDC GT SCH ×4 (08:13→21:05)
[2016-12-02] MEDS: Z GUARD REMEDY 2 OZ OINT TP SCH (08:14)
--- NOTE | 2016-12-02 08:30 | NUR ---
TELE1/PRODUCTION MANAGER TX DIALYSIS TX INITIATED. ON GOING MONITORING.
--- NOTE | 2016-12-02 10:30 | NUR ---
TELE1/ELEVATOR CONSTRUCTOR SUPERVISOR - COMPLETED DIALYSIS TX COMPLETED. REMOVED 1 LITER OF FLUID. BP 111/52, HR 71. MONITORING CONTINUED.
--- NOTE | 2016-12-02 16:00 | NUR ---
TELE1/RN AFTERNOON ROUNDS PT SUCTIONED AND REPOSITIONED. NO CHANGE OF CONDITION. MONITORING CONTINUED.
--- NOTE | 2016-12-02 19:11 | NUR ---
TELE1/RN AM SHIFT END NOTES NO ACUTE CHANGE OF CONDITION NOTED DURING THE SHIFT. ALL NEEDS MET. PT ENDORSED TO PM NURSE TO CONTINUE CARE. CL WITHIN REACHED AND SAFETY MAINTAINED.
--- NOTE | 2016-12-02 20:00 | NUR ---
HIGH SCHOOL HVAC R INSTRUCTOR NOTES RECEIVED PTS ON BED AWAKE ALERT ABLE TO MOUTH WORD NEEDS , NO SOB NO DISTRESS DENIES PAIN AT THIS TIME , PTS REMAINS ON VENTILATOR AC SETTINGS WELL TOLERATED SATING 100% CONT . ON HEPARIN DRIP 1350 UNITS /27CC/HR. NO ASE NOTED , V/S STABLE AFEBRILE , HOB ELEVATED FOR ASPIRATION PRECAUTION .SUCTION SECRETION DONE AND PRN .TURNED AND REPOSITION Q2HRS PER PROTOCOL.WITH MIDLINE ON RIGHT UA INTACT AND PATENT, IVF OF D5NS AT 40CC/HR INFUSING WELL WITH GT FEEDING OF NOVASOURCE AT 45CC/HR NO RESIDUAL NOTED .ALL NEEDS ATTENDED TOO CALL LIGHT WITHIN REACH ALL DUE MEDS GIVEN ORDERED, KEPT PTS SAFE DRY CLEAN AND COMFORTABLE , BED IS LOCKED AND LOW POSITION.WILL CONTINUE TO MONITOR PTS.
[2016-12-02] MEDS: ESCITALOPRAM OXALATE (10 MG) 10 MG TABLET GT SCH (21:06)
[2016-12-02] MEDS: INSULIN DETEMIR 100 UNIT/ML CARTRIDGE SQ SCH (21:31)
--- NOTE | 2016-12-02 21:55 | NUR ---
COMMUNITY LIVING INSTRUCTOR NOTES BLOOD SUGAR FOR 10 PM IS 149 = LEVEMIR 20 UNITS GIVEN SQ INJ. ORDERED PTS ON GT FEEDING.
[2016-12-03] VITALS: BP 118/50
--- NOTE | 2016-12-03 | NUR ---
PRICE CHANGER NOTES BLOOD SUGAR FOR 12MN IS 159= 2 UNITS OF REGULAR INSULIN GIVEN PER SLIDING SCALE.
[2016-12-03] MEDS: BLOOD SUGAR DIAGNOSTIC 1 EACH STRIP IN SCH ×5 (00:27→23:27)
[2016-12-03] MEDS: INSULIN REGULAR, HUMAN 100 UNIT/ML 3 ML VIAL SQ PRN ×5 (00:29→23:24)
[2016-12-03] MEDS: RENAL NOVASOURCE 1,000 ML BOTTLE GT PRN (02:20)
[2016-12-03 04:00] VITALS: BP 103/53
--- NOTE | 2016-12-03 05:25 | NUR ---
LOGGING SHOVEL OPERATOR NOTES BLOOD SUGAR FOR 6AM IS 155 = 2 UNITS OF REGULAR INSULIN GIVEN PER SLIDING SCALE. PTS ON GT FEEDING
--- NOTE | 2016-12-03 05:36 | NUR ---
RHEUMATOLOGIST NOTES PTS REMAINS ON VENTILATOR DEPENDENT , AC SETTING WELL TOLERATED SATING 100% ON SR WITH BBB ON THE MONITOR V/S STABLE AFEBRILE ALL NEEDS ATTENDED TOO CALL LIGHT WITHIN REACH.CONT ON HEPARIN 1350 UNITS / 27 CC/HR . GT FEEDING TOLERATED WELL, NO SOB NO DISTRESS NOTED DENIES PAIN AT THIS TIME.WILL CONTINUE TO MONITOR PTS.
[2016-12-03] MEDS: IV D5/ 0.9% NACL 1,000 ML IV PRN (05:50)
--- NOTE | 2016-12-03 07:18 | NUR ---
RN INITIAL NOTES: Rec'd pt on bed, HOB elevated, not in any distress, able to make needs known. Pt on mech vent via trach (Portex 7) w/ ff settings: AC 16, TV 550, FiO2 40%, PEEP 5, saturating at 100%. On telemonitor, SR w/ BBB, HR 73 bpm. Has patent & intact PEG, on continuous tube feeding Novasource at 45 cc/hr infusing well. Pt has R CW HD cath in place, intact. Has R hand G22 PL patent & intact w/ D5NS 1L x 40 cc/hr infusing well w/ no signs of infection/ infiltration noted. Has JAZMIN midline patent & intact w/ Heparin Drip x 1350 units (27 cc/hr) infusing well. Awaiting for PT, INR, APTT result. Provided comfort & safety measures. Needs attended. Call light placed w/in reach. Bed kept low & in locked position. Will turn, reposition & offload heels as per protocol. Will continue to monitor.
[2016-12-03 07:50] LABS: BASOPHILS % (AUTO) 0.2 % (0.0-2.0); EOSINOPHILS # (AUTO) 0.5 /CMM (0.0-0.7); EOSINOPHILS % (AUTO) 5.1 % (0.0-6.0); HEMATOCRIT 31 % (33-45); HEMOGLOBIN 10.1 g/dL (11.5-14.8); LYMPHOCYTES # (AUTO) 0.7 /CMM (0.8-4.8); LYMPHOCYTES % (AUTO) 6.5 % (20.0-44.0); MEAN CORPUSCULAR HEMOGLOBIN 29 PG (26.0-33.0); MEAN CORPUSCULAR HGB CONC 32 g/dl (31.0-36.0); MEAN CORPUSCULAR VOLUME 88 fL (82-100); MONOCYTES # (AUTO) 1.3 /CMM (0.1-1.30); MONOCYTES % (AUTO) 12.2 % (2.0-12.0); NEUTROPHILS # (AUTO) 7.8 /CMM (1.8-8.9); PLATELET COUNT (AUTO) 240 /CMM (150-450); RDW COEFFICIENT OF VARIATION 17.6 (11.5-15.0); RED BLOOD CELL COUNT(AUTO) 3.54 MIL/uL (4.0-5.2); WHITE BLOOD COUNT (AUTO) 10.3 K/uL (4.3-11.0)
[2016-12-03 08:00] VITALS: BP 102/40
[2016-12-03 08:19] LABS: INR 2.09 (0.87-1.13); PROTHROMBIN TIME 23.4 SECS (9.5-12.7)
[2016-12-03] MEDS: PROSOURCE / PROSTAT (PYXIS) 30 ML UDC GT SCH ×3 (08:36→17:15)
[2016-12-03] MEDS: PYRIDOXINE HCL 50 MG TABLET GT SCH (08:36)
[2016-12-03] MEDS: SUCRALFATE 1 G/10 ML UDC GT SCH ×4 (08:36→22:57)
[2016-12-03] MEDS: CHOLESTYRAMINE/ASPARTAME 4 G/PKT PACKET GT SCH ×2 (08:36→17:15)
[2016-12-03] MEDS: PANTOPRAZOLE 40 MG VIAL IV SCH ×2 (08:36→22:57)
[2016-12-03] MEDS: VIT B CMPLX 3/FA/VIT C/BIOTIN 1 TAB TABLET GT SCH (08:36)
[2016-12-03] MEDS: Z GUARD REMEDY 2 OZ OINT TP SCH (08:37)
[2016-12-03 08:47] LABS: CALCIUM, SERUM 7.8 mg/dL (8.5-10.1); MAGNESIUM 2.2 mg/dL (1.8-2.4); PHOSPHORUS 4.8 mg/dL (2.5-4.9); POTASSIUM 3.4 mmol/L (3.5-5.1)
[2016-12-03] MEDS: ONDANSETRON HCL/PF 4 MG/2 ML VIAL IV PRN (11:02)
[2016-12-03 12:00] VITALS: BP 147/48
[2016-12-03] MEDS ORDERED: EPOETIN ALFA (10,000 UNIT) 10,000 UNIT/ML VIAL SQ ONE (12:00)
--- NOTE | 2016-12-03 12:33 | NUR ---
PATIENT RECEIVED TRACHED ON MECHANICAL VENT. BREATH SOUNDS EQUAL BILATERAL. AMBU BAG AT THE BED SITE. VENT. PLUGGED INTO RED OUTLET AND ALARMS ARE SET AND FUNCTIONING.
[2016-12-03 16:00] VITALS: BP 101/34
[2016-12-03] MEDS: HEPARIN INFUSION/D5W 500 ML IV PRN (17:23)
--- NOTE | 2016-12-03 19:12 | NUR ---
RN CLOSING NOTES: No acute changes noted w/in shift. Pt tolerated mech vent saturating at 100%. Secretions suctioned. On telemonitor, still SR w/ BBB, HR 94 bpm. PEG kept patent & intact, on continuous tube feeding Novasource at 45 cc/hr tolerated well, no residual noted. R CW HD cath kept in place & intact. R hand G22 PL kept patent & intact w/ D5NS 1L x 40 cc/hr infusing well w/ no signs of infection/ infiltration noted. JAZMIN midline kept patent & intact w/ Heparin Drip x 1350 units (27 cc/hr) infusing well - maintained on this level, APTT 67 (per dosing order, no change). Kept well rested. Needs attended. Call light placed w/in reach. Bed kept low & in locked position. Wound care done. Turned, repositioned & offloaded heels. Will endorse to PM RN for KARINA.
--- NOTE | 2016-12-03 19:58 | NUR ---
RN (ZHAO) WILL CALL US, WHEN READY.
[2016-12-03 20:00] VITALS: BP 117/64
[2016-12-03] MEDS: ESCITALOPRAM OXALATE (10 MG) 10 MG TABLET GT SCH (22:56)
[2016-12-03] MEDS: ACETAMINOPHEN 650 MG/20.3 ML UDC GT PRN (22:57)
[2016-12-03] MEDS: INSULIN DETEMIR 100 UNIT/ML CARTRIDGE SQ SCH (23:25)
[2016-12-04] VITALS: BP 116/70
[2016-12-04 06:00] VITALS: BP 146/54
[2016-12-04] MEDS: SUCRALFATE 1 G/10 ML UDC GT SCH ×4 (06:24→21:02)
[2016-12-04] MEDS: BLOOD SUGAR DIAGNOSTIC 1 EACH STRIP IN SCH ×4 (06:25→23:40)
[2016-12-04 07:05] LABS: BASOPHILS % (AUTO) 0.2 % (0.0-2.0); EOSINOPHILS # (AUTO) 0.4 /CMM (0.0-0.7); EOSINOPHILS % (AUTO) 3.2 % (0.0-6.0); HEMATOCRIT 32 % (33-45); HEMOGLOBIN 10.2 g/dL (11.5-14.8); LYMPHOCYTES # (AUTO) 0.9 /CMM (0.8-4.8); LYMPHOCYTES % (AUTO) 7.5 % (20.0-44.0); MEAN CORPUSCULAR HEMOGLOBIN 29 PG (26.0-33.0); MEAN CORPUSCULAR HGB CONC 32 g/dl (31.0-36.0); MEAN CORPUSCULAR VOLUME 88 fL (82-100); MONOCYTES # (AUTO) 1.3 /CMM (0.1-1.30); MONOCYTES % (AUTO) 11.2 % (2.0-12.0); NEUTROPHILS # (AUTO) 9.3 /CMM (1.8-8.9); NEUTROPHILS % (AUTO) 77.9 % (43.0-81.0); PLATELET COUNT (AUTO) 235 /CMM (150-450); RDW COEFFICIENT OF VARIATION 17.5 (11.5-15.0); WHITE BLOOD COUNT (AUTO) 11.9 K/uL (4.3-11.0)
[2016-12-04 07:23] LABS: CALCIUM, SERUM 7.9 mg/dL (8.5-10.1); CREATININE 3.4 mg/dL (0.6-1.3); MAGNESIUM 2.2 mg/dL (1.8-2.4); PHOSPHORUS 5.2 mg/dL (2.5-4.9); POTASSIUM 3.6 mmol/L (3.5-5.1)
[2016-12-04 07:24] LABS: INR 2.15 (0.87-1.13); PROTHROMBIN TIME 24.1 SECS (9.5-12.7)
--- NOTE | 2016-12-04 07:30 | NUR ---
RN NOTE RECEIVED PT LAYING IN BED, AWAKE, ALERT, EYES OPEN, NON VERBAL. ON MECHANICAL VENT, SETTINGS ORDERED, TOLERATED WELL. RESPIRATIONS EVEN AND UNLABORED, NO SOB OR DISTRESS PRESENT, SATURATING AT 98%. SUCTIONED FOR AIRWAY CLEARANCE. SR WITH BBB WITH 1ST DEGREE HEART BLOCK ON TELE MONITOR. NOTED WITH RIGHT UPPER MIDLINE WITH ONGOING HEPARIN DRIP @ 1350UNITS/HR. AWAITING FOR PTT RESULT. ONGOING GTF NOVASOURCE@45ML/HR, NOTED WITH 80ML RESIDUALS NOTED. PT LATEST BS 62MG/DL PER TELEPHONE CLEANER REPORT.SAFETY MAINTAINED, REPOSITIONED FOR COMFORT. BED LOCKED AND IN LOW POSITION, SIDE RAILS UP X2 AND BED ALARM ON, WILL CONTINUE TO MONITOR. CALL LIGHT WITHIN REACH.
[2016-12-04 08:00] VITALS: BP 119/49
--- NOTE | 2016-12-04 08:10 | NUR ---
RECEIVED PTT RESULT PTT 50. PER WEIGHT BASED HEPARIN SCALE NO CHANGE. HEPARIN ONGOING 1350 UNIT/HR
[2016-12-04] MEDS: CHOLESTYRAMINE/ASPARTAME 4 G/PKT PACKET GT SCH ×2 (08:47→16:51)
[2016-12-04] MEDS: PYRIDOXINE HCL 50 MG TABLET GT SCH (08:48)
[2016-12-04] MEDS: Z GUARD REMEDY 2 OZ OINT TP SCH (08:48)
[2016-12-04] MEDS: PROSOURCE / PROSTAT (PYXIS) 30 ML UDC GT SCH ×3 (08:48→16:51)
[2016-12-04] MEDS: VIT B CMPLX 3/FA/VIT C/BIOTIN 1 TAB TABLET GT SCH (08:48)
[2016-12-04] MEDS: PANTOPRAZOLE 40 MG VIAL IV SCH ×2 (08:48→20:56)
[2016-12-04 12:02] VITALS: BP 119/49
[2016-12-04] MEDS: HEPARIN INFUSION/D5W 500 ML IV PRN (15:10)
[2016-12-04 16:00] VITALS: BP 121/36
--- NOTE | 2016-12-04 17:16 | NUR ---
Pt tolerated current vent settings well. No changes made. Suctioned moderate to large amount of thick secretions. Vent is plugged into a red outlet, alarms are set and audible. BMV is at bedside. Addendum: 12/04/16 at 1718 by DENI GILLIS RT Amended: Links added.
--- NOTE | 2016-12-04 19:20 | NUR ---
RN CLOSING NOTE PT REMAINED STABLE DURING SHIFT. VENT SETTINGS WELL TOLERATED AND o2 saturation maintained WELL. IV SITE INTACT AND FLUSHING WELL. GTUBE FEEDING WELL TOLERATED WITH NO RESIDUAL NOTED. ALL SAFETY MEASURES IN PLACE. ENDORSE TO NEXT SHIFT FOR Continuation of care
[2016-12-04 20:00] VITALS: BP 108/51
--- NOTE | 2016-12-04 20:00 | NUR ---
WOOD SCALER NOTES RECEIVED PT IN BED, AWAKE, ALERT. NON VERBAL. ON VENT VIA TRACH AT ORDERED SETTING, JOHNATHAN WELL. TELE READS SR WITH BBB AND BORDERLINE 1ST DEGREE BLOCK.IV AND RIGHT HAND AND JAZMIN MIDLINE, RUNNING HEPARIN AT 1350 UNITS/HR. PT/INR AND PTT IN AM, LAST PTT 50. GT PLACE, RUNNING NOVASOURCE AT 45 ML/HR, MINIMAL GASTRIC RESIDUAL OF 40 ML. SIDE RAILS X3, HOB ELEVATED, KCI MATTRESS. TURNED AND REPOSITIONED, EXTREMITIES OFFLOADED.
[2016-12-04] MEDS: ESCITALOPRAM OXALATE (10 MG) 10 MG TABLET GT SCH (21:02)
[2016-12-04] MEDS: INSULIN DETEMIR 100 UNIT/ML CARTRIDGE SQ SCH (21:03)
[2016-12-05] VITALS: BP 106/44
[2016-12-05] MEDS: RENAL NOVASOURCE 1,000 ML BOTTLE GT PRN (02:30)
[2016-12-05 04:00] VITALS: BP 113/51
[2016-12-05] MEDS: BLOOD SUGAR DIAGNOSTIC 1 EACH STRIP IN SCH ×4 (05:14→23:00)
[2016-12-05] MEDS: INSULIN REGULAR, HUMAN 100 UNIT/ML 3 ML VIAL SQ PRN ×4 (05:18→23:08)
[2016-12-05] MEDS: SUCRALFATE 1 G/10 ML UDC GT SCH ×4 (06:32→21:21)
[2016-12-05 07:18] LABS: INR 2.28 (0.87-1.13); PROTHROMBIN TIME 25.7 SECS (9.5-12.7)
--- NOTE | 2016-12-05 07:30 | NUR ---
RN NOTES RECEIVED PATIENT ON [facility] VENT WITH BREATHING NORMAL, EVEN AND UNLABORED. NO SOB NOTED. NO ACUTE DISTRESS NOTED. VENT SETTING REVIEWED AND VERIFIED. TOLERATED WELL. AFEBRILE. TELE MONITOR REVEALS SR WITH BBB WITH I DEGREE AV BLOCK, HR=82. IV R HAND 22G AND JAZMIN MIDLINE ARE PATENT AND INTACT, NO INFILTRATION NOTED. PULSES PRESENT. ON GT FEED, TOLERATED WELL. 20CC RESIDUAL NOTED. ASPIRATION PRECAUTION TAKEN. KEPT CLEAN, DRY AND COMFORTABLE. ALL NEEDS ATTENDED. SAFETY MEASURE OBSERVED. CALL LIGHT WITH IN REACH. WILL CONT TO MONITOR.
[2016-12-05 08:00] VITALS: BP 111/54
--- NOTE | 2016-12-05 08:00 | NUR ---
RN NOTES RECEIVED HEPARIN RESULTS, PTT=60. PROTOCOL FOLLOWED. NO CHANGE IN HEPARIN DOSE PER PROTOCOL. HEPARIN ONGOING [id number]. WILL CONT TO MONITOR. Addendum: 12/05/16 at 1311 by NORBERTO MORALES RN RECEIVED PTT RESULTS, PTT=60. PROTOCOL FOLLOWED. NO CHANGE IN HEPARIN DOSE PER PROTOCOL. HEPARIN ONGOING [id number]. WILL CONT TO MONITOR.
[2016-12-05] MEDS: PANTOPRAZOLE 40 MG VIAL IV SCH ×2 (08:41→20:45)
[2016-12-05] MEDS: PYRIDOXINE HCL 50 MG TABLET GT SCH (08:41)
[2016-12-05] MEDS: CHOLESTYRAMINE/ASPARTAME 4 G/PKT PACKET GT SCH ×2 (08:41→17:32)
[2016-12-05] MEDS: VIT B CMPLX 3/FA/VIT C/BIOTIN 1 TAB TABLET GT SCH (08:41)
[2016-12-05] MEDS: PROSOURCE / PROSTAT (PYXIS) 30 ML UDC GT SCH ×3 (08:41→17:32)
[2016-12-05] MEDS: Z GUARD REMEDY 2 OZ OINT TP SCH (08:42)
[2016-12-05] MEDS: ONDANSETRON HCL/PF 4 MG/2 ML VIAL IV PRN ×2 (10:34→22:10)
[2016-12-05] MEDS: HEPARIN INFUSION/D5W 500 ML IV PRN (10:38)
--- NOTE | 2016-12-05 11:00 | NUR ---
AGATA NOTES PT VOMITED X1, MINIMAL AMOUNT CLEAR YELLOWISH COLOR, RESIDUAL OF 30 CC NOTED ZOFRAN GIVEN ORDERED, WILL HOLD FEEDING FOR 2 HOURS AND RECHECK RESIDUAL, WILL CONTINUE MONITOR. Addendum: 12/05/16 at 2334 by KANDY KOHLER RN VOMITED AT 2300
[2016-12-05 12:00] VITALS: BP_SYST 101; BP_SYST 95; BP_DIAS 32; BP_DIAS 38
[2016-12-05 16:00] VITALS: BP 100/40
[2016-12-05] MEDS ORDERED: WARFARIN SODIUM 1 MG TABLET PO SCH (17:00)
--- NOTE | 2016-12-05 18:52 | NUR ---
RN NOTES PATIENT ENDORSED TO NEXT SHIFT IN STABLE CONDITION FOR CONTINUITY OF CARE. NO SIGNIFICANT CHANGES NOTED. KEPT CLEAN, DRY AND COMFORTABLE. ALL NEEDS ATTENDED. SAFETY MEASURE OBSERVED. CALL LIGHT WITH IN REACH. WILL CONT TO MONITOR.
--- NOTE | 2016-12-05 19:20 | NUR ---
PT RCVD ON MECH VENT WITH NOTED SETTINGS. SUCTIONED SMALL AMOUNT OF YELLOWISH WHITE THICK SECRETIONS, BILATERAL BS NOTED. VENT PLUGGED INTO RED OUTLET, VENT ALARMED AND WORKING. AMBU BAG AT BEDSIDE. NO RESPIRATORY DISTRESS AT THIS TIME. WILL CONTINUE TO MONITOR.
--- NOTE | 2016-12-05 19:30 | NUR ---
RN INITIAL NOTES PT IS IN BED, HOB OF ELEVATED, PT A/0X3 MOUTH WORDS, ON MECHANICAL VENT AND TOLERATING IT WELL, DENIES OF PAIN, TURNED AND REPOSITIONED, ON CONTINUOUS GT FEEDING AT 45CC/HR, MINIMAL LEAKING ON GT SITE NOTED, MD AWARE. MIDLINE FLUSHED AND PATENT, ON HEPARIN DRIP, NO ACTIVE BLEEDING NOTED. SIDE RAILS UP, BED LOCKED AND IN LOWEST POSITION, CALL LIGHTS WITHIN REACH.
[2016-12-05 20:00] VITALS: BP 145/88
[2016-12-05] MEDS: ESCITALOPRAM OXALATE (10 MG) 10 MG TABLET GT SCH (21:21)
[2016-12-05] MEDS: ACETAMINOPHEN 650 MG/20.3 ML UDC GT PRN (23:00)
[2016-12-05] MEDS: INSULIN DETEMIR 100 UNIT/ML CARTRIDGE SQ SCH (23:07)
[2016-12-06] VITALS (7 sets, daily range): BP systolic 93–138; BP diastolic 34–92
[2016-12-06] MEDS: RENAL NOVASOURCE 1,000 ML BOTTLE GT PRN (05:38)
[2016-12-06] MEDS: BLOOD SUGAR DIAGNOSTIC 1 EACH STRIP IN SCH ×4 (05:38→23:08)
[2016-12-06] MEDS: HEPARIN INFUSION/D5W 500 ML IV PRN (06:03)
[2016-12-06 06:55] LABS: BASOPHILS # (AUTO) 0.1 /CMM (0.0-0.2); BASOPHILS % (AUTO) 0.4 % (0.0-2.0); EOSINOPHILS # (AUTO) 0.4 /CMM (0.0-0.7); EOSINOPHILS % (AUTO) 3.4 % (0.0-6.0); HEMATOCRIT 32 % (33-45); HEMOGLOBIN 10.3 g/dL (11.5-14.8); LYMPHOCYTES # (AUTO) 0.7 /CMM (0.8-4.8); MEAN CORPUSCULAR HEMOGLOBIN 28 PG (26.0-33.0); MEAN CORPUSCULAR HGB CONC 32 g/dl (31.0-36.0); MEAN CORPUSCULAR VOLUME 87 fL (82-100); MONOCYTES # (AUTO) 1.2 /CMM (0.1-1.30); MONOCYTES % (AUTO) 9.5 % (2.0-12.0); NEUTROPHILS % (AUTO) 80.7 % (43.0-81.0); PLATELET COUNT (AUTO) 234 /CMM (150-450); RDW COEFFICIENT OF VARIATION 16.9 (11.5-15.0); RED BLOOD CELL COUNT(AUTO) 3.68 MIL/uL (4.0-5.2); WHITE BLOOD COUNT (AUTO) 12.4 K/uL (4.3-11.0)
[2016-12-06 07:06] LABS: INR 2.38 (0.87-1.13); PROTHROMBIN TIME 26.9 SECS (9.5-12.7)
--- NOTE | 2016-12-06 07:15 | NUR ---
RN INITIAL NOTE RECEIVED PT IN BED, SLEEPING. EASILY AROUSED. ABLE TO MAKE NEEDS KNOWN. NO COMPLAINTS OF PAIN AT THIS TIME. SINUS RHYTHM ON TELE MONITOR. RESPIRATIONS ARE EVEN AND UNLABORED. NO S/S OF RESPIRATORY DISTRESS OR SOB. TRACH MIDLINE, AND INTACT. PORTEX #7. AC-16, TV-550, FI02 40%, PEEP 5. SATING WELL. GTUBE FLUSHED, PATENT, INTACT.PLACEMENT CONFIRMED. NOVASOURCE RUNNING 45ML/HR. TOLERATING FEEDING WELL. RIGHT UPPER ARM MIDLINE, AND RIGHT HAND IV SITE FLUSHED AND PATENT. SKIN WARM AND DRY TO TOUCH. SAFETY PRECAUTIONS IMPLEMENTED, BED IN LOCKED, LOW POSITION. TWO SIDE RAILS UP. CALL LIGHT AND BELONGINGS WITHIN EASY REACH. WILL CONTINUE TO MONITOR.
--- NOTE | 2016-12-06 07:29 | NUR ---
RN CLOSING NOTE NO SIGNIFICANT CHANGES OVERNIGHT, ON HEPARIN DRIP, NO ACTIVE BLEEDING, IV SITE IS PATENT, NO S/SX OF INFECTION/INFILTRATION NOTED. TOLERATING CURRENT MECH VENT SETTING, PT WAS TURNED AND REPOSITIONED, KEPT CLEAN AND DRY. TOLERATING GT FEEDING, O RESIDUAL NOTED. HOB OF ELEVATED. ALL SAFETY MEASURES MET, CALL LIGHTS WITHIN REACH, ENDORSED TO AM NURSE FOR CONTINUATION OF CARE.
[2016-12-06 07:41] LABS: ALBUMIN 1.7 g/dL (3.4-5.0); CALCIUM, SERUM 8.2 mg/dL (8.5-10.1); CREATININE 3.5 mg/dL (0.6-1.3); MAGNESIUM 2.2 mg/dL (1.8-2.4); PHOSPHORUS 5.3 mg/dL (2.5-4.9); POTASSIUM 3.2 mmol/L (3.5-5.1); TOTAL PROTEIN, SERUM 6.8 g/dL (6.4-8.2)
--- NOTE | 2016-12-06 07:44 | NUR ---
Received female shelton pt on a mechanical vent. Pt shelton is secure. Vent is plugged into a red outlet, alarms are set and audible, and BMV is at bedside. Addendum: 12/06/16 at 0744 by DENI GILLIS RT Amended: Links added.
[2016-12-06] MEDS: VIT B CMPLX 3/FA/VIT C/BIOTIN 1 TAB TABLET GT SCH (08:15)
[2016-12-06] MEDS: PYRIDOXINE HCL 50 MG TABLET GT SCH (08:15)
[2016-12-06] MEDS: PANTOPRAZOLE 40 MG VIAL IV SCH ×2 (08:15→20:50)
[2016-12-06] MEDS: CHOLESTYRAMINE/ASPARTAME 4 G/PKT PACKET GT SCH ×2 (08:15→17:05)
[2016-12-06] MEDS: PROSOURCE / PROSTAT (PYXIS) 30 ML UDC GT SCH ×3 (08:15→17:05)
[2016-12-06] MEDS: SUCRALFATE 1 G/10 ML UDC GT SCH ×4 (08:16→21:11)
[2016-12-06] MEDS: Z GUARD REMEDY 2 OZ OINT TP SCH (09:24)
[2016-12-06] MEDS: INSULIN REGULAR, HUMAN 100 UNIT/ML 3 ML VIAL SQ PRN (13:25)
[2016-12-06] MEDS: WARFARIN SODIUM 1 MG TABLET PO SCH (17:09)
--- NOTE | 2016-12-06 19:16 | NUR ---
RN CLOSING NOTE ALL MD ORDERS CARRIED OUT. PT KEPT CLEAN AND DRY. SAFETY PRECAUTIONS IN PLACE AT ALL TIMES. REPORT WILL BE GIVEN TO PM RN FOR KARINA.
--- NOTE | 2016-12-06 19:40 | NUR ---
NETWORK SECURITY ADMINISTRATOR INITIAL NOTE RECEIVED PT RESTING IN BED. A/O X2-3 AMHARIC SPEAKING AND MOUTHS WORDS. ON [facility] VENT AND TOLERATING SETTINGS WELL. TELE- SINUS RHYTHM W 1ST DEGREE AV BLOCK, BBB. IV SITES CLEAN, INTACT AND FLUSHING WELL. GTUBE SITE CLEAN AND INTACT. GTUBE FLUSHING WELL AND 10ML RESIDUAL. CALL LIGHT WITHIN REACH. WILL CONTINUE TO MONITOR.
[2016-12-06] MEDS: ONDANSETRON HCL/PF 4 MG/2 ML VIAL IV PRN (20:50)
[2016-12-06] MEDS: ESCITALOPRAM OXALATE (10 MG) 10 MG TABLET GT SCH (21:11)
[2016-12-06] MEDS: INSULIN DETEMIR 100 UNIT/ML CARTRIDGE SQ SCH (23:14)
[2016-12-07] VITALS: BP 103/48
[2016-12-07 04:00] VITALS: BP 113/40
[2016-12-07] MEDS: BLOOD SUGAR DIAGNOSTIC 1 EACH STRIP IN SCH ×3 (05:49→18:01)
[2016-12-07] MEDS: RENAL NOVASOURCE 1,000 ML BOTTLE GT PRN ×2 (05:50→22:41)
--- NOTE | 2016-12-07 07:00 | NUR ---
SURGICAL COORDINATOR CLOSING NOTE PT REMAINED STABLE DURING SHIFT. NO ACUTE DISTRESS NOTED. VENT SETTINGS WELL TOLERATED. GTUBE FEEDING WELL TOLERATED. IV INTACT AND PATENT. ALL SAFETY MEASURES IN PLACE. WILL ENDORSE TO NEXT SHIFT FOR KARINA.
--- NOTE | 2016-12-07 07:54 | NUR ---
ABRADING MACHINE TENDER: ASSESSMENT RECEIVED PT AWAKE AND ORIENTED TO SELF ABLE TO MOUTH WORDS IN CROATIAN. PT IS VENT DEPENDENT SEE FLOW SHEET FOR VENT SETTINGS. PT TELE STATUS SHOWING SR WITH BBB. PT HD, ANURIC WITH HD ACCESS TO RIGHT UPPER CHEST. PT HAS PEG WITH NOVA SOURCE TF NOTED 100ML OF RESIDUALS. WILL CONTINUE TO MONITOR. PT AT THIS TIME DENIES ANY PAIN. WILL CONTINUE WITH POC
[2016-12-07 08:00] VITALS: BP 128/52
[2016-12-07] MEDS: VIT B CMPLX 3/FA/VIT C/BIOTIN 1 TAB TABLET GT SCH (08:27)
[2016-12-07] MEDS: SUCRALFATE 1 G/10 ML UDC GT SCH ×4 (08:27→21:35)
[2016-12-07] MEDS: PROSOURCE / PROSTAT (PYXIS) 30 ML UDC GT SCH ×3 (08:28→17:45)
[2016-12-07] MEDS: PANTOPRAZOLE 40 MG VIAL IV SCH ×2 (08:28→21:35)
[2016-12-07] MEDS: PYRIDOXINE HCL 50 MG TABLET GT SCH (08:28)
[2016-12-07] MEDS: CHOLESTYRAMINE/ASPARTAME 4 G/PKT PACKET GT SCH ×2 (08:28→17:46)
[2016-12-07] MEDS: Z GUARD REMEDY 2 OZ OINT TP SCH (08:29)
[2016-12-07 10:46] LABS: INR 2.48 (0.87-1.13); PROTHROMBIN TIME 28.1 SECS (9.5-12.7)
[2016-12-07 12:00] VITALS: BP 118/52
[2016-12-07] MEDS: DEXTROSE 50%-WATER 50 ML DISP.SYRIN IV PRN ×2 (12:15→18:00)
--- NOTE | 2016-12-07 12:20 | NUR ---
CONFIGURATION CONSULTANT; MEDICATION UNABLE TO GIVEN GTUBE MEDICATIONS DUE TO GTUBE LEAKING. ATTEMPTED TO ADJUST PEG BUT CONTINUES TO LEAK TUBE FEEDING. WILL NOTIFY MD.
--- NOTE | 2016-12-07 12:44 | NUR ---
DRYING MACHINE BACK TENDER; BLOOD SUGAR BLOOD SUGAR DONE FIRST RESULT 44 RECHECKED 49 DEXTROSE 50% GIVEN PER PROTOCOL/ORDER. BLLOD SUGAR RECHECKED AFTER DEXTROSE NOW BLOOD SUGAR 128. WILL MONITOR CLOSELY
[2016-12-07] MEDS ORDERED: ONCOUMADIN PO (13:58)
[2016-12-07] MEDS ORDERED: ALBU1.25 NEB (13:58)
--- NOTE | 2016-12-07 14:14 | NUR ---
RN LABOR AND DELIVERY DR TAYLOR AT BEDSIDE UPDATE WAS GIVEN. DISCUSSED REGARDING LOW BLOOD SUGAR AND THE FACT THAT TF HAD TO BE HELD SINCE GTUBE CONTINUES TO LEAK. DR. CALLES WANT TO DC PT BACK TO [facility] AFTER PT CLEARED BY GI DR. HIGUERA CALLED AND NOTIFIED REGARDING LEAKING GTUBE
--- NOTE | 2016-12-07 15:11 | NUR ---
PATIENT CARE SECRETARY DR HIGUERA CALLED BACK. UPDATE GIVEN REGARDING GTUBE- STATES KEEP PT NPO. NOTHING BY GTUBE NOTIFIED REGARDING LOW BLOOD SUGARS STATES TO CONTINUE TO NPO AND TO TREAT PROTOCOL. STATES THAT HE WILL SPEAK WITH DR. TAYLOR REGARDING TREATMENT.
[2016-12-07 16:00] VITALS: BP 122/41
--- NOTE | 2016-12-07 16:22 | NUR ---
KETTLE CHIPPER; GI DR HILARIO AT BEDSIDE UPDATE WAS GIVEN. OLD PEG REMOVED NEW PEG PLACED BY 24F GTUBED. ORDERED PLACED FOR KUB TO VERIFY PLACEMENT
[2016-12-07] MEDS: WARFARIN SODIUM 1 MG TABLET PO SCH (17:46)
[2016-12-07] MEDS: NEOMY SULF/BACITRAC ZN/POLY 15 GM TUBE TP SCH (17:47)
[2016-12-07] MEDS: HYDROCODONE/APAP 5/325MG 1 EACH TABLET GT PRN (17:50)
--- NOTE | 2016-12-07 18:04 | NUR ---
RT PATIENT RECEIVED TRACH'D ON [facility] VENT WITH SETTINGS PER MD ORDER. ENTRY REP DONE. BILAT RHONCHI BREATH SOUNDS. SUCTIONED MOD AMOUNTS OF THICK, PALE YELLOW SECRETIONS. TRACH SECURE AND AIRWAY PATENT. AMBU BAG AT BEDSIDE. ALARMS ON AND FUNCTIONING PROPERLY. VENT PLUGGED INTO RED OUTLET. NO SIGNS OF DISTRESS NOTED AT THIS TIME. WILL CONTINUE TO MONITOR THE PATIENT FOR ANY CHANGES. Addendum: 12/07/16 at 1805 by AIDA JOSÉ RT Amended: Links added.
--- NOTE | 2016-12-07 19:45 | NUR ---
DIRECTOR MULTIMEDIA INITIAL NOTE RECEIVED IN BED. AWAKE AND ALERT X2-3. ABLE TO MAKE SOME NEEDS KNOWN. ON MECH VENT AND SETTINGS WELL TOLERATED. IV SITE INTACT AND FLUSHING WELL. NEW GTUBE INTACT AND CLEAN. AWAITING KUB RESULTS TO RESUME FEEDING. WILL CONTINUE TO MONITOR.
[2016-12-07 20:00] VITALS: BP 125/50
[2016-12-07] MEDS: ESCITALOPRAM OXALATE (10 MG) 10 MG TABLET GT SCH (21:35)
[2016-12-07] MEDS: INSULIN DETEMIR 100 UNIT/ML CARTRIDGE SQ SCH (22:00)
--- NOTE | 2016-12-07 23:15 | NUR ---
PLASTERER SPRAY GUN NOTE FEEDING RESUMED D/T KUB RESULTS. GTUBE IN PLACE. AUSCULTATED AND CHECKED FOR PLACEMENT. ASPIRATED FOR GASTRIC RESIDUAL NOTED. FLUSHING WELL TOLERATED. GTUBE SITE CLEAN AND INTACT. ANTIBIOTIC TREATMENT GIVEN ON GTUBE SITE.
--- NOTE | 2016-12-07 23:15 | NUR ---
RN NOTE FEEDING IMMEDIATELY STOPPED ONCE KUB WAS FOUND TO NOT BE COMPLETED. BLOOD SUGAR CHECKED 83MG/DL. PT COMFORTABLE AND IN NO ACUTE DISTRESS. WILL CONTINUE TO MONITOR
[2016-12-07] MEDS: ACETAMINOPHEN 650 MG/20.3 ML UDC GT PRN (23:23)
[2016-12-08] VITALS: BP 134/49
[2016-12-08] MEDS: BLOOD SUGAR DIAGNOSTIC 1 EACH STRIP IN SCH ×5 (00:27→23:59)
[2016-12-08] MEDS: HYDROCODONE/APAP 5/325MG 1 EACH TABLET GT PRN ×3 (02:51→17:50)
[2016-12-08 04:00] VITALS: BP 110/50
--- NOTE | 2016-12-08 07:10 | NUR ---
CERTIFIED FIRST ASSISTANT CLOSING NOTE PT REMAINED STABLE DURING SHIFT. NO S/SX OF RESPIRATORY DISTRESS NOTED. GTUBE SITE INTACT WITH ANTIBIOTIC OINTMENT APPLIED. STILL AWAITING KUB. ENDORSED TO NEXT SHIFT FOR KARINA.
[2016-12-08 08:00] VITALS: BP 131/55
--- NOTE | 2016-12-08 08:00 | NUR ---
TELE1/RN AM SHIFT INITIAL NOTES RECEIVED PT AWAKE IN BED. PT A/O X 2-3, MOUTH WORDS, DENIES PAIN. NO ACUTE CHANGE OF CONDITION NOTED. ON VENTILATOR RATE SET PRESCRIBED, SATURATING @ 100%, LUNGS CLEAR, PT REFUSED TO BE SUCTIONED. ON TELE WITH SINUS RHYTHM WITH BBB AND PVCs, HR 78. MIDLINE FLUSHED, PATENT, HL. ON GOING GTF @ 45CC/HR, NO GASTRIC RESIDUAL, FLUSHED, PATENT. GT SITE NOTED WITH YELLOW PURULENT DISCHARGE, PT HAS A VERY TIGHT DISTENDED ABDOMEN, WITH +2 EDEMA ON HANDS. PT IS COMFORTABLE AT THIS TIME. SCHEDULED AM MEDS TO BE GIVEN. CL WITHIN REACHED AND SAFETY MAINTAINED. ON GOING MONITORING.
[2016-12-08] MEDS ORDERED: DIATR MEGLU/DIATRIZOATE SODIUM 30 ML BOTTLE (GASTROGRAPHIN) ONE (08:09)
[2016-12-08] MEDS: RENAL NOVASOURCE 1,000 ML BOTTLE GT PRN (09:46)
[2016-12-08] MEDS: CHOLESTYRAMINE/ASPARTAME 4 G/PKT PACKET GT SCH ×2 (09:47→17:34)
[2016-12-08] MEDS: PANTOPRAZOLE 40 MG VIAL IV SCH ×2 (09:47→21:48)
[2016-12-08] MEDS: VIT B CMPLX 3/FA/VIT C/BIOTIN 1 TAB TABLET GT SCH (09:47)
[2016-12-08] MEDS: PROSOURCE / PROSTAT (PYXIS) 30 ML UDC GT SCH ×3 (09:47→17:34)
[2016-12-08] MEDS: SUCRALFATE 1 G/10 ML UDC GT SCH ×4 (09:47→21:50)
[2016-12-08] MEDS: PYRIDOXINE HCL 50 MG TABLET GT SCH (09:47)
[2016-12-08] MEDS: NEOMY SULF/BACITRAC ZN/POLY 15 GM TUBE TP SCH (09:48)
[2016-12-08] MEDS: Z GUARD REMEDY 2 OZ OINT TP SCH (09:48)
[2016-12-08 12:00] VITALS: BP 131/47
--- NOTE | 2016-12-08 12:00 | NUR ---
TELE1/RN NOON ROUNDS NO CHANGE OF CONDITION. PT SUCTIONED AND REPOSITIONED. MONITORING CONTINUED.
[2016-12-08 16:00] VITALS: BP_SYST 111; BP_SYST 127; BP_DIAS 38; BP_DIAS 48
--- NOTE | 2016-12-08 16:00 | NUR ---
TELE1/RN AFTERNOON ROUNDS PM CARE PROVIDED. NO CHANGE OF CONDITION. ON GOING MONITORING.
[2016-12-08] MEDS: WARFARIN SODIUM 1 MG TABLET PO SCH (17:00)
[2016-12-08] MEDS: INSULIN REGULAR, HUMAN 100 UNIT/ML 3 ML VIAL SQ PRN (17:54)
[2016-12-08 18:22] LABS: PROTHROMBIN TIME 53.7 SECS (9.5-12.7)
[2016-12-08 18:24] LABS: INR 4.56 (0.87-1.13)
--- NOTE | 2016-12-08 18:29 | NUR ---
WENDY COUMADIN - HELD 1700 SCHEDULED COUMADIN HELD D/T INR 4.56. Addendum: 12/08/16 at 2004 by ISAURA WHITLEY RN ADDENDUM: CRITICAL LAB RESULT OF INR REPORTED TO DR. PARKER, NO NEW ORDERS RECEIVED, ANOTHER LAB DRAW FOR INR ORDERED.
--- NOTE | 2016-12-08 19:15 | NUR ---
RN INITIAL NOTES RECEIVED PATIENT IN BED, AROUSABLE WITH VERBAL AND TACTILE STIMULI. PATIENT IS ALERT AND ORIENTED, ABLE TO MAKE BASIC NEEDS KNOWN WITH MOUTHING WORDS. ON SR WITH BBB, PVC WITH OCCASIONAL PACING NOTED, HR OF 65. TOLERATING MECH VENT WELL, NO DISTRESS, SATURATING WELL AT 100%. R HAND PIV, INTACT AND PATENT, NO SIGNS OF INFILTRATION. JAZMIN MIDLINE INTACT. GT IN PLACE, NOTED WITH PURULENT DISCHARGE ON SURROUNDING AREA; FEEDING INFUSING WELL, NO GASTRIC RESIDUAL NOTED. R CHESTWALL HD CATH INTACT DRESSING. PATIENT'S NEEDS ANTICIPATED AND MET. SAFETY AND COMFORT ENSURED. BED IN LOW AND LOCKED POSITION. CALL LIGHT IN REACH. WILL MONITOR.
--- NOTE | 2016-12-08 19:30 | NUR ---
TELE1/RN AM SHIFT END NOTES ALL NEEDS PROVIDED DURING THE SHIFT. NO ACUTE CHANGE OF CONDITION DURING THE SHIFT. ENDORSED TO PM NURSE TO CONTINUE CARE. CL WITHIN REACHED AND SAFETY MAINTAINED.
[2016-12-08 20:00] VITALS: BP 116/64
[2016-12-08] MEDS: ESCITALOPRAM OXALATE (10 MG) 10 MG TABLET GT SCH (21:48)
[2016-12-08] MEDS: INSULIN DETEMIR 100 UNIT/ML CARTRIDGE SQ SCH (21:56)
[2016-12-09] VITALS: BP 125/76
[2016-12-09 04:00] VITALS: BP 114/52
[2016-12-09] MEDS: BLOOD SUGAR DIAGNOSTIC 1 EACH STRIP IN SCH ×3 (05:46→17:34)
[2016-12-09] MEDS: RENAL NOVASOURCE 1,000 ML BOTTLE GT PRN (05:47)
--- NOTE | 2016-12-09 06:47 | NUR ---
RN CLOSING NOTES PATIENT WITH NO ACUTE CHANGE OF CONDITION OBSERVED OVERNIGHT. PATIENT IS STABLE. REMAINS SR WITH BBB. TRACH CARE RENDERED, AIRWAY SUCTIONED NEEDED, TOLERATING MECH VENT SETTINGS WELL. TOLERATED GTF WELL, MINIMAL GASTRIC RESIDUAL NOTED. PATIENT'S NEEDS ANTICIPATED AND MET. TURNED AND REPOSITIONED [id number]. SAFETY AND COMFORT ENSURED. BED IN LOW AND LOCKED POSITION. CALL LIGHT IN REACH. AM LABS DRAWN, ALL DUE MEDS GIVEN ORDERED. WILL ENDORSE ACCORDINGLY FOR CONTINUITY OF CARE.
[2016-12-09 07:23] LABS: BASOPHILS % (AUTO) 0.3 % (0.0-2.0); EOSINOPHILS # (AUTO) 0.3 /CMM (0.0-0.7); EOSINOPHILS % (AUTO) 2.1 % (0.0-6.0); HEMATOCRIT 29 % (33-45); HEMOGLOBIN 9.7 g/dL (11.5-14.8); LYMPHOCYTES # (AUTO) 0.8 /CMM (0.8-4.8); LYMPHOCYTES % (AUTO) 5.5 % (20.0-44.0); MEAN CORPUSCULAR HEMOGLOBIN 29 PG (26.0-33.0); MEAN CORPUSCULAR HGB CONC 33 g/dl (31.0-36.0); MEAN CORPUSCULAR VOLUME 86 fL (82-100); MONOCYTES # (AUTO) 1.3 /CMM (0.1-1.30); MONOCYTES % (AUTO) 9.7 % (2.0-12.0); NEUTROPHILS # (AUTO) 11.4 /CMM (1.8-8.9); NEUTROPHILS % (AUTO) 82.4 % (43.0-81.0); PLATELET COUNT (AUTO) 250 /CMM (150-450); RDW COEFFICIENT OF VARIATION 16.6 (11.5-15.0); WHITE BLOOD COUNT (AUTO) 13.8 K/uL (4.3-11.0)
[2016-12-09 07:47] LABS: ALBUMIN 1.6 g/dL (3.4-5.0); BILIRUBIN,TOTAL 0.9 mg/dL (0.2-1.0); CALCIUM, SERUM 8.1 mg/dL (8.5-10.1); CREATININE 3.3 mg/dL (0.6-1.3); MAGNESIUM 2.1 mg/dL (1.8-2.4); PHOSPHORUS 4.2 mg/dL (2.5-4.9); POTASSIUM 3.7 mmol/L (3.5-5.1); TOTAL PROTEIN, SERUM 6.5 g/dL (6.4-8.2)
[2016-12-09 08:00] VITALS: BP 103/41
--- NOTE | 2016-12-09 08:00 | NUR ---
TELE1/RN AM SHIFT INITIAL NOTES RECEIVED PT AWAKE IN BED. PT A/O X 2 ABLE TO MOUTH WORDS IN MALAGASY, DENIES PAIN. NO ACTIVE BLEEDING OR ACUTE CHANGE OF CONDITION NOTED. ON VENTILATOR SET RATE PRESCRIBED, SATURATING @ 100%, LUNG SOUNDS CLEAR, SUCTIONED FOR AIRWAY CLEARANCE. ON TELE WITH SINUS RHYTHM WITH BBB, HR 83. MIDLINE, FLUSHED, PATENT WITH NO S/S OF INFECTION ON SL. GTF ON GOING @ 45CC/HR, FLUSHED, PATENT, NO GASTRIC RESIDUAL NOTED. PT IS COMFORTABLE AT THIS TIME. SCHEDULED AM MEDS TO BE GIVEN. CL WITHIN REACHED AND SAFETY MAINTAINED. ON GOING MONITORING.
[2016-12-09 08:42] LABS: PROTHROMBIN TIME 49.2 SECS (9.5-12.7)
[2016-12-09] MEDS: PROSOURCE / PROSTAT (PYXIS) 30 ML UDC GT SCH ×3 (08:58→18:03)
[2016-12-09] MEDS: VIT B CMPLX 3/FA/VIT C/BIOTIN 1 TAB TABLET GT SCH (08:58)
[2016-12-09] MEDS: PANTOPRAZOLE 40 MG VIAL IV SCH ×2 (08:58→22:07)
[2016-12-09] MEDS: SUCRALFATE 1 G/10 ML UDC GT SCH ×4 (08:58→22:07)
[2016-12-09] MEDS: PYRIDOXINE HCL 50 MG TABLET GT SCH (08:58)
[2016-12-09] MEDS: CHOLESTYRAMINE/ASPARTAME 4 G/PKT PACKET GT SCH ×2 (08:58→18:03)
[2016-12-09] MEDS: Z GUARD REMEDY 2 OZ OINT TP SCH (08:59)
[2016-12-09] MEDS: NEOMY SULF/BACITRAC ZN/POLY 15 GM TUBE TP SCH (08:59)
[2016-12-09 09:20] LABS: INR 4.2 (0.87-1.13)
[2016-12-09 12:00] VITALS: BP 114/37
--- NOTE | 2016-12-09 12:00 | NUR ---
TELE1/RN NOON ROUNDS NO ACUTE CHANGE OF CONDITION. PT SUCTIONED AND REPOSITIONED. MONITORING CONTINUED.
[2016-12-09] MEDS: HYDROCODONE/APAP 5/325MG 1 EACH TABLET GT PRN ×2 (15:38→23:56)
[2016-12-09 16:00] VITALS: BP 117/51
--- NOTE | 2016-12-09 18:00 | NUR ---
TELE1/RN AFTERNOON ROUNDS NO CHANGE OF CONDITION NOTED. PM CARE PROVIDED. ON GOING MONITORING.
[2016-12-09] MEDS: INSULIN REGULAR, HUMAN 100 UNIT/ML 3 ML VIAL SQ PRN (18:06)
--- NOTE | 2016-12-09 19:30 | NUR ---
RN Initial Note Report received from day RN. A&O x2. Pt. resting in bed with Vent and gtube feeding Novasource 45ml/hr. Tolerating well. Pt. able to mouth words or shake head yes or no. Tele monitor SR w/BBB and occ PVC's. No S/S of distress. All needs attended to.
[2016-12-09 20:00] VITALS: BP 116/65
[2016-12-09] MEDS: ESCITALOPRAM OXALATE (10 MG) 10 MG TABLET GT SCH (22:07)
[2016-12-09] MEDS: INSULIN DETEMIR 100 UNIT/ML CARTRIDGE SQ SCH (22:13)
[2016-12-10] VITALS: BP 108/56
[2016-12-10] MEDS: INSULIN REGULAR, HUMAN 100 UNIT/ML 3 ML VIAL SQ PRN ×3 (00:05→23:21)
[2016-12-10] MEDS: BLOOD SUGAR DIAGNOSTIC 1 EACH STRIP IN SCH ×5 (00:05→23:23)
[2016-12-10 04:00] VITALS: BP 96/74
--- NOTE | 2016-12-10 05:00 | NUR ---
PEG TUBE FEEDING DURING REPOSITIONING AND BED BATH LEAKING AROUND THE INSERTION SITE. STOPPED FEEDING UNTIL MD CAN ASSESS. WILL ENDORSE TO NEXT SHIFT. NO RESIDUAL NOTED UPON ASPIRATION OF PEG TUBE. PT. HAS DISTENDED ABD. FROM ASCITES WHICH MD HAS DOCUMENTED HE IS AWARE OF. ALSO, MD HAS DOCUMENTED THAT THE PEG TUBE WILL NEED TO BE REPLACED DUE TO THE RESULTS OF THE ABDOMINAL XRAY. WILL CONTINUE TO MONITOR.
[2016-12-10] MEDS: RENAL NOVASOURCE 1,000 ML BOTTLE GT PRN (05:45)
--- NOTE | 2016-12-10 06:33 | NUR ---
GUNSMITH APPRENTICE CLOSING NOTE Pt. resting comfortably in bed. Denies abdominal pain at this time. Peg tube feeding still on hold until dayshift RN can have MD assess the g tube. No leakage around peg tube site at this time. Will continue to monitor.
--- NOTE | 2016-12-10 07:20 | NUR ---
RN INITIAL NOTE RECEIVED PT FROM RAFFI HAGEN NURSE. HD IN PROCESS. PORTEX #7 AC 16 TV 550 FIO2 40% PEEP 5 PT A/O X 2 MOUTH WORDS UKRAINIAN SPEAKING. GTF NOVASOURCE @ 45ML/HR PLACEMENT CK. IV JAZMIN #18, R CW TUNNELED HD CATH. AWAITING HD TODAY . WILL CONTINUE TO MONITOR CLOSELY. ALL SAFETY MEASURES IN PLACE
[2016-12-10 07:22] LABS: INR 0.96 (0.87-1.13); PROTHROMBIN TIME 10.2 SECS (9.5-12.7)
--- NOTE | 2016-12-10 07:58 | NUR ---
RN NOTE PER DR. DELACRUZ ORDERED STAT INR TO BE RE-DRAWN THIS MORNING. LAB CALLED.
[2016-12-10 08:00] VITALS: BP 142/73
[2016-12-10] MEDS: PYRIDOXINE HCL 50 MG TABLET GT SCH (08:22)
[2016-12-10] MEDS: SUCRALFATE 1 G/10 ML UDC GT SCH ×4 (08:22→21:27)
[2016-12-10] MEDS: PANTOPRAZOLE 40 MG VIAL IV SCH ×2 (08:22→21:27)
[2016-12-10] MEDS: NEOMY SULF/BACITRAC ZN/POLY 15 GM TUBE TP SCH (08:22)
[2016-12-10] MEDS: PROSOURCE / PROSTAT (PYXIS) 30 ML UDC GT SCH ×3 (08:22→17:23)
[2016-12-10] MEDS: CHOLESTYRAMINE/ASPARTAME 4 G/PKT PACKET GT SCH ×2 (08:22→17:23)
[2016-12-10] MEDS: VIT B CMPLX 3/FA/VIT C/BIOTIN 1 TAB TABLET GT SCH (08:22)
[2016-12-10] MEDS: Z GUARD REMEDY 2 OZ OINT TP SCH (08:23)
[2016-12-10 08:30] LABS: PROTHROMBIN TIME 34.4 SECS (9.5-12.7)
--- NOTE | 2016-12-10 11:08 | NUR ---
PT RECEIVED ON APPROPRIATE SETTINGS. pT IS AWAKE AND ALERT NO DISTRESS NOTED. AMBUBAG AT BEDSIDE NO EXTRA TRACHE. CUFF CHECKED ON THE TRACHE. VENT PLUGGED IN TO THE RED OUTLET. Addendum: 12/10/16 at 1111 by SULEIMAN OLIVEIRA RT Amended: Links added.
[2016-12-10 12:00] VITALS: BP 120/65
[2016-12-10] MEDS: DEXTROSE 50%-WATER 50 ML DISP.SYRIN IV PRN ×2 (12:25→12:32)
--- NOTE | 2016-12-10 12:32 | NUR ---
RN NOTE PT B.S TAKING 56 DEXTROSE GIVEN. UNABLE TO SCAN VIAL BAR CODE. STATED UNSCANABLE. CALL PHARMACY TO CON CONFIRM LAWRENCE STATED TO SCAN SYRINGE. SYRINGE UNSCANABLE WELL.
[2016-12-10 16:00] VITALS: BP 112/55
[2016-12-10 20:00] VITALS: BP 139/75
--- NOTE | 2016-12-10 20:00 | NUR ---
PULP MAKING PLANT OPERATOR NOTE PT IN BED AWAKE. A/O X 2 MOUTH WORDS PERSIAN SPEAKING. ON TRACH/VENT TOLERATING THE SETTINGS WELL, SUCTIONED HER, SMALL YELLOWISH SECRETIONS NOTED. GT FEEDING INFUSING WELL, 0 ML RESIDUAL NOTED. REPOSITION HER FOR SKIN MANAGEMENT. SIDE RAILS UP X 3 AND CALL LIGHT WITHIN REACH. VSS. CONTINUE TO MONITOR HER.
[2016-12-10] MEDS: ESCITALOPRAM OXALATE (10 MG) 10 MG TABLET GT SCH (21:27)
--- NOTE | 2016-12-10 23:00 | NUR ---
GRINDER AND PLATER NOTE INCONTINENCE CARE GIVEN. KEPT HER DRY AND CLEAN. ALL NEEDS ATTENDED. REPOSITION HER Q2H.
[2016-12-10] MEDS: INSULIN DETEMIR 100 UNIT/ML CARTRIDGE SQ SCH (23:20)
[2016-12-11] VITALS: BP 109/48
[2016-12-11 04:00] VITALS: BP 110/44
--- NOTE | 2016-12-11 05:00 | NUR ---
TECHNOLOGY SALES CONSULTANT NOTE PT IN BED ASLEEP, NO DISTRESS NOTED. ON TELE SR WITH BBB HR 84. REPOSITION HER Q2H. KEPT HER DRY AND CLEAN. ALL NEEDS ATTENDED.
[2016-12-11] MEDS: INSULIN REGULAR, HUMAN 100 UNIT/ML 3 ML VIAL SQ PRN ×2 (05:27→23:05)
[2016-12-11] MEDS: BLOOD SUGAR DIAGNOSTIC 1 EACH STRIP IN SCH ×4 (05:28→23:10)
[2016-12-11] MEDS: RENAL NOVASOURCE 1,000 ML BOTTLE GT PRN (05:59)
--- NOTE | 2016-12-11 06:30 | NUR ---
PEST CONTROL WORKER NOTE PT IN BED ASLEEP, AROUSABLE. NO DISTRESS OR DISCOMFORT NOTED. DENIES PAIN. MIDLINE INTACT AND PATENT. REPOSITION HER Q2H. KEPT HER DRY AND CLEAN. SIDE RAILS UP X 3 AND CALL LIGHT WITHIN REACH. WILL ENDORSE TO DAY SHIFT NURSE FOR CONTINUE TO CARE.
[2016-12-11 06:53] LABS: BASOPHILS % (AUTO) 0.2 % (0.0-2.0); EOSINOPHILS # (AUTO) 0.1 /CMM (0.0-0.7); EOSINOPHILS % (AUTO) 0.5 % (0.0-6.0); HEMATOCRIT 29 % (33-45); HEMOGLOBIN 9.5 g/dL (11.5-14.8); LYMPHOCYTES # (AUTO) 0.7 /CMM (0.8-4.8); LYMPHOCYTES % (AUTO) 4.1 % (20.0-44.0); MEAN CORPUSCULAR HEMOGLOBIN 28 PG (26.0-33.0); MEAN CORPUSCULAR HGB CONC 33 g/dl (31.0-36.0); MEAN CORPUSCULAR VOLUME 86 fL (82-100); MONOCYTES # (AUTO) 1.6 /CMM (0.1-1.30); MONOCYTES % (AUTO) 9.3 % (2.0-12.0); NEUTROPHILS # (AUTO) 15.2 /CMM (1.8-8.9); NEUTROPHILS % (AUTO) 85.9 % (43.0-81.0); PLATELET COUNT (AUTO) 252 /CMM (150-450); RDW COEFFICIENT OF VARIATION 16.5 (11.5-15.0); RED BLOOD CELL COUNT(AUTO) 3.37 MIL/uL (4.0-5.2); WHITE BLOOD COUNT (AUTO) 17.7 K/uL (4.3-11.0)
[2016-12-11 08:00] VITALS: BP 124/51
--- NOTE | 2016-12-11 08:00 | NUR ---
TELE1/RN AM SHIFT INITIAL NOTES RECEIVED PT ASLEEP IN BED. PT A/O X 2 ABLE TO MOUTH WORDS IN YI, DENIES PAIN. NO ACTIVE BLEEDING OR ACUTE CHANGE OF CONDITION NOTED. ON VENTILATOR SET RATE PRESCRIBED, SATURATING @ 100%, LUNG SOUNDS CLEAR, SUCTIONED FOR AIRWAY CLEARANCE. ON TELE WITH SINUS RHYTHM WITH BBB AND FIRST DEGREE AV BLOCK, HR 78. MIDLINE, FLUSHED, PATENT WITH NO S/S OF INFECTION ON SL. GTF ON GOING @ 45CC/HR, FLUSHED, PATENT, NO GASTRIC RESIDUAL NOTED. NOTED WITH VERY DISTENDED ABDOMEN. PT IS COMFORTABLE AT THIS TIME. SCHEDULED AM MEDS TO BE GIVEN. CL WITHIN REACHED AND SAFETY MAINTAINED. ON GOING MONITORING.
[2016-12-11] MEDS: PANTOPRAZOLE 40 MG VIAL IV SCH ×2 (09:16→21:41)
[2016-12-11] MEDS: PROSOURCE / PROSTAT (PYXIS) 30 ML UDC GT SCH ×3 (09:16→17:22)
[2016-12-11] MEDS: VIT B CMPLX 3/FA/VIT C/BIOTIN 1 TAB TABLET GT SCH (09:16)
[2016-12-11] MEDS: PYRIDOXINE HCL 50 MG TABLET GT SCH (09:16)
[2016-12-11] MEDS: SUCRALFATE 1 G/10 ML UDC GT SCH ×4 (09:16→21:41)
[2016-12-11] MEDS: CHOLESTYRAMINE/ASPARTAME 4 G/PKT PACKET GT SCH ×2 (09:16→17:22)
[2016-12-11] MEDS: NEOMY SULF/BACITRAC ZN/POLY 15 GM TUBE TP SCH (09:17)
[2016-12-11] MEDS: Z GUARD REMEDY 2 OZ OINT TP SCH (09:17)
--- NOTE | 2016-12-11 11:30 | NUR ---
TELE1/RN ROUNDS - DR. ANGELES UPDATED PT'S CONDITION. NOTIFIED MD THAT PT'S ABDOMEN IS VERY DISTENDED ANS ASKED IF THERE'S ANY PLAN FOR US GUIDED THORACENTESIS. PER MD HE WILL EXAMINE THE PT. MONITORING CONTINUED.
[2016-12-11 12:00] VITALS: BP 122/54
--- NOTE | 2016-12-11 12:54 | NUR ---
TELE1/RN CONSENT OBTAINED CONSENT OBTAINED FROM PT'S SON FOR US GUIDED THORACENTESIS. CONSENT FILED IN PT'S CHART.
[2016-12-11 13:10] LABS: INR 2.35 (0.87-1.13); PROTHROMBIN TIME 26.5 SECS (9.5-12.7)
[2016-12-11 16:00] VITALS: BP 119/53
--- NOTE | 2016-12-11 16:12 | NUR ---
TELE1/RN THORACENTESIS - HOLD SPOKE TO MAGGIE, APPRAISER BOATS AND MARINE, SHE SAID PER DR. SMITH (RADIOLOGY) HE WANT TO PERFORM PROCEDURE ONLY WHEN INR IS BELOW 2. NOTED, WILL NOTIFY DR. ANGELES. Addendum: 12/11/16 at 1618 by ISAURA WHITLEY RN ADDENDUM: CALLED THE PHONE EXCHANGE OF DR. ANGELES, RELAYED MESSAGE REGARDING POSTPONEMENT OF THORACENTESIS PROCEDURE. Addendum: 12/11/16 at 1904 by ISAURA WHITLEY RN ERROR: MISS WRITTEN PROCEDURE NOT THORACENTESIS BUT PARACENTESIS INSTEAD.
--- NOTE | 2016-12-11 18:00 | NUR ---
TELE1/RN ROUNDS - STEVEN RHOADES UPDATED PT'S CONDITION. DR. ANGELES EXAMINED PT. NO NEW ORDERS RECEIVED, PER MD TALK TO DR. HIGUERA REGARDING PROPOSED SURGICAL REPAIR. PM CARE PROVIDED. ON GOING MONITORING.
--- NOTE | 2016-12-11 19:25 | NUR ---
RN OPENING NOTES: RECEIVED PT ON BED ASLEEP BUT EASILY AROUSABLE, ABLE TO MOUTH WORDS. TRACH TO [facility] VENT WITH SETTINGS ORDERED, TOLERATED WELL. SR WITH BBB ON MONITOR HR AT 66 BPM. NOT IN APPARENT DISTRESS AT THIS TIME. IV ACCESS ON JAZMIN MIDLINE PATENT AND INTACT KEPT SL AT THIS TIME, WITH RCW HD CATH INTACT WELL. GT INTACT WITH FEEDING ONGOING, NOTED WITH SLIGHT RESIDUAL. TO MONITOR FOR FURTHER RESIDUALS. SAFETY MEASURES ENSURED. ASPIRATION PREC OBSERVED AT ALL TIMES. CONTINUOUSLY MONITORED PT CLOSELY. Addendum: 12/12/16 at 0347 by TAMIKO DUBON RN ERROR. NO NOTED RESIDUALS. TO MONITOR FOR RESIDUALS.
[2016-12-11 20:00] VITALS: BP 108/47
[2016-12-11] MEDS: ESCITALOPRAM OXALATE (10 MG) 10 MG TABLET GT SCH (21:41)
[2016-12-11] MEDS: INSULIN DETEMIR 100 UNIT/ML CARTRIDGE SQ SCH (23:04)
[2016-12-12] VITALS: BP 114/37
[2016-12-12 04:00] VITALS: BP 118/40
[2016-12-12] MEDS: HYDROCODONE/APAP 5/325MG 1 EACH TABLET GT PRN (04:50)
[2016-12-12] MEDS: BLOOD SUGAR DIAGNOSTIC 1 EACH STRIP IN SCH ×3 (05:06→17:40)
[2016-12-12] MEDS: INSULIN REGULAR, HUMAN 100 UNIT/ML 3 ML VIAL SQ PRN ×4 (05:10→23:16)
[2016-12-12] MEDS: RENAL NOVASOURCE 1,000 ML BOTTLE GT PRN (05:14)
[2016-12-12 06:45] LABS: BASOPHILS % (AUTO) 0.2 % (0.0-2.0); EOSINOPHILS # (AUTO) 0.3 /CMM (0.0-0.7); EOSINOPHILS % (AUTO) 1.6 % (0.0-6.0); HEMATOCRIT 29 % (33-45); HEMOGLOBIN 9.4 g/dL (11.5-14.8); LYMPHOCYTES # (AUTO) 0.9 /CMM (0.8-4.8); LYMPHOCYTES % (AUTO) 5.2 % (20.0-44.0); MEAN CORPUSCULAR HEMOGLOBIN 28 PG (26.0-33.0); MEAN CORPUSCULAR HGB CONC 33 g/dl (31.0-36.0); MEAN CORPUSCULAR VOLUME 86 fL (82-100); MONOCYTES # (AUTO) 1.4 /CMM (0.1-1.30); NEUTROPHILS # (AUTO) 14.9 /CMM (1.8-8.9); PLATELET COUNT (AUTO) 246 /CMM (150-450); RDW COEFFICIENT OF VARIATION 16.3 (11.5-15.0); RED BLOOD CELL COUNT(AUTO) 3.31 MIL/uL (4.0-5.2); WHITE BLOOD COUNT (AUTO) 17.5 K/uL (4.3-11.0)
--- NOTE | 2016-12-12 06:50 | NUR ---
RN CLOSING NOTES; PATIENT RESTING IN BED,NOT IN APPARENT DISTRESS, TOLERATING MECH VENT SETTINGS WELL. NO SOB. KEPT AIRWAY PATENT. REMAINED SR ON MONITOR. FEEDING TOLERATED WELL. WITH COMPLAINTS OF ABDOMINAL PAIN. PRN PAIN MEDS GIVEN. RESPONSE TO PAIN MED NOTED TO BE EFFECTIVE. SKIN CARE RENDERED. SAFETY MEASURES ENSURED. CONTINUOUSLY MONITORED. TO ENDORSE TO AM SHIFT RN.
[2016-12-12 07:10] LABS: INR 2.01 (0.87-1.13); PROTHROMBIN TIME 22.5 SECS (9.5-12.7)
--- NOTE | 2016-12-12 07:20 | NUR ---
RN INITIAL NOTES: Rec'd pt awake on bed, A/O x2, able to make needs known, not in any distress. Pt on mech vent via trach (Portex 7) w/ ff settings: AC 16, TV 550, FiO2 40%, PEEP 5, saturating at 100%. On telemonitor, SR w/ BBB, HR 75 bpm. Has patent & intact PEG, on continuous tube feeding Novasource at 45 cc/hr infusing well, no residual noted upon checking. Pt has RCW HD cath in place, intact. Has JAZMIN midline SL, flushed, patent & intact w/ no signs of infection or infiltration noted. Will turn, reposition & offload heels as per protocol. Provided comfort & safety measures. Call light placed w/ in reach. Bed kept in low & in locked position. Will continue to monitor.
[2016-12-12 08:00] VITALS: BP 117/55
--- NOTE | 2016-12-12 09:00 | NUR ---
RN NOTES: Pt tolerated HD well, 1 L output.
[2016-12-12] MEDS: NEOMY SULF/BACITRAC ZN/POLY 15 GM TUBE TP SCH (09:02)
[2016-12-12] MEDS: CHOLESTYRAMINE/ASPARTAME 4 G/PKT PACKET GT SCH ×2 (09:02→16:21)
[2016-12-12] MEDS: PROSOURCE / PROSTAT (PYXIS) 30 ML UDC GT SCH ×3 (09:02→16:21)
[2016-12-12] MEDS: Z GUARD REMEDY 2 OZ OINT TP SCH (09:02)
[2016-12-12] MEDS: PYRIDOXINE HCL 50 MG TABLET GT SCH (09:02)
[2016-12-12] MEDS: VIT B CMPLX 3/FA/VIT C/BIOTIN 1 TAB TABLET GT SCH (09:02)
[2016-12-12] MEDS: PANTOPRAZOLE 40 MG VIAL IV SCH ×2 (09:02→21:21)
[2016-12-12] MEDS: SUCRALFATE 1 G/10 ML UDC GT SCH ×4 (09:02→21:21)
--- NOTE | 2016-12-12 09:30 | NUR ---
RN NOTES: Pt seen & examined by Dr. Varghese w/ orders noted & carried out.
[2016-12-12 12:00] VITALS: BP 105/50
[2016-12-12] MEDS: DEXTROSE 50%-WATER 50 ML DISP.SYRIN IV PRN (12:29)
--- NOTE | 2016-12-12 13:34 | NUR ---
INR STILL HIGH 2.01 PER CRICKET STILL ON HOLD TILL FURTHER NOTICE
[2016-12-12 16:00] VITALS: BP 109/40
--- NOTE | 2016-12-12 18:53 | NUR ---
RN CLOSING NOTES: No acute changes noted w/in shift. Pt tolerated prescribed mech vent settings, saturating at 100%. Secretions suctioned. On telemonitor, still SR w/ BBB, HR 82 bpm. PEG kept patent & intact PEG, on continuous tube feeding Novasource at 45 cc/hr infusing well, no residual noted upon checking. RCW HD cath kept in place, intact. JAZMIN midline SL, kept patent & intact w/ no signs of infection or infiltration noted. Wound care done. Turned, repositioned & offloaded heels q2h & as needed. Kept well rested. Call light placed w/in reached. Bed kept low & in locked position. Needs attended. Will endorse to PM RN for KARINA.
[2016-12-12 20:00] VITALS: BP 113/43
--- NOTE | 2016-12-12 20:00 | NUR ---
EQUITY TRADER NOTE PT IN BED WITH EYES OPEN. A/O X 2 MOUTH WORDS, KAZAKH SPEAKING. REMAIN ON VENT/TRACH PORTEX #7 AC 16, TV 550 FIO2 40% PEEP 5. TOLERATING WELL. NO DISTRESS OR DISCOMFORT NOTED. DENIES PAIN. ON TELE SR WITH BBB, OCCASIONAL PVC HR 72. WOUND DRESSING INTACT. GTF NOVASOURCE INFUSING AT 45 ML/HR, 0 ML RESIDUAL NOTED. JAZMIN WITH MID LINE #18G INTACT AND PATENT. RCW WITH TUNNELED HD CATH. NO S/S OF HYPO OR HYPERGLYCEMIA NOTED. REPOSITION HER FOR COMFORT AND SKIN MANAGEMENT. KEPT HER DRY AND CLEAN. ALL NEEDS ATTENDED. VSS. SIDE RAILS UP X 3 AND CALL LIGHT WITHIN REACH. CONTINUE TO MONITOR HER.
[2016-12-12] MEDS: ESCITALOPRAM OXALATE (10 MG) 10 MG TABLET GT SCH (21:21)
[2016-12-12] MEDS: INSULIN DETEMIR 100 UNIT/ML CARTRIDGE SQ SCH (23:15)
[2016-12-13] VITALS (8 sets, daily range): BP systolic 97–120; BP diastolic 26–74
[2016-12-13] MEDS: BLOOD SUGAR DIAGNOSTIC 1 EACH STRIP IN SCH ×5 (00:19→23:54)
[2016-12-13] MEDS: RENAL NOVASOURCE 1,000 ML BOTTLE GT PRN (05:52)
[2016-12-13 06:26] LABS: EOSINOPHILS # (AUTO) 0.1 /CMM (0.0-0.7); EOSINOPHILS % (AUTO) 0.8 % (0.0-6.0); HEMATOCRIT 27 % (33-45); HEMOGLOBIN 8.9 g/dL (11.5-14.8); LYMPHOCYTES # (AUTO) 0.8 /CMM (0.8-4.8); LYMPHOCYTES % (AUTO) 5.1 % (20.0-44.0); MEAN CORPUSCULAR HEMOGLOBIN 28 PG (26.0-33.0); MEAN CORPUSCULAR HGB CONC 33 g/dl (31.0-36.0); MEAN CORPUSCULAR VOLUME 85 fL (82-100); MONOCYTES # (AUTO) 1.5 /CMM (0.1-1.30); MONOCYTES % (AUTO) 9.1 % (2.0-12.0); NEUTROPHILS # (AUTO) 13.8 /CMM (1.8-8.9); PLATELET COUNT (AUTO) 219 /CMM (150-450); RDW COEFFICIENT OF VARIATION 15.7 (11.5-15.0); RED BLOOD CELL COUNT(AUTO) 3.16 MIL/uL (4.0-5.2); WHITE BLOOD COUNT (AUTO) 16.3 K/uL (4.3-11.0)
--- NOTE | 2016-12-13 06:33 | NUR ---
STACKING MACHINE OPERATOR NOTE PT IN BED ASLEEP, AROUSABLE. NO DISTRESS OR DISCOMFORT NOTED. TOLERATING VENT SETTINGS WELL. GTF INFUSING WELL, 0 ML RESIDUAL NOTED. NO S/S PAIN. MID LINE INTACT AND PATENT. NO S/S OF INFILTRATION NOTED. ON TEL SR, S ARRHYTHMIA WITH BBB AND OCCASIONAL PVC HR 75. REPOSITION HER Q2H. KEPT HER DRY AND CLEAN. ALL NEEDS ATTENDED. SIDE RAILS UP X 3 AND CALL LIGHT WITHIN REACH. VSS. WILL ENDORSE TO DAY SHIFT NURSE FOR CONTINUE TO CARE.
[2016-12-13 06:37] LABS: ALBUMIN 1.5 g/dL (3.4-5.0); BILIRUBIN,TOTAL 0.9 mg/dL (0.2-1.0); CALCIUM, SERUM 8.5 mg/dL (8.5-10.1); CREATININE 3.7 mg/dL (0.6-1.3); MAGNESIUM 2.1 mg/dL (1.8-2.4); PHOSPHORUS 3.5 mg/dL (2.5-4.9); POTASSIUM 3.9 mmol/L (3.5-5.1); TOTAL PROTEIN, SERUM 6.6 g/dL (6.4-8.2)
--- NOTE | 2016-12-13 07:20 | NUR ---
RN INITIAL NOTES: Rec'd pt awake on bed, A/O x2, able to make needs known, not in any distress. Pt on mech vent via trach (Portex 7) w/ ff settings: AC 16, TV 550, FiO2 40%, PEEP 5, saturating at 100%. On telemonitor, SR w/ BBB, HR 78 bpm. Has patent & intact PEG, on continuous tube feeding Novasource at 45 cc/hr infusing well, no residual noted upon checking. Pt has RCW HD cath in place, intact. Has JAZMIN midline SL, flushed, patent & intact w/ no signs of infection or infiltration noted. Will turn, reposition & offload heels as per protocol. Provided comfort & safety measures. Call light placed w/ in reach. Bed kept in low & in locked position. Will continue to monitor.
[2016-12-13 08:10] LABS: INR 1.82 (0.87-1.13); PROTHROMBIN TIME 20.2 SECS (9.5-12.7)
[2016-12-13] MEDS: PROSOURCE / PROSTAT (PYXIS) 30 ML UDC GT SCH (08:18)
[2016-12-13] MEDS: VIT B CMPLX 3/FA/VIT C/BIOTIN 1 TAB TABLET GT SCH (08:18)
[2016-12-13] MEDS: CHOLESTYRAMINE/ASPARTAME 4 G/PKT PACKET GT SCH ×2 (08:18→17:00)
[2016-12-13] MEDS: SUCRALFATE 1 G/10 ML UDC GT SCH ×4 (08:18→21:27)
[2016-12-13] MEDS: Z GUARD REMEDY 2 OZ OINT TP SCH (08:19)
[2016-12-13] MEDS: PYRIDOXINE HCL 50 MG TABLET GT SCH (08:19)
[2016-12-13] MEDS: PANTOPRAZOLE 40 MG VIAL IV SCH ×2 (08:19→21:27)
[2016-12-13] MEDS: NEOMY SULF/BACITRAC ZN/POLY 15 GM TUBE TP SCH (08:19)
[2016-12-13] MEDS ORDERED: HEPARIN INFUSION/D5W 500 ML IV PRN (09:00)
--- NOTE | 2016-12-13 09:00 | NUR ---
RN NOTES: Noted and carried out Dr. Lee's order.
--- NOTE | 2016-12-13 10:30 | NUR ---
RN NOTES: As per Dr. Martinez, no bolus needed on Heparin drip. Do US Guided Paracentesis prior to starting the Heparin drip. Agreed to decrease rate of tube feeding to 35 cc/hr and decrease frequency of Prostat to OD.
--- NOTE | 2016-12-13 11:12 | NUR ---
RN NOTES: As per Dr. Martinez can start the Heparin Drip right after the US Guided Paracentesis.
[2016-12-13] MEDS ORDERED: RENAL NOVASOURCE 1,000 ML BOTTLE GT PRN (12:00)
[2016-12-13] MEDS: INSULIN REGULAR, HUMAN 100 UNIT/ML 3 ML VIAL SQ PRN ×3 (12:19→23:58)
--- NOTE | 2016-12-13 12:30 | NUR ---
RN NOTES: US Guided Paracentesis started c/o Iliana.
--- NOTE | 2016-12-13 13:00 | NUR ---
RN NOTES: S/p US Guided Thoracentesis, 6600 L out, pt tolerated well, no untoward signs and symptoms noted. Specimen (6 bottles) sent to laboratory for cell count and culture test as ordered.
--- NOTE | 2016-12-13 15:38 | NUR ---
RN NOTES: As per Hawa (Pharmacy), do not give over Heparin Drip X 1200 units/hr today, check PT/INR, APTT after 6 hours from then dose will be adjusted.
[2016-12-13] MEDS ORDERED: IV SET PRIMARY PUMP SET 1 EA INFUS.SET MC ONE (15:55)
[2016-12-13] MEDS: HEPARIN INFUSION/D5W 500 ML IV PRN (16:04)
--- NOTE | 2016-12-13 18:59 | NUR ---
RN CLOSING NOTES: No acute changes noted w/in shift. Pt tolerated prescribed mech vent settings, saturating at 100%. Secretions suctioned. On telemonitor, still SR w/ BBB. PEG kept patent & intact, on continuous tube feeding Novasource at 35 cc/hr infusing well, no residual noted w/in shift. RCW HD cath kept in place, intact. JAZMIN midline, kept patent & intact w/ no signs of infection or infiltration noted w/ Heparin drip at 1200 units/hr (24 ml/hr) infusing well. Pt tolerated US guided paracentesis (6600 mL output), no active bleeding noted especially on Paracentesis site. Wound care done. Turned, repositioned & offloaded heels q2h & as needed. Kept well rested. Call light placed w/in reached. Bed kept low & in locked position. Needs attended. Will endorse to PM RN for KARINA.
--- NOTE | 2016-12-13 19:30 | NUR ---
CHORE TENDER INITIAL NOTE RECEIVED REPORT FROM CRICKET PARMAR. PT IN BED, RESTING WITH EYES CLOSED. USUALLY PT IS ABLE TO MOUTH WORDS. PT CHRONIC VENT TRACH TOLERATING CURRENT VENT SETTINGS. LUNG SOUNDS RHONCHI, SUCTIONED FOR COMFORT. ORAL CARE PROVIDED. BOWEL SOUNDS PRESENT, GT PATENT AND INTACT WITH FEEDING RUNNING. IV PATENT AND INTACT WITH HEPARIN RUNNING. NEXT PTT DUE AT 10PM. ANURIC. DIALYSIS CATH INTACT. NEXT DIALYSIS SCHEDULED FOR AM. BED IN LOW LOCKED POSITION. WILL CONTINUE TO MONITOR.
[2016-12-13] MEDS: HYDROCODONE/APAP 5/325MG 1 EACH TABLET GT PRN (21:27)
[2016-12-13] MEDS: ESCITALOPRAM OXALATE (10 MG) 10 MG TABLET GT SCH (21:27)
[2016-12-13] MEDS: INSULIN DETEMIR 100 UNIT/ML CARTRIDGE SQ SCH (21:36)
--- NOTE | 2016-12-13 23:00 | NUR ---
BURN CREW MEMBER PTT RESULTS 66. WEIGHT BASED PROTOCOL INDICATES. NO CHANGE. WILL CONTINUE TO MONITOR.
[2016-12-13 23:04] LABS: INR 1.8 (0.87-1.13)
[2016-12-14] VITALS: BP 120/49
[2016-12-14 04:00] VITALS: BP 110/43
[2016-12-14] MEDS: BLOOD SUGAR DIAGNOSTIC 1 EACH STRIP IN SCH ×4 (06:21→23:28)
[2016-12-14 06:54] LABS: BASOPHILS % (AUTO) 0.1 % (0.0-2.0); EOSINOPHILS # (AUTO) 0.2 /CMM (0.0-0.7); EOSINOPHILS % (AUTO) 1.5 % (0.0-6.0); HEMATOCRIT 27 % (33-45); HEMOGLOBIN 8.8 g/dL (11.5-14.8); LYMPHOCYTES # (AUTO) 1.2 /CMM (0.8-4.8); LYMPHOCYTES % (AUTO) 7.5 % (20.0-44.0); MEAN CORPUSCULAR HEMOGLOBIN 28 PG (26.0-33.0); MEAN CORPUSCULAR HGB CONC 32 g/dl (31.0-36.0); MEAN CORPUSCULAR VOLUME 86 fL (82-100); MONOCYTES # (AUTO) 1.4 /CMM (0.1-1.30); MONOCYTES % (AUTO) 8.7 % (2.0-12.0); NEUTROPHILS # (AUTO) 12.8 /CMM (1.8-8.9); NEUTROPHILS % (AUTO) 82.2 % (43.0-81.0); PLATELET COUNT (AUTO) 211 /CMM (150-450); RED BLOOD CELL COUNT(AUTO) 3.17 MIL/uL (4.0-5.2); WHITE BLOOD COUNT (AUTO) 15.6 K/uL (4.3-11.0)
[2016-12-14 07:05] LABS: INR 1.73 (0.87-1.13); PROTHROMBIN TIME 19.2 SECS (9.5-12.7)
--- NOTE | 2016-12-14 07:25 | NUR ---
RN INITIAL NOTES: Rec'd pt awake on bed, A/O x2, able to make needs known, not in any distress. Pt on mech vent via trach (Portex 7) w/ ff settings: AC 16, TV 550, FiO2 40%, PEEP 5, saturating at 100%. On telemonitor, SR w/ HR 80 bpm. Has patent & intact PEG, on continuous tube feeding Novasource at 35 cc/hr infusing well, no residual noted upon checking. Has JAZMIN midline PL, patent & intact w/ no signs of infection or infiltration noted, on Heparin Drip x 1200 units/hr (24 ml/hr) - based on per dosing orders, infusing well. Pt on ongoing HD c/o Ahmed. Will turn, reposition & offload heels as per protocol. Provided comfort & safety measures. Call light placed w/ in reach. Bed kept in low & in locked position. Will continue to monitor.
[2016-12-14 08:00] VITALS: BP 95/42
[2016-12-14] MEDS: PYRIDOXINE HCL 50 MG TABLET GT SCH (08:29)
[2016-12-14] MEDS: PROSOURCE / PROSTAT (PYXIS) 30 ML UDC GT SCH (08:29)
[2016-12-14] MEDS: CHOLESTYRAMINE/ASPARTAME 4 G/PKT PACKET GT SCH ×2 (08:29→17:52)
[2016-12-14] MEDS: PANTOPRAZOLE 40 MG VIAL IV SCH ×2 (08:29→20:22)
[2016-12-14] MEDS: VIT B CMPLX 3/FA/VIT C/BIOTIN 1 TAB TABLET GT SCH (08:29)
[2016-12-14] MEDS: SUCRALFATE 1 G/10 ML UDC GT SCH ×4 (08:29→21:47)
[2016-12-14] MEDS: Z GUARD REMEDY 2 OZ OINT TP SCH (08:30)
[2016-12-14] MEDS: NEOMY SULF/BACITRAC ZN/POLY 15 GM TUBE TP SCH (08:30)
--- NOTE | 2016-12-14 10:00 | NUR ---
RN NOTES: Verified w/ Pharmacy c/o Maik regarding the Heparin drip dosage (based on the PT, INR, PTT results this AM), to keep current dose at 1200 units/hr.
[2016-12-14 12:00] VITALS: BP 108/31
[2016-12-14] MEDS: INSULIN REGULAR, HUMAN 100 UNIT/ML 3 ML VIAL SQ PRN ×2 (12:20→17:54)
[2016-12-14] MEDS: HEPARIN INFUSION/D5W 500 ML IV PRN (12:31)
[2016-12-14 16:00] VITALS: BP 120/60
--- NOTE | 2016-12-14 17:57 | NUR ---
RT END OF THE SHIFT REPORT: PT. 61 Y OLD FEMALE TRACH'D PORTEX # 7 REMAIN ON VENT WITH NOTED SETTINGS, ALARMS ARE SET AND FUNCTIONAL T/O SHIFT NO DISTRESS NOTED. EQUAL CHEST RISE NOTED, GOLF CLUB FACER DONE , HME CHANGED, TRACH IN POSITION VENT PLUGGED INTO RED OUTLET. AMBU BAG REMAIN AT THE BEDSIDE. B/S RHONCHI/RALES BILATERALLY, SUX'D FOR MINIMAL WHITE SECRETIONS, NO CHANGES T/O SHIFT. PT. REMAIN STABLE CONTINUE MONITORING AND REPORT WILL BE PASS TO PM SHIFT. Addendum: 12/14/16 at 1758 by LASHELL HERNANDEZ RT Amended: Links added.
--- NOTE | 2016-12-14 19:00 | NUR ---
RN CLOSING NOTES: No acute changes noted w/in shift. Pt tolerated prescribed mech vent settings, saturating at 100%. Secretions suctioned. PEG kept patent & intact, on continuous tube feeding Novasource at 35 cc/hr infusing well, no residual noted w/in shift. RCW HD cath kept in place, intact. JAZMIN midline, kept patent & intact w/ no signs of infection or infiltration noted w/ Heparin drip at 1200 units/hr (24 ml/hr) infusing well. Wound care done. Turned, repositioned & offloaded heels q2h & as needed. Kept well rested. Call light placed w/in reached. Bed kept low & in locked position. Needs attended. Will endorse to PM RN for KARINA.
[2016-12-14 20:00] VITALS: BP 111/40
--- NOTE | 2016-12-14 20:00 | NUR ---
RN INITIAL NOTE; PT ON THE BED WITHOUT ANY DISTRESS , ON MECH VENT , SETTING ORDERED , ON HEPARIN DRIP @ 1200 UNIT/HR. ON CONTINUE G TUBE FEEDING @ 35 ML/HR . NO ANY RESIDUAL NOTED , ON ASPIRATION PRECAUTION , JAZMIN MIDLINE INTACT AND PATENT, RCW HD CATH INTACT , WILL KEEP CLEAN AND DRY , REPOSITION Q2H , WILL CONTINUE TO MONITOR .
[2016-12-14] MEDS: HYDROCODONE/APAP 5/325MG 1 EACH TABLET GT PRN (20:22)
[2016-12-14] MEDS: ESCITALOPRAM OXALATE (10 MG) 10 MG TABLET GT SCH (21:47)
--- NOTE | 2016-12-14 22:00 | NUR ---
RN NOTE; CALLED SON AMRITA ALLEN FOR CONSENT OF SURGERY TOMORROW AT 0900 AM , REFUSED TO GIVE CONSENT AT THIS TIME, VERBALIZED HE WANTS TO TALK WITH DR ANGELES BEFORE GIVING CONSENT FOR PROCEDURE . WILL LET THE DR KNOW .
--- NOTE | 2016-12-14 22:15 | NUR ---
RN NOTE; DR KARTHIK HARRIS CALLED AND INFORMED TO CALL MAKI ALLEN REGARDING THE PROCEDURE CONCERN AND QUESTIONS , PHONE NUMBER PROVIDED .
--- NOTE | 2016-12-14 22:40 | NUR ---
RN NOTE; DR KARTHIK HARRIS COULD NOT CONTACT WITH SON AMRITA ALLEN , CALLED HIM AGAIN AND LEFT DR KARTHIK HARRIS PHONE NUMBER IN VOICEMAIL .WILL F/O
[2016-12-14] MEDS: INSULIN DETEMIR 100 UNIT/ML CARTRIDGE SQ SCH (23:25)
[2016-12-15] VITALS (7 sets, daily range): BP systolic 95–114; BP diastolic 35–45
--- NOTE | 2016-12-15 03:00 | NUR ---
RN NOTE; HEPARIN DRIP STOPPED AT 0300 AM FOR SURGERY TOMORROW PER DR ANGELES ORDER . LABS ORDERED FOR AM .WILL CONTINUE TO MONITOR .
[2016-12-15] MEDS: BLOOD SUGAR DIAGNOSTIC 1 EACH STRIP IN SCH ×4 (06:24→23:03)
[2016-12-15] MEDS: INSULIN REGULAR, HUMAN 100 UNIT/ML 3 ML VIAL SQ PRN ×2 (06:25→23:09)
[2016-12-15 06:44] LABS: BASOPHILS # (AUTO) 0.1 /CMM (0.0-0.2); BASOPHILS % (AUTO) 0.5 % (0.0-2.0); EOSINOPHILS # (AUTO) 0.1 /CMM (0.0-0.7); EOSINOPHILS % (AUTO) 0.6 % (0.0-6.0); HEMATOCRIT 24 % (33-45); HEMOGLOBIN 8.3 g/dL (11.5-14.8); LYMPHOCYTES # (AUTO) 0.9 /CMM (0.8-4.8); LYMPHOCYTES % (AUTO) 4.9 % (20.0-44.0); MEAN CORPUSCULAR HEMOGLOBIN 29 PG (26.0-33.0); MEAN CORPUSCULAR HGB CONC 34 g/dl (31.0-36.0); MEAN CORPUSCULAR VOLUME 84 fL (82-100); MONOCYTES # (AUTO) 1.4 /CMM (0.1-1.30); MONOCYTES % (AUTO) 7.5 % (2.0-12.0); NEUTROPHILS # (AUTO) 15.8 /CMM (1.8-8.9); NEUTROPHILS % (AUTO) 86.5 % (43.0-81.0); PLATELET COUNT (AUTO) 201 /CMM (150-450); RDW COEFFICIENT OF VARIATION 15.6 (11.5-15.0); WHITE BLOOD COUNT (AUTO) 18.2 K/uL (4.3-11.0)
[2016-12-15 06:59] LABS: BILIRUBIN,TOTAL 0.9 mg/dL (0.2-1.0); CALCIUM, SERUM 8.1 mg/dL (8.5-10.1); CREATININE 3.7 mg/dL (0.6-1.3); POTASSIUM 3.6 mmol/L (3.5-5.1); TOTAL PROTEIN, SERUM 5.7 g/dL (6.4-8.2)
[2016-12-15 07:01] LABS: INR 1.64 (0.87-1.13); PROTHROMBIN TIME 18.1 SECS (9.5-12.7)
--- NOTE | 2016-12-15 07:03 | NUR ---
RN NOTE; CALLED SON REGARDING THE PROCEDURE CONSENT , VERBALIZED HE RECEIVED THE VOICEMAIL FROM STILL HE WAS NOT CLEAR ABOUT THE PROCEDURE SO SON WANTS TO TALK TO THE DR AND THAN GIVE THE CONSENT . WILL ENDORSE TO THE MORNING SHIFT NURSE TO FOLLOW UP .
[2016-12-15 07:22] LABS: ALBUMIN 1.3 g/dL (3.4-5.0)
[2016-12-15] MEDS: SUCRALFATE 1 G/10 ML UDC GT SCH ×4 (07:30→21:06)
--- NOTE | 2016-12-15 07:30 | NUR ---
received pt in bed. on mechanical vent settings well tolerated.no s/s of distress.no c/o pain.on NPO status r/t surgery.safety measures in place.on tele monitoring with S.R will continue to monitor for changes
[2016-12-15] MEDS: Z GUARD REMEDY 2 OZ OINT TP SCH (09:00)
[2016-12-15] MEDS: PYRIDOXINE HCL 50 MG TABLET GT SCH (09:00)
[2016-12-15] MEDS: NEOMY SULF/BACITRAC ZN/POLY 15 GM TUBE TP SCH (09:00)
[2016-12-15] MEDS: PANTOPRAZOLE 40 MG VIAL IV SCH ×2 (09:00→21:05)
[2016-12-15] MEDS: VIT B CMPLX 3/FA/VIT C/BIOTIN 1 TAB TABLET GT SCH (09:00)
[2016-12-15] MEDS: PROSOURCE / PROSTAT (PYXIS) 30 ML UDC GT SCH (09:00)
[2016-12-15] MEDS: CHOLESTYRAMINE/ASPARTAME 4 G/PKT PACKET GT SCH ×2 (09:00→17:49)
[2016-12-15] MEDS ORDERED: ANESTHESIA TRAY IN PYXIS 1 EA TRAY MC ONE (12:00)
--- NOTE | 2016-12-15 15:53 | NUR ---
SPOKE TO DR. ANGELES AT NURSES STATION, STATED OK TO RESUME FEEDING AT THIS TIME SINCE NOT RECEIVING PROCEDURE AT THIS TIME
[2016-12-15] MEDS: HYDROCODONE/APAP 5/325MG 1 EACH TABLET GT PRN (21:06)
[2016-12-15] MEDS: ESCITALOPRAM OXALATE (10 MG) 10 MG TABLET GT SCH (21:06)
[2016-12-15] MEDS: INSULIN DETEMIR 100 UNIT/ML CARTRIDGE SQ SCH (22:00)
--- NOTE | 2016-12-15 23:10 | NUR ---
MED NOTE: Jovani DUARTE HELD PT POC GLUCOSE 156.
--- NOTE | 2016-12-16 | NUR ---
RN NOTES PATIENT TURNED AND REPOSITIONED. PATIENT'S BS IS 135, NO INSULIN GIVEN FOR NPO STATUS. PATIENT'S GT STOMA SITE DRESSING NOTED TO BE SOILED, APPLIED AND COVERED AREA WITH COLOSTOMY BAG FOR DRAINAGE MANAGEMENT. WILL MONITOR. Addendum: 12/17/16 at 0610 by RAFFI MCGEE RN CORRECTION OF DATE/TIME ENTRY. NURSE'S NOTES ENTRY IS FOR 12/17/16 0000.
[2016-12-16 00:03] VITALS: BP 115/36
[2016-12-16] MEDS: HEPARIN INFUSION/D5W 500 ML IV PRN ×2 (00:08→21:37)
[2016-12-16 04:00] VITALS: BP 108/58
[2016-12-16] MEDS: HYDROCODONE/APAP 5/325MG 1 EACH TABLET GT PRN (04:19)
[2016-12-16] MEDS: RENAL NOVASOURCE 1,000 ML BOTTLE GT PRN (04:19)
[2016-12-16] MEDS: BLOOD SUGAR DIAGNOSTIC 1 EACH STRIP IN SCH ×3 (05:33→18:54)
--- NOTE | 2016-12-16 07:27 | NUR ---
REPORT TO SOON RN FOR CONT OF CARE.
[2016-12-16 07:40] LABS: BASOPHILS % (AUTO) 0.2 % (0.0-2.0); EOSINOPHILS # (AUTO) 0.2 /CMM (0.0-0.7); HEMATOCRIT 26 % (33-45); HEMOGLOBIN 8.7 g/dL (11.5-14.8); LYMPHOCYTES # (AUTO) 0.9 /CMM (0.8-4.8); LYMPHOCYTES % (AUTO) 4.7 % (20.0-44.0); MEAN CORPUSCULAR HEMOGLOBIN 28 PG (26.0-33.0); MEAN CORPUSCULAR HGB CONC 33 g/dl (31.0-36.0); MEAN CORPUSCULAR VOLUME 84 fL (82-100); MONOCYTES # (AUTO) 1.4 /CMM (0.1-1.30); NEUTROPHILS # (AUTO) 17.1 /CMM (1.8-8.9); NEUTROPHILS % (AUTO) 87.1 % (43.0-81.0); PLATELET COUNT (AUTO) 204 /CMM (150-450); RDW COEFFICIENT OF VARIATION 15.6 (11.5-15.0); RED BLOOD CELL COUNT(AUTO) 3.13 MIL/uL (4.0-5.2); WHITE BLOOD COUNT (AUTO) 19.6 K/uL (4.3-11.0)
[2016-12-16 07:57] LABS: INR 1.72 (0.87-1.13)
[2016-12-16 08:00] VITALS: BP 98/38
[2016-12-16 08:05] LABS: CALCIUM, SERUM 8.3 mg/dL (8.5-10.1); MAGNESIUM 2.2 mg/dL (1.8-2.4); PHOSPHORUS 4.4 mg/dL (2.5-4.9); POTASSIUM 3.9 mmol/L (3.5-5.1)
[2016-12-16] MEDS: PANTOPRAZOLE 40 MG VIAL IV SCH ×2 (08:16→21:42)
[2016-12-16] MEDS: VIT B CMPLX 3/FA/VIT C/BIOTIN 1 TAB TABLET GT SCH (08:17)
[2016-12-16] MEDS: CHOLESTYRAMINE/ASPARTAME 4 G/PKT PACKET GT SCH ×2 (08:17→17:00)
[2016-12-16] MEDS: PROSOURCE / PROSTAT (PYXIS) 30 ML UDC GT SCH (08:17)
[2016-12-16] MEDS: SUCRALFATE 1 G/10 ML UDC GT SCH ×4 (08:18→21:35)
[2016-12-16] MEDS: PYRIDOXINE HCL 50 MG TABLET GT SCH (08:18)
[2016-12-16] MEDS: NEOMY SULF/BACITRAC ZN/POLY 15 GM TUBE TP SCH (08:19)
[2016-12-16] MEDS: Z GUARD REMEDY 2 OZ OINT TP SCH (08:19)
[2016-12-16 12:00] VITALS: BP 90/43
[2016-12-16] MEDS: PIPERACILLIN /TAZOBACTAM 2.25 G in IV D5W 50 ML IV SCH ×2 (13:00→21:35)
[2016-12-16] MEDS ORDERED: IV SET PRIMARY PUMP SET 1 EA INFUS.SET MC ONE ×2 (13:01→13:10)
[2016-12-16] MEDS: ONDANSETRON HCL/PF 4 MG/2 ML VIAL IV PRN (13:42)
--- NOTE | 2016-12-16 15:10 | NUR ---
CT ABD. PELVIS W/O WAS ORDERED, PT. HAVING DIALYSIS. NURSE (YONG) WILL CALL US WHEN READY.
--- NOTE | 2016-12-16 15:31 | NUR ---
PT WAS FOUND WITH LEAKAGE AT G.TUBE SITE.TUBE WAS PARTIALLY OUT.(G.I) Milagros BACK WAS NOTIFIED AT 1400.HE LATER CAME TO ASSESS PATIENT AND ORDERED TO D/C G.TUBE AND CT SCAN OF ABDOMEN WITHOUT CONTRAST.AT THIS TIME PATIENT IS GETTING DIALYSIS.WILL SCHEDULE CT SCAN AFTER DIALYSIS IS DONE.
[2016-12-16 16:00] VITALS: BP 93/34
[2016-12-16] MEDS: HYDROMORPHONE 1 MG/1 ML DISP.SYRIN IV PRN (17:23)
--- NOTE | 2016-12-16 19:15 | NUR ---
RN INITIAL NOTES RECEIVED ENDORSEMENT FOR THE PATIENT. PATIENT'S GTUBE REMOVED, ASSESSED SITE AND NOTED WITH COPIOUS AMOUNT OF GASTRIC RESIDUAL DRAINING FROM SITE. APPLIED DRY DRESSING AT THIS TIME AND SECURED WITH ABD'L BINDER, WILL MONITOR. PATIENT IS ON NPO. PATIENT IS ON MECH VENT, TOLERATING SETTINGS WELL, NO DISTRESS, AIRWAY SUCTIONED AND KEPT CLEAR. SR WITH BBB AND OCCASIONAL PVCs, HR OF 74. ON HEPARIN GTT RUNNING ON PATIENT'S JAZMIN MIDLINE, AT 1200u/hr ORDERED. R CHESTWALL HD CATH WITH INTACT DRESSING IN PLACE. PATIENT'S NEEDS ANTICIPATED AND MET. SAFETY AND COMFORT ENSURED. BED IN LOW AND LOCKED POSITION. CALL LIGHT IN REACH. WILL MONITOR.
[2016-12-16 20:00] VITALS: BP 108/69
[2016-12-16] MEDS: ESCITALOPRAM OXALATE (10 MG) 10 MG TABLET GT SCH (21:35)
[2016-12-16] MEDS: INSULIN DETEMIR 100 UNIT/ML CARTRIDGE SQ SCH (21:44)
--- NOTE | 2016-12-16 22:00 | NUR ---
RN NOTES BS NOTED TO BE 133. DETEMIR 20u NOT ADMINISTERED, PATIENT IS NPO.
[2016-12-17] VITALS: BP 104/55
--- NOTE | 2016-12-17 | NUR ---
RN NOTES PATIENT TURNED AND REPOSITIONED. PATIENT'S BS IS 135, NO INSULIN GIVEN FOR NPO STATUS. PATIENT'S GT STOMA SITE DRESSING NOTED TO BE SOILED, APPLIED AND COVERED AREA WITH COLOSTOMY BAG FOR DRAINAGE MANAGEMENT. WILL MONITOR.
[2016-12-17] MEDS: BLOOD SUGAR DIAGNOSTIC 1 EACH STRIP IN SCH ×4 (00:39→17:33)
[2016-12-17 04:00] VITALS: BP 103/36
[2016-12-17] MEDS: PIPERACILLIN /TAZOBACTAM 2.25 G in IV D5W 50 ML IV SCH ×3 (06:25→21:55)
--- NOTE | 2016-12-17 06:38 | NUR ---
RN CLOSING NOTES PATIENT WITH NO ACUTE DISTRESS OBSERVED OVERNIGHT. SAFETY AND COMFORT ENSURED. AM CARE RENDERED. WOUND TREATMENT RENDERED ORDERED. AIRWAY KEPT CLEAR AND PATENT. TOLERATED MECH VENT SETTINGS WELL. HEPARIN DRIP INFUSING WELL ORDERED. SAFETY AND COMFORT ENSURED. BED IN LOW AND LOCKED POSITION. CALL LIGHT IN REACH. WILL ENDORSE ACCORDINGLY FOR CONTINUITY OF CARE.
[2016-12-17 06:53] LABS: BASOPHILS % (AUTO) 0.2 % (0.0-2.0); EOSINOPHILS # (AUTO) 0.2 /CMM (0.0-0.7); EOSINOPHILS % (AUTO) 1.4 % (0.0-6.0); HEMATOCRIT 25 % (33-45); HEMOGLOBIN 8.4 g/dL (11.5-14.8); LYMPHOCYTES # (AUTO) 0.7 /CMM (0.8-4.8); LYMPHOCYTES % (AUTO) 4.8 % (20.0-44.0); MEAN CORPUSCULAR HEMOGLOBIN 28 PG (26.0-33.0); MEAN CORPUSCULAR HGB CONC 34 g/dl (31.0-36.0); MEAN CORPUSCULAR VOLUME 84 fL (82-100); MONOCYTES % (AUTO) 7.2 % (2.0-12.0); NEUTROPHILS # (AUTO) 12.5 /CMM (1.8-8.9); NEUTROPHILS % (AUTO) 86.4 % (43.0-81.0); PLATELET COUNT (AUTO) 203 /CMM (150-450); RDW COEFFICIENT OF VARIATION 15.7 (11.5-15.0); RED BLOOD CELL COUNT(AUTO) 2.97 MIL/uL (4.0-5.2); WHITE BLOOD COUNT (AUTO) 14.4 K/uL (4.3-11.0)
[2016-12-17 07:06] LABS: INR 1.77 (0.87-1.13); PROTHROMBIN TIME 19.6 SECS (9.5-12.7)
[2016-12-17] MEDS: SUCRALFATE 1 G/10 ML UDC GT SCH ×4 (07:30→21:55)
--- NOTE | 2016-12-17 07:51 | NUR ---
INITIAL LIFE SKILLS EDUCATOR NOTE RCVD PT AWAKE AND ALERT SHOWING NO S/O DISTRESS OR C/O PAIN. TOLERATING ORDERED VENT SETTINGS. SR ON TELE. GENERALIZED PITTING EDEMA OBSERVED. COLOSTOMY BAG PLACED OVER PEG STOMA TO COLLECT GASTRIC SECRETIONS. IV SITES C/D/I/PATENT. NO S/O INFILTRATION OR PHLEBITIS OBSERVED. HEPARIN GTT INFUSING. CALL LIGHT WITHIN REACH. BED IN LOW AND LOCKED POSITION. WILL CONTINUE TO MONITOR FOR SAFETY AND COMFORT.
[2016-12-17 07:53] LABS: BILIRUBIN,TOTAL 0.9 mg/dL (0.2-1.0); CREATININE 3.7 mg/dL (0.6-1.3); MAGNESIUM 1.7 mg/dL (1.8-2.4); POTASSIUM 3.6 mmol/L (3.5-5.1)
[2016-12-17 08:00] VITALS: BP 113/49
[2016-12-17] MEDS: PANTOPRAZOLE 40 MG VIAL IV SCH ×2 (08:04→21:55)
[2016-12-17] MEDS: PYRIDOXINE HCL 50 MG TABLET GT SCH (08:05)
[2016-12-17] MEDS: CHOLESTYRAMINE/ASPARTAME 4 G/PKT PACKET GT SCH ×2 (08:05→17:00)
[2016-12-17] MEDS: PROSOURCE / PROSTAT (PYXIS) 30 ML UDC GT SCH (08:05)
[2016-12-17] MEDS: HYDROMORPHONE 1 MG/1 ML DISP.SYRIN IV PRN ×2 (08:05→11:27)
[2016-12-17] MEDS: VIT B CMPLX 3/FA/VIT C/BIOTIN 1 TAB TABLET GT SCH (08:05)
[2016-12-17 08:06] LABS: ALBUMIN 1.3 g/dL (3.4-5.0)
[2016-12-17] MEDS: NEOMY SULF/BACITRAC ZN/POLY 15 GM TUBE TP SCH (08:13)
[2016-12-17] MEDS: Z GUARD REMEDY 2 OZ OINT TP SCH (08:13)
[2016-12-17] MEDS ORDERED: FEE PK DOSING 1 MIN EA MC ONE (09:10)
--- NOTE | 2016-12-17 09:14 | NUR ---
MEDICATION RN NOTE NO PEG IN PLACE, UNABLE TO GIVE NG/PO MEDS.
[2016-12-17] MEDS ORDERED: VANCOMYCIN 1 GM in IV D5W 250 ML IV ONE (10:00)
[2016-12-17] MEDS ORDERED: Magnesium 1GM/D5W 100ML PREMIX 100 ML IV SCH (10:00)
[2016-12-17] MEDS ORDERED: IV NS 0.9% 250 ML IV ONE (10:22)
[2016-12-17 12:00] VITALS: BP 94/40
--- NOTE | 2016-12-17 12:17 | NUR ---
BIOLOGICAL SCIENCE AIDE NOTE SPOKE WITH DR. BACK REGARDING PT'S POC. NO PEG PLAN AT THIS TIME UNTIL ASCITES RESOLVE OR IMPROVE. TX DEFERRED TO DR. STEVEN ANGELES. DR. SONG CONTACTED EARLIER TODAY REGARDING PAIN MX. PT C/O ABDOMINAL PAIN, FACIAL GRIMACING OBSERVED. DILAUDID 0.5 MG CHANGED TO Q3 HR INSTEAD OF Q4H. WILL MONITOR PT FOR SYMPTOM RELIEF.
[2016-12-17] MEDS ORDERED: SECONDARY IV SET 1 EA INFUS.SET MC ONE (13:55)
[2016-12-17 16:00] VITALS: BP 98/41
[2016-12-17] MEDS: HEPARIN INFUSION/D5W 500 ML IV PRN (17:49)
--- NOTE | 2016-12-17 19:03 | NUR ---
BROOMCORN GRADER NOTE NO CHANGE IN PT'S CONDITION. PT'S CARE ENDORSED TO LEARNING DISABLED TEACHER RN FOR CONTINUITY OF CARE.
--- NOTE | 2016-12-17 19:45 | NUR ---
RN INITIAL NOTE RECEIVED PT IN ON ACUTE DISTRESS IN BED. PT IS A/O X 2 AND ABLE TO MOUTH WORDS. PT IS ON MECHANICAL VENT VIA TRACH. TRACH SITE IS CLEAN DRY AND INTACT. PT TOLERATING VENT SETTING WELL. PT IS ON TELE WITH SR ON THE MONITOR. PT HAS GTUBE, BUT BALLOONED OUT AND NOW IS NO LONGER IN PLACE. PT HAS COLOSTOMY BAG COVERING STOMA TO CATCH DRAINAGE. PT HAS GREEN/ BROWN DRAINAGE COMING FROM STOMA SITE. PT HAS JAZMIN MIDLINE THAT IS CLEAN DRY INTACT AND PATENT WITH HEPARIN DRIP. PT HAS R CHESTWALL HD CATH THAT IS CLEAN DRY AND INTACT. PT HAS R HAND 22G THAT IS CLEAN DRY INTACT AND PATENT WITH SALINE FLUSH. BED IN LOW LOCK POSITION WITH RIALS UP X 2. CALL LIGHT WITHIN REACH AND ALL SAFETY MEASURES ENSURED AND CARRIED OUT. WILL CONTINUE TO MONITOR PT.
[2016-12-17 20:00] VITALS: BP 106/51
[2016-12-17] MEDS: ESCITALOPRAM OXALATE (10 MG) 10 MG TABLET GT SCH (21:55)
[2016-12-17] MEDS: INSULIN DETEMIR 100 UNIT/ML CARTRIDGE SQ SCH (22:00)
--- NOTE | 2016-12-17 22:00 | NUR ---
RN NOTE UNABLE TO GIVE MEDICATIONS VIA GTUBE. PT GTUBE BUBBLED OUT AND IS NO LONGER IN PLACE. WILL HOLD ALL PO MEDICATION AND ALL INSULIN DUE TO PT BEING NPO.
[2016-12-18] VITALS: BP 109/57
[2016-12-18] MEDS: BLOOD SUGAR DIAGNOSTIC 1 EACH STRIP IN SCH ×5 (00:11→23:51)
[2016-12-18 04:00] VITALS: BP 99/46
[2016-12-18] MEDS: PIPERACILLIN /TAZOBACTAM 2.25 G in IV D5W 50 ML IV SCH ×3 (04:22→21:16)
[2016-12-18 06:57] LABS: BASOPHILS % (AUTO) 0.4 % (0.0-2.0); HEMATOCRIT 25 % (33-45); HEMOGLOBIN 8.3 g/dL (11.5-14.8); LYMPHOCYTES # (AUTO) 0.7 /CMM (0.8-4.8); LYMPHOCYTES % (AUTO) 5.7 % (20.0-44.0); MEAN CORPUSCULAR HEMOGLOBIN 28 PG (26.0-33.0); MEAN CORPUSCULAR HGB CONC 34 g/dl (31.0-36.0); MEAN CORPUSCULAR VOLUME 84 fL (82-100); MONOCYTES # (AUTO) 0.9 /CMM (0.1-1.30); MONOCYTES % (AUTO) 7.3 % (2.0-12.0); NEUTROPHILS # (AUTO) 10.6 /CMM (1.8-8.9); NEUTROPHILS % (AUTO) 86.6 % (43.0-81.0); PLATELET COUNT (AUTO) 192 /CMM (150-450); RDW COEFFICIENT OF VARIATION 15.8 (11.5-15.0); RED BLOOD CELL COUNT(AUTO) 2.94 MIL/uL (4.0-5.2); WHITE BLOOD COUNT (AUTO) 12.3 K/uL (4.3-11.0)
--- NOTE | 2016-12-18 07:00 | NUR ---
RN NOTE RECEIVED PT ON BED, PT IS A/O X 2 AND ABLE TO MOUTH WORDS. VENT DEPENDENT ,TOLERATING CURRENT VENT SETTING WELL. ON TELE WITH SR WITH BBB , COLOSTOMY BAG WITH GREENISH BROWNISH DRAINING COVERING STOMA TO G TUBE SITE , PT IS NPO AT THIS TIME , JAZMIN MIDLINE IS CLEAN DRY INTACT AND PATENT WITH HEPARIN DRIP.AT 1200UNITS /HR AT THIS TIME , R CHEST WALL HD CATH CDI, R HAND 22G THAT IS CLEAN DRY INTACT AND PATENT WITH SALINE FLUSH. BED IN LOWEST AND LOCKED POSITION WITH RIALS UP X 3,. CALL LIGHT WITHIN REACH AND ALL SAFETY MEASURES ENSURED AND CARRIED OUT. WILL CONTINUE TO MONITOR PT. CLOSELY AND NOTIFY MD FOR ANY SIGNIFICANT CHANGES
[2016-12-18 07:24] LABS: CALCIUM, SERUM 8.1 mg/dL (8.5-10.1); CREATININE 3.7 mg/dL (0.6-1.3); POTASSIUM 3.6 mmol/L (3.5-5.1)
[2016-12-18] MEDS: SUCRALFATE 1 G/10 ML UDC GT SCH ×4 (07:30→21:16)
[2016-12-18 07:32] LABS: INR 1.94 (0.87-1.13); PROTHROMBIN TIME 21.7 SECS (9.5-12.7)
[2016-12-18 08:00] VITALS: BP 131/50
[2016-12-18] MEDS: VIT B CMPLX 3/FA/VIT C/BIOTIN 1 TAB TABLET GT SCH (08:28)
[2016-12-18] MEDS: PYRIDOXINE HCL 50 MG TABLET GT SCH (08:29)
[2016-12-18] MEDS: PROSOURCE / PROSTAT (PYXIS) 30 ML UDC GT SCH (08:29)
[2016-12-18] MEDS: CHOLESTYRAMINE/ASPARTAME 4 G/PKT PACKET GT SCH ×2 (08:29→16:30)
[2016-12-18] MEDS: PANTOPRAZOLE 40 MG VIAL IV SCH ×2 (08:32→21:16)
[2016-12-18] MEDS: NEOMY SULF/BACITRAC ZN/POLY 15 GM TUBE TP SCH (08:32)
[2016-12-18] MEDS: Z GUARD REMEDY 2 OZ OINT TP SCH (08:33)
[2016-12-18] MEDS: HEPARIN INFUSION/D5W 500 ML IV PRN (11:46)
[2016-12-18 12:00] VITALS: BP 121/46
--- NOTE | 2016-12-18 12:00 | NUR ---
RN NOTES BM x1 AT THIS TIME , TRACH CARE DONE, PT STABLE , HEPARIN GTT AT 1200U/HR RUNNING VIA R UPPER ARM MIDLINE , NO COMPLICATION NOTED, CONTINUE TO MONITOR.
[2016-12-18 16:00] VITALS: BP_SYST 109; BP_SYST 131; BP_DIAS 44; BP_DIAS 50
--- NOTE | 2016-12-18 18:47 | NUR ---
RN NOTES PT RECEIVING HD AT THIS TIME , HEPARIN GTT AT 1200UNITS/HR RUNNING VIA R UPPER ARM MIDLINE, MEDICATED PER MD ORDER, 250 YELLOWISH THICK DRAINING NOTED IN GT STOMA BAG, SR UP X3, CALL LIGHT WITHIN EASY REACH , NO SIGNIFICANT CHANGES NOTED ON THIS SHIFT .
--- NOTE | 2016-12-18 19:40 | NUR ---
RN NOTE PT IS RECEIVING DIALYSIS CURRENTLY.
[2016-12-18 20:00] VITALS: BP 111/44
[2016-12-18] MEDS: ESCITALOPRAM OXALATE (10 MG) 10 MG TABLET GT SCH (21:16)
[2016-12-18] MEDS: INSULIN DETEMIR 100 UNIT/ML CARTRIDGE SQ SCH (21:23)
[2016-12-18] MEDS: VANCOMYCIN 500 MG in IV D5W 100 ML IV PRN (23:13)
[2016-12-19] VITALS (8 sets, daily range): BP systolic 106–131; BP diastolic 35–46
[2016-12-19] MEDS ORDERED: IV SET PRIMARY PUMP SET 1 EA INFUS.SET MC ONE ×2 (01:51→11:53)
[2016-12-19] MEDS: PIPERACILLIN /TAZOBACTAM 2.25 G in IV D5W 50 ML IV SCH ×3 (05:11→20:55)
[2016-12-19] MEDS: BLOOD SUGAR DIAGNOSTIC 1 EACH STRIP IN SCH ×4 (05:11→23:39)
[2016-12-19] MEDS: HYDROMORPHONE 1 MG/1 ML DISP.SYRIN IV PRN ×2 (05:52→13:01)
--- NOTE | 2016-12-19 06:10 | NUR ---
RN CLOSING NOTE PT REMAINS IN NO ACUTE DISTRESS IN BED. PT DID NOT HAVE ANY SIGNIFICANT CHANGE IN CONDITION DURING SHIFT. ALL NEEDS MET ALL ORDERS CARRIED OUT. PT TOLERATED VENT SETTING WELL WITH O2 SAT @ 100%. PT REMAINS WITHOUT GTUBE IN PLACE. WILL ENDORSE TO AM RN FOR CONTINUITY OF CARE.
[2016-12-19 06:32] LABS: BASOPHILS # (AUTO) 0.1 /CMM (0.0-0.2); BASOPHILS % (AUTO) 0.4 % (0.0-2.0); HEMATOCRIT 26 % (33-45); HEMOGLOBIN 8.6 g/dL (11.5-14.8); LYMPHOCYTES # (AUTO) 0.7 /CMM (0.8-4.8); LYMPHOCYTES % (AUTO) 5.6 % (20.0-44.0); MEAN CORPUSCULAR HEMOGLOBIN 28 PG (26.0-33.0); MEAN CORPUSCULAR HGB CONC 33 g/dl (31.0-36.0); MEAN CORPUSCULAR VOLUME 83 fL (82-100); MONOCYTES % (AUTO) 8.3 % (2.0-12.0); NEUTROPHILS # (AUTO) 10.8 /CMM (1.8-8.9); NEUTROPHILS % (AUTO) 85.7 % (43.0-81.0); PLATELET COUNT (AUTO) 196 /CMM (150-450); RDW COEFFICIENT OF VARIATION 15.8 (11.5-15.0); RED BLOOD CELL COUNT(AUTO) 3.11 MIL/uL (4.0-5.2); WHITE BLOOD COUNT (AUTO) 12.6 K/uL (4.3-11.0)
[2016-12-19 06:42] LABS: CALCIUM, SERUM 8.2 mg/dL (8.5-10.1); CREATININE 3.1 mg/dL (0.6-1.3); POTASSIUM 3.8 mmol/L (3.5-5.1)
[2016-12-19 06:52] LABS: INR 2.2 (0.87-1.13); PROTHROMBIN TIME 24.8 SECS (9.5-12.7)
--- NOTE | 2016-12-19 07:05 | NUR ---
RN INITIAL NOTE RECEIVED PT FROM JANES PARMAR PM NURSE. PT A/O X2. GT STOMA NO FEEDING RUNNING PT NPO PER GTF WILL HOLD GT MEDICATIONS. IV JAZMIN MIDLINE HEPARIN RUNNING 1200 UNITS/HR APTT, INR, AND PTT CHECKED NO CHANGE TO DOSING DOCUMENTED IN CHART. L HAND 22G PATENT AND INTACT. RCW HD CATH. WILL CONTINUE TO MONITOR CLOSELY. ALL SAFETY MEASURES IN PLACE.
[2016-12-19] MEDS: SUCRALFATE 1 G/10 ML UDC GT SCH ×4 (07:30→20:59)
[2016-12-19] MEDS: PANTOPRAZOLE 40 MG VIAL IV SCH ×2 (08:13→20:55)
[2016-12-19] MEDS: NEOMY SULF/BACITRAC ZN/POLY 15 GM TUBE TP SCH (08:15)
[2016-12-19] MEDS: Z GUARD REMEDY 2 OZ OINT TP SCH (08:15)
[2016-12-19] MEDS: PYRIDOXINE HCL 50 MG TABLET GT SCH (08:16)
[2016-12-19] MEDS: VIT B CMPLX 3/FA/VIT C/BIOTIN 1 TAB TABLET GT SCH (08:16)
[2016-12-19] MEDS: PROSOURCE / PROSTAT (PYXIS) 30 ML UDC GT SCH (08:16)
[2016-12-19] MEDS: CHOLESTYRAMINE/ASPARTAME 4 G/PKT PACKET GT SCH ×2 (08:16→16:15)
[2016-12-19] MEDS ORDERED: IV NS 0.9% 250 ML IV ONE (10:00)
[2016-12-19] MEDS ORDERED: SECONDARY IV SET 1 EA INFUS.SET MC ONE (10:00)
[2016-12-19] MEDS: HEPARIN INFUSION/D5W 500 ML IV PRN (10:12)
--- NOTE | 2016-12-19 10:14 | NUR ---
AGATA TIDWELL 250ML RUNNING @ [employer] WITH ABX.
--- NOTE | 2016-12-19 19:20 | NUR ---
RN CLOSING NOTE REPORT GIVEN TO ERIKA RN PM NURSE FOR KARINA. PT A/O X2. GT- STOMA NO FEEDING RUNNING PT NPO . IV JAZMIN MIDLINE HEPARIN RUNNING 1200 UNITS/HR APTT, INR, AND PTT CHECKED NO CHANGE TO DOSING DOCUMENTED IN CHART. L HAND 22G PATENT AND INTACT. RCW HD CATH. ALL SAFETY MEASURES IN PLACE. PT WARM CLEAN AND DRY.
--- NOTE | 2016-12-19 20:00 | NUR ---
SURVEY SUPERINTENDENT NOTE RECEIVED PT IN BED WITH EYES OPEN. A/O X 2. MOUTH WORDS AND USE FACIAL EXPRESSION FOR COMMUNICATION. REMAIN ON TRACH/VENT TOLERATING THE SETTINGS WELLS. NO DISTRESS OR DISCOMFORT NOTED. DENIES PAIN AT THIS TIME. HEPARIN INFUSING AT 12OO UNITS/HR 24 ML/HR. NO S/S OF INFILTRATION NOTED. ON TELE SR WITH BBB, OCCASIONAL PVC HR 83. KEPT HER DRY AND CLEAN. GT STOMA SITE CLEAN WITH BAG INTACT DRAINING GREENISH COLOR FLUIDS. SIDE RIALS UP X 3 AND CALL LIGHT WITHIN REACH. VSS. CONTINUE TO MONITOR HER.
[2016-12-19] MEDS: ESCITALOPRAM OXALATE (10 MG) 10 MG TABLET GT SCH (20:59)
[2016-12-19] MEDS: INSULIN DETEMIR 100 UNIT/ML CARTRIDGE SQ SCH (22:00)
[2016-12-20] VITALS: BP 108/47
--- NOTE | 2016-12-20 01:00 | NUR ---
TRAFFIC RATE ANALYST NOTE DR STEVEN ANGELES GAVE NEW ORDER, ORDER NOTED AND CARRIED OUT.
--- NOTE | 2016-12-20 01:30 | NUR ---
AQUATIC SCIENTIST NOTE PAGED DR STEVEN ANGELES TO INFORM THAT PT ON HEPARIN DRIP. WAITING FOR MD TO CALL BACK.
--- NOTE | 2016-12-20 02:30 | NUR ---
SNAKER NOTE CHARGE NURSE ALSO TRIED TO REACH DR STEVEN ANGELES. ALSO PAGED DR CHURCH, DR CHURCH CALLED BACK AND INFORMED ME THAT CONTINUE TO HEPARIN DRIP AND INFORMED DR ANGELES IN AM.
--- NOTE | 2016-12-20 03:30 | NUR ---
MEASURING MACHINE OPERATOR NOTE DR STEVEN ANGELES CALLED BACK AND INFORMED HIM WHAT DR CHURCH SAID TO CONTINUE THE HEPARIN DRIP. DR ANGELES SAID, "OK". NO NEW ORDER GIVEN.
[2016-12-20 04:00] VITALS: BP 104/39
[2016-12-20] MEDS: PIPERACILLIN /TAZOBACTAM 2.25 G in IV D5W 50 ML IV SCH ×3 (05:00→20:57)
[2016-12-20] MEDS ORDERED: IV D5W 50 ML IV ONE (05:39)
[2016-12-20] MEDS ORDERED: PIPERACILLIN /TAZOBACTAM 2.25 G VIAL IV ONE (05:39)
--- NOTE | 2016-12-20 06:00 | NUR ---
COPY CUTTER NOTE NO CHANGE IN CONDITION. PT IN BED ASLEEP, AROUSABLE. NO DISTRESS OR DISCOMFORT NOTED. NO S/S OF PAIN NOTED. . ON TELE SR WITH BBB,PVC HR 77. CONTINUES WITH HEPARIN DRIP 24 ML/HR. NO SS OF INFILTRATION NOTED. SIDE RAILS UP X 3 AND CALL LIGHT WITHIN REACH. REPOSITION HER Q2H. KEPT HER DRY AND CLEAN. ALL NEEDS ATTENDED. WILL ENDORSE TO DAY SHIFT NURSE FOR CONTINUE TO CARE.
[2016-12-20] MEDS: BLOOD SUGAR DIAGNOSTIC 1 EACH STRIP IN SCH ×3 (06:20→17:24)
[2016-12-20 07:17] LABS: BASOPHILS % (AUTO) 0.2 % (0.0-2.0); EOSINOPHILS # (AUTO) 0.3 /CMM (0.0-0.7); EOSINOPHILS % (AUTO) 2.5 % (0.0-6.0); HEMATOCRIT 27 % (33-45); HEMOGLOBIN 8.9 g/dL (11.5-14.8); LYMPHOCYTES # (AUTO) 0.8 /CMM (0.8-4.8); LYMPHOCYTES % (AUTO) 7.1 % (20.0-44.0); MEAN CORPUSCULAR HEMOGLOBIN 28 PG (26.0-33.0); MEAN CORPUSCULAR HGB CONC 33 g/dl (31.0-36.0); MEAN CORPUSCULAR VOLUME 84 fL (82-100); MONOCYTES # (AUTO) 0.8 /CMM (0.1-1.30); MONOCYTES % (AUTO) 6.8 % (2.0-12.0); NEUTROPHILS # (AUTO) 9.8 /CMM (1.8-8.9); NEUTROPHILS % (AUTO) 83.4 % (43.0-81.0); PLATELET COUNT (AUTO) 193 /CMM (150-450); WHITE BLOOD COUNT (AUTO) 11.8 K/uL (4.3-11.0)
--- NOTE | 2016-12-20 07:20 | NUR ---
RN INITIAL NOTES: Rec'd pt awake on bed, A/O x2, able to make needs known, not in any distress. Pt on mech vent via trach (Portex 7) w/ ff settings: AC 16, TV 550, FiO2 40%, PEEP 5, saturating at 100%. On telemonitor, SR w/ BBB and occ PVCs, HR 78 bpm. No PEG noted, has stoma draining to greenish liquid output. Pt has RCW HD cath in place, intact. Has JAZMIN midline patent & intact w/ Heparin Drip at 1200 units/hr, infusing well. Has R hand G22 SL, flushed, patent & intact. Will turn, reposition & offload heels as per protocol. Provided comfort & safety measures. Call light placed w/ in reach. Bed kept in low & in locked position. Will continue to monitor.
[2016-12-20] MEDS: SUCRALFATE 1 G/10 ML UDC GT SCH ×4 (07:30→21:04)
[2016-12-20 07:35] LABS: INR 2.4 (0.87-1.13); PROTHROMBIN TIME 27.2 SECS (9.5-12.7)
[2016-12-20] MEDS: HEPARIN INFUSION/D5W 500 ML IV PRN ×2 (07:55→08:05)
[2016-12-20 08:00] VITALS: BP 111/37
--- NOTE | 2016-12-20 08:00 | NUR ---
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 Dr. Jose Martinez made aware of pt's son request as well as informed him that pt still on Heparin Drip, PTT 80, INR 2.40. Awaiting for response.
--- NOTE | 2016-12-20 08:00 | NUR ---
RN NOTES: Rec'd call from Lab, PT 27.2, INR 2.40, APTT 80, Heparin Drip adjusted to 1100 units/hr. Ordered for PT/INR, PTT 6h after dose adjustment.
[2016-12-20 08:06] LABS: BILIRUBIN,TOTAL 0.9 mg/dL (0.2-1.0); CALCIUM, SERUM 8.1 mg/dL (8.5-10.1); CREATININE 3.6 mg/dL (0.6-1.3); MAGNESIUM 2.1 mg/dL (1.8-2.4); PHOSPHORUS 5.4 mg/dL (2.5-4.9); POTASSIUM 3.8 mmol/L (3.5-5.1); TOTAL PROTEIN, SERUM 6.5 g/dL (6.4-8.2)
[2016-12-20 08:08] LABS: ALBUMIN 1.4 g/dL (3.4-5.0)
[2016-12-20] MEDS: PROSOURCE / PROSTAT (PYXIS) 30 ML UDC GT SCH (08:53)
[2016-12-20] MEDS: CHOLESTYRAMINE/ASPARTAME 4 G/PKT PACKET GT SCH ×2 (08:53→16:59)
[2016-12-20] MEDS: VIT B CMPLX 3/FA/VIT C/BIOTIN 1 TAB TABLET GT SCH (08:53)
[2016-12-20] MEDS: PYRIDOXINE HCL 50 MG TABLET GT SCH (08:53)
[2016-12-20] MEDS: PANTOPRAZOLE 40 MG VIAL IV SCH ×2 (09:01→20:57)
[2016-12-20] MEDS: Z GUARD REMEDY 2 OZ OINT TP SCH (09:12)
[2016-12-20] MEDS: NEOMY SULF/BACITRAC ZN/POLY 15 GM TUBE TP SCH (09:12)
--- NOTE | 2016-12-20 11:20 | NUR ---
RN NOTES: Dr. Jaydon Martinez made aware that pt still on Heparin Drip, PT/INR and PTT is high, and still no consent w/ the procedure.
--- NOTE | 2016-12-20 11:30 | NUR ---
RN NOTES: As per Dr. Jaydon Martinez, transfuse FFP at midnight and hold the Heparin Drip in AM once there is already schedule for surgery and consent from family.
[2016-12-20 12:00] VITALS: BP 111/49
--- NOTE | 2016-12-20 13:00 | NUR ---
RN NOTES: Left a VM to pt's son Michael, followed up if he was able to speak w/ Dr. Bart Martinez and if they can give consent for the procedure. Awaiting for response.
--- NOTE | 2016-12-20 14:10 | NUR ---
RN NOTES: As per Dr. Bart Martinez, don't give FFP at midnight, surgery will not be performed tomorrow. Once the family agreed and give consent w/ the surgery, inform or call him and he will talk w/ them. made aware that already left VM to pt's family.
--- NOTE | 2016-12-20 14:11 | NUR ---
RN NOTES: Left also VM to pt's daughters Yumiko at [phone] and Royal at [phone]. Awaiting for CB.
[2016-12-20 14:47] LABS: INR 2.5 (0.87-1.13); PROTHROMBIN TIME 28.4 SECS (9.5-12.7)
--- NOTE | 2016-12-20 14:54 | NUR ---
RN NOTES: PT 28.4, INR 2.50, PTT 92 - Heparin drip held x 1 hour as per dosing orders.
[2016-12-20] MEDS: HYDROMORPHONE 1 MG/1 ML DISP.SYRIN IV PRN ×2 (15:45→21:17)
--- NOTE | 2016-12-20 15:54 | NUR ---
RN NOTES: Heparin drip started on 800 units/hr. PT, INR and PTT ordered for 9PM.
[2016-12-20 16:00] VITALS: BP 90/43
[2016-12-20] MEDS ORDERED: IV NS 0.9% 250 ML IV ONE (17:28)
[2016-12-20] MEDS ORDERED: VANCOMYCIN 1 GM in IV D5W 250 ML IV ONE (18:00)
--- NOTE | 2016-12-20 18:00 | NUR ---
RN NOTES: Rec'd call from Royal (pt's daughter), she said that they will come tomorrow at 7pm to talk to Dr. Bart Martinez regarding the procedure.
--- NOTE | 2016-12-20 19:40 | NUR ---
RN CLOSING NOTES: No acute changes noted w/in shift. Pt tolerated prescribed mech vent settings, saturating at 100%. Secretions suctioned. Drain kept in placed on the GT stoma. RCW HD cath kept in place, intact. JAZMIN midline, kept patent & intact w/ no signs of infection or infiltration noted w/ Heparin drip at 800 units/hr (16 ml/hr) infusing well. Wound care done. Turned, repositioned & offloaded heels q2h & as needed. Kept well rested. Call light placed w/in reached. Bed kept low & in locked position. Needs attended. Endorsed to PM RN for KARINA.
[2016-12-20 20:00] VITALS: BP_SYST 113; BP_SYST 90; BP_DIAS 68
--- NOTE | 2016-12-20 20:00 | NUR ---
FIREWORKS DISPLAY SPECIALIST NOTES Received pt awake on bed, A/O x2, able to make needs known, not in any distress. [facility]Port[facility] w/ ff settings: AC 16, TV 550, FiO2 40%, PEEP 5, saturating at 100%. On telemonitor, SR w/ BBB and occ PVCs, HR 78 bpm. No PEG noted, has stoma draining to greenish liquid output. Pt has RCW HD cath in place, intact. Has JAZMIN midline patent & intact w/ Heparin Drip at 800 units/hr, infusing well. Has R hand G22 TKO, flushed, patent & intact. Will turn, reposition & offload heels as per protocol. Provided comfort & safety measures. Call light placed w/ in reach. Bed kept in low & in locked position. Will continue to monitor.
[2016-12-20] MEDS: ESCITALOPRAM OXALATE (10 MG) 10 MG TABLET GT SCH (21:04)
[2016-12-20] MEDS: INSULIN DETEMIR 100 UNIT/ML CARTRIDGE SQ SCH (21:05)
[2016-12-20 21:41] LABS: INR 2.54 (0.87-1.13); PROTHROMBIN TIME 28.9 SECS (9.5-12.7)
[2016-12-21] VITALS (7 sets, daily range): BP systolic 93–114; BP diastolic 31–51
[2016-12-21] MEDS: BLOOD SUGAR DIAGNOSTIC 1 EACH STRIP IN SCH ×4 (00:14→17:33)
[2016-12-21] MEDS: HYDROMORPHONE 1 MG/1 ML DISP.SYRIN IV PRN ×4 (00:34→19:38)
[2016-12-21] MEDS: PIPERACILLIN /TAZOBACTAM 2.25 G in IV D5W 50 ML IV SCH ×2 (05:10→12:40)
[2016-12-21 06:54] LABS: INR 2.46 (0.87-1.13); PROTHROMBIN TIME 27.9 SECS (9.5-12.7)
[2016-12-21 07:00] LABS: CREATININE 3.2 mg/dL (0.6-1.3); POTASSIUM 3.7 mmol/L (3.5-5.1)
--- NOTE | 2016-12-21 07:25 | NUR ---
RN INITIAL NOTES: Rec'd pt asleep on bed, A/O x2, not in any distress. Pt on mech vent via trach (Portex 7) w/ ff settings: AC 16, TV 550, FiO2 40%, PEEP 5, saturating at 100%. On telemonitor, SR w/ BBB. No PEG noted, has stoma draining to greenish liquid output. Pt has RCW HD cath in place, intact. Has JAZMIN midline patent & intact w/ Heparin Drip at 800 units/hr, infusing well. Has R hand G22 SL, flushed, patent & intact. Will turn, reposition & offload heels as per protocol. Provided comfort & safety measures. Call light placed w/ in reach. Bed kept in low & in locked position. Will continue to monitor.
[2016-12-21] MEDS: SUCRALFATE 1 G/10 ML UDC GT SCH ×4 (07:30→21:34)
--- NOTE | 2016-12-21 07:42 | NUR ---
RT PATIENT REC'D TRACHED ON [facility] VENT WITH SETTINGS SET PER MD TOLERATED WELL. VENT ALARMS CHECKED + AUDIBLE. VENT PLUGGED INTO RED OUTLETS. CUFF PRESSURE CHECKED HOUSE SUPERINTENDENT. TRACH SECURE AND IN GOOD POSITION. BILAT DIM COARSE B/S HEARD. SX'D WITH SMALL AMT PALE SEMITHICK SECRETIONS. PATIENT APPEARS COMFORTABLE AND IN NO RESP DISTRESS. AMBU BAG AT HOB. CONT CURRENT PLAN OF RESP CARE. Addendum: 12/21/16 at 0742 by HUGH SANDERS RT Amended: Links added.
[2016-12-21] MEDS: PANTOPRAZOLE 40 MG VIAL IV SCH ×2 (08:55→21:32)
[2016-12-21] MEDS: NEOMY SULF/BACITRAC ZN/POLY 15 GM TUBE TP SCH (08:55)
[2016-12-21] MEDS: Z GUARD REMEDY 2 OZ OINT TP SCH (08:55)
[2016-12-21] MEDS: PYRIDOXINE HCL 50 MG TABLET GT SCH (09:00)
[2016-12-21] MEDS: CHOLESTYRAMINE/ASPARTAME 4 G/PKT PACKET GT SCH ×2 (09:00→17:00)
[2016-12-21] MEDS: PROSOURCE / PROSTAT (PYXIS) 30 ML UDC GT SCH (09:00)
[2016-12-21] MEDS: VIT B CMPLX 3/FA/VIT C/BIOTIN 1 TAB TABLET GT SCH (09:00)
--- NOTE | 2016-12-21 09:00 | NUR ---
RN NOTES: As per Dr. Sawyer, need to consult PT/INR w/ Dr. Osei.
--- NOTE | 2016-12-21 10:00 | NUR ---
RN NOTES: As per Dr. Jaydon Martinez, no need to consult PT/INR w/ Dr. Osei.
--- NOTE | 2016-12-21 11:00 | NUR ---
RN NOTES: Heparin drip stopped as per ordered.
[2016-12-21] MEDS ORDERED: FEE PK DOSING 1 MIN EA MC ONE (16:31)
[2016-12-21] MEDS ORDERED: GENTAMICIN 120 MG in IV D5W 100 ML IV ONE (17:00)
--- NOTE | 2016-12-21 18:54 | NUR ---
RN CLOSING NOTES: No acute changes noted w/in shift. Pt tolerated prescribed mech vent settings, saturating at 100%. Secretions suctioned. Drain kept in placed on the GT stoma, no leakage. RCW HD cath kept in place, intact. JAZMIN midline and R hand G22, kept patent & intact w/ no signs of infection or infiltration noted - off from Heparin drip. Wound care done. Turned, repositioned & offloaded heels q2h & as needed. Kept well rested. Call light placed w/in reached. Bed kept low & in locked position. Needs attended. Still awaiting for family for surgery consent. Will endorse to PM RN for KARINA. Addendum: 12/21/16 at 1933 by CRICKET MIRANDA RN Addendum: Left VM to Royal (pt's daughter), followed up re: if they will come to the hospital for the consent. Contact details left. As per pharmacy okay to give Vancomycin post HD, requested to send medication. PM RN to give, endorsed.
--- NOTE | 2016-12-21 19:30 | NUR ---
RN INITIAL NOTE; PT ON THE BED WITHOUT ANY DISTRESS . PT IS ALERT , MOUTH WORDS .ON MECH VENT , SETTING ORDERED .SHOWING NSR WITH BBB HR 78 ON TELE MONITOR. JAZMIN MIDLINE AND RH 22 G PERIPHERAL LINE INTACT AND PATENT . RCW HD CATH INTACT. ON NPO STATUS . PT IS ANURIC , COLOSTOMY BAG INTACT AND DRAINING . BED IN THE LOWEST/LOCKED POSITION , SAFETY MEASURES APPLIED. WILL TURN AND REPOSITION Q2H . CALL LIGHT WITHIN REACH . WILL CONTINUE TO MONITOR.
--- NOTE | 2016-12-21 19:38 | NUR ---
PRN DILAUDID 0.5 MG IV GIVEN FOR GENERALIZED PAIN , TOLERATED WELL AT THIS TIME , WILL CONTINUE TO MONITOR.
--- NOTE | 2016-12-21 19:45 | NUR ---
RE; SURGERY CONSENT ; FAMILY AT THE BED SIDE , DR STEVEN ANGELES TALK TO THE FAMILY MEMBERS DAUGHTER LASHELL AND ALDO VIA TELEPHONE , DR HARRIS EXPLAINED ABOUT PROCEDURE AND ANSWER THEIR CONCERN. VERBALIZED THEY WILL LET US KNOW AFTER TALKING TO OTHER SIBLINGS . WILL LET KNOW AFTER THEIR DECISION.
[2016-12-21] MEDS: VANCOMYCIN 500 MG in IV D5W 100 ML IV PRN (20:26)
--- NOTE | 2016-12-21 20:52 | NUR ---
RE; SURGERY CONSENT; PT FAMILY MEMBERS DAUGHTER (ALDO LOBO) REFUSED TO GIVE CONSENT FOR SURGERY INCLUDING BLOOD TRANSFUSION AT THIS TIME, DR STEVEN ANGELES MADE AWARE ABOUT REFUSAL OF CONSENT FOR SURGERY . WILL CONTINUE TO MONITOR .
[2016-12-21] MEDS: ESCITALOPRAM OXALATE (10 MG) 10 MG TABLET GT SCH (21:34)
[2016-12-21] MEDS: INSULIN DETEMIR 100 UNIT/ML CARTRIDGE SQ SCH (21:45)
--- NOTE | 2016-12-21 22:49 | NUR ---
RN NOTE; FFP TRANSFUSION ORDER; HELD FFP TRANSFUSION ORDER AT THIS TIME DUE TO THE REFUSAL OF CONSENT FOR SURGERY BY FAMILY MEMBERS . WILL CONTINUE TO MONITOR .
[2016-12-22] VITALS: BP 102/55
[2016-12-22] MEDS: BLOOD SUGAR DIAGNOSTIC 1 EACH STRIP IN SCH ×5 (00:22→23:12)
[2016-12-22] MEDS: HYDROMORPHONE 1 MG/1 ML DISP.SYRIN IV PRN ×3 (00:40→19:46)
--- NOTE | 2016-12-22 00:40 | NUR ---
PRN DILAUDID 0.5 MG IV GIVEN FOR GENERALIZED PAIN , TOLERATED WELL AT THIS TIME , WILL CONTINUE TO MONITOR.
[2016-12-22] MEDS ORDERED: IV NS 0.9% 250 ML IV ONE (03:42)
[2016-12-22 04:00] VITALS: BP 114/58
[2016-12-22 06:34] LABS: BASOPHILS % (AUTO) 0.3 % (0.0-2.0); EOSINOPHILS # (AUTO) 0.4 /CMM (0.0-0.7); EOSINOPHILS % (AUTO) 4.4 % (0.0-6.0); HEMATOCRIT 26 % (33-45); HEMOGLOBIN 8.6 g/dL (11.5-14.8); LYMPHOCYTES # (AUTO) 0.7 /CMM (0.8-4.8); LYMPHOCYTES % (AUTO) 6.7 % (20.0-44.0); MEAN CORPUSCULAR HEMOGLOBIN 28 PG (26.0-33.0); MEAN CORPUSCULAR HGB CONC 33 g/dl (31.0-36.0); MEAN CORPUSCULAR VOLUME 83 fL (82-100); MONOCYTES # (AUTO) 0.7 /CMM (0.1-1.30); MONOCYTES % (AUTO) 6.9 % (2.0-12.0); NEUTROPHILS # (AUTO) 8.1 /CMM (1.8-8.9); NEUTROPHILS % (AUTO) 81.7 % (43.0-81.0); PLATELET COUNT (AUTO) 168 /CMM (150-450); RDW COEFFICIENT OF VARIATION 16.2 (11.5-15.0); RED BLOOD CELL COUNT(AUTO) 3.14 MIL/uL (4.0-5.2); WHITE BLOOD COUNT (AUTO) 9.9 K/uL (4.3-11.0)
[2016-12-22 06:54] LABS: INR 2.46 (0.87-1.13); PROTHROMBIN TIME 27.9 SECS (9.5-12.7)
[2016-12-22 07:04] LABS: CALCIUM, SERUM 7.9 mg/dL (8.5-10.1); CREATININE 3.1 mg/dL (0.6-1.3); MAGNESIUM 1.9 mg/dL (1.8-2.4); PHOSPHORUS 4.3 mg/dL (2.5-4.9); POTASSIUM 3.5 mmol/L (3.5-5.1)
--- NOTE | 2016-12-22 07:05 | NUR ---
RN EOS NOTE; PT REMAINED STABLE DURING THE SHIFT. NO ANY DISTRESS NOTED . V/S WNL . IV SITE, HD CATH INTACT .TOTAL CARE RENDERED . TURNED AND REPOSITIONED Q2H .WILL ENDORSE TO NEXT SHIFT RN FOR CONTINUITY OF CARE.
[2016-12-22] MEDS: SUCRALFATE 1 G/10 ML UDC GT SCH ×4 (07:30→21:23)
[2016-12-22 08:00] VITALS: BP 103/43
--- NOTE | 2016-12-22 08:00 | NUR ---
TELE1/RN AM SHIFT INITIAL NOTES RECEIVED PT AWAKE IN BED, PT A/O X 1-2, PT ABLE TO MOUTH WORDS IN MALDIVIAN, DENIES PAIN. NO ACUTE CHANGE OF CONDITION NOTED. ON VENTILATOR RATES SET PRESCRIBED, SATURATING @ 98%, LUNG SOUNDS DIMINISHED, SUCTIONED FOR AIRWAY CLEARANCE. ON TELE WITH SINUS RHYTHM WITH BBB AND PVCs, HR 75. MIDLINE PATENT WITH NO S/S OF INFECTION. PT NOTED WITH GENERALIZED EDEMA, NO GTF ACCESS, STOMA ON DRAIN BAG WITH GREENISH GASTRIC CONTENT OUTPUT. PT IS COMFORTABLE AT THIS TIME. SCHEDULED AM GT MEDS TO BE WITHHELD. CL WITHIN REACHED AND SAFETY MAINTAINED. ON GOING MONITORING.
[2016-12-22] MEDS: VIT B CMPLX 3/FA/VIT C/BIOTIN 1 TAB TABLET GT SCH (08:05)
[2016-12-22] MEDS: CHOLESTYRAMINE/ASPARTAME 4 G/PKT PACKET GT SCH ×2 (08:06→16:03)
[2016-12-22] MEDS: PROSOURCE / PROSTAT (PYXIS) 30 ML UDC GT SCH (08:06)
[2016-12-22] MEDS: PYRIDOXINE HCL 50 MG TABLET GT SCH (08:06)
[2016-12-22] MEDS: Z GUARD REMEDY 2 OZ OINT TP SCH (09:07)
[2016-12-22] MEDS: PANTOPRAZOLE 40 MG VIAL IV SCH ×2 (09:07→21:21)
[2016-12-22] MEDS: NEOMY SULF/BACITRAC ZN/POLY 15 GM TUBE TP SCH (09:07)
[2016-12-22 12:00] VITALS: BP 106/38
--- NOTE | 2016-12-22 12:00 | NUR ---
TELE1/RN ROUNDS - DR. ANGELES UPDATED PT'S CONDITION. SPOKE TO DR. ANGELES REGARDING PLANS TO FEED PT WHILE AWAITING FOR FOR FAMILY TO DECIDE ON SURGICAL INTERVENTION. PER MD WILL REFER TO GI MD. NO NEW ORDERS RECEIVED AT THIS TIME. NO ACUTE CHANGE OF CONDITION NOTED AT THIS TIME. MONITORING CONTINUED.
[2016-12-22] MEDS ORDERED: IV SET PRIMARY PUMP SET 1 EA INFUS.SET MC ONE (12:41)
[2016-12-22] MEDS: IV D5/ 0.9% NACL 1,000 ML IV PRN (12:47)
[2016-12-22 16:00] VITALS: BP 105/60
--- NOTE | 2016-12-22 19:42 | NUR ---
TELE1/RN AM SHIFT END NOTES ALL NEEDS MET. NO ACUTE CHANGE OF CONDITION NOTED DURING SHIFT. PT ENDORSED TO PM NURSE TO CONTINUE CARE. CL WITHIN REACHED AND SAFETY MAINTAINED.
--- NOTE | 2016-12-22 19:55 | NUR ---
PRN DILAUDID 0.5 MG IV GIVEN FOR GENERALIZED PAIN , TOLERATED WELL AT THIS TIME , WILL CONTINUE TO MONITOR.
[2016-12-22 20:00] VITALS: BP 99/45
--- NOTE | 2016-12-22 20:00 | NUR ---
RN INITIAL NOTE; PT ON THE BED WITHOUT ANY DISTRESS . PT IS ALERT , MOUTH WORDS .ON MECH VENT , SETTING ORDERED .SHOWING NSR WITH BBB HR 78 ON TELE MONITOR. JAZMIN MIDLINE AND RH 22 G PERIPHERAL LINE INTACT AND PATENT . RCW HD CATH INTACT. ON NPO STATUS . PT IS ANURIC , G TUBE STOMA SITE DRAINING . BED IN THE LOWEST/LOCKED POSITION , SAFETY MEASURES APPLIED. WILL TURN AND REPOSITION Q2H . CALL LIGHT WITHIN REACH . WILL CONTINUE TO MONITOR.
[2016-12-22] MEDS: ESCITALOPRAM OXALATE (10 MG) 10 MG TABLET GT SCH (21:23)
[2016-12-22] MEDS: INSULIN DETEMIR 100 UNIT/ML CARTRIDGE SQ SCH (22:00)
[2016-12-23] VITALS: BP 105/59
[2016-12-23] MEDS ORDERED: IV SET PRIMARY PUMP SET 1 EA INFUS.SET MC ONE (03:28)
[2016-12-23] MEDS: HYDROMORPHONE 1 MG/1 ML DISP.SYRIN IV PRN ×2 (03:36→17:16)
[2016-12-23] MEDS: IV D5/ 0.9% NACL 1,000 ML IV PRN ×2 (03:36→17:14)
[2016-12-23 04:00] VITALS: BP 94/72
[2016-12-23] MEDS: BLOOD SUGAR DIAGNOSTIC 1 EACH STRIP IN SCH ×3 (06:16→17:18)
[2016-12-23 07:10] LABS: BASOPHILS % (AUTO) 0.2 % (0.0-2.0); EOSINOPHILS # (AUTO) 0.4 /CMM (0.0-0.7); EOSINOPHILS % (AUTO) 4.5 % (0.0-6.0); HEMATOCRIT 24 % (33-45); LYMPHOCYTES # (AUTO) 0.7 /CMM (0.8-4.8); LYMPHOCYTES % (AUTO) 7.1 % (20.0-44.0); MEAN CORPUSCULAR HEMOGLOBIN 28 PG (26.0-33.0); MEAN CORPUSCULAR HGB CONC 33 g/dl (31.0-36.0); MEAN CORPUSCULAR VOLUME 84 fL (82-100); MONOCYTES # (AUTO) 0.8 /CMM (0.1-1.30); MONOCYTES % (AUTO) 8.8 % (2.0-12.0); NEUTROPHILS # (AUTO) 7.4 /CMM (1.8-8.9); NEUTROPHILS % (AUTO) 79.4 % (43.0-81.0); PLATELET COUNT (AUTO) 145 /CMM (150-450); RDW COEFFICIENT OF VARIATION 15.9 (11.5-15.0); RED BLOOD CELL COUNT(AUTO) 2.88 MIL/uL (4.0-5.2); WHITE BLOOD COUNT (AUTO) 9.3 K/uL (4.3-11.0)
[2016-12-23 07:16] LABS: CALCIUM, SERUM 7.8 mg/dL (8.5-10.1); CREATININE 3.5 mg/dL (0.6-1.3); GENTAMICIN,TROUGH 1.1 ug/ml (0.2-2.0); POTASSIUM 3.1 mmol/L (3.5-5.1)
[2016-12-23] MEDS: SUCRALFATE 1 G/10 ML UDC GT SCH ×4 (07:30→21:46)
--- NOTE | 2016-12-23 07:32 | NUR ---
RN EOS NOTE PT REMAINED STABLE DURING THE SHIFT, PRN DILAUDID IV GIVEN FOR PAIN. MECH VENT SETTINGS TOLERATED WELL . TOTAL CARE RENDERED . REPOSITIONED Q2H . ENDORSED TO NEXT SHIFT RN FOR CONTINUITY OF CARE.
[2016-12-23 08:00] VITALS: BP 102/46
[2016-12-23] MEDS: CHOLESTYRAMINE/ASPARTAME 4 G/PKT PACKET GT SCH ×2 (09:00→17:00)
[2016-12-23] MEDS: PYRIDOXINE HCL 50 MG TABLET GT SCH (09:00)
[2016-12-23] MEDS: PROSOURCE / PROSTAT (PYXIS) 30 ML UDC GT SCH (09:00)
[2016-12-23] MEDS: VIT B CMPLX 3/FA/VIT C/BIOTIN 1 TAB TABLET GT SCH (09:00)
[2016-12-23] MEDS: PANTOPRAZOLE 40 MG VIAL IV SCH ×2 (10:08→21:44)
[2016-12-23] MEDS: NEOMY SULF/BACITRAC ZN/POLY 15 GM TUBE TP SCH (10:12)
[2016-12-23] MEDS: Z GUARD REMEDY 2 OZ OINT TP SCH (10:13)
[2016-12-23 12:00] VITALS: BP 99/43
[2016-12-23 16:00] VITALS: BP 110/41
[2016-12-23] MEDS: GENTAMICIN 80 MG in IV D5W 50 ML IV PRN (17:23)
[2016-12-23 20:00] VITALS: BP 129/65
[2016-12-23] MEDS: ESCITALOPRAM OXALATE (10 MG) 10 MG TABLET GT SCH (21:46)
[2016-12-23] MEDS: INSULIN DETEMIR 100 UNIT/ML CARTRIDGE SQ SCH (21:46)
[2016-12-24] VITALS: BP 147/66
[2016-12-24] MEDS: BLOOD SUGAR DIAGNOSTIC 1 EACH STRIP IN SCH ×4 (00:46→17:41)
[2016-12-24] MEDS: HYDROMORPHONE 1 MG/1 ML DISP.SYRIN IV PRN ×3 (00:46→15:21)
[2016-12-24 04:00] VITALS: BP 133/74
[2016-12-24] MEDS: SUCRALFATE 1 G/10 ML UDC GT SCH ×4 (06:34→22:00)
--- NOTE | 2016-12-24 06:41 | NUR ---
RN CLOSING NOTE PT REMAINS IN NO ACUTE DISTRESS IN BED. PT DID NOT HAVE ANY SIGNIFICANT CHANGE IN CONDITION DURING SHIFT. ALL NEEDS MET ALL ORDERS CARRIED OUT. PT TOLERATED VENT SETTING WELL WITH O2 SAT @ 100%. WILL ENDORSE TO AM RN FOR CONTINUITY OF CARE.
[2016-12-24 07:33] LABS: MAGNESIUM 1.9 mg/dL (1.8-2.4); POTASSIUM 3.3 mmol/L (3.5-5.1)
[2016-12-24 08:00] VITALS: BP 116/50
[2016-12-24 08:15] LABS: BASOPHILS % (AUTO) 0.4 % (0.0-2.0); EOSINOPHILS # (AUTO) 0.4 /CMM (0.0-0.7); EOSINOPHILS % (AUTO) 4.6 % (0.0-6.0); HEMATOCRIT 26 % (33-45); HEMOGLOBIN 8.5 g/dL (11.5-14.8); LYMPHOCYTES # (AUTO) 0.8 /CMM (0.8-4.8); LYMPHOCYTES % (AUTO) 10.5 % (20.0-44.0); MEAN CORPUSCULAR HEMOGLOBIN 28 PG (26.0-33.0); MEAN CORPUSCULAR HGB CONC 33 g/dl (31.0-36.0); MEAN CORPUSCULAR VOLUME 84 fL (82-100); MONOCYTES # (AUTO) 1.1 /CMM (0.1-1.30); MONOCYTES % (AUTO) 13.4 % (2.0-12.0); NEUTROPHILS # (AUTO) 5.8 /CMM (1.8-8.9); NEUTROPHILS % (AUTO) 71.1 % (43.0-81.0); PLATELET COUNT (AUTO) 141 /CMM (150-450); RDW COEFFICIENT OF VARIATION 15.4 (11.5-15.0); RED BLOOD CELL COUNT(AUTO) 3.04 MIL/uL (4.0-5.2); WHITE BLOOD COUNT (AUTO) 8.1 K/uL (4.3-11.0)
[2016-12-24] MEDS: CHOLESTYRAMINE/ASPARTAME 4 G/PKT PACKET GT SCH ×3 (08:48→14:55)
[2016-12-24] MEDS: PANTOPRAZOLE 40 MG VIAL IV SCH ×2 (08:48→22:26)
[2016-12-24] MEDS: VIT B CMPLX 3/FA/VIT C/BIOTIN 1 TAB TABLET GT SCH ×2 (08:49→09:00)
[2016-12-24] MEDS: PYRIDOXINE HCL 50 MG TABLET GT SCH ×2 (08:49→09:00)
[2016-12-24] MEDS: PROSOURCE / PROSTAT (PYXIS) 30 ML UDC GT SCH (08:58)
[2016-12-24] MEDS: Z GUARD REMEDY 2 OZ OINT TP SCH (08:59)
[2016-12-24] MEDS: NEOMY SULF/BACITRAC ZN/POLY 15 GM TUBE TP SCH (08:59)
[2016-12-24 12:00] VITALS: BP 108/55
--- NOTE | 2016-12-24 12:49 | NUR ---
RN ABISAI CALLED UP FAMILY MEMBER FOR PARACENTESIS CONSENT, AWAITING CALL BACK WILL FOLLOW UP IN 2 HRS
[2016-12-24] MEDS: IV D5/ 0.9% NACL 1,000 ML IV PRN (15:27)
[2016-12-24 16:00] VITALS: BP 120/90
--- NOTE | 2016-12-24 17:33 | NUR ---
RT PT IS AWAKE, ALERT AND RESPONSIVE ON [facility] VENT WITH SETTINGS PER MD ORDER. PT HAS A PORTEX #7 CUFFED. BIOLOGIST AIDE DONE. BILAT BREATH SOUNDS ON AUSCULTATION. VENT PLUGGED INTO RED OUTLET. ALARMS ON AND WORKING PROPERLY. AMBU BAG AT HEAD OF BED. TRACH SECURED AND AIRWAY PATENT. SUCTIONS MOD AMOUNTS OF THICK, YELLOW SECRETIONS. NO EPISODES OF DISTRESS NOTED AT THIS TIME. WILL CONTINUE TO MONITOR THE PATIENT CLOSELY FOR ANY CHANGE OF CONDITION. Addendum: 12/24/16 at 1804 by AIDA JOSÉ RT Amended: Links added.
--- NOTE | 2016-12-24 19:30 | NUR ---
RN INITIAL NOTE RECEIVED PATIENT ON BED WITHOUT ANY DISTRESS. PATIENT IS ALERT, ABLE TO MOUTH WORDS. TRACH MIDLINE AND INTACT, ON MECHANICAL VENT, SETTINGS ORDERED, TOLERATING WELL, FREE FROM ANY S/S OF RESPIRATORY DISTRESS. TELEMETRY MONITORING SHOWING NSR WITH BBB HR 71 ON TELE MONITOR. JAZMIN MIDLINE DIFFICULT TO FLUSH, LOTS OF RESISTANCE. RH 22 G PERIPHERAL LINE INTACT AND PATENT. RCW HD CATH INTACT. NPO STATUS AT THIS TIME, COLOSTOMY BAG OVER G TUBE STOMA SITE DRAINING. BED IN THE LOWEST/LOCKED POSITION , SAFETY MEASURES APPLIED. WILL TURN AND REPOSITION Q2H . CALL LIGHT WITHIN REACH . WILL CONTINUE TO MONITOR.
[2016-12-24 20:00] VITALS: BP 114/52
[2016-12-24] MEDS: INSULIN DETEMIR 100 UNIT/ML CARTRIDGE SQ SCH (22:00)
[2016-12-24] MEDS: ESCITALOPRAM OXALATE (10 MG) 10 MG TABLET GT SCH (22:00)
[2016-12-24] MEDS ORDERED: PHYTONADIONE INJ 10 MG/1 ML AMPUL SQ SCH (23:30)
[2016-12-25] VITALS (25 sets, daily range): BP systolic 102–121; BP diastolic 43–64
[2016-12-25] MEDS: BLOOD SUGAR DIAGNOSTIC 1 EACH STRIP IN SCH ×5 (00:50→23:47)
--- NOTE | 2016-12-25 04:00 | NUR ---
RN NOTES SPOKE TO DALE FROM BLOOD BANK TO THAW FRESH FROZEN PLASMA. PER DALE, IT WILL TAKE AT LEAST 30 MINUTES. INSTRUCTED BLOOD BANK TO CALL WHEN FFP READY FOR INFUSION.
[2016-12-25] MEDS ORDERED: PLATELET IV SET 1 EA INFUS.SET MC ONE ×2 (04:01)
[2016-12-25 05:36] LABS: BASOPHILS % (AUTO) 0.3 % (0.0-2.0); EOSINOPHILS # (AUTO) 0.4 /CMM (0.0-0.7); EOSINOPHILS % (AUTO) 4.3 % (0.0-6.0); HEMATOCRIT 25 % (33-45); HEMOGLOBIN 8.3 g/dL (11.5-14.8); LYMPHOCYTES # (AUTO) 0.8 /CMM (0.8-4.8); LYMPHOCYTES % (AUTO) 9.8 % (20.0-44.0); MEAN CORPUSCULAR HEMOGLOBIN 27 PG (26.0-33.0); MEAN CORPUSCULAR HGB CONC 33 g/dl (31.0-36.0); MEAN CORPUSCULAR VOLUME 83 fL (82-100); MONOCYTES # (AUTO) 0.8 /CMM (0.1-1.30); NEUTROPHILS # (AUTO) 6.6 /CMM (1.8-8.9); NEUTROPHILS % (AUTO) 76.6 % (43.0-81.0); PLATELET COUNT (AUTO) 155 /CMM (150-450); RDW COEFFICIENT OF VARIATION 16.6 (11.5-15.0); RED BLOOD CELL COUNT(AUTO) 3.02 MIL/uL (4.0-5.2); WHITE BLOOD COUNT (AUTO) 8.6 K/uL (4.3-11.0)
[2016-12-25 05:57] LABS: CALCIUM, SERUM 7.8 mg/dL (8.5-10.1); CREATININE 3.3 mg/dL (0.6-1.3); POTASSIUM 3.4 mmol/L (3.5-5.1)
[2016-12-25 06:01] LABS: GENTAMICIN,TROUGH 1.7 ug/ml (0.2-2.0); MAGNESIUM 1.8 mg/dL (1.8-2.4); PHOSPHORUS 4.1 mg/dL (2.5-4.9)
[2016-12-25] MEDS: IV D5/ 0.9% NACL 1,000 ML IV PRN ×2 (06:20→21:38)
[2016-12-25] MEDS: HYDROMORPHONE 1 MG/1 ML DISP.SYRIN IV PRN (06:25)
--- NOTE | 2016-12-25 07:00 | NUR ---
RN CLOSING NOTES PATIENT RESTING COMFORTABLY IN BED. COLOSTOMY BAG OVER GT STOMA REMAINS INTACT. WILL ENDORSE THE PATIENT TO THE AM SHIFT NURSE FOR KARINA
--- NOTE | 2016-12-25 07:15 | NUR ---
RN INITIAL NOTES RECEIVED PT AWAKE, A/OX1-2. ABLE TO MOUTH WORDS. TRACH IN PLACE. ON MECH VENT. NO RESPIRATORY DISTRESS NOTED. NO SOB NOTED. NO SIGNS OF PAIN NOTED. HOB ELEVATED. IV LINES IN PLACE. TOLERATING D5NS AT 75ML/HR. CLEAN AND DRY. REPOSITIONED. BLE ELEVATED. FOR CT PERCUTANEOUS DRAIN TODAY. WILL TRANSFUSE 3 UNITS OF FFP. WILL MONITOR.
[2016-12-25] MEDS: SUCRALFATE 1 G/10 ML UDC GT SCH ×4 (07:30→21:30)
[2016-12-25 07:36] LABS: INR 2.31 (0.87-1.13); PROTHROMBIN TIME 26.1 SECS (9.5-12.7)
[2016-12-25] MEDS: NEOMY SULF/BACITRAC ZN/POLY 15 GM TUBE TP SCH (08:11)
[2016-12-25] MEDS: Z GUARD REMEDY 2 OZ OINT TP SCH (08:11)
[2016-12-25] MEDS: PANTOPRAZOLE 40 MG VIAL IV SCH ×2 (08:11→21:30)
[2016-12-25] MEDS: CHOLESTYRAMINE/ASPARTAME 4 G/PKT PACKET GT SCH ×2 (08:13→17:12)
[2016-12-25] MEDS: VIT B CMPLX 3/FA/VIT C/BIOTIN 1 TAB TABLET GT SCH (08:13)
[2016-12-25] MEDS: PROSOURCE / PROSTAT (PYXIS) 30 ML UDC GT SCH (08:13)
[2016-12-25] MEDS: PYRIDOXINE HCL 50 MG TABLET GT SCH (08:14)
[2016-12-25] MEDS ORDERED: PHYTONADIONE INJ 10 MG in IV D5W 50 ML IV ONE (10:30)
--- NOTE | 2016-12-25 10:47 | NUR ---
RN NOTES SEEN AND EXAMINED BY DR. BUTT. AWARE OF CURRENT LAB RESULTS. CLARIFIED WITH MD NEW ORDER OF VIT K AND FFP. MD NOTIFIED THAT PT IS ON 2ND UNIT OF FFP FROM LAST NIGHT'S ORDER. PER MD, FINISH 3 UNITS OF FFP FIRST AND DO PT/INR,PTT LEVEL THEN WILL CALL MD FOR RESULTS.
--- NOTE | 2016-12-25 11:30 | NUR ---
RN NOTES NATHAN FROM CT IN THE UNIT. PERTINENT INFORMATION GIVEN REGARDING PT. PT HAS INR OF 2.31, PER NATHAN, INR SHOULD BE AT LEAST<1.5 FOR THE PROCEDURE. PT HAS ONGOING TRANSFUSION OF FFP, 3 UNITS TOTAL. WILL DO PT/INR AND PTT AFTER 3RD UNIT OF FFP. WILL CALL DR. BUTT FOR RESULT. PER NATHAN, WILL CHECK AGAIN ULICES IF ABLE TO DO THE PROCEDURE.
[2016-12-25] MEDS ORDERED: EPOETIN ALFA (10,000 UNIT) 10,000 UNIT/ML VIAL SQ ONE (12:00)
--- NOTE | 2016-12-25 13:00 | NUR ---
RN NOTES SEEN AND EXAMINED BY DR. JANNETH ANGELES. AWARE OF CURRENT LAB VALUES: WBC 8.6, HGB 8.3, HCT 25, PLATELET 155, SODIUM 139, POTASSIUM 3.4, BUN 30, CREA 3.3. TRANSFUSED 3 UNITS OF FFP. MD ORDERED INSERT NGT AND RESTART GTF. CXR ORDERED TO VERIFY PLACEMENT.
[2016-12-25] MEDS: RENAL NOVASOURCE 1,000 ML BOTTLE GT PRN (14:33)
--- NOTE | 2016-12-25 15:00 | NUR ---
RN NOTES DIALYSIS STARTED. NO RESPIRATORY DISTRESS NOTED. NO SOB NOTED. DENIES PAIN. WILL MONITOR.
[2016-12-25 15:33] LABS: INR 1.79 (0.87-1.13); PROTHROMBIN TIME 19.9 SECS (9.5-12.7)
--- NOTE | 2016-12-25 15:48 | NUR ---
RN NOTES CALLED / DAQUAN #[phone] REGARDING PT/INR RESULT. TRANSFUSED 2 UNITS OF FFP. LEFT A MESSAGE. AWAITING CALL BACK. Addendum: 12/25/16 at 1600 by EV MARTINEZ RN CALLED BACK AND AWARE OF PT/INR, 19.9/1.79, APTT 39 LEVEL. TRANSFUSED 3 UNITS OF FFP. PER , TRANSFUSE 3 MORE UNITS OF FFP. NO NEEDS FOR VIT K ORDER. NOTED AND CARRIED OUT. PT ONGOING HD, WILL START TRANSFUSION AFTER HD.
--- NOTE | 2016-12-25 17:00 | NUR ---
RN NOTES DIALYSIS DONE. REMOVED 1000ML. TOLERATED WELL. NO RESPIRATORY DISTRESS NOTED. NO SOB NOTED. DENIES ANY PAIN. WILL MONITOR.
[2016-12-25] MEDS ORDERED: SECONDARY IV SET 1 EA INFUS.SET MC ONE (17:07)
[2016-12-25] MEDS: GENTAMICIN 80 MG in IV D5W 50 ML IV PRN (17:12)
[2016-12-25] MEDS: VANCOMYCIN 500 MG in IV D5W 100 ML IV PRN (17:44)
--- NOTE | 2016-12-25 19:30 | NUR ---
RN INITIAL NOTE RECEIVED PATIENT ON BED WITHOUT ANY DISTRESS. PATIENT IS ALERT, ABLE TO MOUTH WORDS. TRACH MIDLINE AND INTACT, ON MECHANICAL VENT, SETTINGS ORDERED, TOLERATING WELL, FREE FROM ANY S/S OF RESPIRATORY DISTRESS. TELEMETRY MONITORING SHOWING NSR WITH BBB HR 71 ON TELE MONITOR. JAZMIN MIDLINE FLUSHED WITH NS, PATENT AND INTACT NOTED WITH GOOD VENOUS RETURN. RH 22 G PERIPHERAL LINE INTACT AND PATENT FREE FROM ANY S/S OF INFILTRATION. RCW HD CATH INTACT. RIGHT NARE NGT PATENT AND INTACT, TUBE FEEDING INCREASED TO GOAL RATE OF 35 CC/HR WILL MONITOR CLOSELY TO ASSESS TOLERANCE. COLOSTOMY BAG OVER G TUBE STOMA SITE DRAINING. BED IN THE LOWEST/LOCKED POSITION , SAFETY MEASURES APPLIED. WILL TURN AND REPOSITION Q2H . CALL LIGHT WITHIN REACH . WILL CONTINUE TO MONITOR.
[2016-12-25] MEDS: ESCITALOPRAM OXALATE (10 MG) 10 MG TABLET GT SCH (21:30)
[2016-12-25] MEDS: INSULIN DETEMIR 100 UNIT/ML CARTRIDGE SQ SCH (21:50)
[2016-12-26] VITALS (13 sets, daily range): BP systolic 98–123; BP diastolic 43–63
--- NOTE | 2016-12-26 | NUR ---
RN NOTES TUBE FEEDING PLACED ON HOLD PATIENT SCHEDULED FOR MULTIPLE PROCEDURES IN AM. PATIENT CONTINUES ON IVF ORDERED, WILL MONITOR PATIENT AND BLOOD SUGAR CLOSELY.
[2016-12-26] MEDS: BLOOD SUGAR DIAGNOSTIC 1 EACH STRIP IN SCH ×3 (06:21→17:34)
--- NOTE | 2016-12-26 06:51 | NUR ---
RN CLOSING NOTES PATIENT RESTING COMFORTABLY IN BED, DENIES PAIN OR DISCOMFORT. NO ACUTE CHANGES THROUGHOUT SHIFT. WILL ENDORSE PATIENT TO THE DAY SHIFT NURSE FOR KARINA
[2016-12-26 07:05] LABS: BASOPHILS % (AUTO) 0.4 % (0.0-2.0); EOSINOPHILS # (AUTO) 0.2 /CMM (0.0-0.7); EOSINOPHILS % (AUTO) 3.4 % (0.0-6.0); HEMATOCRIT 22 % (33-45); HEMOGLOBIN 7.2 g/dL (11.5-14.8); LYMPHOCYTES # (AUTO) 0.8 /CMM (0.8-4.8); MEAN CORPUSCULAR HEMOGLOBIN 28 PG (26.0-33.0); MEAN CORPUSCULAR HGB CONC 33 g/dl (31.0-36.0); MEAN CORPUSCULAR VOLUME 83 fL (82-100); MONOCYTES # (AUTO) 0.8 /CMM (0.1-1.30); MONOCYTES % (AUTO) 12.3 % (2.0-12.0); NEUTROPHILS # (AUTO) 4.8 /CMM (1.8-8.9); NEUTROPHILS % (AUTO) 71.9 % (43.0-81.0); PLATELET COUNT (AUTO) 141 /CMM (150-450); WHITE BLOOD COUNT (AUTO) 6.7 K/uL (4.3-11.0)
[2016-12-26 07:26] LABS: INR 1.73 (0.87-1.13); PROTHROMBIN TIME 19.2 SECS (9.5-12.7)
[2016-12-26 08:35] LABS: CREATININE 2.9 mg/dL (0.6-1.3)
[2016-12-26] MEDS ORDERED: BLOOD IV SET 1 EA INFUS.SET MC ONE (09:40)
[2016-12-26] MEDS ORDERED: IV NS 0.9% 250 ML IV ONE (09:40)
--- NOTE | 2016-12-26 11:00 | NUR ---
PARACENTESIS COMPLETED 5000 ML CLEAR DARK FLUID OBTAINED. PT TOLERATED PROCEDURE WELL. VSS.
[2016-12-26] MEDS: SUCRALFATE 1 G/10 ML UDC GT SCH ×6 (11:25→21:31)
[2016-12-26] MEDS: PANTOPRAZOLE 40 MG VIAL IV SCH ×2 (11:26→21:31)
[2016-12-26] MEDS: VIT B CMPLX 3/FA/VIT C/BIOTIN 1 TAB TABLET GT SCH (11:26)
[2016-12-26] MEDS: PYRIDOXINE HCL 50 MG TABLET GT SCH (11:26)
[2016-12-26] MEDS: ESCITALOPRAM OXALATE (10 MG) 10 MG TABLET GT SCH (11:26)
[2016-12-26] MEDS: CHOLESTYRAMINE/ASPARTAME 4 G/PKT PACKET GT SCH ×2 (11:26→17:27)
[2016-12-26] MEDS: PROSOURCE / PROSTAT (PYXIS) 30 ML UDC GT SCH (11:28)
[2016-12-26] MEDS: Z GUARD REMEDY 2 OZ OINT TP SCH (11:31)
[2016-12-26] MEDS: NEOMY SULF/BACITRAC ZN/POLY 15 GM TUBE TP SCH (11:31)
[2016-12-26] MEDS: IV D5/ 0.9% NACL 1,000 ML IV PRN (11:39)
[2016-12-26] MEDS: DEXTROSE 50%-WATER 50 ML DISP.SYRIN IV PRN ×2 (12:08→17:27)
--- NOTE | 2016-12-26 12:29 | NUR ---
1205BS 31 REPEATED 34. PATIENT AOX2, DENIES LIGHTHEADEDNESS, IV D5NS AT 75ML/HR. LAB NOTIFIED FOR STAT GLUCOSE, D50IV PER PROTOCOL. ACCU CHECK REPEATED 1220 NO BS 119. WILL CONTINUE TO MONITOR, WILL NOTIFY .
--- NOTE | 2016-12-26 13:33 | NUR ---
SPOKE TOPT NURSE@1330 HRS, INFORMED HER OF THE INR, DRAINAGE VS ASPIRATION, NURSE WILL CLARIFY ORDER WITH ORDERING MD AND NOTIFY RADIOLOGY OF HER DECISSION
--- NOTE | 2016-12-26 15:08 | NUR ---
Bioethics meeting has been requested by RICH Ayala and Dr. Lee. SEVERINO contacted pt's son Michael Contreras in regards to scheduling a bioethics meeting to discuss further plan of care. Michael informed SEVERINO he would like his sisters to be at the meeting as well and will contact them as to a time and date they can meet and will call SEVERINO by tomorrow 12/27/16.
--- NOTE | 2016-12-26 17:00 | NUR ---
RADIOLOGY DEPT. STATED THAT WITH CURENT INR OF 1.7 THE CAN PERFORM ASPIRATION OF THE ABSCESS, BUT IF DRAIN ID MORE DESIRABLE THAN INR MUST BE BELOW 1.5. CLARIFIED WITH DR STEVEN ANGELES, HE STATES THAT PT NEEDS DRAIN.
[2016-12-26] MEDS: RENAL NOVASOURCE 1,000 ML BOTTLE GT PRN (18:06)
--- NOTE | 2016-12-26 19:00 | NUR ---
PRBC 2 UNITS COMPLETED VSS, PT AFEBRILE, NO REACTION NOTED, NO FLUID VOL. OVERLOAD NOTED.
--- NOTE | 2016-12-26 19:30 | NUR ---
RN NOTES PT RESTED ON BED. WITH TRACH AND VENT SETTING OF AC 16 TV 550 FIO2 40% PEEP 5 AOX 2 WHEN AWAKE ABLE TO MOUTH WORDS. NO ACUTE RESP DISTRESS SUCTIONED PT WITH MODERATE AMOUNT OF YELLOWISH THICK SECRETION. BREATH SOUND CLEAR. PT REVEALS SR WITH BB HR 79 . WITH NGT ON RIGHT NARES WITH NOVASOURCE @ 35 CC/HR PATENCY CHECKED. ZERO RESIDUAL. COLOSTOMY BAG KEPT INTACT WITH MILKY AND YELLOWISH COLOR OUTPUT . IV SITE ON JAZMIN MIDLINE RUNNING WITH D5NS @ 75 CC/HR RCW HD CATH AND RIGHT HAND G 22 INTACT AND PATENT. WARM BLANKET KEPT ON. KEPT PT CLEAN AND COMFORTABLE IN BED. WILL MONITORED FREQ.
[2016-12-26] MEDS: INSULIN DETEMIR 100 UNIT/ML CARTRIDGE SQ SCH (21:32)
[2016-12-27] VITALS: BP 105/52
[2016-12-27] MEDS: BLOOD SUGAR DIAGNOSTIC 1 EACH STRIP IN SCH ×4 (00:35→17:48)
[2016-12-27 04:00] VITALS: BP 94/47
[2016-12-27] MEDS: HYDROMORPHONE 1 MG/1 ML DISP.SYRIN IV PRN ×3 (04:36→20:12)
[2016-12-27 06:47] LABS: BASOPHILS % (AUTO) 0.2 % (0.0-2.0); EOSINOPHILS # (AUTO) 0.3 /CMM (0.0-0.7); EOSINOPHILS % (AUTO) 2.6 % (0.0-6.0); HEMATOCRIT 29 % (33-45); HEMOGLOBIN 9.7 g/dL (11.5-14.8); LYMPHOCYTES # (AUTO) 0.6 /CMM (0.8-4.8); MEAN CORPUSCULAR HEMOGLOBIN 29 PG (26.0-33.0); MEAN CORPUSCULAR HGB CONC 33 g/dl (31.0-36.0); MEAN CORPUSCULAR VOLUME 86 fL (82-100); MONOCYTES # (AUTO) 0.6 /CMM (0.1-1.30); MONOCYTES % (AUTO) 5.3 % (2.0-12.0); NEUTROPHILS % (AUTO) 85.9 % (43.0-81.0); PLATELET COUNT (AUTO) 147 /CMM (150-450); RDW COEFFICIENT OF VARIATION 15.9 (11.5-15.0); RED BLOOD CELL COUNT(AUTO) 3.36 MIL/uL (4.0-5.2); WHITE BLOOD COUNT (AUTO) 10.5 K/uL (4.3-11.0)
[2016-12-27 07:09] LABS: ALBUMIN 1.6 g/dL (3.4-5.0); BILIRUBIN,TOTAL 1.4 mg/dL (0.2-1.0); CALCIUM, SERUM 8.1 mg/dL (8.5-10.1); CREATININE 3.3 mg/dL (0.6-1.3); MAGNESIUM 1.8 mg/dL (1.8-2.4); PHOSPHORUS 4.1 mg/dL (2.5-4.9); POTASSIUM 3.3 mmol/L (3.5-5.1); TOTAL PROTEIN, SERUM 6.5 g/dL (6.4-8.2)
[2016-12-27 07:34] LABS: GENTAMICIN,TROUGH 2.2 ug/ml (0.2-2.0)
--- NOTE | 2016-12-27 07:37 | NUR ---
RN NOTES PATIENT RESTING COMFORTABLY IN BED, DENIES PAIN OR DISCOMFORT. TRACH AND VENT SETTING JOHNATHAN. SATING 97-100%. NGTF JOHNATHAN WITHOUT N/V/D. IV SITE INTACT AND PATENT. IVF ONGOING. NO ACUTE CHANGES THROUGHOUT SHIFT. NO ASE FROM ATB ORDERED PAIN MEDICINE EFFECTIVE. ENDORSED CONTINUITY OF CARE TO AM NURSE.
[2016-12-27 07:41] LABS: INR 1.86 (0.87-1.13); PROTHROMBIN TIME 20.7 SECS (9.5-12.7)
[2016-12-27 08:00] VITALS: BP 98/46
[2016-12-27] MEDS: SUCRALFATE 1 G/10 ML UDC GT SCH ×4 (08:22→22:00)
[2016-12-27] MEDS: PYRIDOXINE HCL 50 MG TABLET GT SCH (08:22)
[2016-12-27] MEDS: PANTOPRAZOLE 40 MG VIAL IV SCH ×2 (08:22→20:12)
[2016-12-27] MEDS: VIT B CMPLX 3/FA/VIT C/BIOTIN 1 TAB TABLET GT SCH (08:22)
[2016-12-27] MEDS: CHOLESTYRAMINE/ASPARTAME 4 G/PKT PACKET GT SCH ×2 (08:22→15:58)
[2016-12-27] MEDS: Z GUARD REMEDY 2 OZ OINT TP SCH (08:23)
[2016-12-27] MEDS: NEOMY SULF/BACITRAC ZN/POLY 15 GM TUBE TP SCH (08:23)
[2016-12-27] MEDS: PROSOURCE / PROSTAT (PYXIS) 30 ML UDC GT SCH (08:24)
--- NOTE | 2016-12-27 09:45 | NUR ---
DR. ANGELES AT BEDSIDE. INFORMED MD I HELD G-TUBE FEEDINGS THIS MORNING DUE TO TUBE FEEDING COMING OUT FROM OLD G-TUBE SITE (BEING COLLECTED FROM COLOSTOMY BAG). MD AWARE WITH ORDERS TO HOLD G-TUBE FEEDINGS AND KEEP PATIENT NPO. 1030- OBTAINED VERBAL ORDER FROM DR. ANGELES TO START PT ON TPN. TPN PHARMACY TO ORDER PLACED. WILL CONTINUE TO MONITOR.
[2016-12-27] MEDS ORDERED: TPN/PPN PER PHARMACY XX PRN (10:30)
[2016-12-27] MEDS ORDERED: IV SET PRIMARY PUMP SET 1 EA INFUS.SET MC ONE ×2 (11:53→18:14)
[2016-12-27 12:00] VITALS: BP 112/54
[2016-12-27] MEDS: IV D5/ 0.9% NACL 1,000 ML IV PRN (12:00)
[2016-12-27] MEDS ORDERED: TPN BAG #1 IV SCH ×5 (15:00)
[2016-12-27] MEDS ORDERED: TPN BAG #2 IV SCH ×3 (15:00)
[2016-12-27] MEDS ORDERED: TPN BAG #2 IV PRN ×4 (15:53)
[2016-12-27] MEDS ORDERED: TPN BAG #1 IV PRN ×6 (15:55)
[2016-12-27] MEDS ORDERED: FEE TPN 1 MIN EA MC ONE (15:56)
[2016-12-27 16:00] VITALS: BP 105/52
[2016-12-27] MEDS ORDERED: BLOOD SUGAR DIAGNOSTIC 1 EACH STRIP IN ONE ×3 (16:00→22:30)
[2016-12-27] MEDS: IV NS 0.9% 250 ML IV PRN (17:10)
[2016-12-27] MEDS: GENTAMICIN 80 MG in IV D5W 50 ML IV PRN (17:10)
[2016-12-27] MEDS: VANCOMYCIN 500 MG in IV D5W 100 ML IV PRN (17:50)
--- NOTE | 2016-12-27 18:00 | NUR ---
I HAVE ATTEMPTED TO CONTACT PT'S SON, AMRITA ALLEN SEVERAL TIMES TODAY FOR CONSENT FOR US GUIDED ASPIRATION OF ABDOMEN. NO CALL BACK. NO CONSENT WAS OBTAINED. WILL ENDORSE TO DRILL HAND NURSE.
[2016-12-27] MEDS ORDERED: FILTER SET SAVER IV SET 1 EA INFUS.SET MC ONE (18:14)
--- NOTE | 2016-12-27 19:20 | NUR ---
RN NOTES RECEIVED PT ON BED ASLEEP WITH TRACH AND VENT SETTING OF AC 16 TV 550 FIO2 40% PEEP 5 AOX 2 WHEN AWAKE ABLE TO MOUTH WORDS. NO ACUTE RESP DISTRESS SUCTIONED PT WITH MODERATE AMOUNT OF YELLOWISH THICK SECRETION. JUAN CARLOS BREATH SOUND DIMINISHED. PT REVEALS V-PACING HR 86. WITH NGT ON RIGHT NARES CLAMPED PATENCY CHECKED. ZERO RESIDUAL. COLOSTOMY BAG KEPT INTACT WITH GREENISH COLOR WATERY OUTPUT . IV SITE ON JAZMIN MIDLINE RUNNING WITH TPN @ 50 CC/HR TOLERATED WELL RCW HD CATH AND RIGHT HAND G 22 INTACT AND PATENT. KEPT PT CLEAN AND COMFORTABLE IN BED. WILL MONITORED FREQ.
[2016-12-27 20:00] VITALS: BP 102/42
[2016-12-27] MEDS ORDERED: BLOOD SUGAR DIAGNOSTIC 1 EACH STRIP IN SCH (20:00)
[2016-12-27] MEDS: ESCITALOPRAM OXALATE (10 MG) 10 MG TABLET GT SCH (22:00)
[2016-12-27] MEDS: INSULIN DETEMIR 100 UNIT/ML CARTRIDGE SQ SCH (22:31)
[2016-12-28] VITALS (7 sets, daily range): BP systolic 89–109; BP diastolic 44–56
[2016-12-28] MEDS: BLOOD SUGAR DIAGNOSTIC 1 EACH STRIP IN SCH ×4 (00:24→17:53)
[2016-12-28] MEDS: INSULIN REGULAR, HUMAN 100 UNIT/ML 3 ML VIAL SQ PRN ×2 (00:26→17:59)
[2016-12-28] MEDS: HYDROMORPHONE 1 MG/1 ML DISP.SYRIN IV PRN ×5 (00:30→22:20)
[2016-12-28 07:04] LABS: BASOPHILS % (AUTO) 0.4 % (0.0-2.0); EOSINOPHILS # (AUTO) 0.3 /CMM (0.0-0.7); EOSINOPHILS % (AUTO) 4.4 % (0.0-6.0); HEMATOCRIT 28 % (33-45); HEMOGLOBIN 9.2 g/dL (11.5-14.8); LYMPHOCYTES # (AUTO) 0.9 /CMM (0.8-4.8); LYMPHOCYTES % (AUTO) 11.7 % (20.0-44.0); MEAN CORPUSCULAR HEMOGLOBIN 29 PG (26.0-33.0); MEAN CORPUSCULAR HGB CONC 33 g/dl (31.0-36.0); MEAN CORPUSCULAR VOLUME 86 fL (82-100); MONOCYTES # (AUTO) 0.6 /CMM (0.1-1.30); MONOCYTES % (AUTO) 8.5 % (2.0-12.0); NEUTROPHILS # (AUTO) 5.5 /CMM (1.8-8.9); PLATELET COUNT (AUTO) 133 /CMM (150-450); RDW COEFFICIENT OF VARIATION 16.4 (11.5-15.0); RED BLOOD CELL COUNT(AUTO) 3.23 MIL/uL (4.0-5.2); WHITE BLOOD COUNT (AUTO) 7.3 K/uL (4.3-11.0)
--- NOTE | 2016-12-28 07:20 | NUR ---
RN INITIAL NOTE RECEIVED REPORT FROM MAURICIO NURSE. PORTEX # 7 AC 16 TV 550 FIO2 40% PEEP 5. A/O X2 MOUTH WORDS BARBADIAN SPEAKING. TELE V PACING. NGT CLAMPED. JAZMIN MIDLINE WITH TPN @ 50ML/HR RCW HD CATH, RH #22FLUSHED PATENT AND INTACT. WILL CONTINUE TO MONITOR CLOSELY. ALL SAFETY MEASURES IN PLACE. WILL BE HOLDING PO MEDICATION DUE TO NGT CLAMPED.
[2016-12-28 07:29] LABS: MAGNESIUM 1.6 mg/dL (1.8-2.4); PHOSPHORUS 3.2 mg/dL (2.5-4.9); POTASSIUM 3.3 mmol/L (3.5-5.1)
[2016-12-28] MEDS: SUCRALFATE 1 G/10 ML UDC GT SCH ×4 (07:30→21:34)
[2016-12-28 07:33] LABS: CHOLESTEROL 89 mg/dL (<200); HDL CHOLESTEROL 13 mg/dL (40-60); LDL 52 mg/dL (0-99); TRIGLYCERIDES 94 mg/dL (30-150)
[2016-12-28 07:46] LABS: PREALBUMIN 9.9 MG/DL (18.0-35.7)
--- NOTE | 2016-12-28 07:46 | NUR ---
RN NOTES PT IN STABLE CONDITION THROUGHOUT THE SHIFT . TRACH AND VENT SETTING TOLERATED WELL. TOLERATED TPN WITHOUT N/V/D WITHOUT ANY S/S OF HYPO OR HYPERGLYCEMIA. IV SITE REMAINED INTACT AND PATENT WITH GOOD BLOOD RETURN. KEPT PT CLEAN AND COMFORTABLE IN BED. PAIN MEDICINE EFFECTIVE. ENDORSED CONTINUITY OF CARE TO AM NURSE.
[2016-12-28 08:24] LABS: ALBUMIN 1.4 g/dL (3.4-5.0)
[2016-12-28] MEDS: Z GUARD REMEDY 2 OZ OINT TP SCH (08:56)
[2016-12-28] MEDS: NEOMY SULF/BACITRAC ZN/POLY 15 GM TUBE TP SCH (08:57)
[2016-12-28] MEDS: PANTOPRAZOLE 40 MG VIAL IV SCH ×2 (08:59→21:09)
[2016-12-28] MEDS: CHOLESTYRAMINE/ASPARTAME 4 G/PKT PACKET GT SCH ×2 (08:59→17:00)
[2016-12-28] MEDS: PROSOURCE / PROSTAT (PYXIS) 30 ML UDC GT SCH (08:59)
[2016-12-28] MEDS: PYRIDOXINE HCL 50 MG TABLET GT SCH (08:59)
[2016-12-28] MEDS: VIT B CMPLX 3/FA/VIT C/BIOTIN 1 TAB TABLET GT SCH (08:59)
--- NOTE | 2016-12-28 14:07 | NUR ---
SEVERINO left a voicemail message for pt's son Michael to contact SEVERINO in regards to scheduling a bioethics meeting with him and his siblings.
[2016-12-28] MEDS ORDERED: TPN BAG #2 IV PRN ×5 (14:30)
[2016-12-28] MEDS ORDERED: TPN BAG #3 IV PRN ×14 (14:30→16:00)
[2016-12-28] MEDS ORDERED: FILTER SET SAVER IV SET 1 EA INFUS.SET MC ONE (14:43)
[2016-12-28] MEDS ORDERED: IV SET PRIMARY PUMP SET 1 EA INFUS.SET MC ONE (14:43)
[2016-12-28] MEDS ORDERED: Magnesium 1GM/D5W 100ML PREMIX 100 ML IV SCH (16:00)
[2016-12-28] MEDS ORDERED: SECONDARY IV SET 1 EA INFUS.SET MC ONE (18:39)
--- NOTE | 2016-12-28 19:38 | NUR ---
RN CLOSING NOTE REPORT GIVEN TO SKYLAR HAGEN NURSE FOR KARINA. PORTEX # 7 AC 16 TV 550 FIO2 40% PEEP 5. A/O X2 MOUTH WORDS HUNGARIAN SPEAKING. TELE V PACING THROUGH SHIFT. NGT CLAMPED UNABLE TO GIVEN PO MEDS. JAZMIN MIDLINE WITH TPN @ 75 ML/HR . PT TOLERATING TPN AND INCRESASED DOSED PER PHARMACY.RCW HD CATH, RH #22FLUSHED PATENT AND INTACT. ALL SAFETY MEASURES IN PLACE.
--- NOTE | 2016-12-28 20:01 | NUR ---
RN INITIAL NOTES RECEIVED PT WITH PORTEX # 7 AC 16 TV 550 FIO2 40% PEEP 5. A/O X2 MOUTH WORDS ROMANIAN SPEAKING. TELE V PACING THROUGH SHIFT. NGT CLAMPED UNABLE TO GIVEN PO MEDS. JAZMIN MIDLINE WITH TPN @ 75 ML/HR . PT TOLERATING TPN AND INCREASED DOSED PER PHARMACY.RCW HD CATH, RH #22FLUSHED PATENT AND INTACT. ALL SAFETY MEASURES IN PLACE
--- NOTE | 2016-12-28 21:34 | NUR ---
ALL GT MEDS NOT GIVEN NGT CLAMPED.
[2016-12-28] MEDS: INSULIN DETEMIR 100 UNIT/ML CARTRIDGE SQ SCH (22:13)
[2016-12-29] VITALS: BP 107/61
[2016-12-29] MEDS: BLOOD SUGAR DIAGNOSTIC 1 EACH STRIP IN SCH ×5 (00:22→23:39)
[2016-12-29 04:00] VITALS: BP 100/62
[2016-12-29] MEDS: SUCRALFATE 1 G/10 ML UDC GT SCH ×4 (06:31→21:04)
--- NOTE | 2016-12-29 06:39 | NUR ---
RN CLOSING NOTE PT HAS PORTEX # 7 AC 16 TV 550 FIO2 40% PEEP 5. A/O X2 MOUTH WORDS UKRAINIAN SPEAKING. TELE V PACING THROUGH SHIFT. NGT CLAMPED UNABLE TO GIVEN PO MEDS. JAZMIN MIDLINE WITH TPN @ 75 ML/HR . PT TOLERATING TPN AND INCREASED DOSED PER PHARMACY.RCW HD CATH, RH #22FLUSHED PATENT AND INTACT BS 67 PT CONT ON TPN NO SIGN OF DISTRESS OR AGITATION, AWAKE ABLE TO VERBALIZE NEEDS, ALL NEEDS ATTENDED.
--- NOTE | 2016-12-29 07:15 | NUR ---
RN INITIAL NOTE PATIENT RECEIVED IN BED, RESTING COMFORTABLY. PT IS NONVERBAL, MOUTHS WORDS. PRIMARILY ENGLISH BUT ABLE TO COMMUNICATE. DENIES PAIN AT THIS TIME. HAS TRACH PORTEX #7, AC-16, TV-550, FI02 40%, WITH PEEP OF 5. SATING WELL. NO S/S OF RESPIRATORY DISTRESS OR SOB. PT IS SINUS RHYTHM, WITH VPACING ON TELE MONITOR. NG TUBE IS CLAMPED. NPO STATUS. RIGHT UPPER MIDLINE FLUSHED, PATENT. SKIN IS WARM AND DRY TO TOUCH. SAFETY PRECAUTIONS IN PLACE, BED IN LOCKED, LOW POSITION WITH TWO SIDE RAILS UP. CALL LIGHT WITHIN EASY REACH. WILL MONITOR CLOSELY.
[2016-12-29 07:46] LABS: BASOPHILS % (AUTO) 0.5 % (0.0-2.0); EOSINOPHILS # (AUTO) 0.5 /CMM (0.0-0.7); EOSINOPHILS % (AUTO) 5.4 % (0.0-6.0); HEMATOCRIT 28 % (33-45); HEMOGLOBIN 9.2 g/dL (11.5-14.8); LYMPHOCYTES # (AUTO) 0.7 /CMM (0.8-4.8); LYMPHOCYTES % (AUTO) 7.7 % (20.0-44.0); MEAN CORPUSCULAR HEMOGLOBIN 29 PG (26.0-33.0); MEAN CORPUSCULAR HGB CONC 33 g/dl (31.0-36.0); MEAN CORPUSCULAR VOLUME 87 fL (82-100); MONOCYTES # (AUTO) 0.8 /CMM (0.1-1.30); MONOCYTES % (AUTO) 8.4 % (2.0-12.0); PLATELET COUNT (AUTO) 132 /CMM (150-450); RDW COEFFICIENT OF VARIATION 16.2 (11.5-15.0); RED BLOOD CELL COUNT(AUTO) 3.19 MIL/uL (4.0-5.2); WHITE BLOOD COUNT (AUTO) 8.9 K/uL (4.3-11.0)
[2016-12-29 07:54] LABS: CALCIUM, SERUM 8.1 mg/dL (8.5-10.1); CREATININE 3.3 mg/dL (0.6-1.3); MAGNESIUM 1.9 mg/dL (1.8-2.4); PHOSPHORUS 3.4 mg/dL (2.5-4.9); POTASSIUM 3.5 mmol/L (3.5-5.1)
[2016-12-29 08:00] VITALS: BP 97/55
[2016-12-29] MEDS: PANTOPRAZOLE 40 MG VIAL IV SCH ×2 (08:54→20:46)
[2016-12-29] MEDS: CHOLESTYRAMINE/ASPARTAME 4 G/PKT PACKET GT SCH ×2 (09:00→17:00)
[2016-12-29] MEDS: PROSOURCE / PROSTAT (PYXIS) 30 ML UDC GT SCH (09:00)
[2016-12-29] MEDS: PYRIDOXINE HCL 50 MG TABLET GT SCH (09:00)
[2016-12-29] MEDS: VIT B CMPLX 3/FA/VIT C/BIOTIN 1 TAB TABLET GT SCH (09:00)
[2016-12-29] MEDS: HYDROMORPHONE 1 MG/1 ML DISP.SYRIN IV PRN ×3 (09:05→18:36)
[2016-12-29] MEDS: ESCITALOPRAM OXALATE (10 MG) 10 MG TABLET GT SCH ×2 (09:34→21:05)
[2016-12-29] MEDS: NEOMY SULF/BACITRAC ZN/POLY 15 GM TUBE TP SCH (09:35)
[2016-12-29] MEDS: Z GUARD REMEDY 2 OZ OINT TP SCH (09:35)
[2016-12-29 12:00] VITALS: BP 110/50
[2016-12-29] MEDS ORDERED: TPN BAG #5 IV PRN ×7 (13:00)
[2016-12-29] MEDS ORDERED: TPN BAG #4 IV PRN ×5 (13:00)
[2016-12-29] MEDS: DEXTROSE 50%-WATER 50 ML DISP.SYRIN IV PRN (13:57)
--- NOTE | 2016-12-29 14:00 | NUR ---
RN NOTE SPOKE WITH DAUGHTER HALEIGH REGARDING CONSENT. HALEIGH STATES THAT DRAINAGE OF ABSCESS IS OKAY BUT THAT THE PATIENT DOES NOT WANT GASTRECTOMY. FAMILY WILL BE HERE THIS WEEKEND TO DISCUSS WITH PATIENT THEIR WISHES.
[2016-12-29 16:00] VITALS: BP 109/62
[2016-12-29 16:01] LABS: INR 1.45 (0.87-1.13); PROTHROMBIN TIME 15.9 SECS (9.5-12.7)
[2016-12-29] MEDS ORDERED: IV SET PRIMARY PUMP SET 1 EA INFUS.SET MC ONE (18:36)
--- NOTE | 2016-12-29 19:16 | NUR ---
RN CLOSING NOTE ALL MD ORDERS CARRIED OUT. PATIENT KEPT CLEAN AND DRY. REPORT WILL BE GIVEN TO PM RN FOR KARINA
[2016-12-29 20:00] VITALS: BP 105/62
--- NOTE | 2016-12-29 20:25 | NUR ---
RN INITIAL NOTES RECEIVED PT WITH PORTEX # 7 AC 16 TV 550 FIO2 40% PEEP 5. A/O X2 MOUTH WORDS VIETNAMESE SPEAKING. TELE V PACING THROUGH SHIFT. NGT CLAMPED UNABLE TO GIVE PO MEDS, NPO, JAZMIN MIDLINE WITH TPN @ 75 ML/HR . PT TOLERATING TPN .RCW HD CATH, RH #22FLUSHED PATENT AND INTACT. ALL SAFETY MEASURES IN PLACE
[2016-12-29] MEDS: INSULIN DETEMIR 100 UNIT/ML CARTRIDGE SQ SCH (21:05)
--- NOTE | 2016-12-29 21:19 | NUR ---
ALL 2200 MEDICATION PER GT NOT GIVEN PT NPO, NGT CLAMPED, CONT ON TPN, BS 96 LEVEMIR NOT GIVEN DUE TO PT BS TRENDING LOW, WILL CONT TO MONITOR PT BS.
[2016-12-30] VITALS (7 sets, daily range): BP systolic 94–113; BP diastolic 42–96
--- NOTE | 2016-12-30 02:16 | NUR ---
TPN FLOOR SHEET, ENDED AT 0100, UNABLE TO CONT, BAG VOL SHOWS COMPLETE, EVEN THOUGH HALF OF BAG STILL RUNNING.
[2016-12-30] MEDS: IV NS 0.9% 250 ML IV PRN (03:21)
[2016-12-30] MEDS: SUCRALFATE 1 G/10 ML UDC GT SCH ×4 (06:38→22:10)
--- NOTE | 2016-12-30 06:38 | NUR ---
CARAFATE NOT GIVEN NGT CLAMPED.
--- NOTE | 2016-12-30 06:39 | NUR ---
RN INITIAL NOTES RECEIVED PT WITH PORTEX # 7 AC 16 TV 550 FIO2 40% PEEP 5. A/O X2 MOUTH WORDS ROMANSH SPEAKING. TELE V PACING THROUGH SHIFT. NGT CLAMPED UNABLE TO GIVE PO MEDS, NPO, JAZMIN MIDLINE WITH TPN @ 75 ML/HR . PT TOLERATING TPN .RCW HD CATH, RH #22FLUSHED PATENT AND INTACT. ALL SAFETY MEASURES IN PLACE.
[2016-12-30] MEDS: BLOOD SUGAR DIAGNOSTIC 1 EACH STRIP IN SCH ×4 (06:40→23:37)
[2016-12-30 07:04] LABS: BASOPHILS % (AUTO) 0.7 % (0.0-2.0); EOSINOPHILS # (AUTO) 0.3 /CMM (0.0-0.7); EOSINOPHILS % (AUTO) 5.6 % (0.0-6.0); HEMATOCRIT 26 % (33-45); HEMOGLOBIN 8.6 g/dL (11.5-14.8); LYMPHOCYTES # (AUTO) 0.7 /CMM (0.8-4.8); LYMPHOCYTES % (AUTO) 12.1 % (20.0-44.0); MEAN CORPUSCULAR HEMOGLOBIN 29 PG (26.0-33.0); MEAN CORPUSCULAR HGB CONC 34 g/dl (31.0-36.0); MEAN CORPUSCULAR VOLUME 85 fL (82-100); MONOCYTES # (AUTO) 0.7 /CMM (0.1-1.30); NEUTROPHILS # (AUTO) 4.2 /CMM (1.8-8.9); NEUTROPHILS % (AUTO) 70.6 % (43.0-81.0); PLATELET COUNT (AUTO) 108 /CMM (150-450); RDW COEFFICIENT OF VARIATION 16.4 (11.5-15.0); RED BLOOD CELL COUNT(AUTO) 3.02 MIL/uL (4.0-5.2)
[2016-12-30 07:26] LABS: BILIRUBIN,TOTAL 0.9 mg/dL (0.2-1.0); CREATININE 3.3 mg/dL (0.6-1.3); MAGNESIUM 1.8 mg/dL (1.8-2.4); PHOSPHORUS 2.4 mg/dL (2.5-4.9); POTASSIUM 3.1 mmol/L (3.5-5.1)
[2016-12-30 07:33] LABS: ALBUMIN 1.3 g/dL (3.4-5.0)
[2016-12-30] MEDS: PANTOPRAZOLE 40 MG VIAL IV SCH ×2 (08:55→22:10)
[2016-12-30] MEDS: VIT B CMPLX 3/FA/VIT C/BIOTIN 1 TAB TABLET GT SCH (09:00)
[2016-12-30] MEDS: PROSOURCE / PROSTAT (PYXIS) 30 ML UDC GT SCH (09:00)
[2016-12-30] MEDS: PYRIDOXINE HCL 50 MG TABLET GT SCH (09:00)
[2016-12-30] MEDS: CHOLESTYRAMINE/ASPARTAME 4 G/PKT PACKET GT SCH ×2 (09:00→16:36)
[2016-12-30] MEDS: Z GUARD REMEDY 2 OZ OINT TP SCH (09:01)
[2016-12-30] MEDS: NEOMY SULF/BACITRAC ZN/POLY 15 GM TUBE TP SCH (09:01)
[2016-12-30] MEDS: INSULIN REGULAR, HUMAN 100 UNIT/ML 3 ML VIAL SQ PRN ×3 (11:39→23:36)
[2016-12-30] MEDS ORDERED: SECONDARY IV SET 1 EA INFUS.SET MC ONE (12:50)
[2016-12-30] MEDS ORDERED: TPN BAG #6 IV PRN ×6 (13:00)
[2016-12-30] MEDS ORDERED: TPN BAG #7 IV PRN ×8 (13:00)
[2016-12-30] MEDS: GENTAMICIN 80 MG in IV D5W 50 ML IV PRN (15:00)
[2016-12-30] MEDS ORDERED: IV SET PRIMARY 1 EA INFUS.SET MC ONE ×2 (21:35→22:44)
[2016-12-30] MEDS: ESCITALOPRAM OXALATE (10 MG) 10 MG TABLET GT SCH (22:10)
[2016-12-30] MEDS: INSULIN DETEMIR 100 UNIT/ML CARTRIDGE SQ SCH (22:14)
[2016-12-30] MEDS ORDERED: IV SET PRIMARY PUMP SET 1 EA INFUS.SET MC ONE (22:57)
[2016-12-31] VITALS (7 sets, daily range): BP systolic 101–145; BP diastolic 45–64
--- NOTE | 2016-12-31 00:34 | NUR ---
RN INITIAL NOTES RECEIVED PT WITH PORTEX # 7 AC 16 TV 550 FIO2 40% PEEP 5. A/O X2 MOUTH WORDS KOREAN SPEAKING. TELE V PACING THROUGH SHIFT. NGT CLAMPED UNABLE TO GIVE PO MEDS, NPO, JAZMIN MIDLINE WITH TPN @ 75 ML/HR . PT TOLERATING TPN .RCW HD CATH, RH #22FLUSHED PATENT AND INTACT. ALL SAFETY MEASURES IN PLACE
[2016-12-31] MEDS: BLOOD SUGAR DIAGNOSTIC 1 EACH STRIP IN SCH ×4 (05:45→23:20)
--- NOTE | 2016-12-31 06:20 | NUR ---
RN CLOSING NOTE PT HAS PORTEX # 7 AC 16 TV 550 FIO2 40% PEEP 5. A/O X2 MOUTH WORDS GEORGIAN SPEAKING. TELE V PACING THROUGH SHIFT. NGT CLAMPED UNABLE TO GIVEN PO MEDS. JAZMIN MIDLINE WITH TPN @ 75 ML/HR . PT TOLERATING TPN .RCW HD CATH, RH #22FLUSHED PATENT AND INTACT BS 67 PT CONT ON TPN BS 58 @ 0600 NO SIGN OF DISTRESS OR AGITATION, NOTED PT ASCITES INCREASED NOTIFIED RN DEMO SPECIALIST TO ENDORSE TO AM CHARGE NURSE, PT AWAKE ABLE TO VERBALIZE NEEDS, ALL NEEDS ATTENDED.
[2016-12-31 06:37] LABS: CALCIUM, SERUM 8.3 mg/dL (8.5-10.1); CREATININE 3.5 mg/dL (0.6-1.3); POTASSIUM 3.4 mmol/L (3.5-5.1)
[2016-12-31 06:41] LABS: MAGNESIUM 1.9 mg/dL (1.8-2.4); PHOSPHORUS 2.5 mg/dL (2.5-4.9)
[2016-12-31 06:42] LABS: HEMATOCRIT 26 % (33-45); HEMOGLOBIN 8.7 g/dL (11.5-14.8); LYMPHOCYTES % (AUTO) 12.7 % (20.0-44.0); MEAN CORPUSCULAR HEMOGLOBIN 28 PG (26.0-33.0); MEAN CORPUSCULAR HGB CONC 33 g/dl (31.0-36.0); MEAN CORPUSCULAR VOLUME 85 fL (82-100); MONOCYTES % (AUTO) 13.8 % (2.0-12.0); PLATELET COUNT (AUTO) 120 /CMM (150-450); RDW COEFFICIENT OF VARIATION 16.8 (11.5-15.0)
[2016-12-31 06:43] LABS: BASOPHILS % (AUTO) 0.7 % (0.0-2.0); EOSINOPHILS # (AUTO) 0.3 /CMM (0.0-0.7); EOSINOPHILS % (AUTO) 5.8 % (0.0-6.0); LYMPHOCYTES # (AUTO) 0.8 /CMM (0.8-4.8); MONOCYTES # (AUTO) 0.8 /CMM (0.1-1.30)
[2016-12-31 06:48] LABS: GENTAMICIN,TROUGH 3.4 ug/ml (0.2-2.0)
[2016-12-31] MEDS: SUCRALFATE 1 G/10 ML UDC GT SCH ×4 (07:30→22:00)
[2016-12-31] MEDS: PROSOURCE / PROSTAT (PYXIS) 30 ML UDC GT SCH ×2 (09:00→10:31)
[2016-12-31] MEDS: PYRIDOXINE HCL 50 MG TABLET GT SCH (09:00)
[2016-12-31] MEDS: VIT B CMPLX 3/FA/VIT C/BIOTIN 1 TAB TABLET GT SCH (09:00)
[2016-12-31] MEDS: CHOLESTYRAMINE/ASPARTAME 4 G/PKT PACKET GT SCH ×2 (09:00→15:15)
[2016-12-31] MEDS ORDERED: IV NS 0.9% 2,000 ML ONE (09:12)
[2016-12-31] MEDS: Z GUARD REMEDY 2 OZ OINT TP SCH (10:25)
[2016-12-31] MEDS: PANTOPRAZOLE 40 MG VIAL IV SCH ×2 (10:25→23:20)
[2016-12-31] MEDS: NEOMY SULF/BACITRAC ZN/POLY 15 GM TUBE TP SCH (10:26)
[2016-12-31] MEDS: DEXTROSE 50%-WATER 50 ML DISP.SYRIN IV PRN (11:56)
[2016-12-31] MEDS ORDERED: TPN BAG #8 IV PRN ×6 (12:00)
[2016-12-31] MEDS ORDERED: TPN BAG #7 IV PRN ×8 (12:00)
[2016-12-31] MEDS ORDERED: IV SET PRIMARY PUMP SET 1 EA INFUS.SET MC ONE (12:26)
[2016-12-31] MEDS: FAT EMULSION 20% 500 ML in PREMIX 1 EA IV SCH (12:30)
[2016-12-31] MEDS ORDERED: FILTER SET SAVER IV SET 1 EA INFUS.SET MC ONE (12:32)
[2016-12-31] MEDS: GENTAMICIN 80 MG in IV D5W 50 ML IV PRN (12:53)
--- NOTE | 2016-12-31 18:02 | NUR ---
RN ABISAI PATIENT REFUSED NGT INSERTION AFTER INFORMING HER THAT THE DOCTOR ORDERED FOR IT
--- NOTE | 2016-12-31 19:10 | NUR ---
RN NOTE RECEIVED REPORT. PT AWAKE, EYE OPENING. ABLE TO MAKE NEEDS KNOWN IN KOREAN. VENT TRACHE - SETTINGS ACCURATE. NO S/S OF ANY DISTRESS AT THIS TIME. REFUSING NGT INSERTION, DESPITE ENCOURAGEMENT AND TEACHING X3. G-TUBE IS NOT INTACT, DRESSING IN PLACE. ABDOMEN NOTED TO BE VERY DISTENDED. IV INTACT AND PATENT, TOLERATING INFUSIONS WELL. WILL REPOSITON Q2HR AND KEEP CLEAN AND DRY. WILL CONT TO MONITOR.
--- NOTE | 2016-12-31 21:00 | NUR ---
RN NOTE DUE MEDS HELD D/T NO NGT AND NPO DX.
[2016-12-31] MEDS: ESCITALOPRAM OXALATE (10 MG) 10 MG TABLET GT SCH (22:00)
[2016-12-31] MEDS: INSULIN DETEMIR 100 UNIT/ML CARTRIDGE SQ SCH (22:00)
[2017-01-01] VITALS (8 sets, daily range): BP systolic 100–127; BP diastolic 49–64
[2017-01-01] MEDS ORDERED: FILTER SET SAVER IV SET 1 EA INFUS.SET MC ONE (03:48)
[2017-01-01] MEDS ORDERED: IV SET PRIMARY PUMP SET 1 EA INFUS.SET MC ONE ×2 (03:49→13:57)
[2017-01-01] MEDS: BLOOD SUGAR DIAGNOSTIC 1 EACH STRIP IN SCH ×4 (05:41→23:58)
[2017-01-01 06:38] LABS: BASOPHILS % (AUTO) 0.7 % (0.0-2.0); EOSINOPHILS # (AUTO) 0.3 /CMM (0.0-0.7); EOSINOPHILS % (AUTO) 5.7 % (0.0-6.0); HEMATOCRIT 26 % (33-45); HEMOGLOBIN 8.6 g/dL (11.5-14.8); LYMPHOCYTES # (AUTO) 0.6 /CMM (0.8-4.8); LYMPHOCYTES % (AUTO) 11.7 % (20.0-44.0); MEAN CORPUSCULAR HEMOGLOBIN 29 PG (26.0-33.0); MEAN CORPUSCULAR HGB CONC 34 g/dl (31.0-36.0); MEAN CORPUSCULAR VOLUME 84 fL (82-100); MONOCYTES # (AUTO) 0.6 /CMM (0.1-1.30); MONOCYTES % (AUTO) 11.4 % (2.0-12.0); NEUTROPHILS # (AUTO) 3.7 /CMM (1.8-8.9); NEUTROPHILS % (AUTO) 70.5 % (43.0-81.0); PLATELET COUNT (AUTO) 109 /CMM (150-450); RED BLOOD CELL COUNT(AUTO) 3.03 MIL/uL (4.0-5.2); WHITE BLOOD COUNT (AUTO) 5.3 K/uL (4.3-11.0)
[2017-01-01 06:59] LABS: CALCIUM, SERUM 7.9 mg/dL (8.5-10.1); CREATININE 3.2 mg/dL (0.6-1.3); MAGNESIUM 1.9 mg/dL (1.8-2.4); PHOSPHORUS 2.3 mg/dL (2.5-4.9); POTASSIUM 3.6 mmol/L (3.5-5.1)
--- NOTE | 2017-01-01 07:00 | NUR ---
RN NOTES RECEIVED PT ON BED, A/Ox2, VENT DEPENDENT , WITH PORTEX # 7 AC 16 TV 550 FIO2 40% PEEP 5. TOLERATING CURRENT VENT SETTING WELL, ON TELE V PACING , NPO AT THIS TIME , R UA MIDLINE WITH TPN @ 75 ML/HR AND LIPID AT 20CC/HR, RCW HD CATH, R HAND AND R UPPER ARM MIDLINE IV SITE CDI, SR UP x3, CALL LIGHT WITHIN EASY REACH, CONTINUE TO MONITOR PT CLOSELY AND NOTIFY MD FOR ANY SIGNIFICANT CHANGES.
--- NOTE | 2017-01-01 07:00 | NUR ---
RN NOTE NO SIGNIFICANT CHANGES AT NIGHT. NO DISTRESS NOTED AT THIS TIME. VENT SETTINGS ACCURATE. PT KEPT CLEAN AND DRY T/O SHIFT, ALSO REPOSITIONED [id number]. IV'S INTACT AND PATENT. NO SIGNS OF BLEEDING OBSERVED THIS SHIFT. SAFETY AND COMFORT MEASURES RENDERED. WILL F/UW DAY SHIFT FOR KARINA. Addendum: 01/01/17 at 0731 by JESSICA WEEMS RN V PACING ON TELE IN 'S.
[2017-01-01] MEDS: SUCRALFATE 1 G/10 ML UDC GT SCH ×5 (07:30→21:04)
[2017-01-01] MEDS: VIT B CMPLX 3/FA/VIT C/BIOTIN 1 TAB TABLET GT SCH (08:24)
[2017-01-01] MEDS: PYRIDOXINE HCL 50 MG TABLET GT SCH (08:24)
[2017-01-01] MEDS: CHOLESTYRAMINE/ASPARTAME 4 G/PKT PACKET GT SCH ×2 (08:24→16:11)
[2017-01-01] MEDS: NEOMY SULF/BACITRAC ZN/POLY 15 GM TUBE TP SCH (08:27)
[2017-01-01] MEDS: Z GUARD REMEDY 2 OZ OINT TP SCH (08:27)
[2017-01-01] MEDS: PANTOPRAZOLE 40 MG VIAL IV SCH ×2 (08:27→21:03)
[2017-01-01] MEDS ORDERED: TPN BAG #9 IV PRN ×8 (10:30)
[2017-01-01] MEDS ORDERED: TPN BAG #10 IV PRN ×6 (10:30)
[2017-01-01] MEDS: INSULIN REGULAR, HUMAN 100 UNIT/ML 3 ML VIAL SQ PRN ×2 (11:27→17:03)
--- NOTE | 2017-01-01 12:30 | NUR ---
SEVERINO left another voicemail message for pt's son Michael to contact SEVERINO in regards to scheduling a bioethics meeting with him and his siblings. SEVERINO has made many attempts in the last two weeks to contact Michael, but have not received any call backs.
--- NOTE | 2017-01-01 18:39 | NUR ---
RN NOTES PT REMAINS THE SAME, TPN AT 75CC/HR RUNNING VIA R UPPER ARM MIDLINE , PT MEDICATED PER MD ORDER ON THIS SHIFT , STILL NPO, NO SIGNIFICANT CHANGES NOTED ON THIS SHIFT
--- NOTE | 2017-01-01 19:25 | NUR ---
RN NOTES RECEIVED PT AWAKE ON BED WATCHING TV. ON TRACH WITH VENT SETTING OF AC 16 TV 550 FIO2 40% PEEP 5 AOX 3 ABLE TO MOUTH WORDS. NO ACUTE RESP DISTRESS SUCTIONED PT WITH MODERATE AMOUNT OF YELLOWISH THICK SECRETION. JUAN CARLOS BREATH SOUND WITH RHONCHI. PT REVEALS SR WIT OCCASIONAL V-PACING HR 85. WITH NGT ON RIGHT NARES CLAMPED PATENCY CHECKED WITH ZERO RESIDUAL. COLOSTOMY BAG KEPT INTACT WITH THICK CONSISTENCY LIKE SPUTUM YELLOWISH OUTPUT . IV SITE ON JAZMIN MIDLINE RUNNING WITH TPN @ 50 CC/HR TOLERATED WELL RCW HD CATH INTACT AND PATENT. KEPT PT CLEAN AND COMFORTABLE IN BED. WILL CONTINUE TO MONITOR
[2017-01-01] MEDS: ESCITALOPRAM OXALATE (10 MG) 10 MG TABLET GT SCH (21:04)
[2017-01-01] MEDS: HYDROMORPHONE 1 MG/1 ML DISP.SYRIN IV PRN (21:09)
[2017-01-01] MEDS: INSULIN DETEMIR 100 UNIT/ML CARTRIDGE SQ SCH (21:30)
[2017-01-02] VITALS (8 sets, daily range): BP systolic 84–116; BP diastolic 46–78
[2017-01-02] MEDS: INSULIN REGULAR, HUMAN 100 UNIT/ML 3 ML VIAL SQ PRN (00:01)
[2017-01-02] MEDS: BLOOD SUGAR DIAGNOSTIC 1 EACH STRIP IN SCH ×3 (05:49→18:19)
[2017-01-02 06:51] LABS: BASOPHILS % (AUTO) 0.7 % (0.0-2.0); EOSINOPHILS # (AUTO) 0.3 /CMM (0.0-0.7); EOSINOPHILS % (AUTO) 5.3 % (0.0-6.0); HEMATOCRIT 27 % (33-45); HEMOGLOBIN 9.1 g/dL (11.5-14.8); LYMPHOCYTES # (AUTO) 0.8 /CMM (0.8-4.8); LYMPHOCYTES % (AUTO) 14.2 % (20.0-44.0); MEAN CORPUSCULAR HEMOGLOBIN 29 PG (26.0-33.0); MEAN CORPUSCULAR HGB CONC 34 g/dl (31.0-36.0); MEAN CORPUSCULAR VOLUME 85 fL (82-100); MONOCYTES # (AUTO) 0.7 /CMM (0.1-1.30); NEUTROPHILS # (AUTO) 3.5 /CMM (1.8-8.9); NEUTROPHILS % (AUTO) 66.8 % (43.0-81.0); PLATELET COUNT (AUTO) 109 /CMM (150-450); RED BLOOD CELL COUNT(AUTO) 3.17 MIL/uL (4.0-5.2); WHITE BLOOD COUNT (AUTO) 5.3 K/uL (4.3-11.0)
[2017-01-02 06:54] LABS: CALCIUM, SERUM 8.2 mg/dL (8.5-10.1); CREATININE 3.5 mg/dL (0.6-1.3); POTASSIUM 4.2 mmol/L (3.5-5.1)
[2017-01-02 07:01] LABS: PHOSPHORUS 2.8 mg/dL (2.5-4.9)
--- NOTE | 2017-01-02 07:04 | NUR ---
RN NOTES REMAINED IN STABLE CONDITION THROUGHOUT THE SHIFT CONTINUE WITH ONGOING TPN TOLERATED WELL NO N/V/D. IV SITE ON JAZMIN MIDLINE INTACT AND PATENT WITH GOOD BLOOD RETURN. NO HYPO OR HYPERGLYCEMIA NOTED. KEPT PT CLEAN AND DRY. WILL ENDORSED CONTINUITY OF CARE TO AM NURSE.
[2017-01-02 07:30] LABS: GENTAMICIN,TROUGH 3.3 ug/ml (0.2-2.0)
[2017-01-02] MEDS: SUCRALFATE 1 G/10 ML UDC GT SCH ×4 (07:30→21:05)
--- NOTE | 2017-01-02 08:00 | NUR ---
RN received pt in bed awake alert follow commands, pt on vent settings noted no distress, pt on monitor hr 90s sbp stalbe but low w/o any symptoms, pt is npo gastrostomy bag patent with discharge, pt has distended abd will notify md Dr. Villagomez aware, iv access patent insusing tpn bag #9, turn and reposition in bed fall precautions taken call light w/ in reach will continue to monitor.
[2017-01-02] MEDS: VIT B CMPLX 3/FA/VIT C/BIOTIN 1 TAB TABLET GT SCH (09:00)
[2017-01-02] MEDS: PYRIDOXINE HCL 50 MG TABLET GT SCH (09:00)
[2017-01-02] MEDS: PROSOURCE / PROSTAT (PYXIS) 30 ML UDC GT SCH (09:00)
[2017-01-02] MEDS: CHOLESTYRAMINE/ASPARTAME 4 G/PKT PACKET GT SCH ×2 (09:00→16:27)
[2017-01-02] MEDS: NEOMY SULF/BACITRAC ZN/POLY 15 GM TUBE TP SCH (09:12)
[2017-01-02] MEDS: PANTOPRAZOLE 40 MG VIAL IV SCH ×2 (09:12→20:53)
[2017-01-02] MEDS: Z GUARD REMEDY 2 OZ OINT TP SCH (09:12)
[2017-01-02] MEDS ORDERED: IV SET PRIMARY PUMP SET 1 EA INFUS.SET MC ONE (09:15)
[2017-01-02] MEDS ORDERED: FILTER SET SAVER IV SET 1 EA INFUS.SET MC ONE (09:15)
[2017-01-02] MEDS ORDERED: TPN #10 IV PRN ×6 (09:34)
[2017-01-02] MEDS ORDERED: TPN BAG #11 IV PRN ×8 (10:00)
[2017-01-02] MEDS: DEXTROSE 50%-WATER 50 ML DISP.SYRIN IV PRN (11:51)
[2017-01-02] MEDS: FAT EMULSION 20% 500 ML in PREMIX 1 EA IV SCH (11:52)
[2017-01-02] MEDS: HYDROMORPHONE 1 MG/1 ML DISP.SYRIN IV PRN (17:13)
--- NOTE | 2017-01-02 19:30 | NUR ---
RETAIL AND RESTAURANT ASSOCIATE INITIAL NOTE RECEIVED REPORT FROM STEVEN RN. PT IN BED. A/A/O X2. MOUTHS WORDS IN NIGERIAN. LUNG SOUNDS RHONCHI. BOWEL SOUNDS PRESENT. COLOSTOMY INTACT AND DRAINING. IV PATENT AND INTACT. TPN AND LIPIDS RUNNING. PULSES PRESENT. ABDOMEN DISTENDED, DR TAYLOR AWARE PER STEVEN RN. BED IN LOW LOCKED POSITION. CALL LIGHT WITHIN REACH. WILL CONTINUE TO MONITOR.
--- NOTE | 2017-01-02 21:00 | NUR ---
LE[employer]LAT[employer] DIAMOND HELD DUE TO BS 100.
[2017-01-02] MEDS: ESCITALOPRAM OXALATE (10 MG) 10 MG TABLET GT SCH (21:05)
[2017-01-02] MEDS: INSULIN DETEMIR 100 UNIT/ML CARTRIDGE SQ SCH (21:05)
--- NOTE | 2017-01-02 21:30 | NUR ---
RN INITIAL NOTE RECEIVED PT IN ON ACUTE DISTRESS IN BED. PT IS A/O X 2 AND ABLE TO MOUTH WORDS. PT IS ON MECHANICAL VENT VIA TRACH. TRACH SITE IS CLEAN DRY AND INTACT. PT TOLERATING VENT SETTING WELL. PT IS ON TELE WITH SR ON THE MONITOR. PT HAS GTUBE, BUT BALLOONED OUT AND NOW IS NO LONGER IN PLACE. PT HAS COLOSTOMY BAG COVERING STOMA TO CATCH DRAINAGE. PT HAS GREEN/ BROWN DRAINAGE COMING FROM STOMA SITE. PT HAS JAZMIN MIDLINE THAT IS CLEAN DRY INTACT AND PATENT WITH TPN AND LIPIDS RUNNING. PT HAS R CHESTWALL HD CATH THAT IS CLEAN DRY AND INTACT. BED IN LOW LOCK POSITION WITH RIALS UP X 2. CALL LIGHT WITHIN REACH AND ALL SAFETY MEASURES ENSURED AND CARRIED OUT. WILL CONTINUE TO MONITOR PT.
--- NOTE | 2017-01-02 21:49 | NUR ---
RN NOTE RECEIVED PT FROM ABISAI AGATA CAPPS FOR CONTINUITY OF CARE.
[2017-01-03] VITALS: BP 101/89
[2017-01-03] MEDS ORDERED: IV SET PRIMARY PUMP SET 1 EA INFUS.SET MC ONE ×2 (01:01→11:06)
[2017-01-03] MEDS ORDERED: FILTER SET SAVER IV SET 1 EA INFUS.SET MC ONE (01:01)
[2017-01-03] MEDS: HYDROMORPHONE 1 MG/1 ML DISP.SYRIN IV PRN (01:09)
[2017-01-03] MEDS: BLOOD SUGAR DIAGNOSTIC 1 EACH STRIP IN SCH ×4 (01:20→17:10)
[2017-01-03 04:00] VITALS: BP 101/67
--- NOTE | 2017-01-03 06:37 | NUR ---
RN CLOSING NOTE PT REMAINS IN NO ACUTE DISTRESS IN BED. PT DID NOT HAVE ANY SIGNIFICANT CHANGE IN CONDITION DURING SHIFT. PT TOLERATED VENT SETTING WELL. ALL NEEDS MET ALL ORDERS CARRIED OUT. WILL ENDORSE TO AM RN FOR CONTINUITY OF CARE.
[2017-01-03 07:07] LABS: BASOPHILS % (AUTO) 0.9 % (0.0-2.0); EOSINOPHILS # (AUTO) 0.3 /CMM (0.0-0.7); EOSINOPHILS % (AUTO) 4.9 % (0.0-6.0); HEMATOCRIT 25 % (33-45); HEMOGLOBIN 8.3 g/dL (11.5-14.8); LYMPHOCYTES # (AUTO) 0.7 /CMM (0.8-4.8); LYMPHOCYTES % (AUTO) 13.2 % (20.0-44.0); MEAN CORPUSCULAR HEMOGLOBIN 29 PG (26.0-33.0); MEAN CORPUSCULAR HGB CONC 34 g/dl (31.0-36.0); MEAN CORPUSCULAR VOLUME 85 fL (82-100); MONOCYTES # (AUTO) 0.6 /CMM (0.1-1.30); MONOCYTES % (AUTO) 11.7 % (2.0-12.0); NEUTROPHILS # (AUTO) 3.6 /CMM (1.8-8.9); NEUTROPHILS % (AUTO) 69.3 % (43.0-81.0); PLATELET COUNT (AUTO) 121 /CMM (150-450); RDW COEFFICIENT OF VARIATION 16.9 (11.5-15.0); RED BLOOD CELL COUNT(AUTO) 2.89 MIL/uL (4.0-5.2); WHITE BLOOD COUNT (AUTO) 5.3 K/uL (4.3-11.0)
[2017-01-03 07:20] LABS: BILIRUBIN,TOTAL 0.9 mg/dL (0.2-1.0); CREATININE 3.7 mg/dL (0.6-1.3); MAGNESIUM 1.9 mg/dL (1.8-2.4); PHOSPHORUS 3.2 mg/dL (2.5-4.9); POTASSIUM 4.8 mmol/L (3.5-5.1); TOTAL PROTEIN, SERUM 6.6 g/dL (6.4-8.2)
--- NOTE | 2017-01-03 07:20 | NUR ---
RN INITIAL NOTES RECEIVED PT AWAKE, A/OX2, NON-VERBAL. [facility],TRACH IN [facility]. NO RESPIRATORY DISTRESS NOTED. NO SOB NOTED. DENIES ANY PAIN. HOB ELEVATED. OLIVIA MIDLINE IN PLACE. TOLERATING TPN AND LIPIDS IV WELL. BLE ELEVTAED. PT COMFORTABLE. WILL MONITOR.
[2017-01-03 07:23] LABS: ALBUMIN 1.4 g/dL (3.4-5.0)
[2017-01-03] MEDS: SUCRALFATE 1 G/10 ML UDC GT SCH ×4 (07:30→20:34)
[2017-01-03 08:00] VITALS: BP 98/50
[2017-01-03] MEDS: NEOMY SULF/BACITRAC ZN/POLY 15 GM TUBE TP SCH (08:11)
[2017-01-03] MEDS: PANTOPRAZOLE 40 MG VIAL IV SCH ×2 (08:11→21:56)
[2017-01-03] MEDS: Z GUARD REMEDY 2 OZ OINT TP SCH (08:12)
[2017-01-03] MEDS: VIT B CMPLX 3/FA/VIT C/BIOTIN 1 TAB TABLET GT SCH (08:14)
[2017-01-03] MEDS: PROSOURCE / PROSTAT (PYXIS) 30 ML UDC GT SCH (08:14)
[2017-01-03] MEDS: CHOLESTYRAMINE/ASPARTAME 4 G/PKT PACKET GT SCH ×2 (08:14→16:20)
[2017-01-03] MEDS: PYRIDOXINE HCL 50 MG TABLET GT SCH (08:15)
[2017-01-03 12:00] VITALS: BP 106/49
[2017-01-03] MEDS ORDERED: TPN BAG #12 IV PRN ×10 (12:00→14:00)
[2017-01-03] MEDS ORDERED: TPN BAG #13 IV PRN ×8 (12:30)
[2017-01-03 14:12] LABS: GENTAMICIN,RANDOM 2.9 ug/ml (4.0-8.0)
[2017-01-03 16:00] VITALS: BP 119/54
[2017-01-03] MEDS: INSULIN REGULAR, HUMAN 100 UNIT/ML 3 ML VIAL SQ PRN (17:16)
--- NOTE | 2017-01-03 18:43 | NUR ---
RN CLOSING NOTES PT STABLE. NO SIGNIFICANT CHANGE NOTED. TOLERATING MECH VENT WELL. NO RESPIRATORY DISTRESS NOTED. NO SOB NOTED. NO SIGNS OF PAIN NOTED. IV LINE IN PLACE. COLOSTOMY BAG INTACT. KEPT CLEAN AND DRY. REPOSITIONED Q2. KEPT COMFORTABLE. ALL NEEDS ATTENDED AND MET. WILL ENDORSE FOR CONTINUITY OF CARE.
[2017-01-03 20:00] VITALS: BP 95/55
[2017-01-03] MEDS: ESCITALOPRAM OXALATE (10 MG) 10 MG TABLET GT SCH (20:34)
[2017-01-03] MEDS: INSULIN DETEMIR 100 UNIT/ML CARTRIDGE SQ SCH (21:56)
[2017-01-03] MEDS: GENTAMICIN 80 MG in IV D5W 50 ML IV PRN (22:58)
[2017-01-04] VITALS: BP 112/73
[2017-01-04] MEDS: BLOOD SUGAR DIAGNOSTIC 1 EACH STRIP IN SCH ×5 (00:31→23:05)
[2017-01-04] MEDS: INSULIN REGULAR, HUMAN 100 UNIT/ML 3 ML VIAL SQ PRN ×4 (00:34→23:05)
[2017-01-04] MEDS ORDERED: IV SET PRIMARY PUMP SET 1 EA INFUS.SET MC ONE ×2 (01:17→06:03)
[2017-01-04] MEDS: VANCOMYCIN 500 MG in IV D5W 100 ML IV PRN (01:29)
[2017-01-04] MEDS ORDERED: TPN BAG #13 IV PRN ×8 (03:00)
[2017-01-04 04:00] VITALS: BP 112/76
[2017-01-04] MEDS ORDERED: FILTER SET SAVER IV SET 1 EA INFUS.SET MC ONE (06:03)
[2017-01-04] MEDS: SUCRALFATE 1 G/10 ML UDC GT SCH ×5 (06:37→21:36)
[2017-01-04 07:24] LABS: BASOPHILS % (AUTO) 0.8 % (0.0-2.0); EOSINOPHILS # (AUTO) 0.1 /CMM (0.0-0.7); EOSINOPHILS % (AUTO) 2.2 % (0.0-6.0); HEMATOCRIT 25 % (33-45); HEMOGLOBIN 8.6 g/dL (11.5-14.8); LYMPHOCYTES # (AUTO) 0.7 /CMM (0.8-4.8); LYMPHOCYTES % (AUTO) 12.4 % (20.0-44.0); MEAN CORPUSCULAR HEMOGLOBIN 29 PG (26.0-33.0); MEAN CORPUSCULAR HGB CONC 34 g/dl (31.0-36.0); MEAN CORPUSCULAR VOLUME 86 fL (82-100); MONOCYTES # (AUTO) 0.7 /CMM (0.1-1.30); MONOCYTES % (AUTO) 12.4 % (2.0-12.0); NEUTROPHILS # (AUTO) 3.8 /CMM (1.8-8.9); NEUTROPHILS % (AUTO) 72.2 % (43.0-81.0); PLATELET COUNT (AUTO) 120 /CMM (150-450); RDW COEFFICIENT OF VARIATION 17.4 (11.5-15.0); RED BLOOD CELL COUNT(AUTO) 2.97 MIL/uL (4.0-5.2); WHITE BLOOD COUNT (AUTO) 5.3 K/uL (4.3-11.0)
[2017-01-04 08:00] VITALS: BP 108/58
[2017-01-04] MEDS: PYRIDOXINE HCL 50 MG TABLET GT SCH (09:00)
[2017-01-04] MEDS: PROSOURCE / PROSTAT (PYXIS) 30 ML UDC GT SCH (09:00)
[2017-01-04] MEDS: CHOLESTYRAMINE/ASPARTAME 4 G/PKT PACKET GT SCH ×2 (09:00→16:47)
[2017-01-04] MEDS: VIT B CMPLX 3/FA/VIT C/BIOTIN 1 TAB TABLET GT SCH (09:00)
[2017-01-04] MEDS: PANTOPRAZOLE 40 MG VIAL IV SCH ×2 (09:48→20:54)
[2017-01-04] MEDS: Z GUARD REMEDY 2 OZ OINT TP SCH (09:51)
[2017-01-04] MEDS: NEOMY SULF/BACITRAC ZN/POLY 15 GM TUBE TP SCH (09:51)
[2017-01-04 12:00] VITALS: BP 108/55
[2017-01-04 12:20] LABS: CALCIUM, SERUM 8.3 mg/dL (8.5-10.1); CREATININE 3.3 mg/dL (0.6-1.3)
[2017-01-04] MEDS: FAT EMULSION 20% 500 ML in PREMIX 1 EA IV SCH (12:46)
[2017-01-04 13:17] LABS: MAGNESIUM 1.9 mg/dL (1.8-2.4); PHOSPHORUS 3.1 mg/dL (2.5-4.9)
[2017-01-04] MEDS ORDERED: TPN BAG #15 IV PRN ×8 (14:00)
[2017-01-04 16:00] VITALS: BP 103/57
--- NOTE | 2017-01-04 17:39 | NUR ---
RN NOTE PO/GT MEDS WERE NOT ADMINISTERED DUE TO GTUBE BEING ABSENT AND PT NPO. IV MEDS ADMINISTERD ORDERED.
[2017-01-04] MEDS ORDERED: TPN BAG #14 IV PRN ×6 (19:00)
--- NOTE | 2017-01-04 19:12 | NUR ---
RT Received patient on settings of AC16 550 40% +5 Patient is calm and alert. Suctioned small amount of thick yellow secretions. Ambu bag is at bedside, vent alarms are audible and functioning. Addendum: 01/04/17 at 1954 by MADELIN RIDER RT Amended: Links added.
[2017-01-04 20:00] VITALS: BP 117/53
[2017-01-04] MEDS: ESCITALOPRAM OXALATE (10 MG) 10 MG TABLET GT SCH ×2 (20:53→21:37)
--- NOTE | 2017-01-04 21:37 | NUR ---
RN NOTES: PATIENT ON TPN, AND NO G-TUBE.THE ORDERED DOSE OF CARAFATE AND LEXAPRO ARE HELD.
[2017-01-04] MEDS: INSULIN DETEMIR 100 UNIT/ML CARTRIDGE SQ SCH (22:00)
--- NOTE | 2017-01-04 23:01 | NUR ---
RN NOTES: LEVEMIR IS HELD DUE TO BLOOD SUGAR OF 142 MG/DL. REGULAR INSULIN IS GIVEN ACCORDING TO THE SLIDING SCALE.WILL CONTINUE TO MONITOR.
[2017-01-05] VITALS: BP 110/50
[2017-01-05 04:00] VITALS: BP 99/53
[2017-01-05] MEDS ORDERED: FILTER SET SAVER IV SET 1 EA INFUS.SET MC ONE ×2 (04:43→12:13)
[2017-01-05] MEDS: BLOOD SUGAR DIAGNOSTIC 1 EACH STRIP IN SCH ×3 (05:25→18:26)
[2017-01-05] MEDS: INSULIN REGULAR, HUMAN 100 UNIT/ML 3 ML VIAL SQ PRN (05:29)
[2017-01-05] MEDS ORDERED: TPN BAG #15 IV PRN ×16 (07:00→13:00)
[2017-01-05 07:16] LABS: BASOPHILS % (AUTO) 0.4 % (0.0-2.0); EOSINOPHILS # (AUTO) 0.1 /CMM (0.0-0.7); EOSINOPHILS % (AUTO) 2.1 % (0.0-6.0); HEMATOCRIT 25 % (33-45); HEMOGLOBIN 8.4 g/dL (11.5-14.8); LYMPHOCYTES # (AUTO) 0.7 /CMM (0.8-4.8); MEAN CORPUSCULAR HEMOGLOBIN 30 PG (26.0-33.0); MEAN CORPUSCULAR HGB CONC 34 g/dl (31.0-36.0); MEAN CORPUSCULAR VOLUME 86 fL (82-100); MONOCYTES # (AUTO) 0.7 /CMM (0.1-1.30); NEUTROPHILS % (AUTO) 73.5 % (43.0-81.0); PLATELET COUNT (AUTO) 130 /CMM (150-450); RDW COEFFICIENT OF VARIATION 17.2 (11.5-15.0); RED BLOOD CELL COUNT(AUTO) 2.87 MIL/uL (4.0-5.2); WHITE BLOOD COUNT (AUTO) 5.5 K/uL (4.3-11.0)
[2017-01-05 07:24] LABS: GENTAMICIN,RANDOM 3.2 ug/ml (4.0-8.0)
[2017-01-05 07:28] LABS: CALCIUM, SERUM 8.3 mg/dL (8.5-10.1); CREATININE 3.5 mg/dL (0.6-1.3); PHOSPHORUS 3.2 mg/dL (2.5-4.9); POTASSIUM 3.9 mmol/L (3.5-5.1)
[2017-01-05] MEDS: SUCRALFATE 1 G/10 ML UDC GT SCH ×4 (07:30→21:25)
[2017-01-05 08:00] VITALS: BP 115/52
[2017-01-05] MEDS: CHOLESTYRAMINE/ASPARTAME 4 G/PKT PACKET GT SCH ×2 (09:00→17:00)
[2017-01-05] MEDS: VIT B CMPLX 3/FA/VIT C/BIOTIN 1 TAB TABLET GT SCH (09:00)
[2017-01-05] MEDS: Z GUARD REMEDY 2 OZ OINT TP SCH (09:00)
[2017-01-05] MEDS: NEOMY SULF/BACITRAC ZN/POLY 15 GM TUBE TP SCH (09:00)
[2017-01-05] MEDS: PYRIDOXINE HCL 50 MG TABLET GT SCH (09:00)
[2017-01-05] MEDS: GENTAMICIN 80 MG in IV D5W 50 ML IV PRN (10:09)
[2017-01-05] MEDS: HYDROMORPHONE 1 MG/1 ML DISP.SYRIN IV PRN (10:09)
[2017-01-05] MEDS: PANTOPRAZOLE 40 MG VIAL IV SCH ×2 (10:09→20:50)
[2017-01-05] MEDS ORDERED: IV SET PRIMARY PUMP SET 1 EA INFUS.SET MC ONE ×2 (10:17→12:13)
[2017-01-05 12:00] VITALS: BP 109/42
[2017-01-05] MEDS ORDERED: TPN BAG #16 IV PRN ×12 (12:30→23:00)
[2017-01-05] MEDS: VANCOMYCIN 500 MG in IV D5W 100 ML IV PRN (13:13)
--- NOTE | 2017-01-05 15:22 | NUR ---
RT PATIENT RECEIVED AWAKE, ALERT AND RESPONSIVE. PT IS TRACHED WITH PORTEX #7 CUFFED ON VENT WITH SETTINGS PER MD ORDER. REGISTERED REPRESENTATIVE DONE. BILAT RHONCHI BREATH SOUNDS ON AUSCULTATION. VENT PLUGGED INTO RED OUTLET. ALARMS ON AND WORKING PROPERLY. AMBU BAG AT BEDSIDE. TRACH SECURED AND AIRWAY PATENT. SUCTIONED MOD AMOUNTS OF THICK, YELLOW SECRETIONS. NO SOB OR SIGNS OF DISTRESS NOTED THROUGHOUT SHIFT. WILL CONTINUE TO MONITOR THE PATIENT CLOSELY FOR ANY CHANGE OF CONDITION. Addendum: 01/05/17 at 1820 by AIDA JOSÉ RT Amended: Links added.
[2017-01-05 16:00] VITALS: BP 121/44
[2017-01-05 20:00] VITALS: BP 101/33
[2017-01-05] MEDS: ESCITALOPRAM OXALATE (10 MG) 10 MG TABLET GT SCH (21:25)
[2017-01-05] MEDS: INSULIN DETEMIR 100 UNIT/ML CARTRIDGE SQ SCH (22:00)
--- NOTE | 2017-01-05 22:51 | NUR ---
RN NOTES: PATIENT IS ON TPN. THE ORDERED DOSE OF LEVEMIR IS HELD DUE TO BLOOD SUGAR READING OF 129 MG/DL. WILL CONTINUE TO MONITOR.
[2017-01-06] VITALS: BP 114/63
[2017-01-06] MEDS: BLOOD SUGAR DIAGNOSTIC 1 EACH STRIP IN SCH ×5 (00:55→23:31)
[2017-01-06 04:00] VITALS: BP 99/81
[2017-01-06 07:20] LABS: BASOPHILS % (AUTO) 0.7 % (0.0-2.0); EOSINOPHILS # (AUTO) 0.2 /CMM (0.0-0.7); EOSINOPHILS % (AUTO) 3.6 % (0.0-6.0); HEMATOCRIT 26 % (33-45); HEMOGLOBIN 8.8 g/dL (11.5-14.8); LYMPHOCYTES # (AUTO) 0.8 /CMM (0.8-4.8); LYMPHOCYTES % (AUTO) 13.2 % (20.0-44.0); MEAN CORPUSCULAR HEMOGLOBIN 29 PG (26.0-33.0); MEAN CORPUSCULAR HGB CONC 34 g/dl (31.0-36.0); MEAN CORPUSCULAR VOLUME 85 fL (82-100); MONOCYTES # (AUTO) 0.7 /CMM (0.1-1.30); MONOCYTES % (AUTO) 11.9 % (2.0-12.0); NEUTROPHILS # (AUTO) 4.1 /CMM (1.8-8.9); NEUTROPHILS % (AUTO) 70.6 % (43.0-81.0); PLATELET COUNT (AUTO) 128 /CMM (150-450); RDW COEFFICIENT OF VARIATION 17.7 (11.5-15.0); RED BLOOD CELL COUNT(AUTO) 3.05 MIL/uL (4.0-5.2); WHITE BLOOD COUNT (AUTO) 5.8 K/uL (4.3-11.0)
[2017-01-06] MEDS: SUCRALFATE 1 G/10 ML UDC GT SCH ×4 (07:30→21:36)
[2017-01-06 07:32] LABS: CALCIUM, SERUM 8.3 mg/dL (8.5-10.1); CREATININE 3.1 mg/dL (0.6-1.3); MAGNESIUM 1.9 mg/dL (1.8-2.4); PHOSPHORUS 3.5 mg/dL (2.5-4.9); POTASSIUM 3.9 mmol/L (3.5-5.1)
[2017-01-06 08:00] VITALS: BP 111/49
[2017-01-06] MEDS: PYRIDOXINE HCL 50 MG TABLET GT SCH (09:00)
[2017-01-06] MEDS: VIT B CMPLX 3/FA/VIT C/BIOTIN 1 TAB TABLET GT SCH (09:00)
[2017-01-06] MEDS: CHOLESTYRAMINE/ASPARTAME 4 G/PKT PACKET GT SCH ×2 (09:00→17:00)
[2017-01-06] MEDS: PANTOPRAZOLE 40 MG VIAL IV SCH ×2 (09:26→21:39)
[2017-01-06] MEDS: HYDROMORPHONE 1 MG/1 ML DISP.SYRIN IV PRN ×2 (09:33→15:38)
[2017-01-06] MEDS: NEOMY SULF/BACITRAC ZN/POLY 15 GM TUBE TP SCH (09:34)
[2017-01-06] MEDS: Z GUARD REMEDY 2 OZ OINT TP SCH (09:34)
[2017-01-06] MEDS: FAT EMULSION 20% 500 ML in PREMIX 1 EA IV SCH (11:32)
[2017-01-06] MEDS: INSULIN REGULAR, HUMAN 100 UNIT/ML 3 ML VIAL SQ PRN ×3 (11:45→23:38)
[2017-01-06 12:00] VITALS: BP 115/51
[2017-01-06] MEDS ORDERED: TPN BAG #17 IV PRN ×8 (12:00)
[2017-01-06] MEDS ORDERED: TPN BAG #18 IV PRN ×6 (13:00)
[2017-01-06 16:00] VITALS: BP_SYST 105; BP_SYST 106; BP_DIAS 55; BP_DIAS 70
--- NOTE | 2017-01-06 18:06 | NUR ---
DR. RODRIGUEZ CALLED VERBALIZED THAT FAMILY ARE NOT RETURNING HIS CALL REGARDING SURGERY AND WILL NOT DO PROCEDURE UNTIL THERE IS A CONSENT AND BIOETHICS DONE.ALREADY INFORMED BIOETHICS HAS BEEN INITIATED ,STILL WANTED TO TALK TO ADMNISTRATION THAT UNLESS IT IS EMERGENT WILL NOT DO SX WITHOUT COURT ORDER.REFERRED AND VERBALIZED HE WILL TALK TO DEVANTE .
--- NOTE | 2017-01-06 19:40 | NUR ---
FINGERNAIL FORMER NOTE: PATIENT RESTING IN BED, NO ACUTE DISTRESS NOTED. BREATHING EVEN AND UNLABORED, NO SOB NOTED. VENT SETTINGS IN PLACE. OLD G-TUBE SITE WITH COLOSTOMY BAG IN PLACE. RIGHT CHEST WALL HD IN PLACE. RIGHT UPPER ARM WITH MIDLINE IN PLACE, TPN AND LIPIDS IV IN PLACE. NO S/S OF HYPER/HYPOGLYCEMIA NOTED. BED LOCKED AND IN LOWEST POSITION, CALL LIGHT IN REACH. WILL CONTINUE TO MONITOR.
[2017-01-06 20:15] VITALS: BP 114/65
[2017-01-06] MEDS ORDERED: IV SET PRIMARY PUMP SET 1 EA INFUS.SET MC ONE (21:09)
[2017-01-06] MEDS ORDERED: FILTER SET SAVER IV SET 1 EA INFUS.SET MC ONE (21:09)
[2017-01-06] MEDS: INSULIN DETEMIR 100 UNIT/ML CARTRIDGE SQ SCH (21:37)
[2017-01-06] MEDS: ESCITALOPRAM OXALATE (10 MG) 10 MG TABLET GT SCH (21:37)
--- NOTE | 2017-01-06 21:45 | NUR ---
CHOPPER GUN OPERATOR NOTE: PATIENT RESTING IN BED, NO ACUTE DISTRESS NOTED. NO PM MEDICATIONS GIVEN, PATIENT G-TUBE STILL MALFUNTIONED . WILL CONTINUE TO MONITOR.
[2017-01-07 00:15] VITALS: BP 132/63
--- NOTE | 2017-01-07 00:15 | NUR ---
METAL PATTERNMAKER APPRENTICE NOTE: PATIENT BLOOD SUGAR LEVEL 141MG/DL, 2 UNITS GIVEN PER SLIDING SCALE. PATIENT ON IV TPN, NO S/S OF HYPER/HYPOGLYCEMIA NOTED. WILL CONTINUE TO MONITOR.
[2017-01-07 04:30] VITALS: BP 109/63
[2017-01-07] MEDS: BLOOD SUGAR DIAGNOSTIC 1 EACH STRIP IN SCH ×4 (05:58→23:28)
[2017-01-07] MEDS: INSULIN REGULAR, HUMAN 100 UNIT/ML 3 ML VIAL SQ PRN ×4 (05:59→23:30)
--- NOTE | 2017-01-07 06:15 | NUR ---
ASSEMBLER CARBON BRUSHES NOTE: PATIENT RESTING IN BED, NO ACUTE DISTRESS NOTED. BREATHING EVEN AND UNLABORED, NO SOB NOTED. VENT SETTINGS IN PLACE. OLD G-TUBE SITE WITH COLOSTOMY BAG IN PLACE. RIGHT CHEST WALL HD IN PLACE. RIGHT UPPER ARM WITH MIDLINE IN PLACE, TPN AND LIPIDS IV IN PLACE. BLOOD SUGAR LEVEL 141 MG/DL, PATIENT TO RECEIVE 2 UNITS OF INSULIN PER SLIDING SCALE, NO S/S OF HYPER/HYPOGLYCEMIA NOTED. BED LOCKED AND IN LOWEST POSITION, CALL LIGHT IN REACH. WILL ENDORSE TO DAY NURSE TO CONTINUE WITH PLAN OF CARE.
[2017-01-07] MEDS: SUCRALFATE 1 G/10 ML UDC GT SCH ×4 (07:30→21:53)
[2017-01-07 07:37] LABS: BASOPHILS % (AUTO) 0.5 % (0.0-2.0); EOSINOPHILS # (AUTO) 0.2 /CMM (0.0-0.7); EOSINOPHILS % (AUTO) 2.7 % (0.0-6.0); HEMATOCRIT 25 % (33-45); HEMOGLOBIN 8.3 g/dL (11.5-14.8); LYMPHOCYTES # (AUTO) 0.7 /CMM (0.8-4.8); LYMPHOCYTES % (AUTO) 12.1 % (20.0-44.0); MEAN CORPUSCULAR HEMOGLOBIN 28 PG (26.0-33.0); MEAN CORPUSCULAR HGB CONC 33 g/dl (31.0-36.0); MEAN CORPUSCULAR VOLUME 85 fL (82-100); MONOCYTES # (AUTO) 0.5 /CMM (0.1-1.30); MONOCYTES % (AUTO) 8.3 % (2.0-12.0); NEUTROPHILS # (AUTO) 4.3 /CMM (1.8-8.9); NEUTROPHILS % (AUTO) 76.4 % (43.0-81.0); PLATELET COUNT (AUTO) 142 /CMM (150-450); RDW COEFFICIENT OF VARIATION 17.4 (11.5-15.0); RED BLOOD CELL COUNT(AUTO) 2.93 MIL/uL (4.0-5.2); WHITE BLOOD COUNT (AUTO) 5.7 K/uL (4.3-11.0)
[2017-01-07 07:45] LABS: CALCIUM, SERUM 8.1 mg/dL (8.5-10.1); CREATININE 3.1 mg/dL (0.6-1.3); MAGNESIUM 1.8 mg/dL (1.8-2.4); PHOSPHORUS 3.4 mg/dL (2.5-4.9); POTASSIUM 3.4 mmol/L (3.5-5.1)
[2017-01-07 08:00] VITALS: BP 97/47
[2017-01-07] MEDS: HYDROMORPHONE 1 MG/1 ML DISP.SYRIN IV PRN (08:54)
[2017-01-07] MEDS: VIT B CMPLX 3/FA/VIT C/BIOTIN 1 TAB TABLET GT SCH (09:00)
[2017-01-07] MEDS: NEOMY SULF/BACITRAC ZN/POLY 15 GM TUBE TP SCH (09:00)
[2017-01-07] MEDS: CHOLESTYRAMINE/ASPARTAME 4 G/PKT PACKET GT SCH ×2 (09:00→16:56)
[2017-01-07] MEDS ORDERED: TPN BAG #20 IV PRN ×6 (09:00)
[2017-01-07] MEDS ORDERED: TPN BAG #19 IV PRN ×8 (09:00)
[2017-01-07] MEDS: Z GUARD REMEDY 2 OZ OINT TP SCH (09:00)
[2017-01-07] MEDS: PYRIDOXINE HCL 50 MG TABLET GT SCH (09:00)
[2017-01-07] MEDS: PANTOPRAZOLE 40 MG VIAL IV SCH ×2 (09:00→20:24)
[2017-01-07] MEDS ORDERED: IV SET PRIMARY PUMP SET 1 EA INFUS.SET MC ONE ×2 (10:42→22:18)
[2017-01-07] MEDS ORDERED: FILTER SET SAVER IV SET 1 EA INFUS.SET MC ONE ×2 (10:42→22:18)
[2017-01-07 12:00] VITALS: BP 100/67
[2017-01-07] MEDS ORDERED: VANCOMYCIN 1 GM in IV D5W 250 ML IV ONE (13:00)
[2017-01-07] MEDS: FAT EMULSION 20% 500 ML in PREMIX 1 EA IV SCH (13:22)
[2017-01-07 16:57] VITALS: BP 102/53
[2017-01-07 20:00] VITALS: BP 116/59
[2017-01-07] MEDS: ESCITALOPRAM OXALATE (10 MG) 10 MG TABLET GT SCH (21:53)
[2017-01-07] MEDS: INSULIN DETEMIR 100 UNIT/ML CARTRIDGE SQ SCH (22:00)
--- NOTE | 2017-01-07 22:04 | NUR ---
WRAPPING CHECKER NOTE PATIENT'S GTUBE SITE IS NOT WORKING, COVERED WITH COLOSTOMY BAG DUE TO DRAINAGE. UNABLE TO ADMINISTER CARAFATE 1G GT AND LEXAPRO 10MG GT.
[2017-01-08] VITALS (7 sets, daily range): BP systolic 98–115; BP diastolic 40–83
[2017-01-08] MEDS: BLOOD SUGAR DIAGNOSTIC 1 EACH STRIP IN SCH ×3 (05:45→18:31)
[2017-01-08] MEDS: INSULIN REGULAR, HUMAN 100 UNIT/ML 3 ML VIAL SQ PRN (05:51)
[2017-01-08] MEDS ORDERED: VANCOMYCIN 500 MG in IV D5W 100 ML IV PRN (06:00)
--- NOTE | 2017-01-08 06:37 | NUR ---
PASSENGER CAR CONDUCTOR NOTE PATIENT IS RESTING IN BED COMFORTABLY, NO S/S OF RESPIRATORY DISTRESS AND NO ACUTE DISTRESS PRESENT DURING THE STEWARDESSES TEACHER. WILL ENDORSE TO DAY SHIFT FOR KARINA.
--- NOTE | 2017-01-08 07:15 | NUR ---
WOMEN'S SWIM COACH NOTE RECEIVED PATIENT FROM DAY SHIFT, PATIENT IS ALERT AND ORIENTEDX1, NO S/S OF RESPIRATORY DISTRESS OR PAIN AT THIS TIME, MIDLINE ON RIGHT UPPER ARM IS PATENT AND INTACT, TPN AND LIPIDS ARE RUNNING. OLD G TUBE SITE COVERED WITH COLOSTOMY BAG DUE TO OOZING DRAINAGE. TELE MONITOR SR 78 WITH BBB. SRX2, BED IN LOW POSITION, CALL LIGHT WITHIN REACH, WILL CONTINUE TO MONITOR PATIENT.
[2017-01-08] MEDS: SUCRALFATE 1 G/10 ML UDC GT SCH ×4 (07:30→21:29)
[2017-01-08 07:31] LABS: CALCIUM, SERUM 8.2 mg/dL (8.5-10.1); CREATININE 2.9 mg/dL (0.6-1.3); PHOSPHORUS 3.4 mg/dL (2.5-4.9); POTASSIUM 3.5 mmol/L (3.5-5.1)
[2017-01-08 07:47] LABS: BASOPHILS % (AUTO) 0.4 % (0.0-2.0); EOSINOPHILS # (AUTO) 0.2 /CMM (0.0-0.7); EOSINOPHILS % (AUTO) 2.5 % (0.0-6.0); HEMATOCRIT 24 % (33-45); LYMPHOCYTES # (AUTO) 0.8 /CMM (0.8-4.8); LYMPHOCYTES % (AUTO) 12.9 % (20.0-44.0); MEAN CORPUSCULAR HEMOGLOBIN 30 PG (26.0-33.0); MEAN CORPUSCULAR HGB CONC 34 g/dl (31.0-36.0); MEAN CORPUSCULAR VOLUME 88 fL (82-100); MONOCYTES # (AUTO) 0.6 /CMM (0.1-1.30); MONOCYTES % (AUTO) 10.9 % (2.0-12.0); NEUTROPHILS # (AUTO) 4.4 /CMM (1.8-8.9); NEUTROPHILS % (AUTO) 73.3 % (43.0-81.0); PLATELET COUNT (AUTO) 131 /CMM (150-450); RDW COEFFICIENT OF VARIATION 17.6 (11.5-15.0); RED BLOOD CELL COUNT(AUTO) 2.66 MIL/uL (4.0-5.2)
[2017-01-08] MEDS: Z GUARD REMEDY 2 OZ OINT TP SCH (09:00)
[2017-01-08] MEDS: CHOLESTYRAMINE/ASPARTAME 4 G/PKT PACKET GT SCH ×2 (09:00→17:00)
[2017-01-08] MEDS: NEOMY SULF/BACITRAC ZN/POLY 15 GM TUBE TP SCH (09:00)
[2017-01-08] MEDS: VIT B CMPLX 3/FA/VIT C/BIOTIN 1 TAB TABLET GT SCH (09:00)
[2017-01-08] MEDS: PYRIDOXINE HCL 50 MG TABLET GT SCH (09:00)
[2017-01-08] MEDS: PANTOPRAZOLE 40 MG VIAL IV SCH ×2 (09:08→21:30)
[2017-01-08] MEDS ORDERED: TPN BAG #21 IV PRN ×6 (12:30)
--- NOTE | 2017-01-08 12:30 | NUR ---
SEVERINO contacted pt's son Michael informing that she left him several messages and never heard back from him. Michael informed SEVERINO he had informed him sister Yumiko to contact SW. SEVERINO informed Michael she never heard from her. Michael informed SEVERINO he is going to speak with his sister and to contact him at 2PM. SW to call and follow up at 2PM.
--- NOTE | 2017-01-08 14:01 | NUR ---
SEVERINO contacted pt's son Michael to inquire a time and date for a bioethics meeting. Michael informed SEVERINO the family is available on January 10, 2017 at 3PM. SEVERINO informed Michael she will call back and confirm once she speaks with all parties involved. SEVERINO contacted RICH Ayala and Dr. Lee regarding [address]. Lee is available at 1PM on Sunday. SEVERINO contacted Michael to inquire if he can meet at 1PM. Michael informed SEVERINO he will follow up with SEVERINO at 3:30 once he speaks with his sisters. Addendum: 01/08/17 at 1533 by MYNOR HAQ SEVERINO contacted Michael to confirm time for the bioethics meeting for Sunday, however he was not available. SEVERINO left a voicemail requesting a call back.
[2017-01-08] MEDS ORDERED: IV SET PRIMARY PUMP SET 1 EA INFUS.SET MC ONE (15:13)
[2017-01-08] MEDS ORDERED: FILTER SET SAVER IV SET 1 EA INFUS.SET MC ONE (15:13)
--- NOTE | 2017-01-08 16:06 | NUR ---
Bioethics meeting has been confirmed by pt's son Michael, RICH Klein and Dr. Lee for 01/11 at 9AM. SW informed pillowcase cutter Vanessa who informed Dr. Martinez regarding the scheduled meeting.
--- NOTE | 2017-01-08 19:36 | NUR ---
RN NOTE; RECEIVED PT IN BED VENT DEPENDENT, TRACH IN PLACE. BREATHING EVENLY. NAD. SKIN WARM AND DRY. NO SO/S OF PAIN OR DISCOMFORT. STILL W/ LEAKING FROM GT STOMA SITE. TPN RUNNING W/ NO COMPLICATIONS. WILL CONT TO MONITOR
[2017-01-08] MEDS: ESCITALOPRAM OXALATE (10 MG) 10 MG TABLET GT SCH (21:29)
[2017-01-08] MEDS: INSULIN DETEMIR 100 UNIT/ML CARTRIDGE SQ SCH (22:11)
[2017-01-09] VITALS (7 sets, daily range): BP systolic 88–128; BP diastolic 49–64
[2017-01-09] MEDS: INSULIN REGULAR, HUMAN 100 UNIT/ML 3 ML VIAL SQ PRN (00:03)
[2017-01-09] MEDS ORDERED: FILTER SET SAVER IV SET 1 EA INFUS.SET MC ONE ×2 (02:55→22:32)
[2017-01-09] MEDS ORDERED: IV SET PRIMARY PUMP SET 1 EA INFUS.SET MC ONE ×2 (02:56→22:32)
--- NOTE | 2017-01-09 03:00 | NUR ---
NOTED W/ A DISCREPANCY IN TPN BAG LABEL COMPARE TO THE ORDER PAPER FROM THE PHARMACY WHICH WAS MOST LIKELY DUE TO WRITING A NUMBER IN THE WRONG SPOT . DISCUSSED W/ NURSING MOLDER PIPE COVERING, ZEENAT. ZEENAT CALLED TOOTH CLERK PHARMACIST AND SPOKE TO PAOLA NIXON. ALL RECENT LABS WERE RELAYED TO THE PHRMACIST. PER HUSSAIN OK TO HANG THE BAG AND CORRECT THE PHARMACY TPN FORMULARY SHEET. ALSO TPN BAG IS MISSING THE MVI AND THE TRACE WHICH HUSSAIN MADE AWARE OF. PER PHARMACIST THIS CAN BE ADDED TO THE TPN LATER AND TO BE FOLLOWED UP IN AM.
[2017-01-09] MEDS: BLOOD SUGAR DIAGNOSTIC 1 EACH STRIP IN SCH ×5 (05:18→23:56)
--- NOTE | 2017-01-09 06:41 | NUR ---
RN NOTE; PT IN BED SLEEPING, AROUSES EASILY, NO ACUTE CHANGES OVER THE NIGHT. STILL W/ LEAKING FROM THE GT STOMA SITE. NO S/S OF PAIN OR DISCOMFORT. TPN JOHNATHAN WELL. BS: WNL. REPOSITIONED ROUTINELY. SUCTIONED PRN . CLEANED AND DRIED. CALL LIGHT WITHIN REACH. WILL CONT TO MONITOR AND WILL ENDORSE TO AM SHIFT FOR KARINA .
[2017-01-09 07:08] LABS: BASOPHILS % (AUTO) 0.6 % (0.0-2.0); EOSINOPHILS # (AUTO) 0.2 /CMM (0.0-0.7); EOSINOPHILS % (AUTO) 2.5 % (0.0-6.0); HEMATOCRIT 25 % (33-45); HEMOGLOBIN 8.4 g/dL (11.5-14.8); LYMPHOCYTES # (AUTO) 0.6 /CMM (0.8-4.8); MEAN CORPUSCULAR HEMOGLOBIN 29 PG (26.0-33.0); MEAN CORPUSCULAR HGB CONC 33 g/dl (31.0-36.0); MEAN CORPUSCULAR VOLUME 86 fL (82-100); MONOCYTES # (AUTO) 0.6 /CMM (0.1-1.30); MONOCYTES % (AUTO) 9.2 % (2.0-12.0); NEUTROPHILS % (AUTO) 77.7 % (43.0-81.0); PLATELET COUNT (AUTO) 135 /CMM (150-450); RDW COEFFICIENT OF VARIATION 17.9 (11.5-15.0); RED BLOOD CELL COUNT(AUTO) 2.95 MIL/uL (4.0-5.2); WHITE BLOOD COUNT (AUTO) 6.5 K/uL (4.3-11.0)
[2017-01-09] MEDS: SUCRALFATE 1 G/10 ML UDC GT SCH ×5 (07:30→21:23)
[2017-01-09 07:45] LABS: CALCIUM, SERUM 8.7 mg/dL (8.5-10.1); CREATININE 3.3 mg/dL (0.6-1.3); MAGNESIUM 2.2 mg/dL (1.8-2.4); PHOSPHORUS 4.6 mg/dL (2.5-4.9); POTASSIUM 3.9 mmol/L (3.5-5.1)
[2017-01-09] MEDS: NEOMY SULF/BACITRAC ZN/POLY 15 GM TUBE TP SCH (09:00)
[2017-01-09] MEDS: PYRIDOXINE HCL 50 MG TABLET GT SCH (09:00)
[2017-01-09] MEDS: Z GUARD REMEDY 2 OZ OINT TP SCH (09:00)
[2017-01-09] MEDS: VIT B CMPLX 3/FA/VIT C/BIOTIN 1 TAB TABLET GT SCH (09:00)
[2017-01-09] MEDS: CHOLESTYRAMINE/ASPARTAME 4 G/PKT PACKET GT SCH ×2 (09:00→17:00)
[2017-01-09] MEDS ORDERED: TPN BAG #22 IV PRN ×7 (10:00)
[2017-01-09] MEDS ORDERED: TPN BAG #23 IV PRN ×6 (10:00)
--- NOTE | 2017-01-09 10:00 | NUR ---
DIALYSIS DONE OUT 1000 L, PT IN STABLE CONDITION
[2017-01-09] MEDS: PANTOPRAZOLE 40 MG VIAL IV SCH ×2 (10:21→21:15)
--- NOTE | 2017-01-09 15:10 | NUR ---
SEVERINO left a voicemail message for pt's son Michael informing him if he can meet for the bioethics meeting on January 11 at 8:30AM instead of 9AM since Dr. Lee has to leave the meeting by 9:15AM.
[2017-01-09] MEDS: GENTAMICIN 80 MG in IV D5W 50 ML IV PRN (16:49)
--- NOTE | 2017-01-09 19:15 | NUR ---
RN OPENING NOTES: RECEIVED PATIENT ON BED ASLEEP BUT AROUSABLE ALOX1-2 BUT NON VERBAL. ABLE TO MOUTH WORDS AND NOD IN AGREEMENT. WITH TRACH TO MECH VENT, SETTINGS ORDERED, TOLERATED WELL, NOT IN APPARENT DISTRESS. VPACING ON MONITOR WITH BBB AT 75 BPM. IV ACCESS ON OLIVIA MIDLINE TPN RUNNING AT THIS TIME. GT STOMA CLEAN WITH AN OSTOMY BAG IN PLACE. RCW HD CATH INTACT. SAFETY MEASURES ENSURED. TO RENDER GOOD SKIN CARE AND ASPIRATION PRECAUTION OBSERVED AT ALL TIMES. CONTINUOUSLY MONITORED.
[2017-01-09] MEDS: HYDROMORPHONE 1 MG/1 ML DISP.SYRIN IV PRN (21:16)
[2017-01-09] MEDS: ESCITALOPRAM OXALATE (10 MG) 10 MG TABLET GT SCH (21:17)
[2017-01-09] MEDS: INSULIN DETEMIR 100 UNIT/ML CARTRIDGE SQ SCH (21:21)
[2017-01-10] VITALS (7 sets, daily range): BP systolic 98–110; BP diastolic 38–55
[2017-01-10] MEDS: BLOOD SUGAR DIAGNOSTIC 1 EACH STRIP IN SCH ×3 (06:21→17:47)
--- NOTE | 2017-01-10 07:15 | NUR ---
RN NOTES: PATIENT REMAINED ON BED NOT IN APPARENT DISTRESS. REMAINED SR ON MONITOR. NO ACUTE CHANGES WITHIN SHIFT. AM LABS DONE. SAFETY MEASURES ENSURED. CONTINUOUSLY MONITORED. ENDORSED TO AM SHIFT RN
--- NOTE | 2017-01-10 07:16 | NUR ---
RECEIVED PT IN BED,A/O X1 ON TELE MONITORING V PACING.I.V SITE CDI AND PATENT.MECH VENT SETTINGS WELL TOLERATED.G.T STOMA SITE ATTACHED TO COLOSTOMY BAG.ON TPN @75 ML/HR.JAZMIN MIDLINE IN PLACE.SAFETY MEASURES IN PLACE.BED IN LOW AND LOCKED POSITION.WILL CONTINUE TO MONITOR FOR CHANGES.
[2017-01-10 07:23] LABS: BASOPHILS % (AUTO) 0.5 % (0.0-2.0); HEMATOCRIT 26 % (33-45); HEMOGLOBIN 8.5 g/dL (11.5-14.8); LYMPHOCYTES # (AUTO) 0.7 /CMM (0.8-4.8); MEAN CORPUSCULAR HEMOGLOBIN 29 PG (26.0-33.0); MEAN CORPUSCULAR HGB CONC 33 g/dl (31.0-36.0); MEAN CORPUSCULAR VOLUME 87 fL (82-100); MONOCYTES # (AUTO) 0.6 /CMM (0.1-1.30); MONOCYTES % (AUTO) 7.6 % (2.0-12.0); NEUTROPHILS # (AUTO) 6.7 /CMM (1.8-8.9); NEUTROPHILS % (AUTO) 82.9 % (43.0-81.0); PLATELET COUNT (AUTO) 116 /CMM (150-450); RDW COEFFICIENT OF VARIATION 17.4 (11.5-15.0); RED BLOOD CELL COUNT(AUTO) 2.98 MIL/uL (4.0-5.2)
[2017-01-10] MEDS: SUCRALFATE 1 G/10 ML UDC GT SCH ×4 (07:30→21:26)
[2017-01-10] MEDS: VIT B CMPLX 3/FA/VIT C/BIOTIN 1 TAB TABLET GT SCH (07:45)
[2017-01-10] MEDS: CHOLESTYRAMINE/ASPARTAME 4 G/PKT PACKET GT SCH ×2 (07:45→16:49)
[2017-01-10] MEDS: PYRIDOXINE HCL 50 MG TABLET GT SCH (07:45)
[2017-01-10] MEDS: Z GUARD REMEDY 2 OZ OINT TP SCH (07:46)
[2017-01-10] MEDS: NEOMY SULF/BACITRAC ZN/POLY 15 GM TUBE TP SCH (07:46)
[2017-01-10 08:04] LABS: CALCIUM, SERUM 8.5 mg/dL (8.5-10.1); CREATININE 3.1 mg/dL (0.6-1.3); MAGNESIUM 1.9 mg/dL (1.8-2.4); PHOSPHORUS 3.8 mg/dL (2.5-4.9); POTASSIUM 3.7 mmol/L (3.5-5.1)
[2017-01-10] MEDS: PANTOPRAZOLE 40 MG VIAL IV SCH ×2 (09:00→21:23)
[2017-01-10] MEDS: HYDROCODONE/APAP 5/325MG 1 EACH TABLET GT PRN (11:24)
[2017-01-10] MEDS: HYDROMORPHONE 1 MG/1 ML DISP.SYRIN IV PRN (11:29)
[2017-01-10] MEDS ORDERED: IV SET PRIMARY 1 EA INFUS.SET MC ONE (12:02)
[2017-01-10] MEDS ORDERED: FILTER SET SAVER IV SET 1 EA INFUS.SET MC ONE (12:02)
[2017-01-10] MEDS: FAT EMULSION 20% 500 ML in PREMIX 1 EA IV SCH (12:14)
[2017-01-10] MEDS ORDERED: IV SET PRIMARY PUMP SET 1 EA INFUS.SET MC ONE (12:16)
[2017-01-10] MEDS ORDERED: TPN BAG #24 IV PRN ×8 (13:00)
[2017-01-10] MEDS ORDERED: TPN BAG #25 IV PRN ×6 (13:00)
--- NOTE | 2017-01-10 19:30 | NUR ---
CHIEF MEDICAL TECHNOLOGIST INITIAL NOTE RECEIVED REPORT FROM DOM PARMAR. PT IN BED. AWAKE, MOUTHS WORDS- GREEK. CHRONIC VENT TRACH, TOLERATING VENT SETTINGS. LUNG SOUNDS RHONCHI. BOWEL SOUNDS HYPOACTIVE, COLOSTOMY INTACT. IV PATENT AND INTACT, WITH LIPIDS AND TPN RUNNING. REPOSITIONED FOR COMFORT. BED IN LOW LOCKED POSITION. CALL LIGHT WITHIN REACH.
[2017-01-10] MEDS: INSULIN DETEMIR 100 UNIT/ML CARTRIDGE SQ SCH (21:25)
[2017-01-10] MEDS: ESCITALOPRAM OXALATE (10 MG) 10 MG TABLET GT SCH (21:26)
[2017-01-11] VITALS (8 sets, daily range): BP systolic 105–116; BP diastolic 38–61
[2017-01-11] MEDS: BLOOD SUGAR DIAGNOSTIC 1 EACH STRIP IN SCH ×4 (00:31→18:08)
[2017-01-11] MEDS: INSULIN REGULAR, HUMAN 100 UNIT/ML 3 ML VIAL SQ PRN ×3 (00:38→18:12)
[2017-01-11] MEDS: HYDROMORPHONE 1 MG/1 ML DISP.SYRIN IV PRN ×3 (00:40→21:17)
[2017-01-11] MEDS ORDERED: FILTER SET SAVER IV SET 1 EA INFUS.SET MC ONE ×2 (03:04→18:10)
[2017-01-11] MEDS ORDERED: IV SET PRIMARY PUMP SET 1 EA INFUS.SET MC ONE (03:04)
[2017-01-11 07:03] LABS: BASOPHILS % (AUTO) 0.3 % (0.0-2.0); EOSINOPHILS # (AUTO) 0.2 /CMM (0.0-0.7); EOSINOPHILS % (AUTO) 2.7 % (0.0-6.0); HEMATOCRIT 26 % (33-45); HEMOGLOBIN 8.8 g/dL (11.5-14.8); LYMPHOCYTES # (AUTO) 0.8 /CMM (0.8-4.8); LYMPHOCYTES % (AUTO) 10.5 % (20.0-44.0); MEAN CORPUSCULAR HEMOGLOBIN 29 PG (26.0-33.0); MEAN CORPUSCULAR HGB CONC 34 g/dl (31.0-36.0); MEAN CORPUSCULAR VOLUME 85 fL (82-100); MONOCYTES # (AUTO) 0.7 /CMM (0.1-1.30); MONOCYTES % (AUTO) 9.2 % (2.0-12.0); NEUTROPHILS # (AUTO) 6.1 /CMM (1.8-8.9); NEUTROPHILS % (AUTO) 77.3 % (43.0-81.0); PLATELET COUNT (AUTO) 119 /CMM (150-450); RDW COEFFICIENT OF VARIATION 17.5 (11.5-15.0); WHITE BLOOD COUNT (AUTO) 7.9 K/uL (4.3-11.0)
[2017-01-11 07:15] LABS: CALCIUM, SERUM 8.5 mg/dL (8.5-10.1); CREATININE 3.3 mg/dL (0.6-1.3); POTASSIUM 3.8 mmol/L (3.5-5.1)
--- NOTE | 2017-01-11 07:15 | NUR ---
RN INITIAL NOTES: Rec'd pt awake on bed, not in any distress, A/O, mouths words, able to make needs known. Pt on mech vent via trach, tolerating prescribed settings. On telemonitor, Vpacing. Has GT stoma site w/ colostomy bag intact. Has JAZMIN midline, patent & intact w/ no signs of infection/ infiltration noted, w/ TPN infusing well. Has R CW HD cath intact. Provided comfort & safety measures. Bed kept low & in locked position. Call light placed w/in reach. Awaiting for bioethics evaluation today. Will continue to monitor.
[2017-01-11 07:19] LABS: MAGNESIUM 2.1 mg/dL (1.8-2.4); PHOSPHORUS 3.9 mg/dL (2.5-4.9)
[2017-01-11] MEDS: SUCRALFATE 1 G/10 ML UDC GT SCH ×4 (07:30→21:26)
--- NOTE | 2017-01-11 07:51 | NUR ---
SEVERINO called pt's son Michael and confirmed bioethics meeting for today at 9AM with Dr. Lee and RICH Ayala. SEVERINO also called ABISAI wire charger Soon to inform her of the bioethics meeting.
[2017-01-11] MEDS: PANTOPRAZOLE 40 MG VIAL IV SCH ×2 (08:26→21:14)
[2017-01-11] MEDS: Z GUARD REMEDY 2 OZ OINT TP SCH (08:27)
[2017-01-11] MEDS: VIT B CMPLX 3/FA/VIT C/BIOTIN 1 TAB TABLET GT SCH (08:28)
[2017-01-11] MEDS: NEOMY SULF/BACITRAC ZN/POLY 15 GM TUBE TP SCH (08:28)
[2017-01-11] MEDS: CHOLESTYRAMINE/ASPARTAME 4 G/PKT PACKET GT SCH ×2 (08:28→17:00)
[2017-01-11] MEDS: PYRIDOXINE HCL 50 MG TABLET GT SCH (08:28)
[2017-01-11] MEDS ORDERED: TPN BAG #26 IV PRN ×8 (09:00)
--- NOTE | 2017-01-11 09:37 | NUR ---
Bioethics meeting was held today with pt's son Michael, Dr. Lee and RICH Ayala to discuss plan of care and consent regarding surgery. Pt's son Michael informed the team he will speak with his siblings regarding what was discussed today in the meeting and will follow up with SW regarding their decision to consent for surgery.
--- NOTE | 2017-01-11 11:41 | NUR ---
RT RCV'D PT TRACH'D ON PORTEX #7 CUFFED ON [facility] VENT WITH SETTINGS PER MD ORDER. AUTOMATION CONTROLS ENGINEER DONE. BILAT BREATH SOUNDS ON AUSCULTATION. AMBU BAG AT HEAD OF BED. ALARMS ON AND FUNCTIONING PROPERLY. TRACH SECURED AND AIRWAY PATENT. SUCTIONED SMALL AMOUNTS OF THICK, YELLOW SECRETIONS. NO SIGNS OF DISTRESS NOTED THROUGHOUT SHIFT. WILL CONTINUE TO MONITOR THE PATIENT FOR ANY CHANGES. Addendum: 01/11/17 at 1833 by AIDA JOSÉ RT Amended: Links added.
[2017-01-11] MEDS: FAT EMULSION 20% 500 ML in PREMIX 1 EA IV SCH (14:15)
--- NOTE | 2017-01-11 19:10 | NUR ---
RN CLOSING NOTES: No acute changes noted w/in shift. Pt tolerated prescribed mech vent settings. GT stoma site w/ colostomy bag kept intact. JAZMIN midline kept patent & intact w/ no signs of infection/ infiltration noted, w/ TPN infusing well. R CW HD cath kept intact. Kept well rested. Bed kept low & in locked position. Call light placed w/in reach. HD tolerated this AM w/ 1L output. Endorsed to PM RN for KARINA.
[2017-01-11] MEDS ORDERED: SECONDARY IV SET 1 EA INFUS.SET MC ONE ×2 (19:28→21:27)
--- NOTE | 2017-01-11 19:30 | NUR ---
POCKET CREASER INITIAL NOTES RECEIVED PATIENT AWAKE A/OX2, ABLE TO MAKE NEEDS KNOWN. PATIENT VENT DEPENDENT, ABLE TO MOUTH WORDS. APRIL PAIN OR DISCOMFORT AT THIS TIME. TOLERATING VENT SETTINGS AC 16, VT 550, PEEP 5, FIO2 40%, SPO2 100%. ON TELE MONITOR VPACING CONTROLLED. SKIN WARM AND DRY TO TOUCH. PER REPORT PATIENT HAS BEEN SEEN BY BIOETHICS COMMITEE AND SON WILL DISCUSS WITH OTHER SIBLINGS REGARDING CONSENT FOR PROCEDURE. NOTED WITH GENERALIZED EDEMA. WITH COLOSTOMY BAG NOTED ON LEFT ABDOMEN OVER OLD GT SITE. WITH BROWN LIQUID, CLEAR OUTPUT NOTED. WITH JAZMIN MIDLINE PATENT AND INTACT WITH LIPIDS AT 20ML/HR AND TPN AT 75ML/HR. HOB ELEVATED. TURNED AND REPOSITIONED. SIDE RAILS UP AND LOCKED. BED KEPT AT LOWEST POSITION. CALL LIGHT KEPT WITHIN EASY REACH. WILL CONTINUE TO MONITOR.
--- NOTE | 2017-01-11 20:02 | NUR ---
SPOKE WITH PHARMACY NICHOL SIDDIQI TO GIVE GENTAMICIN WITH GENTA TROUGH 3.0.
[2017-01-11] MEDS: INSULIN DETEMIR 100 UNIT/ML CARTRIDGE SQ SCH (21:25)
[2017-01-11] MEDS: ESCITALOPRAM OXALATE (10 MG) 10 MG TABLET GT SCH (21:25)
[2017-01-11] MEDS: GENTAMICIN 80 MG in IV D5W 50 ML IV PRN (21:27)
--- NOTE | 2017-01-11 22:14 | NUR ---
ALL [facility] ONCE CLEARED FOR PATIENTS SAFETY
[2017-01-12] VITALS: BP 102/47
[2017-01-12] MEDS: BLOOD SUGAR DIAGNOSTIC 1 EACH STRIP IN SCH ×4 (00:25→18:09)
[2017-01-12] MEDS: INSULIN REGULAR, HUMAN 100 UNIT/ML 3 ML VIAL SQ PRN (00:29)
[2017-01-12 04:00] VITALS: BP 104/47
--- NOTE | 2017-01-12 05:00 | NUR ---
telephone directory distributor driver notes continuity of care endorsed to renetta marlow, patient in stable condition.
--- NOTE | 2017-01-12 05:00 | NUR ---
PATTERNMAKER PLASTICS NOTE RECEIVED PT FROM FROM DELMY RN FOR CONTINUITY OF CARE. WILL CONTINUE TO MONITOR.
--- NOTE | 2017-01-12 06:50 | NUR ---
NUCLEAR SCIENTIST CLOSING NOTE PT REMAINED STABLE DURING SHIFT. VENT SETTINGS WELL TOLERATED. NO ACUTE DISTRESS NOTED. JAZMIN MIDLINE CLEAN, DRY, PATENT AND TOLERATING TPN AND LIPIDS WELL. ALL NEEDS ATTENDED TO AND MET PROMPTLY. WILL ENDORSE TO THE NEXT SHIFT FOR CONTINUITY OF CARE.
--- NOTE | 2017-01-12 07:19 | NUR ---
RT PT RECEIVED TRACHED ON THE VENT WITH NOTED SETTINGS. PT IS AWAKE AND ALERT. VENT ALARMS ARE SET AND AUDIBLE WITH BVM BY BEDSIDE. SMOKING PIPE DRILLER AND THREADER CUFF PRESSURE NOTED. NO RESPIRATORY DISTRESS NOTED AT THIS TIME, WILL CONTINUE TO MONITOR. Addendum: 01/12/17 at 1814 by DOROTHY VARGAS RT Amended: Links added.
[2017-01-12] MEDS: SUCRALFATE 1 G/10 ML UDC GT SCH ×4 (07:30→21:46)
[2017-01-12 07:35] LABS: BASOPHILS % (AUTO) 0.7 % (0.0-2.0); EOSINOPHILS # (AUTO) 0.1 /CMM (0.0-0.7); EOSINOPHILS % (AUTO) 1.8 % (0.0-6.0); HEMATOCRIT 25 % (33-45); HEMOGLOBIN 8.3 g/dL (11.5-14.8); LYMPHOCYTES # (AUTO) 0.7 /CMM (0.8-4.8); LYMPHOCYTES % (AUTO) 9.2 % (20.0-44.0); MEAN CORPUSCULAR HEMOGLOBIN 29 PG (26.0-33.0); MEAN CORPUSCULAR HGB CONC 34 g/dl (31.0-36.0); MEAN CORPUSCULAR VOLUME 85 fL (82-100); MONOCYTES # (AUTO) 0.6 /CMM (0.1-1.30); MONOCYTES % (AUTO) 8.9 % (2.0-12.0); NEUTROPHILS # (AUTO) 5.7 /CMM (1.8-8.9); NEUTROPHILS % (AUTO) 79.4 % (43.0-81.0); PLATELET COUNT (AUTO) 98 /CMM (150-450); RDW COEFFICIENT OF VARIATION 17.3 (11.5-15.0); RED BLOOD CELL COUNT(AUTO) 2.88 MIL/uL (4.0-5.2); WHITE BLOOD COUNT (AUTO) 7.2 K/uL (4.3-11.0)
[2017-01-12 07:47] LABS: CALCIUM, SERUM 8.3 mg/dL (8.5-10.1); CREATININE 3.1 mg/dL (0.6-1.3); PHOSPHORUS 3.4 mg/dL (2.5-4.9); POTASSIUM 3.5 mmol/L (3.5-5.1)
[2017-01-12 07:51] LABS: EOSINOPHILS % (MANUAL) 1 % (0-4); LYMPHOCYTES % (MANUAL) 7 % (16-48); MONOCYTES % (MANUAL) 9 % (0-11.0); NEUTROPHILS % (MANUAL) 83 (42-76)
[2017-01-12] MEDS ORDERED: IV SET PRIMARY PUMP SET 1 EA INFUS.SET MC ONE ×2 (08:13→21:38)
[2017-01-12] MEDS ORDERED: FILTER SET SAVER IV SET 1 EA INFUS.SET MC ONE ×2 (08:14→21:38)
[2017-01-12] MEDS: HYDROMORPHONE 1 MG/1 ML DISP.SYRIN IV PRN (08:52)
[2017-01-12] MEDS: CHOLESTYRAMINE/ASPARTAME 4 G/PKT PACKET GT SCH ×2 (09:00→17:00)
[2017-01-12] MEDS: PANTOPRAZOLE 40 MG VIAL IV SCH ×2 (09:00→21:45)
[2017-01-12] MEDS: Z GUARD REMEDY 2 OZ OINT TP SCH (09:00)
[2017-01-12] MEDS: NEOMY SULF/BACITRAC ZN/POLY 15 GM TUBE TP SCH (09:00)
[2017-01-12] MEDS: VIT B CMPLX 3/FA/VIT C/BIOTIN 1 TAB TABLET GT SCH (09:00)
[2017-01-12] MEDS: PYRIDOXINE HCL 50 MG TABLET GT SCH (09:00)
[2017-01-12 10:00] VITALS: BP 110/62
[2017-01-12] MEDS ORDERED: TPN BAG #27 IV PRN ×6 (10:30)
[2017-01-12] MEDS ORDERED: TPN BAG #28 IV PRN ×8 (10:30)
[2017-01-12 12:00] VITALS: BP 110/51
[2017-01-12 16:25] VITALS: BP 104/61
--- NOTE | 2017-01-12 19:25 | NUR ---
RN INITIAL NOTES RECEIVED PATIENT AWAKE AND ALERT, ABLE TO MOUTH WORDS AND MAKE BASIC NEEDS KNOWN. PATIENT DENIES ANY PAIN AND DISCOMFORT. NO ACUTE DISTRESS OBSERVED. ON MECH VENT, TOLERATING CURRENT SETTINGS WELL, AIRWAY SUCTIONED AND KEPT PATENT. SR WITH BBB, NOTED WITH VPACING, HR OF 73. JAZMIN MIDLINE INTACT AND PATENT. TPN #26 INFUSING ORDERED. HOB ELEVATED. PATIENT'S NEEDS ANTICIPATED AND MET.SAFETY AND COMFORT ENSURED. BED IN LOW AND LOCKED POSITION. CALL LIGHT IN REACH. WILL MONITOR.
--- NOTE | 2017-01-12 19:27 | NUR ---
patient is noted in a stable condition.all due meds as well as nursing care given and well tolerated,continues to tolerate tpn @75ml/hr .incoming nurse recieved report for patient at this time.patient is stable
[2017-01-12 20:00] VITALS: BP_SYST 93; BP_SYST 96; BP_DIAS 42; BP_DIAS 45
[2017-01-12] MEDS: ESCITALOPRAM OXALATE (10 MG) 10 MG TABLET GT SCH (21:46)
[2017-01-12] MEDS: INSULIN DETEMIR 100 UNIT/ML CARTRIDGE SQ SCH (21:50)
[2017-01-13] VITALS (7 sets, daily range): BP systolic 89–116; BP diastolic 45–56
[2017-01-13] MEDS: BLOOD SUGAR DIAGNOSTIC 1 EACH STRIP IN SCH ×5 (00:47→23:29)
--- NOTE | 2017-01-13 06:42 | NUR ---
RN CLOSING NOTES PATIENT WITH NO ACUTE DISTRESS OBSERVED OVERNIGHT. NO ACUTE CHANGE IN CONDITION NOTED. TPN BAG#27 HANGING AND INFUSING WELL ON PATIENT'S JAZMIN MIDLINE. NEEDS ANTICIPATED AND MET. SAFETY AND COMFORT ENSURED. TURNED AND REPOSITIONED. WILL ENDORSE ACCORDINGLY FOR CONTINUITY OF CARE.
--- NOTE | 2017-01-13 07:00 | NUR ---
RN NOTES RECEIVED PATIENT AWAKE AND ALERT IN BED. NON-VERBAL, BUT FOLLOWS SIMPLE COMMANDS. NO RESPIRATORY DISTRESS NOTED, BREATHING EVEN AND UNLABORED. TRACH CARE DONE. ON TELE SR WITH BBB, V PACING IN THE 80S. COLOSTOMY BAG TO THE OLD GT SITE INTACT WITH DARK GREENISH DRAINAGE. JAZMIN MIDLINE INTACT, RIGHT CHEST WALL HD CATH INTACT, NO COMPLICATIONS NOTED. TPN BAG #27 @ 75CC/HR, TOLERATING WELL. SIDE RAILS UP X4, CALL LIGHT WITHIN EASY REACH. CONTINUE TO MONITOR.
[2017-01-13] MEDS: SUCRALFATE 1 G/10 ML UDC GT SCH ×4 (07:30→21:34)
[2017-01-13 07:32] LABS: BASOPHILS % (AUTO) 0.5 % (0.0-2.0); EOSINOPHILS # (AUTO) 0.1 /CMM (0.0-0.7); HEMATOCRIT 26 % (33-45); HEMOGLOBIN 8.5 g/dL (11.5-14.8); LYMPHOCYTES # (AUTO) 0.8 /CMM (0.8-4.8); LYMPHOCYTES % (AUTO) 10.7 % (20.0-44.0); MEAN CORPUSCULAR HEMOGLOBIN 28 PG (26.0-33.0); MEAN CORPUSCULAR HGB CONC 33 g/dl (31.0-36.0); MEAN CORPUSCULAR VOLUME 85 fL (82-100); MONOCYTES # (AUTO) 0.8 /CMM (0.1-1.30); MONOCYTES % (AUTO) 9.7 % (2.0-12.0); NEUTROPHILS # (AUTO) 6.1 /CMM (1.8-8.9); NEUTROPHILS % (AUTO) 78.1 % (43.0-81.0); PLATELET COUNT (AUTO) 92 /CMM (150-450); RDW COEFFICIENT OF VARIATION 17.3 (11.5-15.0); RED BLOOD CELL COUNT(AUTO) 3.01 MIL/uL (4.0-5.2); WHITE BLOOD COUNT (AUTO) 7.8 K/uL (4.3-11.0)
[2017-01-13] MEDS: PANTOPRAZOLE 40 MG VIAL IV SCH ×2 (08:14→21:28)
[2017-01-13] MEDS: NEOMY SULF/BACITRAC ZN/POLY 15 GM TUBE TP SCH (08:20)
[2017-01-13] MEDS: Z GUARD REMEDY 2 OZ OINT TP SCH (08:20)
[2017-01-13] MEDS: PYRIDOXINE HCL 50 MG TABLET GT SCH (08:21)
[2017-01-13] MEDS: VIT B CMPLX 3/FA/VIT C/BIOTIN 1 TAB TABLET GT SCH (08:21)
[2017-01-13] MEDS: CHOLESTYRAMINE/ASPARTAME 4 G/PKT PACKET GT SCH ×2 (08:21→17:00)
[2017-01-13 09:30] LABS: BAND % (MANUAL) 1 % (0.0-5.0); EOSINOPHILS % (MANUAL) 3 % (0-4); LYMPHOCYTES % (MANUAL) 2 % (16-48); MONOCYTES % (MANUAL) 5 % (0-11.0); NEUTROPHILS % (MANUAL) 89 (42-76)
[2017-01-13] MEDS ORDERED: IV SET PRIMARY PUMP SET 1 EA INFUS.SET MC ONE ×2 (11:48→14:13)
[2017-01-13] MEDS ORDERED: FILTER SET SAVER IV SET 1 EA INFUS.SET MC ONE (11:48)
[2017-01-13 11:55] LABS: CALCIUM, SERUM 8.5 mg/dL (8.5-10.1); CREATININE 3.3 mg/dL (0.6-1.3)
[2017-01-13 11:58] LABS: MAGNESIUM 2.1 mg/dL (1.8-2.4); PHOSPHORUS 4.1 mg/dL (2.5-4.9)
[2017-01-13] MEDS ORDERED: TPN BAG #30 IV PRN ×8 (12:00)
[2017-01-13] MEDS ORDERED: TPN BAG #29 IV PRN ×6 (12:00)
[2017-01-13] MEDS ORDERED: SECONDARY IV SET 1 EA INFUS.SET MC ONE (14:12)
[2017-01-13] MEDS: FAT EMULSION 20% 500 ML in PREMIX 1 EA IV SCH (14:18)
[2017-01-13] MEDS: HYDROMORPHONE 1 MG/1 ML DISP.SYRIN IV PRN (15:43)
--- NOTE | 2017-01-13 18:10 | NUR ---
RN END NOTES PATIENT ASLEEP IN BED. NO SIGNIFICANT CHANGES DURING SHIFT. VSS STABLE, BREATHING EVEN AND UNLABORED, NO RESPIRATORY DISTRESS NOTED. TPN #28 STARTED WITH LIPIDS ON JAZMIN MIDLINE. JAZMIN MIDLINE CDI.SIDE RAILS UP, BED LOCKED AND IN LOWEST POSITION, CALL LIGHT WITHIN REACH.
[2017-01-13] MEDS: INSULIN REGULAR, HUMAN 100 UNIT/ML 3 ML VIAL SQ PRN ×2 (18:27→23:32)
--- NOTE | 2017-01-13 19:06 | NUR ---
RN INITIAL NOTES RECEIVED PATIENT AWAKE AND ALERT, ABLE TO MOUTH WORDS. PATIENT DENIES ANY PAIN AND DISCOMFORT. NO ACUTE DISTRESS OBSERVED. ON MECH VENT, TOLERATING SETTINGS WELL, AIRWAY SUCTIONED AND KEPT PATENT. SR WITH BBB, NOTED WITH VPACING, HR OF 77. JAZMIN MIDLINE INTACT AND PATENT. TPN #28 INFUSING WITH LIPIDS AT 20CC/HR ORDERED. COLOSTOMY BAG OVER OLD GT STOMA, DRAINING WITH DARK GREENISH FLUID. HOB ELEVATED. PATIENT'S NEEDS ANTICIPATED AND MET. SAFETY AND COMFORT ENSURED. BED IN LOW AND LOCKED POSITION. CALL LIGHT IN REACH. WILL MONITOR.
[2017-01-13] MEDS: INSULIN DETEMIR 100 UNIT/ML CARTRIDGE SQ SCH (21:34)
[2017-01-13] MEDS: ESCITALOPRAM OXALATE (10 MG) 10 MG TABLET GT SCH (21:34)
[2017-01-14] VITALS (7 sets, daily range): BP systolic 94–122; BP diastolic 22–60
[2017-01-14] MEDS ORDERED: FILTER SET SAVER IV SET 1 EA INFUS.SET MC ONE ×2 (01:57→15:25)
[2017-01-14] MEDS ORDERED: IV SET PRIMARY PUMP SET 1 EA INFUS.SET MC ONE ×2 (01:57→15:25)
[2017-01-14] MEDS: BLOOD SUGAR DIAGNOSTIC 1 EACH STRIP IN SCH ×4 (05:12→22:49)
--- NOTE | 2017-01-14 06:52 | NUR ---
RN CLOSING NOTES PATIENT WITH NO ACUTE CHANGE IN CONDITION OBSERVED OVERNIGHT. REMAINS SR WITH BBB AT 80s. AIRWAY KEPT CLEAR, TOLERATED MECH VENT, SUCTIONED AIRWAY NEEDED. TPN BAG #29 INFUSING, WITH LIPID AT 20CC/HR INFUSING WELL ON PATIENT'S JAZMIN MIDLINE. KEPT CLEAN AND DRY. TURNED AND REPOSITIONED. TRACH CARE RENDERED. PATIENT'S NEEDS ANTICIPATED AND MET. SAFETY AND COMFORT ENSURED. BED IN LOW AND LOCKED POSITION. CALL LIGHT IN REACH. WILL ENDORSE ACCORDINGLY FOR CONTINUITY OF CARE.
--- NOTE | 2017-01-14 07:20 | NUR ---
PT RECEIVED TRACHED ON MECHANICAL VENT W/ SETTINGS PER MD ORDER. TRACH PATENT, SECURE. VENT IN RED OUTLET, AMBUBAG AT BEDSIDE, VENT ALARMS CHECKED AND AUDIBLE. PT SX'ED AND LAVAGED PRN. NO RESP DISTRESS NOTED. PLAN IS CONTINUE CARE W/ CURRENT MD ORDERS AND MONITOR FOR CHANGES. Addendum: 01/14/17 at 1721 by AZALIA WOOD RT Amended: Links added.
[2017-01-14] MEDS: SUCRALFATE 1 G/10 ML UDC GT SCH ×4 (07:30→22:00)
[2017-01-14 07:50] LABS: BASOPHILS % (AUTO) 0.5 % (0.0-2.0); EOSINOPHILS # (AUTO) 0.2 /CMM (0.0-0.7); HEMATOCRIT 24 % (33-45); LYMPHOCYTES # (AUTO) 0.7 /CMM (0.8-4.8); LYMPHOCYTES % (AUTO) 8.8 % (20.0-44.0); MEAN CORPUSCULAR HEMOGLOBIN 29 PG (26.0-33.0); MEAN CORPUSCULAR HGB CONC 34 g/dl (31.0-36.0); MEAN CORPUSCULAR VOLUME 85 fL (82-100); MONOCYTES # (AUTO) 0.8 /CMM (0.1-1.30); MONOCYTES % (AUTO) 10.5 % (2.0-12.0); NEUTROPHILS # (AUTO) 6.2 /CMM (1.8-8.9); NEUTROPHILS % (AUTO) 78.2 % (43.0-81.0); PLATELET COUNT (AUTO) 86 /CMM (150-450); RDW COEFFICIENT OF VARIATION 17.5 (11.5-15.0); RED BLOOD CELL COUNT(AUTO) 2.81 MIL/uL (4.0-5.2); WHITE BLOOD COUNT (AUTO) 7.9 K/uL (4.3-11.0)
[2017-01-14 08:19] LABS: CALCIUM, SERUM 8.4 mg/dL (8.5-10.1); MAGNESIUM 2.1 mg/dL (1.8-2.4); PHOSPHORUS 3.5 mg/dL (2.5-4.9); POTASSIUM 3.7 mmol/L (3.5-5.1)
[2017-01-14] MEDS: CHOLESTYRAMINE/ASPARTAME 4 G/PKT PACKET GT SCH ×2 (09:00→17:00)
[2017-01-14] MEDS: PYRIDOXINE HCL 50 MG TABLET GT SCH (09:00)
[2017-01-14] MEDS: VIT B CMPLX 3/FA/VIT C/BIOTIN 1 TAB TABLET GT SCH (09:00)
[2017-01-14] MEDS: PANTOPRAZOLE 40 MG VIAL IV SCH ×2 (09:10→22:19)
[2017-01-14] MEDS: Z GUARD REMEDY 2 OZ OINT TP SCH (09:19)
[2017-01-14] MEDS: NEOMY SULF/BACITRAC ZN/POLY 15 GM TUBE TP SCH (09:19)
--- NOTE | 2017-01-14 09:28 | NUR ---
PATIENT RECEIVED IN BED.BED SIDE REPORT GIVEN.PATIENT NOTED IN STABLE CONDITION.PATIENTS CALL RIGHT WITHIN REACH.NO RESPIRATORY DISTRESS NOTED.NO PAIN .PATIENT ASKED IF SHE IS IN PAIN ,WHICH SHE DENIED.BY SHAKING HER HEAD.ALL DUE MEDS WELL NURSING CARE GIVEN AND WELL TOLERATED AT THIS TIME.JAZMIN MIDLINE NOTED INTACT AND DRY .TPN INFUSING @75ML/HR AND LIPIDS INFUSING AT 20ML/HR WITH NO ADVERSE REACTIONS NOTED.PATIENT WILL BE CONTINUED TO BE TURNED Q 2HOURS AND MONITORED.
[2017-01-14 09:51] LABS: LYMPHOCYTES % (MANUAL) 5 % (16-48); MONOCYTES % (MANUAL) 6 % (0-11.0); NEUTROPHILS % (MANUAL) 89 (42-76)
[2017-01-14] MEDS ORDERED: TPN BAG #31 IV PRN ×6 (12:30)
[2017-01-14] MEDS ORDERED: TPN BAG #32 IV PRN ×8 (12:30)
--- NOTE | 2017-01-14 19:57 | NUR ---
PT RECEIVED TRACHED ON THE VENT WITH NOTED SETTINGS. PT IS AWAKE AND ALERT. VENT ALARMS WORKING AND AUDIBLE, VENT PLUGGED IN TO RED OUTLET . CARTON INSPECTOR CUFF PRESSURE NOTED. BILATERAL BS NOTED ,NO SOB OR RESPIRATORY DISTRESS NOTED AT THIS TIME, WILL CONTINUE TO MONITOR THE PATIENT.
[2017-01-14] MEDS: ESCITALOPRAM OXALATE (10 MG) 10 MG TABLET GT SCH (22:00)
[2017-01-14] MEDS: INSULIN DETEMIR 100 UNIT/ML CARTRIDGE SQ SCH (22:00)
--- NOTE | 2017-01-14 22:50 | NUR ---
RN NOTES: BLOOD SUGAR IS 112 MG/DL. LEVEMIR DOSE IS HELD.
[2017-01-15] VITALS (7 sets, daily range): BP systolic 85–118; BP diastolic 36–73
[2017-01-15] MEDS: HYDROMORPHONE 1 MG/1 ML DISP.SYRIN IV PRN ×2 (02:59→21:20)
[2017-01-15] MEDS: BLOOD SUGAR DIAGNOSTIC 1 EACH STRIP IN SCH ×3 (06:07→17:25)
[2017-01-15 07:15] LABS: BASOPHILS % (AUTO) 0.5 % (0.0-2.0); EOSINOPHILS # (AUTO) 0.2 /CMM (0.0-0.7); EOSINOPHILS % (AUTO) 2.4 % (0.0-6.0); HEMATOCRIT 25 % (33-45); HEMOGLOBIN 8.3 g/dL (11.5-14.8); LYMPHOCYTES # (AUTO) 0.8 /CMM (0.8-4.8); LYMPHOCYTES % (AUTO) 11.2 % (20.0-44.0); MEAN CORPUSCULAR HEMOGLOBIN 28 PG (26.0-33.0); MEAN CORPUSCULAR HGB CONC 33 g/dl (31.0-36.0); MEAN CORPUSCULAR VOLUME 85 fL (82-100); MONOCYTES # (AUTO) 0.8 /CMM (0.1-1.30); NEUTROPHILS # (AUTO) 5.2 /CMM (1.8-8.9); NEUTROPHILS % (AUTO) 74.9 % (43.0-81.0); PLATELET COUNT (AUTO) 86 /CMM (150-450); RDW COEFFICIENT OF VARIATION 17.8 (11.5-15.0); RED BLOOD CELL COUNT(AUTO) 2.94 MIL/uL (4.0-5.2); WHITE BLOOD COUNT (AUTO) 6.9 K/uL (4.3-11.0)
[2017-01-15] MEDS: SUCRALFATE 1 G/10 ML UDC GT SCH ×4 (07:30→21:20)
--- NOTE | 2017-01-15 07:31 | NUR ---
RT PT RECEIVED TRACHED WITH A PORTEX 7 ON THE VENT WITH NOTED SETTINGS. PT IS AWAKE AND ALERT. VENT ALARMS ARE SET AND AUDIBLE WITH BVM BY BEDSIDE. GLASS FRAME FITTER CUFF PRESSURE NOTED. VENT IS PLUGGED INTO RED OUTLET. NO RESPIRATORY DISTRESS NOTED AT THIS TIME, WILL CONTINUE TO MONITOR. Addendum: 01/15/17 at 0817 by DOROTHY VARGAS RT Amended: Links added.
[2017-01-15 07:41] LABS: CALCIUM, SERUM 8.6 mg/dL (8.5-10.1); CREATININE 3.3 mg/dL (0.6-1.3); POTASSIUM 4.2 mmol/L (3.5-5.1)
--- NOTE | 2017-01-15 08:00 | NUR ---
TELE1/RN AM SHIFT INITIAL NOTES RECEIVED PT AWAKE IN BED. NO ACUTE CHANGE OF CONDITION. PT A/O X 2 ABLE TO MOUTH WORDS IN [place]AB[place] DENIES ANY SYMPTOMS. ON VENTILATOR SET AT PRESCRIBED RATES, SATURATING @ 100%, LUNG SOUNDS CLEAR. SUCTIONED FOR AIRWAY CLEARANCE. ON TELE WITH SINUS RHYTHM, HR 91. ON GOING TPN INFUSION BAG # 30 @ 75CC/HR, MID LINE PATENT WITH NO S/S OF INFECTION. GT SITE BAG DRAINING CLEAR YELLOW GASTRIC CONTENT. PT WITH GENERALIZED EDEMA, SCHEDULED FOR HD TX TODAY. SCHEDULED AM MEDS TO BE GIVEN. CL WITHIN REACHED AND SAFETY MAINTAINED. ON GOING MONITORING.
[2017-01-15] MEDS: VIT B CMPLX 3/FA/VIT C/BIOTIN 1 TAB TABLET GT SCH (08:51)
[2017-01-15] MEDS: CHOLESTYRAMINE/ASPARTAME 4 G/PKT PACKET GT SCH ×2 (08:52→17:00)
[2017-01-15] MEDS: PYRIDOXINE HCL 50 MG TABLET GT SCH (08:52)
[2017-01-15] MEDS ORDERED: IV SET PRIMARY PUMP SET 1 EA INFUS.SET MC ONE (09:18)
[2017-01-15] MEDS: NEOMY SULF/BACITRAC ZN/POLY 15 GM TUBE TP SCH (09:25)
[2017-01-15] MEDS: Z GUARD REMEDY 2 OZ OINT TP SCH (09:25)
[2017-01-15] MEDS: PANTOPRAZOLE 40 MG VIAL IV SCH ×2 (09:25→21:15)
[2017-01-15 10:29] LABS: BAND % (MANUAL) 1 % (0.0-5.0); EOSINOPHILS % (MANUAL) 4 % (0-4); LYMPHOCYTES % (MANUAL) 6 % (16-48); MONOCYTES % (MANUAL) 7 % (0-11.0); NEUTROPHILS % (MANUAL) 82 (42-76)
[2017-01-15 10:41] LABS: MAGNESIUM 2.2 mg/dL (1.8-2.4); PHOSPHORUS 4.1 mg/dL (2.5-4.9)
--- NOTE | 2017-01-15 12:08 | NUR ---
SEVERINO received a call from Dr. Lee, inquiring if pt' son Michael made a decision to consent to surgery. SEVERINO informed Dr. Lee that she did not hear from Michael since the bioethics meeting that was held on SundayJanuary 12. SEVERINO to contact Michael and follow up. SEVERINO contacted Michael and left him a voicemail message requesting the urgency in calling adoption social worker as soon as possible.
[2017-01-15] MEDS: FAT EMULSION 20% 500 ML in PREMIX 1 EA IV SCH (13:39)
[2017-01-15] MEDS ORDERED: [UNRECOGNIZED DRUG - OTHER] IV PRN ×6 (14:30)
--- NOTE | 2017-01-15 14:30 | NUR ---
TELE1/RN AFTERNOON ROUNDS PT SUCTIONED AND REPOSITIONED. NO CHANGE OF CONDITION. MONITORING CONTINUED.
--- NOTE | 2017-01-15 19:25 | NUR ---
RN NOTES PATIENT IS AOX2 ABLE TO MOUTH WORDS. PATIENT DENIES ANY PAIN AND DISCOMFORT. NO ACUTE DISTRESS. ON MECH VENT, TOLERATING SETTINGS WELL, AIRWAY SUCTIONED AND KEPT PATENT. SR WITH JUNCTIONAL AND V PACING HR 93 SATING 100%. IV SITE ON JAZMIN MIDLINE INTACT AND PATENT. TPN INFUSING WITH LIPIDS AT 20CC/HR ORDERED. WITH HUGE STOMACH WHICH IS MD AWARE AND FAMILY COLOSTOMY BAG OVER OLD GT STOMA, DRAINING WITH DARK GREENISH COLOR. KEPT PT CLEAN AND COMFORTABLE IN BED. OFFLOADED EXT WITH PILLOWS. REMINDED TO USE CALL LIGHT. WILL MONITOR FREQ.
[2017-01-15] MEDS: ESCITALOPRAM OXALATE (10 MG) 10 MG TABLET GT SCH (21:20)
[2017-01-15] MEDS: INSULIN DETEMIR 100 UNIT/ML CARTRIDGE SQ SCH (21:28)
[2017-01-16] VITALS (7 sets, daily range): BP systolic 100–125; BP diastolic 45–60
[2017-01-16] MEDS ORDERED: FILTER SET SAVER IV SET 1 EA INFUS.SET MC ONE ×2 (00:18→14:05)
[2017-01-16] MEDS ORDERED: IV SET PRIMARY PUMP SET 1 EA INFUS.SET MC ONE ×2 (00:18→14:04)
[2017-01-16] MEDS: BLOOD SUGAR DIAGNOSTIC 1 EACH STRIP IN SCH ×4 (00:45→17:21)
[2017-01-16] MEDS: HYDROMORPHONE 1 MG/1 ML DISP.SYRIN IV PRN (03:12)
--- NOTE | 2017-01-16 06:44 | NUR ---
RN NOTES NO SIGNIFICANT CHANGES THROUGHOUT THE SHIFT. NO ACUTE RESP DISTRESS TOLERATED TRACH AND VENT SETTING ORDERED. AFEBRILE. VS CONTROLLED. TPN AND LIPID IV ONGOING TOLERATED WELL. IV SITE REMAINED INTACT AND PATENT. PAIN MEDICINE EFFECTIVE GIVEN ORDERED. NO S/S OF HYPO OR HYPERGLYCEMIA SHOWS. KEPT PT CEAN AND COFMORTABLE IN BED. WILL ENDORSED CONTINUITY OF CARE TO AM NURSE
[2017-01-16 06:53] LABS: BASOPHILS % (AUTO) 0.5 % (0.0-2.0); EOSINOPHILS # (AUTO) 0.1 /CMM (0.0-0.7); EOSINOPHILS % (AUTO) 1.1 % (0.0-6.0); HEMATOCRIT 23 % (33-45); HEMOGLOBIN 7.8 g/dL (11.5-14.8); LYMPHOCYTES # (AUTO) 0.9 /CMM (0.8-4.8); LYMPHOCYTES % (AUTO) 11.9 % (20.0-44.0); MEAN CORPUSCULAR HEMOGLOBIN 29 PG (26.0-33.0); MEAN CORPUSCULAR HGB CONC 34 g/dl (31.0-36.0); MEAN CORPUSCULAR VOLUME 86 fL (82-100); MONOCYTES % (AUTO) 12.4 % (2.0-12.0); NEUTROPHILS # (AUTO) 5.9 /CMM (1.8-8.9); NEUTROPHILS % (AUTO) 74.1 % (43.0-81.0); PLATELET COUNT (AUTO) 72 /CMM (150-450); RDW COEFFICIENT OF VARIATION 17.8 (11.5-15.0); RED BLOOD CELL COUNT(AUTO) 2.69 MIL/uL (4.0-5.2)
[2017-01-16 06:57] LABS: CALCIUM, SERUM 8.3 mg/dL (8.5-10.1); CREATININE 2.8 mg/dL (0.6-1.3); POTASSIUM 3.8 mmol/L (3.5-5.1)
--- NOTE | 2017-01-16 08:00 | NUR ---
TELE1/RN AM SHIFT INITIAL NOTES RECEIVED PT ASLEEP IN BED. AROUSEABLE. NO ACUTE CHANGE OF CONDITION. PT A/O X 2 ABLE TO MOUTH WORDS IN [place] DENIES ANY SYMPTOMS. ON VENTILATOR SET AT PRESCRIBED RATES, SATURATING @ 100%, LUNG SOUNDS CLEAR. SUCTIONED FOR AIRWAY CLEARANCE. ON TELE WITH SINUS RHYTHM, HR 93. ON GOING TPN INFUSION BAG # 32 @ 75.796CC/HR AND LIPIDS @ 20CC/HR, MID LINE PATENT WITH NO S/S OF INFECTION. GT SITE BAG DRAINING CLEAR YELLOW GASTRIC CONTENT. PT WITH GENERALIZED PITTING EDEMA, PT IS COMFORTABLE AT THIS TIME. SCHEDULED AM MEDS TO BE GIVEN. CL WITHIN REACHED AND SAFETY MAINTAINED. ON GOING MONITORING.
--- NOTE | 2017-01-16 08:25 | NUR ---
SEVERINO contacted pt's son Michael once again and left him a voicemail message informing to contact SEVERINO in regards to his discission regarding bioethics that was held on January 12, 2017. SEVERINO has attempted several times to contact Michael, however he is not returning SEVERINO's phone calls.
[2017-01-16] MEDS: VIT B CMPLX 3/FA/VIT C/BIOTIN 1 TAB TABLET GT SCH (08:55)
[2017-01-16] MEDS: SUCRALFATE 1 G/10 ML UDC GT SCH ×5 (08:55→21:56)
[2017-01-16] MEDS: CHOLESTYRAMINE/ASPARTAME 4 G/PKT PACKET GT SCH ×2 (08:56→08:58)
[2017-01-16] MEDS: PYRIDOXINE HCL 50 MG TABLET GT SCH (08:56)
[2017-01-16] MEDS: NEOMY SULF/BACITRAC ZN/POLY 15 GM TUBE TP SCH (09:00)
[2017-01-16] MEDS: Z GUARD REMEDY 2 OZ OINT TP SCH (09:00)
[2017-01-16] MEDS: PANTOPRAZOLE 40 MG VIAL IV SCH ×2 (09:00→21:15)
[2017-01-16 11:15] LABS: BAND % (MANUAL) 3 % (0.0-5.0); EOSINOPHILS % (MANUAL) 1 % (0-4); LYMPHOCYTES % (MANUAL) 11 % (16-48); MONOCYTES % (MANUAL) 12 % (0-11.0); NEUTROPHILS % (MANUAL) 73 (42-76)
[2017-01-16] MEDS ORDERED: TPN BAG #34 IV PRN ×8 (14:30)
--- NOTE | 2017-01-16 19:30 | NUR ---
RN NOTES RECEIVED PATIENT IN BED WITH EYES CLOSED, EASILY AROUSABLE. AO X 2; NO SIGNS OF ACUTE DISTRESS NOTED. NO SIGNS OF PAIN NOTED. TELE READING SR WITH OCCASIONAL V PACING. TRACH INTACT; VENT SETTINGS ORDERED. PEG SITE BAG INTACT WITH BROWNISH DRAINAGE. IV SITE PATENT, INTACT; FLUSHED. RCW HD CATH INTACT; NO SYMPTOMS OF HYPER/HYPOGLYCEMIA. NO SIGNS OF BLEEDING NOTED. ON LOW BED WITH BILATERAL UPPER SIDE RAILS UP. CALL LIGHT WITHIN EASY REACH. WILL CONTINUE TO MONITOR.
[2017-01-16] MEDS: ESCITALOPRAM OXALATE (10 MG) 10 MG TABLET GT SCH ×2 (21:15→21:56)
[2017-01-16] MEDS: INSULIN DETEMIR 100 UNIT/ML CARTRIDGE SQ SCH (21:56)
--- NOTE | 2017-01-16 21:56 | NUR ---
BS 97. DARA HELD. PATIENT IS NPO. WILL CONTINUE TO MONITOR.
[2017-01-17] VITALS (8 sets, daily range): BP systolic 98–127; BP diastolic 47–75
[2017-01-17] MEDS: BLOOD SUGAR DIAGNOSTIC 1 EACH STRIP IN SCH ×4 (00:15→18:13)
--- NOTE | 2017-01-17 06:33 | NUR ---
RN NOTES PATIENT ASLEEP, EASILY AROUSABLE. RESPIRATIONS EVEN. NO SIGNS OF PAIN NOTED. DUE MEDS GIVEN WITH NO ASE NOTED. SAFETY PRECAUTIONS AND COMFORT MEASURES IN PLACE. WILL GIVE REPORT TO DAY SHIFT FOR CONTINUITY OF CARE.
[2017-01-17] MEDS ORDERED: IV SET PRIMARY PUMP SET 1 EA INFUS.SET MC ONE ×3 (06:36→21:12)
[2017-01-17] MEDS ORDERED: FILTER SET SAVER IV SET 1 EA INFUS.SET MC ONE ×2 (06:36→21:12)
[2017-01-17 07:30] LABS: BASOPHILS % (AUTO) 0.4 % (0.0-2.0); EOSINOPHILS # (AUTO) 0.1 /CMM (0.0-0.7); HEMATOCRIT 23 % (33-45); HEMOGLOBIN 7.6 g/dL (11.5-14.8); LYMPHOCYTES # (AUTO) 0.7 /CMM (0.8-4.8); MEAN CORPUSCULAR HEMOGLOBIN 29 PG (26.0-33.0); MEAN CORPUSCULAR HGB CONC 34 g/dl (31.0-36.0); MEAN CORPUSCULAR VOLUME 86 fL (82-100); MONOCYTES # (AUTO) 0.5 /CMM (0.1-1.30); NEUTROPHILS # (AUTO) 5.2 /CMM (1.8-8.9); NEUTROPHILS % (AUTO) 79.6 % (43.0-81.0); PLATELET COUNT (AUTO) 79 /CMM (150-450); RED BLOOD CELL COUNT(AUTO) 2.66 MIL/uL (4.0-5.2); WHITE BLOOD COUNT (AUTO) 6.5 K/uL (4.3-11.0)
[2017-01-17] MEDS: SUCRALFATE 1 G/10 ML UDC GT SCH ×4 (07:30→21:02)
[2017-01-17 07:52] LABS: ALBUMIN 1.5 g/dL (3.4-5.0); BILIRUBIN,TOTAL 1.6 mg/dL (0.2-1.0); CALCIUM, SERUM 8.5 mg/dL (8.5-10.1); CREATININE 3.2 mg/dL (0.6-1.3); MAGNESIUM 2.4 mg/dL (1.8-2.4); PHOSPHORUS 3.5 mg/dL (2.5-4.9); POTASSIUM 4.1 mmol/L (3.5-5.1); TOTAL PROTEIN, SERUM 7.1 g/dL (6.4-8.2)
--- NOTE | 2017-01-17 08:00 | NUR ---
TELE1/RN AM SHIFT INITIAL NOTES RECEIVED PT ASLEEP IN BED. AROUSEABLE. NO ACUTE CHANGE OF CONDITION. PT A/O X 2, ABLE TO MOUTH WORDS IN [place]ULG[place], COMPLAINT OF ABDOMINAL PAIN. ON VENTILATOR SET AT PRESCRIBED RATES, SATURATING @ 100%, LUNG SOUNDS CLEAR. SUCTIONED FOR AIRWAY CLEARANCE. ON TELE WITH V-PACING, HR 98. ON GOING TPN INFUSION BAG # 34 @ 75 CC/HR. MID-LINE PATENT WITH NO S/S OF INFECTION. GT SITE BAG DRAINING CLEAR YELLOW GASTRIC CONTENT. PT WITH GENERALIZED PITTING EDEMA WITH A VERY DISTENDED ABDOMEN. SCHEDULED AM MEDS TO BE GIVEN. CL WITHIN REACHED AND SAFETY MAINTAINED. ON GOING MONITORING.
[2017-01-17] MEDS: PYRIDOXINE HCL 50 MG TABLET GT SCH (08:31)
[2017-01-17] MEDS: VIT B CMPLX 3/FA/VIT C/BIOTIN 1 TAB TABLET GT SCH (08:31)
[2017-01-17] MEDS: CHOLESTYRAMINE/ASPARTAME 4 G/PKT PACKET GT SCH ×2 (08:31→17:00)
[2017-01-17 08:48] LABS: BAND % (MANUAL) 1 % (0.0-5.0); LYMPHOCYTES % (MANUAL) 7 % (16-48); MONOCYTES % (MANUAL) 10 % (0-11.0); NEUTROPHILS % (MANUAL) 82 (42-76)
[2017-01-17] MEDS ORDERED: SECONDARY IV SET 1 EA INFUS.SET MC ONE (09:04)
[2017-01-17] MEDS ORDERED: ALBUMIN 25% 25 GM in PREMIX 1 EA IV ONE (09:30)
[2017-01-17] MEDS: PANTOPRAZOLE 40 MG VIAL IV SCH ×2 (09:34→21:02)
[2017-01-17] MEDS: HYDROMORPHONE 1 MG/1 ML DISP.SYRIN IV PRN (09:34)
[2017-01-17] MEDS: NEOMY SULF/BACITRAC ZN/POLY 15 GM TUBE TP SCH (09:35)
[2017-01-17] MEDS: Z GUARD REMEDY 2 OZ OINT TP SCH (09:35)
[2017-01-17] MEDS: INSULIN REGULAR, HUMAN 100 UNIT/ML 3 ML VIAL SQ PRN ×2 (13:24→18:14)
[2017-01-17] MEDS: FAT EMULSION 20% 500 ML in PREMIX 1 EA IV SCH (13:24)
[2017-01-17] MEDS ORDERED: TPN BAG #35 IV PRN ×6 (15:00)
[2017-01-17] MEDS ORDERED: TPN BAG #36 IV PRN ×8 (15:00)
[2017-01-17] MEDS ORDERED: TPN BAG #37 IV PRN ×6 (15:00)
--- NOTE | 2017-01-17 15:30 | NUR ---
TELE1/RN CONSENT - ULTRASOUND GUIDED PARACENTESIS CONSENT OBTAINED VIA PHONE CALL FOR ULTRASOUND GUIDED PARACENTESIS, VERIFIED BY CHARGE NURSE. ULTRASOUND DEPARTMENT NOTIFIED. COAGULATION PANEL ORDERED IN AM. ALSO OBTAINED CONSENT FOR ABDOMEN SURGICAL REPAIR. NOTIFIED DR. STEVEN ANGELES, WANTED FAMILY MEMBER TO SIGN THE CONSENT IN PERSON. FAMILY MEMBER MADE AWARE.
--- NOTE | 2017-01-17 15:45 | NUR ---
DAUGHTER NOTIFIED HALEIGH ALLEN [phone] THAT PER SURGEON ,SHE AND HER BROTHER NEED TO COME TO HOSPITAL PHYSICALLY TO SIGN THE CONSENT.
--- NOTE | 2017-01-17 15:47 | NUR ---
PER DAUGHTER SHE WILL NOTIFY THE BROTHER.
[2017-01-17] MEDS: ESCITALOPRAM OXALATE (10 MG) 10 MG TABLET GT SCH (21:02)
[2017-01-17] MEDS: INSULIN DETEMIR 100 UNIT/ML CARTRIDGE SQ SCH (21:19)
--- NOTE | 2017-01-17 22:38 | NUR ---
RN NOTES PT AWAKE ON BED ABLE TO MOUTH WORDS DENIES PAIN NO ACUTE RESP DISTRESS. AO X 2 WITH TRACH CONNECTED TO VENT SETTING OF AC 16 TV 550 FIO2 40% PEEP5. SR WITH V-PACING HR 96 ON TELE MONITOR. PEG SITE WITH COLOSTOMY BAG WITH LIGHT GREENISH COLOR LIQUID. IV SITE ON JAZMIN MIDLINE RUNNING WITH TPN #34 @ 75 CC/HR AND LIPID @ 20ML/HR INTACT AND PATENT.. BILATERAL BREATH SOUND DIMINISHED. REPOSITIONED PROTOCOL AND PT COMFORTABLE. KEPT PT CLEAN AND DRY OFFLOADED EXT WITH PILLOW. WILL CONTINUE TO MONITOR.
[2017-01-18] VITALS: BP 108/46
[2017-01-18] MEDS: BLOOD SUGAR DIAGNOSTIC 1 EACH STRIP IN SCH ×5 (00:13→23:50)
[2017-01-18] MEDS: INSULIN REGULAR, HUMAN 100 UNIT/ML 3 ML VIAL SQ PRN ×4 (00:14→17:08)
[2017-01-18 04:00] VITALS: BP 106/57
[2017-01-18 06:34] LABS: BASOPHILS % (AUTO) 0.5 % (0.0-2.0); EOSINOPHILS # (AUTO) 0.1 /CMM (0.0-0.7); EOSINOPHILS % (AUTO) 1.8 % (0.0-6.0); HEMATOCRIT 24 % (33-45); HEMOGLOBIN 8.2 g/dL (11.5-14.8); LYMPHOCYTES # (AUTO) 0.8 /CMM (0.8-4.8); LYMPHOCYTES % (AUTO) 9.8 % (20.0-44.0); MEAN CORPUSCULAR HEMOGLOBIN 29 PG (26.0-33.0); MEAN CORPUSCULAR HGB CONC 34 g/dl (31.0-36.0); MEAN CORPUSCULAR VOLUME 86 fL (82-100); MONOCYTES # (AUTO) 0.6 /CMM (0.1-1.30); MONOCYTES % (AUTO) 8.3 % (2.0-12.0); NEUTROPHILS # (AUTO) 6.1 /CMM (1.8-8.9); NEUTROPHILS % (AUTO) 79.6 % (43.0-81.0); PLATELET COUNT (AUTO) 80 /CMM (150-450); RDW COEFFICIENT OF VARIATION 18.3 (11.5-15.0); RED BLOOD CELL COUNT(AUTO) 2.83 MIL/uL (4.0-5.2); WHITE BLOOD COUNT (AUTO) 7.7 K/uL (4.3-11.0)
--- NOTE | 2017-01-18 07:00 | NUR ---
RN NOTES PT STABLE THROUGHOUT THE SHIFT AFEBRILE. TRACH AND VENT SETTING TOLERATED WELL. VS STABLE. NO SIGNIFICANT CHANGE OF CONDITION. TPN AND LIPID IV RUNNING TOLERATED WELL. IV SITE REMAINED INTACT AND PATENT ON JAZMIN. INCONTINENT CARE RENDERED. PT IS CLEANED AND COMFORTABLE IN BED. WILL ENDORSED IN AM NURSE REGARDING THE PLAN OF CARE AND FAMILIES AGREEMENT FOR SURGERY.
--- NOTE | 2017-01-18 07:10 | NUR ---
RN INITIAL NOTE RECEIVED REPORT FROM [facility] NURSE FOR [facility]. PT TELE PACING 87. VENT SETTING PORTEX # 7 AC 16 TV 550 FIO2 40 % PEEP 5. NO S/S SOB. IV JAZMIN MIDLINE. TPN @ 75ML/HR RUNNING. LIPID @ 20ML /HR RUNNING MIDLINE PATENT FLUSHED AND INTACT. AWAITING LABS AND HD TODAY. ALL SAFETY MEASURES IN PLACE. WILL CONTINUE TO MONITOR.
[2017-01-18 07:11] LABS: CALCIUM, SERUM 8.7 mg/dL (8.5-10.1); CREATININE 3.1 mg/dL (0.6-1.3); MAGNESIUM 2.1 mg/dL (1.8-2.4); PHOSPHORUS 3.2 mg/dL (2.5-4.9); POTASSIUM 4.1 mmol/L (3.5-5.1)
--- NOTE | 2017-01-18 07:29 | NUR ---
RT PT RECEIVED TRACHED ON THE VENT WITH NOTED SETTINGS. PT IS AWAKE AND ALERT. VENT ALARMS ARE SET AND AUDIBLE WITH BVM BY BEDSIDE. OPERATING SYSTEMS SPECIALIST CUFF PRESSURE NOTED. VENT IS PLUGGED INTO RED OUTLET. NO RESPIRATORY DISTRESS NOTED AT THIS TIME, WILL CONTINUE TO MONITOR. Addendum: 01/18/17 at 1145 by DOROTHY VARGAS RT Amended: Links added.
[2017-01-18] MEDS: SUCRALFATE 1 G/10 ML UDC GT SCH ×4 (07:30→22:00)
[2017-01-18 07:47] LABS: INR 1.36 (0.87-1.13); PROTHROMBIN TIME 14.8 SECS (9.5-12.7)
[2017-01-18 08:00] VITALS: BP 122/42
[2017-01-18] MEDS: VIT B CMPLX 3/FA/VIT C/BIOTIN 1 TAB TABLET GT SCH (08:34)
[2017-01-18] MEDS: PANTOPRAZOLE 40 MG VIAL IV SCH ×2 (08:34→22:02)
[2017-01-18] MEDS: CHOLESTYRAMINE/ASPARTAME 4 G/PKT PACKET GT SCH ×2 (08:35→17:00)
[2017-01-18] MEDS: PYRIDOXINE HCL 50 MG TABLET GT SCH (08:35)
[2017-01-18] MEDS: Z GUARD REMEDY 2 OZ OINT TP SCH (08:36)
[2017-01-18] MEDS: NEOMY SULF/BACITRAC ZN/POLY 15 GM TUBE TP SCH (08:36)
[2017-01-18] MEDS ORDERED: SECONDARY IV SET 1 EA INFUS.SET MC ONE (09:25)
[2017-01-18] MEDS ORDERED: ALBUMIN 25% 25 GM in PREMIX 1 EA IV PRN (09:30)
[2017-01-18] MEDS ORDERED: TPN BAG #38 IV PRN ×8 (11:30)
[2017-01-18] MEDS ORDERED: IV SET PRIMARY 1 EA INFUS.SET MC ONE (11:35)
[2017-01-18] MEDS ORDERED: FILTER SET SAVER IV SET 1 EA INFUS.SET MC ONE (11:35)
[2017-01-18] MEDS ORDERED: IV SET PRIMARY PUMP SET 1 EA INFUS.SET MC ONE (11:46)
[2017-01-18 12:00] VITALS: BP 101/42
--- NOTE | 2017-01-18 12:24 | NUR ---
RN NOTE PO MEDICATIONS HELD DUE TO NPO DIAGNOSIS.
[2017-01-18] MEDS: HYDROMORPHONE 1 MG/1 ML DISP.SYRIN IV PRN (12:50)
--- NOTE | 2017-01-18 12:55 | NUR ---
RN NOTE PT AWAITING PARACENTESIS DILAUDID GIVEN PT C/O PAIN IN ABD. BP 123/54
--- NOTE | 2017-01-18 13:30 | NUR ---
RN NOTE PARACENTESIS DONE @ BEDSIDE 5L REMOVED. DR. ANGELES DECLINED ORDER FOR CX OF FLUID.PT VS STABLE. WILL CONTINUE TO MONITOR.
[2017-01-18 16:00] VITALS: BP 100/42
--- NOTE | 2017-01-18 19:29 | NUR ---
RN CLOSING NOTE REPORT GIVEN TO [facility] PM NURSE FOR [facility]. PT TELE V-PACING 87 THROUGH OUT SHIFT. VENT SETTING PORTEX # 7 AC 16 TV 550 FIO2 40 % PEEP 5. NO S/S SOB. IV JAZMIN MIDLINE. TPN @ 75ML/HR RUNNING MIDLINE PATENT FLUSHED AND INTACT. HD 4 L OUT. ALL SAFETY MEASURES IN PLACE. ALL ORDERS CARRIED OUT ALL MEDICATION GIVEN . NPO FOR PO MEDICATIONS.
--- NOTE | 2017-01-18 19:30 | NUR ---
BOOTH CASHIER INITIAL NOTES RECEIVED PATIENT AWAKE A/OX3, ABLE TO MAKE NEEDS KNOWN. VENT DEPENDENT, MOUTHS WORDS IN ARMENIAN. WITH VENT SETTINGS SV 16, VT 550, FIO2 40%, PEEP 5. TRACH C/D/I. ON TELE MONITOR SR, WITH BBB, VPACING. NOTED WITH GENERALIZED EDEMA, BUE WEEPING. DENIES PAIN OR DISCOMFORT AT THIS TIME. RESPIRATIONS EVEN AND UNLABORED. WITH JAZMIN MIDLINE PATENT AND INTACT, TPN #36 RUNNING AT 75ML/HR. HOB ELEVATED. SIDE RAILS UP AND LOCKED. BED KEPT AT LOWEST POSITION. CALL LIGHT KEPT WITHIN EASY REACH. WILL CONTINUE TO MONITOR.
[2017-01-18 20:00] VITALS: BP 100/43
--- NOTE | 2017-01-18 20:17 | NUR ---
PT RECEIVED TRACHED ON THE VENT WITH NOTED SETTINGS. PT IS AWAKE AND ALERT. SUCTION SMALL AMOUNT OF YELLOWISH SEMI THICK SECRETIONS, VENT ALARMS WORKING AND AUDIBLE, VENT PLUGGED IN TO RED OUTLET . PAINTER SKI EDGE CUFF PRESSURE NOTED. BILATERAL BS NOTED ,NO SOB OR RESPIRATORY DISTRESS NOTED AT THIS TIME, WILL CONTINUE TO MONITOR THE PATIENT.
[2017-01-18] MEDS: ESCITALOPRAM OXALATE (10 MG) 10 MG TABLET GT SCH (22:00)
[2017-01-18] MEDS: INSULIN DETEMIR 100 UNIT/ML CARTRIDGE SQ SCH (22:46)
[2017-01-19] VITALS: BP 108/43
[2017-01-19] MEDS ORDERED: FILTER SET SAVER IV SET 1 EA INFUS.SET MC ONE ×2 (02:25→16:01)
[2017-01-19] MEDS ORDERED: IV SET PRIMARY PUMP SET 1 EA INFUS.SET MC ONE ×2 (02:26→16:01)
[2017-01-19] MEDS: HYDROMORPHONE 1 MG/1 ML DISP.SYRIN IV PRN (02:38)
[2017-01-19 04:00] VITALS: BP 99/62
[2017-01-19] MEDS: BLOOD SUGAR DIAGNOSTIC 1 EACH STRIP IN SCH ×3 (06:32→17:17)
--- NOTE | 2017-01-19 07:10 | NUR ---
RN INITIAL NOTE RECEIVED REPORT FROM [facility] PM NURSE FOR KARINA. PT TELE V-PACING . VENT SETTING PORTEX # 7 AC 16 TV 550 FIO2 40 % PEEP 5. NO S/S SOB. IV JAZMIN MIDLINE. TPN @ 75ML/HR RUNNING MIDLINE PATENT FLUSHED AND INTACT. AWAITING. ALL SAFETY MEASURES IN PLACE. WILL CONTINUE TO MONITOR.
[2017-01-19 07:22] LABS: CALCIUM, SERUM 8.6 mg/dL (8.5-10.1); CREATININE 3.3 mg/dL (0.6-1.3); MAGNESIUM 2.3 mg/dL (1.8-2.4); PHOSPHORUS 3.5 mg/dL (2.5-4.9); POTASSIUM 4.1 mmol/L (3.5-5.1)
[2017-01-19] MEDS: SUCRALFATE 1 G/10 ML UDC GT SCH ×4 (07:30→21:23)
--- NOTE | 2017-01-19 07:30 | NUR ---
RT PATIENT REC'D TRACHED ON [facility] VENT WITH SETTINGS SET BY MD JOHNATHAN DICKSON. VENT ALARMS CHECKED + AUDIBLE. VENT PLUGGED INTO RED OUTLET. TRACH SECURE + IN PROPER POSITION. COARSE BILAT B/S HEARD. SX'D WITH SMALL AMT PALE SEMI-THICK SECRETIONS. PATIENT APPEARS COMFORTABLE AND IN NO DISTRESS AT THIS TIME. AMBU BAG AT HOB. CONT CURRENT PLAN OF RESP CARE. Addendum: 01/19/17 at 0905 by HUHG SANDERS RT Amended: Links added.
[2017-01-19 07:33] LABS: BASOPHILS % (AUTO) 0.4 % (0.0-2.0); EOSINOPHILS # (AUTO) 0.4 /CMM (0.0-0.7); HEMATOCRIT 23 % (33-45); HEMOGLOBIN 7.8 g/dL (11.5-14.8); LYMPHOCYTES # (AUTO) 0.9 /CMM (0.8-4.8); LYMPHOCYTES % (AUTO) 11.5 % (20.0-44.0); MEAN CORPUSCULAR HEMOGLOBIN 31 PG (26.0-33.0); MEAN CORPUSCULAR HGB CONC 34 g/dl (31.0-36.0); MEAN CORPUSCULAR VOLUME 92 fL (82-100); MONOCYTES # (AUTO) 0.8 /CMM (0.1-1.30); MONOCYTES % (AUTO) 10.8 % (2.0-12.0); NEUTROPHILS # (AUTO) 5.4 /CMM (1.8-8.9); NEUTROPHILS % (AUTO) 72.3 % (43.0-81.0); PLATELET COUNT (AUTO) 65 /CMM (150-450); RDW COEFFICIENT OF VARIATION 18.2 (11.5-15.0); RED BLOOD CELL COUNT(AUTO) 2.48 MIL/uL (4.0-5.2); WHITE BLOOD COUNT (AUTO) 7.5 K/uL (4.3-11.0)
--- NOTE | 2017-01-19 07:39 | NUR ---
CIRCLE SHEAR OPERATOR CLOSING NOTES NO SIGNIFICANT CHANGES OVERNIGHT. TOLERATING CURRENT VENT SETTINGS. WITH TPN #37 AT 75ML/HR. PAIN MANAGED NEEDED. ALL NEEDS ANTICIPATED AND MET. NO RESPIRATORY DISTRESS NOTED. KEPT CLEAN AND DRY. TURNED AND REPOSITIONED Q2 AND PRN. HOB ELEVATED. SIDE RAILS UP AND LOCKED. BED KEPT AT LOWEST POSITION. CALL LIGHT KEPT WITHIN EASY REACH. CONTINUITY OF CARE ENDORSED TO AM NURSE.
[2017-01-19 08:00] VITALS: BP 96/65
[2017-01-19] MEDS: PANTOPRAZOLE 40 MG VIAL IV SCH ×2 (08:42→21:32)
[2017-01-19] MEDS: PYRIDOXINE HCL 50 MG TABLET GT SCH (08:43)
[2017-01-19] MEDS: CHOLESTYRAMINE/ASPARTAME 4 G/PKT PACKET GT SCH ×2 (08:43→17:00)
[2017-01-19] MEDS: VIT B CMPLX 3/FA/VIT C/BIOTIN 1 TAB TABLET GT SCH (08:43)
[2017-01-19] MEDS: Z GUARD REMEDY 2 OZ OINT TP SCH (08:44)
[2017-01-19] MEDS: NEOMY SULF/BACITRAC ZN/POLY 15 GM TUBE TP SCH (08:44)
--- NOTE | 2017-01-19 08:47 | NUR ---
RN NOTE WILL HOLD ALL PO MEDICATIONS PT NPO.
[2017-01-19 09:21] LABS: LYMPHOCYTES % (MANUAL) 11 % (16-48); MONOCYTES % (MANUAL) 5 % (0-11.0); NEUTROPHILS % (MANUAL) 84 (42-76)
[2017-01-19 12:00] VITALS: BP 98/66
[2017-01-19] MEDS ORDERED: TPN BAG #39 IV PRN ×6 (12:00)
[2017-01-19 16:00] VITALS: BP 94/54
--- NOTE | 2017-01-19 19:30 | NUR ---
RN INITIAL NOTES RECEIVED PATIENT SLEEPING COMFORTABLY IN BED, EASILY AROUSABLE WITH VERBAL AND TACTILE STIMULI. PATIENT WITH NO ACUTE SIGNS OF DISTRESS AND DISCOMFORT. SR WITH BBB ON TELE, OCCASIONAL VPACING WITH HR OF 93. ON MECH VENT VIA TRACH, TOLERATING WELL, AIRWAY SUCTIONED AND KEPT CLEAR. ON TPN BAG #38 INFUSING ON PATIENT'S JAZMIN MIDLINE, FLUSHED AND PATENT. R CHESTWALL HD CATH, WITH DRESSING INTACT. PATIENT REPOSITIONED FOR COMFORT. SAFETY AND COMFORT ENSURED. BED IN LOW AND LOCKED POSITION. REPOSITIONED FOR COMFORT. WILL MONITOR.
--- NOTE | 2017-01-19 19:35 | NUR ---
RN CLOSING NOTE REPORT GIVEN TO RAFFI HAGEN NURSE FOR KARINA. PT TELE V-PACING W/ BBB THROUGH OUT SHIFT. VENT SETTING PORTEX # 7 AC 16 TV 550 FIO2 40 % PEEP 5. NO S/S SOB. IV JAZMIN MIDLINE. TPN @ 75ML/HR RUNNING MIDLINE PATENT FLUSHED AND INTACT. ALL SAFETY MEASURES IN PLACE. ALL ORDERS CARRIED OUT ALL MEDICATION GIVEN . NPO FOR PO MEDICATIONS.
[2017-01-19 20:00] VITALS: BP 114/84
--- NOTE | 2017-01-19 20:10 | NUR ---
PT RCVD TRACHED ON THE VENT WITH NOTED SETTINGS, SUCTION MODERATE AMOUNT OF YELLOWISH THICK SECRETIONS, VENT ALARMS WORKING AND AUDIBLE, VENT PLUGGED IN TO RED OUTLET . MANAGER FLORAL CUFF PRESSURE NOTED. BILATERAL BS NOTED ,NO SOB OR RESPIRATORY DISTRESS NOTED AT THIS TIME, WILL CONTINUE TO MONITOR THE PATIENT.
[2017-01-19] MEDS: ESCITALOPRAM OXALATE (10 MG) 10 MG TABLET GT SCH (21:23)
[2017-01-19] MEDS: INSULIN DETEMIR 100 UNIT/ML CARTRIDGE SQ SCH (21:33)
--- NOTE | 2017-01-19 21:33 | NUR ---
RN NOTES PATIENT'S LEVEMIR NON ADMIN. PATIENT'S BS IS 97. PATIENT IS ON TPN ORDERED. WILL MONITOR BS AGAIN AT 0000 AND COVER PER SLIDING SCALE ORDERED. CN MADE AWARE.
[2017-01-20] VITALS (64 sets, daily range): BP systolic 64–116; BP diastolic 30–81
[2017-01-20] MEDS: BLOOD SUGAR DIAGNOSTIC 1 EACH STRIP IN SCH ×4 (00:50→18:36)
--- NOTE | 2017-01-20 03:30 | NUR ---
RN NOTES AM CARE RENDERED FOR THE PATIENT, BED BATH GIVEN. TRACH CARE DONE. AIRWAY SUCTIONED. PATIENT KEPT CLEAN AND DRY. GOOD PERICARE DONE, SKIN BARRIER APPLIED. COLOSTOMY BAG OVER OLD GT SITE REPLACED; DRAINING WITH MALODOROUS, GREENISH-YELLOW SECRETION. PATIENT TURNED AND REPOSITIONED. SAFETY AND COMFORT ENSURED. BED IN LOW AND LOCKED POSITION.
[2017-01-20] MEDS ORDERED: FILTER SET SAVER IV SET 1 EA INFUS.SET MC ONE (05:27)
[2017-01-20] MEDS ORDERED: IV SET PRIMARY PUMP SET 1 EA INFUS.SET MC ONE ×6 (05:27→22:11)
--- NOTE | 2017-01-20 06:34 | NUR ---
RN CLOSING NOTES PATIENT WITH NO ACUTE CHANGE IN CONDITION OBSERVED OVERNIGHT. PATIENT REMAINS STABLE. AIRWAY SUCTIONED, TOLERATED VENT SETTINGS WELL. NO DISTRESS. NEEDS ANTICIPATED AND MET. SAFETY AND COMFORT ENSURED. BED IN LOW AND LOCKED POSITION. TPN BAG #39 INFUSING WELL. WILL ENDORSE ACCORDINGLY FOR CONTINUITY OF CARE.
[2017-01-20 07:08] LABS: CALCIUM, SERUM 8.7 mg/dL (8.5-10.1); CREATININE 3.6 mg/dL (0.6-1.3); MAGNESIUM 2.2 mg/dL (1.8-2.4); PHOSPHORUS 3.7 mg/dL (2.5-4.9); POTASSIUM 4.5 mmol/L (3.5-5.1)
--- NOTE | 2017-01-20 07:21 | NUR ---
RN NOTES CALLED AND LEFT A VOICE MESSAGE TO [facility], INFORMING THEM THAT THE PROCEDURE CONSENT IS READY AND PLACED IN CHART FOR THEM TO SIGN. ENDORSED ACCORDINGLY TO NEXT SHIFT.
[2017-01-20] MEDS: SUCRALFATE 1 G/10 ML UDC GT SCH ×4 (07:30→22:00)
[2017-01-20] MEDS: PANTOPRAZOLE 40 MG VIAL IV SCH ×2 (08:14→22:42)
[2017-01-20] MEDS: VIT B CMPLX 3/FA/VIT C/BIOTIN 1 TAB TABLET GT SCH (08:15)
[2017-01-20] MEDS: PYRIDOXINE HCL 50 MG TABLET GT SCH (08:16)
[2017-01-20] MEDS: CHOLESTYRAMINE/ASPARTAME 4 G/PKT PACKET GT SCH ×2 (08:16→16:33)
[2017-01-20] MEDS: Z GUARD REMEDY 2 OZ OINT TP SCH (08:18)
[2017-01-20] MEDS: NEOMY SULF/BACITRAC ZN/POLY 15 GM TUBE TP SCH (08:18)
[2017-01-20] MEDS ORDERED: AMIODARONE 150 MG in IV D5W 100 ML IV ONE (10:00)
[2017-01-20] MEDS ORDERED: MIDAZOLAM HCL 5 MG/5ML VIAL IV ONE (10:00)
[2017-01-20] MEDS ORDERED: ESMOLOL IVPB PREMIX 250 ML IV PRN (10:30)
[2017-01-20] MEDS ORDERED: AMIODARONE 900 MG in IV D5W 482 ML IV PRN ×4 (10:30)
[2017-01-20] MEDS ORDERED: HEPARIN INFUSION/D5W 500 ML IV PRN (10:30)
--- NOTE | 2017-01-20 10:30 | NUR ---
City Library Director Dr. Hurtado at bedside. Vtach on monitor HR >160s, patient awake, nods. Amiodarone 150mg IV bolus given by bedside RN, 1000 Metoprolol 2.5mg given IV, HR down to 120's converted to Afib. 1004 2nd dose of Metoprolol 2.5mg given IV, HR down to 90's-100's, remain on Afib. 1010 250mg NS IV given for BP 80/46. Transferred to ICU for continuity of care. Talked with Dr Hurtado and clarified running both Amiodarone Drip and Esmolol Drip as BP tolerates. Currently hypotensive and Esmolol on hold. Levophed ordered PRN for blood pressure lower than 90.
--- NOTE | 2017-01-20 10:45 | NUR ---
TELE TO ICU TRANSFER NOTE Patient found to have v-fib on monitor @ 0930. Clinical Nurse Manager Dr. Cobb on site. 12L ECG ordered and confirmed v-fib. pt. denies chest pain. BP 110/ 80 on L calf. radial pulse present, irregular. MD ordered amio bolus 150mg iv- administered. defib pads placed on pt. no shock delivered. crash cart opened. ordered metoprolol 2.5 mg ivp x2, patient converted to afib @ 1000. MD ordered 250ml NS bolus, administered. Amio drip iv bag delivered at time of transfer to ICU for receiving nurse to commence. patient left unit, still no chest pain, transferred with ACLS protocol. report given to Chin in ICU
[2017-01-20] MEDS: NOREPINEPHRINE 16 MG in IV D5W 500 ML IV PRN ×2 (11:28→19:54)
--- NOTE | 2017-01-20 11:48 | NUR ---
NO PEEP PER MD ORDER DUE TO BP LOW. Addendum: 01/20/17 at 1149 by CASIE IBARRA RT Amended: Links added.
[2017-01-20] MEDS ORDERED: HEPARIN SODIUM, PORCINE 5000 UNITS/1 ML VIAL IV ONE ×2 (12:00→12:30)
--- NOTE | 2017-01-20 12:00 | NUR ---
Patient became unresponsive as reported by [facility] nurse. Blood pressure down to 70's and HR tachy. Patient started opening eyes and nods but remain hypotensive. Levophed increase up to 30mcg, head of bed lowered down. PICC line nurse at bedside for emergency line, consent given by Dr. Sawyer.
[2017-01-20] MEDS ORDERED: IV NS 0.9% 1,000 ML ONE (12:25)
[2017-01-20] MEDS ORDERED: SECONDARY IV SET 1 EA INFUS.SET MC ONE (12:39)
[2017-01-20] MEDS ORDERED: ALBUMIN 25% 12.5 GM/50 ML BOTTLE IV ONE (13:00)
[2017-01-20] MEDS ORDERED: TPN BAG #41 IV PRN ×6 (13:30)
[2017-01-20] MEDS ORDERED: TPN BAG #40 IV PRN ×8 (13:30)
[2017-01-20 13:38] LABS: INR 1.66 (0.87-1.13); PROTHROMBIN TIME 18.3 SECS (9.5-12.7)
--- NOTE | 2017-01-20 14:29 | NUR ---
Patient remain tachy @ 160's afib with RVR, hypotensive, max on levophed @ 40mcg. Amio still running, patient on trendelenburg position. Informed Dr. Hurtado of current vitals, ordered digoxin ivp.
[2017-01-20] MEDS ORDERED: DIGOXIN INJ 0.5 MG/2 ML AMPUL IV ONE ×2 (14:30→18:30)
[2017-01-20 14:33] LABS: ABG BASE EXCESS -13.2 mmol/L; ABG OXYGEN SATURATION 93.7 % (92.0-98.5); ABG PCO2 30.7 mmHg (35.0-45.0); ABG PH 7.243 (7.350-7.450); ABG PO2 85.4 mmHg (75.0-100.0); AaDO2 164.5 mmHg; COHb 1.1 % (0.5-1.5); MetHb 0.9 % (0.0-1.5); O2Hb 91.8 % (94.0-97.0); PEEP,BG 0 cm H2O; SITE, ABG Left Radial; VT, ABG 550 mL
--- NOTE | 2017-01-20 14:44 | NUR ---
VENT CHANGES MADE JOHNNA TITUS: VT INCREASED FROM 550 TO 600 ML. Addendum: 01/20/17 at 1445 by CASIE IBARRA RT Amended: Links added.
[2017-01-20] MEDS ORDERED: WARFARIN SODIUM 5 MG TABLET PO SCH (17:00)
[2017-01-20] MEDS ORDERED: BLOOD IV SET 1 EA INFUS.SET MC ONE (18:23)
[2017-01-20] MEDS ORDERED: IV NS 0.9% 250 ML IV ONE (18:24)
--- NOTE | 2017-01-20 18:45 | NUR ---
Paged Dr. Castro using her office lv, no answer/ number not working. Called supervisor sulfuric acid plant to call Dr. Castro and message left to clarify if 1 prbc ordered be given during dialysis. no available line for transfusion, patient on heparin gtt, levophed gtt, amio gtt, tpn. awaits call back. blood transfusion on hold.
[2017-01-20 20:17] LABS: EOSINOPHILS % (AUTO) 0.1 % (0.0-6.0); HEMOGLOBIN 9.1 g/dL (11.5-14.8); LYMPHOCYTES # (AUTO) 0.5 /CMM (0.8-4.8); MEAN CORPUSCULAR VOLUME 89 fL (82-100)
[2017-01-20 20:37] LABS: BASOPHILS % (AUTO) 0.1 % (0.0-2.0); HEMATOCRIT 28 % (33-45); LYMPHOCYTES % (AUTO) 1.9 % (20.0-44.0); MEAN CORPUSCULAR HEMOGLOBIN 29 PG (26.0-33.0); MEAN CORPUSCULAR HGB CONC 33 g/dl (31.0-36.0); MONOCYTES # (AUTO) 1.2 /CMM (0.1-1.30); MONOCYTES % (AUTO) 4.3 % (2.0-12.0); NEUTROPHILS # (AUTO) 25.1 /CMM (1.8-8.9); NEUTROPHILS % (AUTO) 93.6 % (43.0-81.0); PLATELET COUNT (AUTO) 73 /CMM (150-450); RDW COEFFICIENT OF VARIATION 18.2 (11.5-15.0); RED BLOOD CELL COUNT(AUTO) 3.11 MIL/uL (4.0-5.2); WHITE BLOOD COUNT (AUTO) 26.8 K/uL (4.3-11.0)
[2017-01-20 21:09] LABS: BAND % (MANUAL) 12 % (0.0-5.0); LYMPHOCYTES % (MANUAL) 6 % (16-48); MONOCYTES % (MANUAL) 3 % (0-11.0); NEUTROPHILS % (MANUAL) 79 (42-76)
[2017-01-20] MEDS ORDERED: VANCOMYCIN 1 GM VIAL ONE (21:56)
[2017-01-20] MEDS ORDERED: IV D5W 250 ML IV ONE (21:57)
[2017-01-20] MEDS ORDERED: VANCOMYCIN 1 GM in IV D5W 250 ML IV SCH ×2 (22:00→22:30)
[2017-01-20] MEDS: INSULIN DETEMIR 100 UNIT/ML CARTRIDGE SQ SCH (22:00)
[2017-01-20] MEDS ORDERED: ESCITALOPRAM OXALATE (10 MG) 10 MG TABLET GT SCH (22:00)
--- NOTE | 2017-01-20 22:00 | NUR ---
EQUIPMENT ANALYST. INITIAL ASSESSMENT. RECEIVED THE PT REST ON THE BED. TRACH TO VENT CONNECTED. NONVERBAL. PORTEX7,AC 16, TV 600,FIO2 40%SAT 98%. CLIPPER OPERATOR SHOWING AFIB. TEMPERATURE 99.7. IV RT UPPER ARM PICC LINE. IV LEVOPHED 40MG/MIN,TPN 75ML/H,AMIODARONE 0.5MG,HEPARIN DRIP 1800. HOB ELEVATED. NPO. GT CLAMPED. COLOSTOMY INTACT.HOB ELEVATED. TURN AND REPOSITION Q2H, WILL CONTINUE TO MONITOR VITALS.
[2017-01-20] MEDS ORDERED: IV NS 0.9% 2,000 ML ONE (22:11)
[2017-01-20] MEDS ORDERED: IV NS 0.9% 1,000 ML BAG IV ONE ×2 (22:30)
[2017-01-21] VITALS (32 sets, daily range): BP systolic 39–156; BP diastolic 20–116
[2017-01-21] MEDS: BLOOD SUGAR DIAGNOSTIC 1 EACH STRIP IN SCH ×2 (00:09→06:00)
[2017-01-21 00:17] LABS: BILIRUBIN,DIRECT 2.3 mg/dL (0.0-0.2); BILIRUBIN,TOTAL 3.1 mg/dL (0.2-1.0)
[2017-01-21] MEDS ORDERED: IV SET PRIMARY PUMP SET 1 EA INFUS.SET MC ONE ×2 (02:31→06:46)
[2017-01-21] MEDS: PHENYLEPHRINE 80 MG in IV D5W 250 ML IV PRN ×2 (02:38→06:28)
[2017-01-21] MEDS ORDERED: IV D5W 500 ML IV ONE ×2 (02:46→06:46)
[2017-01-21] MEDS ORDERED: NOREPINEPHRINE 4 MG/4 ML AMPUL IV ONE (02:46)
[2017-01-21] MEDS: NOREPINEPHRINE 16 MG in IV D5W 500 ML IV PRN (02:58)
--- NOTE | 2017-01-21 02:58 | NUR ---
PAYMENT MANAGER. PT PTT >[address] SAEZ. NEW ORDER RECEIVED. STOP HEPARIN DRIP.
--- NOTE | 2017-01-21 02:59 | NUR ---
CBC LACTIC ACID DONE. WBC 26.8, L ACID 8.4. PAGED DR ZEPEDA NEW ORDER RECEIVED. 1L NS BOLUS GIVEN. 1LNS 100ML/H. 1BAG ONLY. STILL RUNNING. BLOOD PRESSURE 85.40. GEORGE STARTED.
--- NOTE | 2017-01-21 03:02 | NUR ---
INSTRUMENTATION DESIGNER.VANCOMYCIN 1G IV ONCE GIVEN NEXT DOSE PER PHARMACY. SPOKE WITH FROILAN
[2017-01-21 03:07] LABS: ABG BASE EXCESS -22.7 mmol/L; ABG OXYGEN SATURATION 93.7 % (92.0-98.5); ABG PCO2 21.7 mmHg (35.0-45.0); ABG PH 7.056 (7.350-7.450); AaDO2 167.2 mmHg; COHb 0.7 % (0.5-1.5); MetHb 0.9 % (0.0-1.5); O2Hb 92.2 % (94.0-97.0); SITE, ABG Left Radial; VENT MODE, BG AC 16 600 40%; VT, ABG 600 mL
[2017-01-21] MEDS ORDERED: IV NS 0.9% 500 ML IV ONE ×3 (03:27→06:30)
[2017-01-21] MEDS ORDERED: SODIUM BICARBONATE SYR 50 MEQ/50 ML DISP.SYRIN ONE ×3 (03:28→09:05)
[2017-01-21] MEDS ORDERED: SODIUM BICARBONATE SYR 50 MEQ/50 ML DISP.SYRIN IV ONE (03:30)
--- NOTE | 2017-01-21 03:48 | NUR ---
ABG DONE. CALLED DR ZEPEDA. NEW ORDER RECEIVED,. IVF NS 500ML BOPLUS STARTED. BICARB 1AMP IVP GIVEN. BLOOD CULTURE DONE.
[2017-01-21 05:22] LABS: EOSINOPHILS % (AUTO) 0.1 % (0.0-6.0); HEMATOCRIT 30 % (33-45); HEMOGLOBIN 9.4 g/dL (11.5-14.8); LYMPHOCYTES # (AUTO) 1.1 /CMM (0.8-4.8); LYMPHOCYTES % (AUTO) 2.5 % (20.0-44.0); MEAN CORPUSCULAR HEMOGLOBIN 29 PG (26.0-33.0); MEAN CORPUSCULAR HGB CONC 31 g/dl (31.0-36.0); MEAN CORPUSCULAR VOLUME 92 fL (82-100); MONOCYTES # (AUTO) 1.8 /CMM (0.1-1.30); MONOCYTES % (AUTO) 4.2 % (2.0-12.0); NEUTROPHILS # (AUTO) 40.4 /CMM (1.8-8.9); NEUTROPHILS % (AUTO) 93.2 % (43.0-81.0); PLATELET COUNT (AUTO) 83 /CMM (150-450); RDW COEFFICIENT OF VARIATION 19.8 (11.5-15.0); RED BLOOD CELL COUNT(AUTO) 3.27 MIL/uL (4.0-5.2)
[2017-01-21 05:37] LABS: WHITE BLOOD COUNT (AUTO) 43.3 K/uL (4.3-11.0)
[2017-01-21 05:44] LABS: ALBUMIN 1.9 g/dL (3.4-5.0); BILIRUBIN,TOTAL 3.4 mg/dL (0.2-1.0); CALCIUM, SERUM 8.1 mg/dL (8.5-10.1); CREATININE 3.3 mg/dL (0.6-1.3); MAGNESIUM 2.5 mg/dL (1.8-2.4); PHOSPHORUS 5.5 mg/dL (2.5-4.9); POTASSIUM 5.5 mmol/L (3.5-5.1); TOTAL PROTEIN, SERUM 7.3 g/dL (6.4-8.2)
--- NOTE | 2017-01-21 06:04 | NUR ---
BUSINESS PLANNING DIRECTOR AM CARE. ORAL CARE, BED BATH GIVEN. LINEN CHANGED. REMAINING SAME VENT SETTINGS. SAT 95&. WHITEPRINTING MACHINE OPERATOR SHOWING AFIB. IV RT UPPER ARM PICC LINE. IVF NS 100ML/H, LEVOPHED 40MCG/MIN, GEORGE 300MCG/MIN, AMIODARONE 0.5MG,TPN 75ML/H. TEMPERATURE 99. HOB ELEVATED. NPO. TURN AND REPOSITION Q2H. WILL CONTINUE TO MONITOR VITALS.
[2017-01-21] MEDS ORDERED: IV D5W 250 ML IV ONE (06:16)
[2017-01-21] MEDS ORDERED: PHENYLEPHRINE 10 MG/ML VIAL ONE (06:16)
[2017-01-21] MEDS: DEXTROSE 50%-WATER 50 ML DISP.SYRIN IV PRN (06:21)
[2017-01-21] MEDS ORDERED: MEROPENEM 500 MG in IV NS 0.9% 50 ML IV SCH (06:30)
[2017-01-21] MEDS ORDERED: VASOPRESSIN INJ 20 UNIT/ML VIAL ONE ×2 (06:46→09:00)
[2017-01-21] MEDS ORDERED: VASOPRESSIN INJ 50 UNIT in IV D5W 497.5 ML IV PRN (07:00)
[2017-01-21 07:47] LABS: BAND % (MANUAL) 20 % (0.0-5.0); LYMPHOCYTES % (MANUAL) 8 % (16-48); MONOCYTES % (MANUAL) 6 % (0-11.0); NEUTROPHILS % (MANUAL) 66 (42-76)
--- NOTE | 2017-01-21 07:50 | NUR ---
COMMISSION CLERK. LAB CALLED FOR BLOOD GLUCOSE 42. D50% IV GIVEN. 30MIN LATER BLOOD SUGAR CHECKED , RESULT WAS 120.
--- NOTE | 2017-01-21 07:52 | NUR ---
OIL HEATER OPERATOR. PT IS VERY UNSTABLE. DR ZEPEDA AWARE. ENDORSE TO DAY SHIFT.
[2017-01-21] MEDS ORDERED: EPINEPHRINE (1:10,000) SYRINGE 1 MG/10 ML DISP.SYRIN ONE (08:00)
[2017-01-21] MEDS ORDERED: DEXTROSE 50%-WATER 50 ML DISP.SYRIN ONE (08:00)
--- NOTE | 2017-01-21 10:09 | NUR ---
PATIENT CODED AT 0850 FROM SR TO [facility], DR. SAEZ AT BEDSIDE, PATIENT PRONOUNCED AT 0914 AND FAMILY UPDATED PER MD.
--- NOTE | 2017-01-21 11:17 | NUR ---
CALLED FINANCIAL QUANTITATIVE ANALYST OFFICE TO REPORT . SPOKE WITH MARIAN- CASE REJECTED.
--- NOTE | 2017-01-21 11:18 | NUR ---
CALLED NEXT OF KIN (DAUGHTER) DERRELL RICARDO THE SECOND TIME WITH NO RESPONSE, BODY MOVED TO [facility].
== END 2017-01-21 18:48 | disposition expired | DRG 870 ==
LOC: ER 15:18 → TELE-TD 17:12 → TELE1 11-28 10:52 → TELE-TD 11-28 12:03 → TELE1 11-30 10:10 → ICU 01-20 10:20
PROVIDERS: ADMIT Internal Medicine Nephrology; ATTEND Internal Medicine Nephrology
PROC: 5A1955Z Respiratory Ventilation, Greater than 96 Consecutive Hours (ICD-10-PCS; principal; 2016-11-27)
PROC: 30233K1 Transfusion of Nonautologous Frozen Plasma into Peripheral Vein, Percutaneous Approach (ICD-10-PCS; 2016-11-27)
PROC: 30233N1 Transfusion of Nonautologous Red Blood Cells into Peripheral Vein, Percutaneous Approach (ICD-10-PCS; 2016-11-28)
PROC: 30233N1 Transfusion of Nonautologous Red Blood Cells into Peripheral Vein, Percutaneous Approach (ICD-10-PCS; 2016-11-28)
PROC: 5A1D60Z (ICD-10-PCS; 2016-11-28)
PROC: 0DH63UZ Insertion of Feeding Device into Stomach, Percutaneous Approach (ICD-10-PCS; 2016-11-30)
PROC: 05H533Z Insertion of Infusion Device into Right Subclavian Vein, Percutaneous Approach (ICD-10-PCS; 2016-12-02)
PROC: 0W9G3ZZ Drainage of Peritoneal Cavity, Percutaneous Approach (ICD-10-PCS; 2016-12-13)
PROC: 0W9G3ZZ Drainage of Peritoneal Cavity, Percutaneous Approach (ICD-10-PCS; 2016-12-26)
PROC: 0W9G3ZZ Drainage of Peritoneal Cavity, Percutaneous Approach (ICD-10-PCS; 2017-01-18)
PROC: 02HV33Z Insertion of Infusion Device into Superior Vena Cava, Percutaneous Approach (ICD-10-PCS; 2017-01-20)
PROC: B548ZZA Ultrasonography of Superior Vena Cava, Guidance (ICD-10-PCS; 2017-01-20)
PROC: 5A12012 Performance of Cardiac Output, Single, Manual (ICD-10-PCS; 2017-01-21)
DX: A41.9 Sepsis, unspecified organism (principal); N18.6 End stage renal disease; G93.40 Encephalopathy, unspecified; J18.9 Pneumonia, unspecified organism; R65.21 Severe sepsis with septic shock; K25.4 Chronic or unspecified gastric ulcer with hemorrhage; J96.11 Chronic respiratory failure with hypoxia; Z99.11 Dependence on respirator [ventilator] status; R18.8 Other ascites; E87.1 Hypo-osmolality and hyponatremia; I13.2 Hypertensive heart and chronic kidney disease with heart failure and with stage 5 chronic kidney disease, or end stage renal disease; K94.23 Gastrostomy malfunction; K31.6 Fistula of stomach and duodenum; D68.9 Coagulation defect, unspecified; K63.2 Fistula of intestine; Z68.42 Body mass index [BMI] 45.0-49.9, adult; I42.9 Cardiomyopathy, unspecified; L02.211 Cutaneous abscess of abdominal wall; K94.22 Gastrostomy infection; E87.2 Acidosis; E11.22 Type 2 diabetes mellitus with diabetic chronic kidney disease; Z93.0 Tracheostomy status; Z95.1 Presence of aortocoronary bypass graft; Z99.2 Dependence on renal dialysis; E03.9 Hypothyroidism, unspecified; I48.91 Unspecified atrial fibrillation; K21.9 Gastro-esophageal reflux disease without esophagitis; R13.10 Dysphagia, unspecified; Z95.2 Presence of prosthetic heart valve; Z79.899 Other long term (current) drug therapy; D50.0 Iron deficiency anemia secondary to blood loss (chronic); E66.01 Morbid (severe) obesity due to excess calories; F03.90 Unspecified dementia, unspecified severity, without behavioral disturbance, psychotic disturbance, mood disturbance, and anxiety; I48.0 Paroxysmal atrial fibrillation; Z86.73 Personal history of transient ischemic attack (TIA), and cerebral infarction without residual deficits; Z87.11 Personal history of peptic ulcer disease; Z79.01 Long term (current) use of anticoagulants; I50.9 Heart failure, unspecified; Z95.810 Presence of automatic (implantable) cardiac defibrillator; Y73.8 Miscellaneous gastroenterology and urology devices associated with adverse incidents, not elsewhere classified; Y92.129 Unspecified place in nursing home as the place of occurrence of the external cause; K74.60 Unspecified cirrhosis of liver; S30.1XXA Contusion of abdominal wall, initial encounter; K94.21 Gastrostomy hemorrhage; J40 Bronchitis, not specified as acute or chronic; Y83.3 Surgical operation with formation of external stoma as the cause of abnormal reaction of the patient, or of later complication, without mention of misadventure at the time of the procedure; Z86.19 Personal history of other infectious and parasitic diseases; E87.70 Fluid overload, unspecified; Z79.82 Long term (current) use of aspirin
CPT/HCPCS: 31720; 36415; 36569; 36600; 71010-TC; 74000-TC; 74150-TC; 76942-TC; 80048-TC; 80053-TC; 80061-TC; 80076-TC; 80170-TC; 80202-TC; 82040-TC; 82247-TC; 82248-TC; 82803-TC; 82947-TC; 82962-TC; 83605-TC; 83690-TC; 83735-TC; 84100-TC; 84134-TC; 84439-TC; 84443-TC; 84484-TC; 85025-TC; 85027-TC; 85610-TC; 85730-TC; 86850-TC; 86921-TC; 87040-TC; 87070-TC; 87081-TC; 87086-TC; 87186-TC; 88305-TC; 88312-TC; 89051-TC; 90935-TC; 94003-TC; 94760-TC; 94761-TC; 94762-TC; 94799-TC; 99082-TC; A4216; A4606; A4623; A6253; A6402; A6403; A7526; A9563; C1751; C9113; J0171; J0282; J0885; J1160; J1170; J1580; J1644; J1815; J2185; J2250; J2370; J2405; J2543; J3370; J3430; J3475; J3480; J3490; J7030; J7040; J7042; J7050; J7060; P9016-BL; P9017-BL; P9047; Q9963; Z7610